=== PATIENT | female | born 1935 | race Two or more races ===

== ENCOUNTER 2016-11-28 14:13 | Emergency (ER) | payer OTHER ==
[2016-11-28 14:22] VITALS: BP 177/61; PULSE 106; TEMP 98.4; BMI 21.2
--- NOTE | 2016-11-28 14:28 | PDOC ---
Rapid Medical Evaluation Chief Complaint: Pain Time Seen by Provider: 11/28/16 14:18 Medical Evaluation: Allergies Allergy/AdvReac Type Severity Reaction Status Date / Time Penicillins Allergy Verified 11/28/16 14:22 Vital Signs Temp Pulse Resp BP Pulse Ox 98.4 F 106 H 18 177/61 100 11/28/16 14:17 11/28/16 14:17 11/28/16 14:17 11/28/16 14:17 11/28/16 14:11/28/16 14:26 I have performed a brief in-person evaluation of this patient. The patient presents with a chief complaint of: nausea, vomiting and diarrhea x 1 month with negative workup at outside hospital several weeks ago. Also c/o chronic vertigo and back pain Pertinent physical exam findings:Tachy to 106 with BP of 177/61 at triage, stable otherwise and well appearing w/ clear chest/lungs and benign abdomen I have ordered the following:chem/lipase/cbc and ua The patient will proceed to the ED for further evaluation.
[2016-11-28] MEDS ORDERED: ONDANSETRON 4 MG TABLET PO ONE (15:35)
[2016-11-28] MEDS ORDERED: SODIUM CHLORIDE 500 ML IV STA (15:35)
[2016-11-28] MEDS ORDERED: FAMOTIDINE 20 MG/50 ML IVPB 50 ML IVPB ONE ×2 (15:35→17:01)
[2016-11-28] MEDS ORDERED: MAG HYDROX/AL HYDROX/SIMETH 30 ML UNIT-DOSE CUP PO ONE (15:35)
--- NOTE | 2016-11-28 16:25 | PDOC ---
History of Present Illness - General Chief Complaint: Pain Stated Complaint: ABD PAIN Time Seen by Provider: 11/28/16 14:18 History Source: Patient, Family - History of Present Illness Initial Comments: 11/28/16 16:17 This is a 81 yo F with PMH of chronic diarrhea, possibly due to Irritable bowel syndrome, IDDM (poorly controlled, Gluc often 500), HTN (poorly controlled), HLD and CKD, who presents due to n/v, diarrhea and po intolerance x 1 mo. She also has epigastric and L sided, crampy abd pain that has been constant x 2 w and getting more severe, as well as abd distention and lightheadedness. She was at [facility] 1 w ago where she spent 2 d in ER and was dcd w/o medication. Per [facility] records. she was admitted for evelio/ckd creat 1.8, had a normal renal US and had symptomatic improvement. She states that since discharge her symptoms worsened. She has nbnb vomiting every time she attempts to eat or drink, as well as dark brown nonbloody diarrhea. She reports occasional subjective fever. Denies h/a, sob, cough, chest pain, sick contacts. Never had colonoscopy. Penicillin allergy PCP Dr Jin. 11/28/16 16:28 11/28/16 16:32 11/28/16 16:32 11/28/16 16:33 11/28/16 16:41 Past History - Past Medical History Allergies/Adverse Reactions: Allergies Allergy/AdvReac Type Severity Reaction Status Date / Time Penicillins Allergy Verified 11/28/16 14:22 Home Medications: Ambulatory Orders NK [No Known Home Medication] 11/28/16 Diabetes: Yes (iddm) HTN: Yes Hypercholesterolemia: Yes - Psycho/Social/Smoking Cessation Hx Anxiety: No Suicidal Ideation: No Smoking History: Never smoked Have you smoked in the past 12 months: No Information on smoking cessation initiated: No Hx Alcohol Use: No Drug/Substance Use Hx: No Substance Use Type: None Review of Systems - Review of Systems Able to Perform ROS?: Yes Is the patient limited Kazakh proficient: Yes Constitutional: Yes: Fever, Weakness. No: Chills HEENTM: No: Nose Congestion, Throat Pain, Difficulty Swallowing Respiratory: No: Cough, Orthopnea, Shortness of Breath, Hemoptysis Cardiac (ROS): Yes: Lightheadedness. No: Chest Pain, Irregular Heart Rate, Palpitations ABD/GI: Yes: Abdominal Distended, Diarrhea, Nausea, Poor Appetite, Poor Fluid Intake, Vomiting, Abdominal cramping. No: Blood Streaked Bowels, Constipated, Difficulty Swallowing, Rectal Bleeding, Tarry Stools : No: Dysuria, Flank Pain, Hematuria Musculoskeletal: Yes: Back Pain. No: Joint Pain, Neck Pain Integumentary: No: Pruritus, Rash, Sweating Neurological: No: Headache, Numbness, Paresthesia Psychiatric: No: Anxiety, Depression Endocrine: No: Change in Weight Hematologic/Lymphatic: No: Anemia, Blood Clots, Easy Bleeding, Easy Bruising All Other Systems: Reviewed and Negative *Physical Exam - Vital Signs Last Vital Signs Temp Pulse Resp BP Pulse Ox 98.4 F 106 H 18 177/61 100 11/28/16 14:17 11/28/16 14:17 11/28/16 14:17 11/28/16 14:17 11/28/16 14:17 - Physical Exam Comments: 11/28/16 16:35 General: aao x3, nad HEENT: perrla eomi, sclera anicteric cv: rrr s1s2, grade 3 systolic ej murmur best heard at l lower sternal border pulm: cta b/l GI: soft, mildly tender LLQ > epigastric, mildly distended, bruit L of umbilicus , no cva tenderness, no mass Extremities: nonedematous ED Treatment Course - LABORATORY CBC & Chemistry Diagram: 11/28/16 16:55 11/28/16 16:55 - RADIOLOGY Radiology Studies Ordered: Category Date Time Status ABDOMEN & PELVIS CT W/O CONTR [CT] Stat CT Scan 11/28/16 15:44 Ordered Medical Decision Making - Medical Decision Making 11/28/16 16:40 Patient presents with abd pain, n/v, diarrhea and L sided abd bruit. also uncontrolled HTN, evelio/ckd and dm US renal artery, vein. CT abd/pelvis with po contrast cbc w diff, cmp, lipase, ekg, UA maalox, zofran, pepcid, NS 500 IV 11/28/16 16:41 bedside US done, normal L kidney, spleen, no blood. 11/28/16 16:43 11/28/16 16:45 11/28/16 18:08 leukocytosis 11.7, creat 11/28/16 18:09 BUN/Creat 24/1.5; Na 135 UA unremarkable 11/28/16 18:16 11/28/16 18:54 furhter labs and imaging p/d *DC/Admit/Observation/Transfer Diagnosis at time of Disposition: Abdominal pain, Nausea and vomiting, Diarrhea
[2016-11-28] MEDS ORDERED: MAG HYDROX/AL HYDROX/SIMETH 30 ML UNIT-DOSE CUP ONE (17:01)
[2016-11-28] MEDS ORDERED: ONDANSETRON *ODT* 4 MG TABLET ONE (17:02)
[2016-11-28 17:08] LABS: BASOPHIL 0.4 % (0-2.0); EOSINOPHIL 0.9 % (0-4.5); MCH 29.9 pg (25.7-33.7); MCHC 32.8 g/dl (32.0-36.0); MEAN CELL VOLUME 91.3 fl (80-96); MEAN PLT VOLUME 9.4 fl (7.5-11.1); NEUTROPHILS 73.7 % (42.8-82.8); PLATELET COUNT 256 K/MM3 (134-434); RDW 13.1 % (11.6-15.6); WHITE BLOOD COUNT 11.7 K/mm3 (4.0-10.0)
[2016-11-28 17:20] LABS: URINE APPEARANCE CLEAR; URINE BILIRUBIN NEGATIVE (NEGATIVE); URINE BLOOD NEGATIVE (NEGATIVE); URINE COLOR YELLOW; URINE GLUCOSE (UA) 1+ (NEGATIVE); URINE KETONE NEGATIVE (NEGATIVE); URINE NITRITE NEGATIVE (NEGATIVE); URINE PROTEIN NEGATIVE (NEGATIVE); URINE UROBILINOGEN NEGATIVE E.U./dl (0.2-1.0)
[2016-11-28 17:41] LABS: ALBUMIN 3.1 g/dl (3.4-5.0); ANION GAP 9 (8-16); CALCIUM 8.9 mg/dL (8.5-10.1); CO2 30 mmol/L (21-32); CREATININE 1.5 mg/dL (0.55-1.02); GLUCOSE,RANDOM 232 mg/dL (74-106); SGOT/AST 31 U/L (15-37)
[2016-11-28 17:46] LABS: ALK PHOS 100 U/L (45-117); BILIRUBIN,TOTAL 0.3 mg/dL (0.2-1.0); SGPT/ALT 32 U/L (12-78); TOT PROT 6.8 g/dl (6.4-8.2)
[2016-11-28 18:04] LABS: URINE LEUK ESTERASE TRACE (NEGATIVE)
[2016-11-28 18:07] LABS: URINE HYALINE CAST 8 /lpf; URINE MUCUS RARE; URINE WBC 1 /hpf (3-5)
--- NOTE | 2016-11-28 22:06 | PDOC ---
Attending Attestation - Resident Resident Name: Earnestine Mccracken - HPI HPI: 11/28/16 22:06 81 yo female w c/o NVD - Physicial Exam PE: 11/28/16 22:07 petite ,alert and ambulatory 81 yo female lungs- cta b/l cvr- [id number] abd -soft,no rebound,no guarding extermities-no deformities skin no abscess,no rash neuro axox3,no gross focal deficits - Medical Decision Making 11/28/16 22:08 pt ate dinner here,no further vomiting -used transistor [id number] to discussed ct scan results showed mild hydronephrosis ,no obstructive uropathy -no UTI -pt has been diabetic for 20 years and glucose 235 and creatinine slightly elevated at 1.5 -pt wants a new PCP and she wqas referred to Dr Santana
--- NOTE | 2016-11-28 22:15 | PDOC ---
*Physical Exam - Vital Signs Last Vital Signs Temp Pulse Resp BP Pulse Ox 98.4 F 106 H 18 177/61 100 11/28/16 14:17 11/28/16 14:17 11/28/16 14:17 11/28/16 14:17 11/28/16 14:17 ED Treatment Course - LABORATORY CBC & Chemistry Diagram: 11/28/16 16:55 11/28/16 16:55 - ADDITIONAL ORDERS Additional order review: Laboratory Results 11/28/16 11/28/16 11/28/16 17:10 16:55 16:55 Sodium 135 L Potassium 4.8 Chloride 96 L Carbon Dioxide 30 Anion Gap 9 BUN 24 H Creatinine 1.5 H Creat Clearance w eGFR 33.50 Random Glucose 232 H Calcium 8.9 Total Bilirubin 0.3 AST 31 ALT 32 Alkaline Phosphatase 100 Total Protein 6.8 Albumin 3.1 L Lipase 146 Urine Color Yellow Urine Appearance Clear Urine pH 6.0 Ur Specific [place] 1.010 Urine Protein Negative Urine Glucose (UA) 1+ H Urine Ketones Negative Urine Blood Negative Urine Nitrite Negative Urine Bilirubin Negative Urine Urobilinogen Negative Ur Leukocyte Esterase Trace H Urine RBC None Urine WBC 1 Ur Epithelial Cells Rare Hyaline Casts 8 Urine Mucus Rare 11/28/16 16:55 RBC 3.42 L MCV 91.3 MCHC 32.8 RDW 13.1 MPV 9.4 Neutrophils % 73.7 Lymphocytes % 18.0 Monocytes % 7.0 Eosinophils % 0.9 Basophils % 0.4 - Medications Given in the ED: ED Medications Discontinued Medications Generic Name Dose Route Start Last Admin Trade Name Freq PRN Reason Stop Dose Admin Al Hydroxide/Mg Hydroxide 30 ml 11/28/16 15:35 11/28/16 17:02 Mylanta Oral Suspension - PO 11/28/16 15:36 30 ml ONCE ONE Administration Famotidine/Sodium Chloride 50 mls @ 100 mls/hr 11/28/16 15:35 11/28/16 17:03 Pepcid 20 Mg Premixed Ivpb - IVPB 11/28/16 16:04 100 mls/hr ONCE ONE Administration Sodium Chloride 500 mls @ 500 mls/hr 11/28/16 15:35 11/28/16 17:03 Normal Saline - IV 11/28/16 16:34 500 mls/hr ASDIR STA Administration Ondansetron HCl 4 mg 11/28/16 15:35 11/28/16 17:03 Zofran - PO 11/28/16 15:36 4 mg ONCE ONE Administration *DC/Admit/Observation/Transfer Diagnosis at time of Disposition: Abdominal pain Qualifiers: Abdominal location: generalized Qualified Code(s): R10.84 - Generalized abdominal pain Nausea & vomiting Qualifiers: Vomiting type: unspecified Vomiting Intractability: non-intractable Qualified Code(s): R11.2 - Nausea with vomiting, unspecified Diarrhea Qualifiers: Diarrhea type: unspecified type Qualified Code(s): R19.7 - Diarrhea, unspecified - Discharge Dispostion Disposition: HOME Condition at time of disposition: Stable - Referrals Referrals: Ruby Harrison MD [Primary Care Provider] - Yesica Santana MD [Staff Physician] - - Patient Instructions Printed Discharge Instructions: DI for Vomiting -- Adult, DI for Diarrhea and Traveler's Diarrhea -- Adult Additional Instructions: please tow picker your medications at [facility] followup with your doctor return for worsening symptoms - Post Discharge Activity
--- NOTE | 2016-11-29 14:40 | EKG ---
Test Reason : Blood Pressure : / mmHG Vent. Rate : 088 BPM Atrial Rate : 088 BPM P-R Int : 138 ms QRS Dur : 086 ms QT Int : 408 ms P-R-T Axes : 058 014 030 degrees QTc Int : 493 ms NORMAL SINUS RHYTHM POSSIBLE LEFT ATRIAL ENLARGEMENT PROLONGED QT ABNORMAL ECG WHEN COMPARED WITH ECG OF 28-JAN-2009 18:48, NO SIGNIFICANT CHANGE WAS FOUND Confirmed by SHANNEN VALERA MD ([id number]) on 11/29/2016 2:40:20 PM Referred By: Confirmed By:SHANNEN VALERA MD
== END 2016-11-28 22:27 | disposition home or self-care (01) ==
LOC: JER 14:13
PROC: 3E033GC Introduction of Other Therapeutic Substance into Peripheral Vein, Percutaneous Approach (ICD-10-PCS; principal; 2016-11-28)
DX: R10.13 Epigastric pain (principal); R11.2 Nausea with vomiting, unspecified; R19.7 Diarrhea, unspecified; E78.00 Pure hypercholesterolemia, unspecified; I12.9 Hypertensive chronic kidney disease with stage 1 through stage 4 chronic kidney disease, or unspecified chronic kidney disease; E11.22 Type 2 diabetes mellitus with diabetic chronic kidney disease; E11.65 Type 2 diabetes mellitus with hyperglycemia; N18.9 Chronic kidney disease, unspecified; Z79.4 Long term (current) use of insulin
CPT/HCPCS: 36415; 74176-TC; 80053; 81003; 81015; 83690; 85025; 93005; 93010; 93976; 96365; 99282-25; Q9967

== ENCOUNTER 2017-03-27 18:28 | Emergency (ER) | payer OTHER ==
[2017-03-27 18:46] VITALS: TEMP 98.1; BMI 23.4
--- NOTE | 2017-03-27 19:34 | PDOC ---
History of Present Illness - General Chief Complaint: Blood Pressure Problem Stated Complaint: BLOOD PRESSURE PROBLEM Time Seen by Provider: 03/27/17 19:31 History Source: Patient, Family Exam Limitations: Language Barrier - History of Present Illness Initial Comments: 03/27/17 20:20 81F with pmh of HTN, DM2, dementia, Pure Hypercholesterolemia and arthritis, presents to the ED after she went for physical therapy today and was found to have a systolic BP of 204 (usually in the 150's). She was recently switched from 10mg lisinopril to Valsartan 160mg but didn't take her dose yesterday cause she couldn't fill her prescription. She denies new onset headache, dizziness, back pain, vision changes, shortness of breath, chest pain. During examination I found her to have a bloop pressure of 228/92 on the Left arm and 220/88 on the Right arm 03/27/17 21:26 Past History - Past Medical History Allergies/Adverse Reactions: Allergies Allergy/AdvReac Type Severity Reaction Status Date / Time Penicillins Allergy Verified 03/27/17 18:35 Home Medications: Ambulatory Orders Valsartan 160 mg PO DAILY 03/27/17 Diabetes: Yes (iddm) HTN: Yes Hypercholesterolemia: Yes - Suicide/Smoking/Psychosocial Hx Smoking History: Never smoked Have you smoked in the past 12 months: No Hx Alcohol Use: No Drug/Substance Use Hx: No Substance Use Type: None Review of Systems - Review of Systems Able to Perform ROS?: Yes Is the patient limited Wolof proficient: Yes Constitutional: No: Symptoms Reported HEENTM: No: Eye Pain, Blurred Vision, Recent change in vision Respiratory: No: Cough, Shortness of Breath, SOB with Exertion Cardiac (ROS): No: Chest Pain, Irregular Heart Rate, Syncope, Chest Tightness ABD/GI: No: Symptoms Reported : No: Symptoms Reported Musculoskeletal: No: Symptoms Reported *Physical Exam - Vital Signs Last Vital Signs Temp Pulse Resp BP Pulse Ox 98.1 F 97 H 18 204/83 100 03/27/17 18:32 03/27/17 18:32 03/27/17 18:32 03/27/17 18:32 03/27/17 18:32 - Physical Exam General Appearance: Yes: Nourished, Appropriately Dressed. No: Apparent Distress HEENT: positive: EOMI, JOSE MANUEL, Normal ENT Inspection Neck: positive: Normal Thyroid. negative: Tender Respiratory/Chest: positive: Lungs Clear, Normal Breath Sounds. negative: Chest Tender, Respiratory Distress Cardiovascular: positive: Regular Rhythm, Regular Rate, S1, S2 Vascular Pulses: Dorsalis-Pedis (R): 3+, Doralis-Pedis (L): 3+ Gastrointestinal/Abdominal: positive: Normal Bowel Sounds, Soft. negative: Tender Musculoskeletal: positive: Normal Inspection Extremity: positive: Normal Capillary Refill Neurologic: positive: Fully Oriented, Motor Strength 5/5. negative: Sensory Deficit, Confused, Disoriented ED Treatment Course - LABORATORY CBC & Chemistry Diagram: 03/27/17 20:46 03/27/17 20:40 Medical Decision Making - Medical Decision Making 03/27/17 21:26 81F with pmh of HTn and DM2 presents to the ED for severe asymptomatic hypertension. Current BP L:228/92 R226/88. 03/27/17 21:36 EKG unchaged from last: Sinus rhythm. Possible left atrial enlargement labs ordered. Labetalol IV and valsartan ordered with goal to bring BP down 10-20% within the first hour.
--- NOTE | 2017-03-27 19:34 | PDOC ---
Attending Attestation - HPI HPI: 03/27/17 20:36 81 yo F from physical therapy rehab here for evaluation of high blood pressure. Pt missed her pills yesterday because her pharmacy was closed. She normally takes Valsartan. She was able to medicinal plant picker her pills today and took her dose. At home she was 180 systolic and at rehab she was 204 systolic. Those numbers made her nervous and rehab recommended she be brought in by ambulance but pt refused to go by ambulance. Pt denies any physical symptoms. - Physicial Exam PE: 03/27/17 20:41 GENERAL: Awake, alert, and fully oriented, in no acute distress HEAD: No signs of trauma EYES: PERRLA, EOMI, sclera anicteric, conjunctiva clear ENT: Auricles normal inspection, hearing grossly normal, nares patent, oropharynx clear without exudates. Moist mucosa NECK: Normal ROM, supple, no lymphadenopathy, JVD, or masses LUNGS: Breath sounds equal, clear to auscultation bilaterally. No wheezes, and no crackles HEART: Regular rate and rhythm, normal S1 and S2, no murmurs, rubs or gallops ABDOMEN: Soft, nontender, normoactive bowel sounds. No guarding, no rebound. No masses EXTREMITIES: Normal range of motion, no edema. No clubbing or cyanosis. No cords, erythema, or tenderness NEUROLOGICAL: Cranial nerves II through XII grossly intact. Normal speech SKIN: Warm, Dry, normal turgor, no rashes or lesions noted. <JeanmarieTracey - Last Filed: 03/27/17 20:34> - Resident Resident Name: Julian Mcnair - ED Attending Attestation I have performed the following: I have examined & evaluated the patient, The case was reviewed & discussed with the resident, I agree w/resident's findings & plan, Exceptions are as noted - Medical Decision Making 03/27/17 20:41 I, Dr. Dory Trivedi, DO, attest that this document has been prepared under my direction and personally reviewed by me in its entirety. I further attest, that it accurately reflects all work, treatment, procedures and medical decision -making performed by me. 03/27/17 21:14 a/p: 81yo female with uncontrolled HTN -labs -ekg -labetalol and redose losartan. most likely from missing bp meds most likely d/c to home asymptomatic 03/27/17 23:18 re-eval : bp 165/72 feeling much better. tolerated po. Follows with Dr. Meade. Pt states she wants to go home. Lab work discussed. Pt states she will call dr. meade for follow up on her BP. pt stable for d/c to home. all questions answered. <Dory Trivedi - Last Filed: 03/27/17 23:21> Discharge Disposition - Discharge Dispostion Last Admission D/C Date: 01/30/09 Admit: No <Dory Trivedi - Last Filed: 03/27/17 23:21> - Diagnosis Hypertension - Discharge Dispostion Disposition: HOME Condition at time of disposition: Stable - Referrals Referrals: Jovanna Meade MD [Primary Care Provider] - - Patient Instructions Printed Discharge Instructions: DI for High Blood Pressure, How to Monitor Your Blood Pressure at Home Additional Instructions: Please take all meds as prescribed. Please keep a record of your blood pressures at home. Please return to the ED with any further concerns. Please follow up with your PMD. Print Language: GHANAIAN Heart Score/ECG Review - ECG Intrepretation Comment:: 03/27/17 21:13 sinus at 85, nl axis, nl interval, no acute st/t wave findings <Dory Trivedi - Last Filed: 03/27/17 23:21>
[2017-03-27] MEDS ORDERED: LABETALOL HCL 5 MG/1 ML (100MG/20 ML VIAL) IVPUSH ONE (20:11)
[2017-03-27] MEDS ORDERED: VALSARTAN 160 MG TABLET (UD) PO ONE (20:27)
[2017-03-27 20:51] LABS: BASOPHIL 0.8 % (0-2.0); MCH 30.3 pg (25.7-33.7); MCHC 33.6 g/dl (32.0-36.0); MEAN CELL VOLUME 90.2 fl (80-96); MEAN PLT VOLUME 9.7 fl (7.5-11.1); NEUTROPHILS 62.1 % (42.8-82.8); PLATELET COUNT 306 K/MM3 (134-434); RDW 13.3 % (11.6-15.6); WHITE BLOOD COUNT 10.9 K/mm3 (4.0-10.0)
[2017-03-27 21:12] LABS: URINE APPEARANCE CLEAR; URINE BILIRUBIN NEGATIVE (NEGATIVE); URINE BLOOD NEGATIVE (NEGATIVE); URINE COLOR STRAW; URINE GLUCOSE (UA) 1+ (NEGATIVE); URINE KETONE NEGATIVE (NEGATIVE); URINE NITRITE NEGATIVE (NEGATIVE); URINE PROTEIN NEGATIVE (NEGATIVE); URINE UROBILINOGEN NEGATIVE mg/dL (0.2-1.0)
[2017-03-27] MEDS ORDERED: VALSARTAN 80 MG TABLET (UD) ONE (22:22)
[2017-03-27 22:56] VITALS: BP 165/70; PULSE 81
[2017-03-27 23:10] LABS: ALBUMIN 3.2 g/dl (3.4-5.0); ALK PHOS 113 U/L (45-117); ANION GAP 9 (8-16); BILIRUBIN,TOTAL 0.2 mg/dL (0.2-1.0); CALCIUM 8.6 mg/dL (8.5-10.1); CO2 27 mmol/L (21-32); CREATININE 1.1 mg/dL (0.55-1.02); GLUCOSE,RANDOM 169 mg/dL (74-106); SGOT/AST 17 U/L (15-37); SGPT/ALT 23 U/L (12-78); TOT PROT 7.2 g/dl (6.4-8.2)
[2017-03-27 23:43] LABS: URINE LEUK ESTERASE 1+ (NEGATIVE)
[2017-03-27 23:52] LABS: URINE BACTERIA FEW /hpf (NEGATIVE)
--- NOTE | 2017-03-28 22:21 | EKG ---
Test Reason : Blood Pressure : / mmHG Vent. Rate : 085 BPM Atrial Rate : 085 BPM P-R Int : 144 ms QRS Dur : 084 ms QT Int : 406 ms P-R-T Axes : 062 016 054 degrees QTc Int : 483 ms NORMAL SINUS RHYTHM POSSIBLE LEFT ATRIAL ENLARGEMENT INCOMPLETE RBBB BORDERLINE ECG WHEN COMPARED WITH ECG OF 28-NOV-2016 18:16, NO SIGNIFICANT CHANGE WAS FOUND CLINICAL CORRELATION IS RECOMMENDED Confirmed by GARTH FRIAS MD ([id number]) on 03/28/2017 10:21:45 PM Referred By: Confirmed By:GARTH FRIAS MD
== END 2017-03-27 23:56 | disposition home or self-care (01) ==
LOC: JER 18:28
PROC: 3E033GC Introduction of Other Therapeutic Substance into Peripheral Vein, Percutaneous Approach (ICD-10-PCS; principal; 2017-03-27)
DX: I10 Essential (primary) hypertension (principal); E11.9 Type 2 diabetes mellitus without complications; Z79.4 Long term (current) use of insulin; E78.00 Pure hypercholesterolemia, unspecified; F03.90 Unspecified dementia, unspecified severity, without behavioral disturbance, psychotic disturbance, mood disturbance, and anxiety; M12.9 Arthropathy, unspecified
CPT/HCPCS: 36415; 80053; 81003; 81015; 85025; 93005; 93010; 96374; 99284-25

== ENCOUNTER 2018-09-27 20:43 | Inpatient (IN) | payer OTHER ==
--- NOTE | 2018-09-27 21:15 | PDOC ---
History of Present Illness - General Chief Complaint: Blood Pressure Problem Stated Complaint: HIGH DIABETES/HIGH B/P Time Seen by Provider: 09/27/18 21:15 - History of Present Illness Initial Comments: 83 F with PMH of HTN, DM2, dementia, hypercholesterolemia and arthritis presenting with constipation x 1 week and inability to take in a deep breath. Stats that she was in the hospital until 4 days ago for a pneumonia and a UTI and has completed her abx course. Her pulmonary symptoms and urinary symptoms have improved but she has not had a bowel movement for the past week and notes abdominal distension and decreased ability to deeply inhale. Denies fevers, chills, nausea, vomiting, chest pain, cough, or other symptoms. 09/27/18 21:17 Past History - Past Medical History Allergies/Adverse Reactions: Allergies Allergy/AdvReac Type Severity Reaction Status Date / Time Penicillins Allergy Verified 09/27/18 20:53 Home Medications: Ambulatory Orders Amlodipine Besylate 1 tab PO DAILY 09/28/18 Aspirin 1 tab PO DAILY 09/28/18 Atorvastatin Ca [Lipitor] 1 tab PO HS 09/28/18 Calcium Carbonate/Vitamin D3 [Calcium 600 + Vit D Tablet] 1 tab PO BID 09/28/18 Carvedilol 1 tab PO BID 09/28/18 Gabapentin 1 tab PO DAILY 09/28/18 Insulin Glargine,Hum.rec.anlog [Basaglar Kwikpen U-100] 10 units IM HS 09/28/18 COPD: No Diabetes: Yes (iddm) HTN: Yes Hypercholesterolemia: Yes - Suicide/Smoking/Psychosocial Hx Smoking History: Never smoked Have you smoked in the past 12 months: No Hx Alcohol Use: No Drug/Substance Use Hx: No Substance Use Type: None Review of Systems - Review of Systems Constitutional: No: Chills, Diaphoresis, Fever HEENTM: No: Blurred Vision, Tearing Respiratory: No: Cough, Orthopnea, Shortness of Breath Cardiac (ROS): No: Chest Pain, Edema, Irregular Heart Rate ABD/GI: No: Constipated, Diarrhea, Nausea, Vomiting : No: Dysuria, Discharge Musculoskeletal: No: Back Pain, Joint Pain Integumentary: No: Bruising, Erythema Neurological: No: Numbness, Paresthesia *Physical Exam - Vital Signs Last Vital Signs Temp Pulse Resp BP Pulse Ox 97.8 F 68 18 120/24 L 97 09/27/18 20:48 09/27/18 20:48 09/27/18 20:48 09/27/18 20:48 09/27/18 20:48 ED Treatment Course - LABORATORY CBC & Chemistry Diagram: 10/02/18 05:46 10/02/18 05:46 Medical Decision Making - Medical Decision Making 83 year old female presenting with constipation x 4 days. Abdomen distended and overall clinical picture concerning for SBO vs. Ileus. CT scan ordered and signed out to oncoming team to follow up results an repeat PE. Labs WNL on sign out. *DC/Admit/Observation/Transfer Diagnosis at time of Disposition: Abdominal pain, Constipation, MERYL (acute kidney injury), Transaminitis, Hyponatremia, Pleural effusion, Pericardial effusion - Discharge Dispostion Condition at time of disposition: Improved - Referrals - Patient Instructions - Post Discharge Activity
[2018-09-27] MEDS ORDERED: SODIUM CHLORIDE 0.9% 500 ML INFUS.BAG IV ONE ×2 (21:35→23:35)
[2018-09-27 23:15] LABS: BASO % 0.4 % (0-2.0); EOS % 0.7 % (0-4.5); HEMATOCRIT 25.3 % (32.4-45.2); HEMOGLOBIN 8.4 GM/dL (10.7-15.3); MCH 31.4 pg (25.7-33.7); MCHC 33.3 g/dl (32.0-36.0); MEAN CELL VOLUME 94.3 fl (80-96); MEAN PLT VOLUME 10.8 fl (7.5-11.1); MONO % 11.3 % (3.8-10.2); NEUT % 72.6 % (42.8-82.8); PLATELET COUNT 224 K/MM3 (134-434); RBC 2.69 M/mm3 (3.60-5.2); RDW 13.8 % (11.6-15.6); WHITE BLOOD COUNT 8.9 K/mm3 (4.0-10.0)
[2018-09-27 23:17] LABS: INR 1.19 (0.83-1.09); PROTHROMBIN TIME (PATIENT) 14.1 SEC (9.7-13.0)
[2018-09-27 23:31] LABS: ALBUMIN 2.6 g/dl (3.4-5.0); ALK PHOS 490 U/L (45-117); ANION GAP 9 MMOL/L (8-16); BILIRUBIN,TOTAL 0.3 mg/dL (0.2-1); BLOOD UREA NITROGEN 52 mg/dL (7-18); CALCIUM 7.8 mg/dL (8.5-10.1); CHLORIDE 95 mmol/L (98-107); CO2 24 mmol/L (21-32); LIPASE 92 U/L (73-393); MAGNESIUM 2.7 mg/dL (1.8-2.4); POTASSIUM 5.6 mmol/L (3.5-5.1); SGOT/AST 140 U/L (15-37); SGPT/ALT 235 U/L (13-61); SODIUM 127 mmol/L (136-145); TOT PROT 6.5 g/dl (6.4-8.2)
[2018-09-27 23:33] LABS: GLUCOSE,RANDOM 379 mg/dL (74-106)
--- NOTE | 2018-09-28 00:06 | PDOC ---
*Physical Exam - Vital Signs Last Vital Signs Temp Pulse Resp BP Pulse Ox 97.8 F 66 18 150/73 95 09/27/18 20:48 09/27/18 22:39 09/27/18 22:39 09/27/18 22:39 09/27/18 22:39 - Physical Exam Comments: 09/28/18 00:22 GENERAL: Awake, alert, and fully oriented, in no acute distress HEAD: No signs of trauma, normocephalic, atraumatic EYES: PERRLA, EOMI, sclera anicteric, conjunctiva clear ENT: Hearing grossly normal, nares patent, oropharynx clear without exudates. Moist mucosa NECK: Normal ROM, supple, no lymphadenopathy, JVD, or masses LUNGS: No distress, speaks full sentences, clear to auscultation bilaterally HEART: Regular rate and rhythm, normal S1 and S2, no murmurs, rubs or gallops, peripheral pulses normal and equal bilaterally. ABDOMEN: Soft, distended, hypoactive BS. nontender. No guarding, no rebound. No masses EXTREMITIES : Normal inspection, Normal range of motion, no edema. No clubbing or cyanosis. NEUROLOGICAL: Cranial nerves II through XII grossly intact. Normal speech, normal gait, no focal sensorimotor deficits SKIN: Warm, Dry, normal turgor, no rashes or lesions noted ED Treatment Course - LABORATORY CBC & Chemistry Diagram: 09/27/18 22:21 09/27/18 22:21 - ADDITIONAL ORDERS Additional order review: Laboratory Results 09/27/18 09/27/18 09/27/18 22:21 22:21 22:21 PT with INR 14.10 H INR 1.19 H Sodium 127 L Potassium 5.6 H Chloride 95 L Carbon Dioxide 24 Anion Gap 9 BUN 52 H Creatinine 2.0 H Creat Clearance w eGFR 23.91 POC Glucometer Random Glucose 379 H* Calcium 7.8 L Magnesium 2.7 H Total Bilirubin 0.3 AST 140 H ALT 235 H Alkaline Phosphatase 490 H Total Protein 6.5 Albumin 2.6 L Lipase Cancelled 92 09/27/18 22:08 PT with INR INR Sodium Potassium Chloride Carbon Dioxide Anion Gap BUN Creatinine Creat Clearance w eGFR POC Glucometer 362 Random Glucose Calcium Magnesium Total Bilirubin AST ALT Alkaline Phosphatase Total Protein Albumin Lipase 09/27/18 09/27/18 22:21 22:08 RBC 2.69 L MCV 94.3 MCHC 33.3 RDW 13.8 MPV 10.8 D Neutrophils % 72.6 Lymphocytes % 15.0 D Monocytes % 11.3 H Eosinophils % 0.7 Basophils % 0.4 POC Glucometer 362 - RADIOLOGY Radiology Studies Ordered: 09/28/18 02:24 Patient Information: : 1935 Order Type: Preliminary Name: ISIDRO CHARLTON Sex: F Study Description: CT ABDOMEN AND PELVIS Modality: CT Location: [facility] Referring Physician: GINI EDWARD Comments: Aida Guillaume MD wrote on Sep 28, 2018 at 01:58 AM: Referring Physician: GINI EDWARD Patient Name: LATESHA FELIX THIS IS A PRELIMINARY REPORT FROM [facility] DATE OF SERVICE: 2018-09-28 01:11:41 IMAGES: [id number] EXAM: CT ABDOMEN AND PELVIS WITHOUT CONTRAST Asymmetrically prominent soft tissue density in right breast, incompletely seen , with periareolar skin thickening. Advise mammographic correlation. Moderate right and small left pleural effusions. Partial atelectasis lung bases. Moderate pericardial effusion, maximum thickness 2.1 cm. Minimal coronary artery calcification. Moderate feces colon. No ileus, bowel obstruction, colitis, free fluid or free air. Appendix not seen with certainty. No nephrolithiasis, ureterolithiasis or obstructive uropathy. No bladder calculi. CONFIDENTIALITY NOTICE: This information is intended only for the use of the recipient(s) named above. If you are not the intended recipient, or a person responsible for delivering it to the intended recipient, you are hereby notified that any disclosure, copying, distribution or use of any of the information contained in or attached to this transmission is STRICTLY PROHIBITED. If you have received this transmission in error, please immediately notify Imaging Tower Switch Operator and destroy the original transmission and its attachments without saving them in any manner [address] [place] [address] Phone: [phone] Fax: Email: [email or web address] Patient Information: : 1935 Order Type: Preliminary Name: ISIDRO CHARLTON Sex: F Study Description: CT ABDOMEN AND PELVIS Modality: CT Location: [facility] Referring Physician: GINI EDWARD Unremarkable pancreas and gallbladder. Hepatomegaly. Small left inguinal region hernia containing fat. Subcutaneous edema abdominal wall. Periumbilical subcutaneous fat stranding, possibly cellulitis or scarring. Note is made that 346 thin axial images were received, to level of mid/lower liver. A full set of 3 mm axial images was received. One or more of the following dose reduction techniques were used: automated exposure control, adjustment of the mA and/or kV according to patient size, use of iterative reconstructive technique. THIS DOCUMENT HAS BEEN ELECTRONICALLY SIGNED Aida Guillaume M.D. 09/28/2018 01:56 [place] Please call Imaging Tower Switch Operator [phone]) with questions. CONFIDENTIALITY NOTICE: This information is intended only for the use of the recipient(s) named above. If you are not the intended recipient, or a person responsible for delivering it to the intended recipient, you are hereby notified that any disclosure, copying, distribution or use of any of the information contained in or attached to this transmission is STRICTLY PROHIBITED. If you have received this transmission in error, please immediately notify Imaging Tower Switch Operator and destroy the original transmission and its attachments without saving them in any manner [address] [place] [address] Phone: [phone] Fax: Email: [email or web address] Patient Information: : 1935 Order Type: Preliminary Name: ISIDRO CHARLTON Sex: F Study Description: CT ABDOMEN AND PELVIS Modality: CT Location: [facility] Referring Physician: GINI Guillaume MD Clinicians - Please contact Imaging Tower Switch Operator with further questions at [phone]) Patients - Please contact your Ordering Provider with questions. - Medications Given in the ED: ED Medications Discontinued Medications Generic Name Dose Route Start Last Admin Trade Name Freq PRN Reason Stop Dose Admin Sodium Chloride 1,000 ml 09/27/18 21:35 09/27/18 22:24 Normal Saline - IV 09/27/18 21:36 1,000 ml ONCE ONE Administration Sodium Chloride 1,000 ml 09/27/18 23:35 09/27/18 23:52 Normal Saline - IV 09/27/18 23:36 1,000 ml ONCE ONE Administration Medical Decision Making - Medical Decision Making 09/28/18 00:03 83 yo F with h/o HTN, HLD, DM, Dementia who p/w abdominal distension and constipation, SOB x 1 week. Recieved signout from Dr. Osorio. Patient complaining that SOB 2/2 abdominal distension. Abdomen non tender. Room saturation 96% RA. Recent [facility] admission PNA and UTI, with cough now improved. Physical exam with non tender abdomen, grossly distended, hypoactive BS. ED course notable for multiple electrolyte abnml, elevated LFT's. Pending CT. R/o SBO. Will assess for other intrabdominal pathology. Received 1 L NS and manual dis- impaction in ED. 09/28/18 00:21 ED Course: Laboratory Tests 09/27/18 22:21 Sodium 127 L Potassium 5.6 H BUN 52 H Creatinine 2.0 H Random Glucose 379 H* Calcium 7.8 L Magnesium 2.7 H Total Bilirubin 0.3 AST 140 H ALT 235 H Alkaline Phosphatase 490 H Lipase 92 09/28/18 00:34 NS 1 L 09/28/18 01:44 RUQ U/S: ascites, Gb sludge, Rt pleural effusion 09/28/18 02:24 CT AP: Asymmetrically prominent soft tissue density in right breast, incompletely seen , with periareolar skin thickening. Advise mammographic correlation. Moderate right and small left pleural effusions. Partial atelectasis lung bases. Moderate pericardial effusion, maximum thickness 2.1 cm. Minimal coronary artery calcification. Moderate feces colon. No ileus, bowel obstruction, colitis, free fluid or free air. Appendix not seen with certainty. No nephrolithiasis, ureterolithiasis or obstructive uropathy. No bladder calculi. Hepatomegaly. Small left inguinal region hernia containing fat. Subcutaneous edema abdominal wall. Periumbilical subcutaneous fat stranding, possibly cellulitis or scarring. Patient endorsed to medicine by Dr. Trivedi. Admitted to med/surg. *DC/Admit/Observation/Transfer Diagnosis at time of Disposition: Abdominal pain, Constipation, MERYL (acute kidney injury), Transaminitis, Hyponatremia, Pleural effusion, Pericardial effusion - Discharge Dispostion Condition at time of disposition: Guarded Decision to Admit order: Yes - Referrals - Patient Instructions - Post Discharge Activity
--- NOTE | 2018-09-28 01:34 | PDOC ---
Documentation entered by Jannette Velarde SCRIBE, acting as scribe for Dory Trivedi DO. Dory Trivedi DO: This documentation has been prepared by the Prachi holden Daisy, SCRIBE, under my direction and personally reviewed by me in its entirety. I confirm that the documentation accurately reflects all work, treatment, procedures, and medical decision making performed by me. Attending Attestation - Resident Resident Name: Mehran Osorio - ED Attending Attestation I have performed the following: I have examined & evaluated the patient, The case was reviewed & discussed with the resident, I agree w/resident's findings & plan - HPI HPI: 09/27/18 21:52 The patient is a 83 YOF with a PMH of HTN, HLD, DM, dementia, and arthritis who presents with abdominal distension and constipation for the past week with associated shortness of breath. She is complaining that she cannot breath out completely secondary to the abdominal distension and constipation. Patient is satting at 95-97% in room air. Patient was recently admitted at [facility] for PNA and UTI for which she received antibiotics. She notes the cough has improved since her discharge this past Monday, 09/24. - Physicial Exam PE: 09/27/18 21:59 ADULT PHYSICAL EXAM Constitutional: Awake, alert, oriented. No acute distress. Cardiovascular: Regular rate. Regular rhythm. S1, S2 regular. Distal pulses are 2+ and symmetric. Pulmonary/Chest: No evidence of respiratory distress. Clear to auscultation bilaterally No wheezing, rales or rhonchi. Abdominal: (+) Soft and distended. There is no tenderness. No rebound, guarding or rigidity. No organomegaly. No palpable masses. Good bowel sounds. Musculoskeletal: No edema. No cyanosis. No clubbing. Full range of motion in all extremities. No calf tenderness. Radial/pedal pulses are intact and 2+ bilaterally Rectal: (+) Hard stool in the vault. (+) External hemorrhoid. Skin: Skin is warm and dry. Neurological: Alert and oriented to person, place, and time. Cranial nerves II -XII are grossly intact. Psychiatric: Good eye contact. Normal interaction, affect and behavior. - Medical Decision Making 09/27/18 22:02 a/p: 83yo female without a bm x 1 week, distended abd -small amount of stool removed on rectal exam, passing gas, but still distended -abd is soft, no peritoneal signs -recently hospitalized at [facility] for pna, discharged on Monday -no cough, no fevers, no cp -will send labs, ct abd/pelvis -will monitor and reassess -suspect constipation vs obstruction -no prior abd surgery -no n/v -has not been eating because of distended abd, but still using insulin, so has had low bg over the last week 09/27/18 23:34 pt with elevated lft, evelio, dehydration, hyponatremia, hyperkalemia, hypermag electrolye abnl will need hospitalization 09/28/18 01:33 ultrasound: nodular density contour ? cirrhosis, ascites, R hydro, gallbladder sludge, cbd 4mm 09/28/18 01:34 microblog sent to [facility] for admission 09/28/18 02:01 ct shows prominence to R breast-needs mammo, mod R and small L pleural effusion , atelectasis Lung base, mod pericardial effusion, moderate feces in the colon, no ileus/obstruction/colitis, no obstructive urolpathy 09/28/18 02:03 pt with anemia 09/28/18 02:[address] Gray who accepts pt to service *DC/Admit/Observation/Transfer Diagnosis at time of Disposition: Abdominal pain, Constipation, EVELIO (acute kidney injury), Transaminitis, Hyponatremia, Pleural effusion, Pericardial effusion - Discharge Dispostion Condition at time of disposition: Guarded Decision to Admit order: Yes - Referrals - Patient Instructions - Post Discharge Activity
[2018-09-28] MEDS ORDERED: morphine CARPU-JECT 2 MG/1 ML DISP.SYRIN IVPUSH ONE (01:46)
[2018-09-28] MEDS ORDERED: MORPHINE SULFATE 2 MG/ML VIAL ONE (01:57)
[2018-09-28] MEDS ORDERED: MINERAL OIL ENEMA 133 ML ENEMA PR ONE (02:02)
[2018-09-28 02:49] LABS: EPI CELLS 2.8 /HPF (0-5/HPF); URINE APPEARANCE CLEAR; URINE BACTERIA 2.7 /hpf (NEGATIVE); URINE BILIRUBIN NEGATIVE (NEGATIVE); URINE CASTS 9 /lpf (0-8); URINE COLOR DK YELLOW; URINE GLUCOSE (UA) TRACE (NEGATIVE); URINE KETONE NEGATIVE (NEGATIVE); URINE LEUK ESTERASE NEGATIVE (NEGATIVE); URINE NITRITE NEGATIVE (NEGATIVE); URINE PROTEIN 1+ (NEGATIVE); URINE RBC 1 /hpf (0-4); URINE UROBILINOGEN 0.2 mg/dL (0.2-1.0); URINE WBC 4 /hpf (0-5)
[2018-09-28] MEDS ORDERED: INSULIN REGULAR HUMAN 100 UNITS/ML *VIAL IVPUSH ONE (02:58)
[2018-09-28] MEDS ORDERED: ALBUTEROL SO4 0.083% IH SOL 2.5 MG/3 ML VIAL.NEB. NEB ONE (02:59)
[2018-09-28] MEDS ORDERED: CALCIUM GLUCONATE 10% - 1,000 MG/10 ML VIAL IVPUSH ONE (02:59)
--- NOTE | 2018-09-28 03:00 | PN ---
Teaching Attending Note Name of Resident: Shun Guadalupe ATTENDING PHYSICIAN STATEMENT I saw and evaluated the patient. I reviewed the resident's note and discussed the case with the resident. I agree with the resident's findings and plan as documented. SUBJECTIVE: Seen and examined; please refer to resaident note for further historical details. Briefly, this is a 83 y/o female presenting to the ER with a CC of abdominal distention worsening for the past week and associated SOB. She is afebrile and hemodynamically stable. Sx worse with activity which has been greatly diminished. She was recently admitted 2x at [facility] for UTI and PNA; she was told at that time that she had fluid on her lungs but specifics regarding diagnostics and tx are unknown at this juncture and we are working to obtain old records. She also complains of some constipation worsening over the past few days. She is found to have a r-breast mass with pleural, pericardial effusions as well as transaminitis with cirrhosis with ascites and MERYL with minimal R-hydronephrosis. 10 sys ROS done and negative aside from HPI PMH, PSH, FH, Social hx reviewed Home Medications Medication Instructions Recorded NK [No Known Home Medication] 09/28/18 Need to call pharmacy to verify home meds; also will check DC paperwork from [facility]. OBJECTIVE: VS, labs, imaging reviewed Appears slightly uncomortable, keenly responsive, resting in bed. Distended abdomen with +fluid wave RRR s1/2 no mgr; hackett's triad not present Lungs with diminished sounds near bases R>L Breast exam to be completed with female transmission operator; pending CN2-12 wnl, no fnd Prelim US abd shows R-sided minimal hydronpehrosis with ?cirrhosis. GB sludge with normal CBD. Prelim CT shows R-breast asym soft tissue mass with periareolar changes. B/l pleural effusions noted with moderate pericardial effusion. ASSESSMENT AND PLAN: Patient presents with abdominal distention; found to have R-breast mass with pericardial and pleural effusions, transaminitis with likely cirrhosis and MERYL. She will be monitored on the floor on the medicine service. 1) Abdominal Distention 2/2 ascites -Likely 2/2 underlying hepatic process (hepatomegaly with ?cirrhosis seen on imaging). This likely is contributing to her SOB as well. -Workup underlying cause of ascites (discussed #6); consult IR for paracentesis -PRN analgesia 2) Shortness of Breath -Likely 2/2 pleural effusions as well as compression from the largely distended abdomen. -Incentive spirometry ordered; consider therapeutic thoracentesis. Likely not CHF-related but as already ordering echo for #4 will followup LVEF 3) R-breast mass -Concerning for malignancy given the global picture. Would consult oncology and defer further diagnostics to them. Noted on CT. 4) Pericardial Effusion -Monitoring on telemetry, checking echo. No s/s tamponade. Consider CV consultation in the AM. 5) B/L Pleural effusions (R>L) -As mentioned above. Ddx broad. 6) Transaminitis with likely cirrhosis w/ ascites -Trend CMP, consult GI. Given abdominal discomfort with elevated alk phos will check MRCP. Ideally would like contrasted study but limited due to the MERYL. -Checking GGT, lipase 7) MERYL on CKD -Calculate FeNa; given minimal R-hydronephrosis would check KELLY 8) Hyponatremia -Osms and urine Na pending; she is hypervolemic now which could be the inciting cause -Holding off on fluids/diuresis for now 9) Hyperkalemia, hypermagnesemia -Monitor 10) Anemia -Workup pending 11) Uncontrolled DM with hyperglycemia -SSI while inpatient 12) Constipation -PRN miralax 13) HTN -Monitor 14) HLD -Verify and continue home medications; can FU OP 15) Hx Dementia -Family meeting to ascertain baseline/competency given the medical issues at hand 16) Minimal R-hydronephrosis -Would check renal US
--- NOTE | 2018-09-28 03:17 | HP ---
<Shun Guadalupe - Last Filed: 09/28/18 03:52> CHIEF COMPLAINT: constipation, abd distention, difficulty breathing PCP: Dr. Jin HISTORY OF PRESENT ILLNESS: Patient is an 83 y/o F w/ PMHx dementia, DM, HTN, HLD, [facility] s/p completion of ABx, p/w constipation x 1 week, worsening abdominal distention and pain, and difficulty with inspiration. Patient is in acute distress and unable to provide history, baseline mentation is unclear at time of encounter. History above provided by daughter at bedside. On presentation, afebrile with stable HR and BP, tachypneic to 22. H/H is 8.4/25.3 baseline unknown. Na 127 correcting to 131 given glucose 379, K 5.6, BUN/Cr is 52/2 representing interval development of MERYL since last known prior. LFTs deranged: AST 140, ALT 235, alk phos 490; last prior in 2017 was wnl. RUQ US showed ascites, GB sludge, R pleural effusion. CXR showed b/l pleural effusions and pericardial effusion. CT a/p showed soft tissue density in R breast w/ periareolar skin thickening suspicious for tumor, b/l pleural effusions, pericardial effusion, no ileus, no colitis, no obstruction, +subcutaneous edema of abdominal wall w/ periumbilical fat stranding. In ED Pt underwent manual disimpaction, received NS fluid bolus, morphine, and mineral oil enema. Recent Travel: PAST MEDICAL HISTORY: As per HPI PAST SURGICAL HISTORY: Remote ophthalmologic intervention Social History: Smoking: no Alcohol: no Drugs: no Family History: Allergies Penicillins Allergy (Verified 09/27/18 20:53) HOME MEDICATIONS: Home Medications Medication Instructions Recorded NK [No Known Home Medication] 09/28/18 REVIEW OF SYSTEMS As per HPI PHYSICAL EXAMINATION Vital Signs - 24 hr 09/27/18 09/27/18 09/28/18 20:48 22:39 01:40 Temperature 97.8 F 97.1 F L Pulse Rate 68 Pulse Rate [ 66 64 Right] Respiratory 18 18 22 H Rate Blood Pressure 120/24 L Blood Pressure 150/73 155/66 [Right Arm] O2 Sat by Pulse 97 95 96 Oximetry (%) 09/28/18 01:41 Temperature Pulse Rate 64 Pulse Rate [ Right] Respiratory Rate Blood Pressure Blood Pressure [Right Arm] O2 Sat by Pulse Oximetry (%) GENERAL: Alert and in acute distress HEENT: NC/AT, PERRLA, MMM, anicteric LUNGS: limited exam, no adventitious sounds appreciated but Pt compliance is poor HEART: RRR no m/r/g ABDOMEN: irregular firmness, +fluid wave, massively distended, mild diffuse tenderness UPPER EXTREMITIES: 2+ pulses, warm, well-perfused. No cyanosis. No clubbing. No peripheral edema. LOWER EXTREMITIES: 2+ pulses, warm, well-perfused. No calf tenderness. No peripheral edema. NEUROLOGICAL: moving four extremities spontaneously PSYCHIATRIC: unable to assess SKIN: Warm, dry, normal turgor, no jaundice appreciated Laboratory Results - last 24 hr 09/27/18 09/27/18 09/27/18 01:50 22:08 22:21 WBC 8.9 RBC 2.69 L Hgb 8.4 L Hct 25.3 L D MCV 94.3 MCH 31.4 MCHC 33.3 RDW 13.8 Plt Count 224 D MPV 10.8 D Absolute Neuts (auto) 6.4 Neutrophils % 72.6 Lymphocytes % 15.0 D Monocytes % 11.3 H Eosinophils % 0.7 Basophils % 0.4 Nucleated RBC % 0 PT with INR INR Sodium Potassium Chloride Carbon Dioxide Anion Gap BUN Creatinine Creat Clearance w eGFR POC Glucometer 362 Random Glucose Calcium Magnesium Total Bilirubin AST ALT Alkaline Phosphatase Total Protein Albumin Lipase Urine Color Dk yellow Urine Appearance Clear Urine pH 5.0 Ur Specific [place] 1.018 Urine Protein 1+ H Urine Glucose (UA) Trace Urine Ketones Negative Urine Blood Negative Urine Nitrite Negative Urine Bilirubin Negative Urine Urobilinogen 0.2 Ur Leukocyte Esterase Negative Urine WBC (Auto) 4 Urine RBC (Auto) 1 Urine Casts (Auto) 9 U Epithel Cells (Auto) 2.8 Urine Bacteria (Auto) 2.7 09/27/18 09/27/18 09/27/18 22:21 22:21 22:21 WBC RBC Hgb Hct MCV MCH MCHC RDW Plt Count MPV Absolute Neuts (auto) Neutrophils % Lymphocytes % Monocytes % Eosinophils % Basophils % Nucleated RBC % PT with INR 14.10 H INR 1.19 H Sodium 127 L Potassium 5.6 H Chloride 95 L Carbon Dioxide 24 Anion Gap 9 BUN 52 H Creatinine 2.0 H Creat Clearance w eGFR 23.91 POC Glucometer Random Glucose 379 H* Calcium 7.8 L Magnesium 2.7 H Total Bilirubin 0.3 AST 140 H ALT 235 H Alkaline Phosphatase 490 H Total Protein 6.5 Albumin 2.6 L Lipase 92 Cancelled Urine Color Urine Appearance Urine pH Ur Specific [place] Urine Protein Urine Glucose (UA) Urine Ketones Urine Blood Urine Nitrite Urine Bilirubin Urine Urobilinogen Ur Leukocyte Esterase Urine WBC (Auto) Urine RBC (Auto) Urine Casts (Auto) U Epithel Cells (Auto) Urine Bacteria (Auto) ASSESSMENT/PLAN: 83 y/o F w/ PMHx dementia, DM, HTN, HLD, [facility] s/p completion of ABx, p/w constipation x 1 week, worsening abdominal distention and pain, and difficulty with inspiration #A -PE, lab, and imaging findings highly concerning for metastatic disease likely from primary breast cancer -MERYL -pleural effusions b/l -pericardial effusion -ascites -LFT derangement -hyponatremia -hyperkalemia -hyperglycemia -anemia -DM -HTN -HLD #P -will obtain records from [facility]izations -GI consulted -Onc consulted -Nephro consulted -MRCP w/o contrast (given MERYL) -paracentesis -iron studies and reticulocytes -ESR/CRP -GGT -hepatitis panel -prealbumin -breast US -serum and urine osm, urine lytes -echocardiogram -SSI, BGM ACHS -hyperkalemia treated w/ insulin, Ca gluconate, albuterol (no D50 given gross hyperglycemia) -restarted home carvedilol, Lipitor, gabapentin, ASA, Norvasc -no IVF -monitor BMP, Mg, Phos -monitor CBC, normal transfusion thresholds -diabetic diet -heparin subq for DVT PPx -full code -admit to med/surg Visit type - Emergency Visit Emergency Visit: Yes ED Registration Date: 09/27/18 Care time: The patient presented to the Emergency Department on the above date and was hospitalized for further evaluation of their emergent condition. - New Patient This patient is new to me today: Yes Date on this admission: 09/28/18 - Critical Care Critical Care patient: No <Bruce Parnell - Last Filed: 10/01/18 22:18> Seen and examined; agree with above aside from what is supplemented in my own documentation. Repeated all young parts of exam, supervised all vital parts of patient care.
[2018-09-28] MEDS ORDERED: INSULIN REGULAR HUMAN 100 UNITS/ML *VIAL ONE (03:34)
[2018-09-28 04:39] LABS: PREALBUMIN 10.1 mg/dl (20-40)
[2018-09-28] MEDS ORDERED: HEPARIN NA (PORCINE) 5,000 UNITS/ML 1ML VIAL SQ SCH (06:00)
[2018-09-28 06:31] LABS: BASO % 0.4 % (0-2.0); EOS % 0.9 % (0-4.5); HEMATOCRIT 25.5 % (32.4-45.2); HEMOGLOBIN 8.6 GM/dL (10.7-15.3); LYMPH % 14.8 % (8-40); MCH 31.6 pg (25.7-33.7); MCHC 33.6 g/dl (32.0-36.0); MEAN CELL VOLUME 93.9 fl (80-96); MEAN PLT VOLUME 10.5 fl (7.5-11.1); MONO % 9.2 % (3.8-10.2); NEUT % 74.7 % (42.8-82.8); PLATELET COUNT 221 K/MM3 (134-434); RBC 2.72 M/mm3 (3.60-5.2); RDW 13.5 % (11.6-15.6); WHITE BLOOD COUNT 7.9 K/mm3 (4.0-10.0)
[2018-09-28] MEDS: INSULIN SLIDING SCALE (NOVOLOG) 1 VIAL SQ SCH ×4 (06:54→22:12)
--- NOTE | 2018-09-28 09:02 | CON.CARD ---
Consult Consult Specialty:: Cardiology Referred by:: Dr. Dumont/ [place] Reason for Consultation:: SOB - History of Present Illness Chief Complaint: SOB History of Present Illness: 83F w/ arthritis, DM, HTN recent admission to [facility] for PNA presents to ER w/ one day of abdominal distension, SOB. Denies chest pain. Denies palpitations. No fever or chills. + Cough. Abdominal CT showed fecal retention, b/l pleural effusions and a moderate pericardial effusion. Daughter assists for history: no h/o OK or PCI, + hx CHF. ? h/o of pericardial effusion. ESR and CRP markedly elevated. Creatinine also 2.0, prior baseline appeared normal. - History Source History Provided By: Patient, Family Member Limitations to Obtaining History: Clinical Condition - Past Medical History Cardio/Vascular: Yes: HTN Pulmonary: No: Asthma, Bronchitis, Cancer, COPD, O2 Dependent, Pneumonia, Previously Intubated, Pulmonary Embolus, Pulmonary Fibrosis, Sleep Apnea, Other Gastrointestinal: No: Ascites, Cancer, Constipation, Crohn's Disease, Diverticulitis, Diverticulosis, Esophageal Varices, Gastritis, GERD, GI Bleed, Hemorrhoids, Hiatal Hernia, Inflamatory Bowel Disease, Irritable Bowel Disease, Pancreatitis, Peptic Ulcer Disease, Ulcerative Colitis, Other Hepatobiliary: No: Cirrhosis, Cholelithiasis, Cholecystitis, Choledocholithiasis , Hepatitis A, Hepatitis B, Hepatitis C, Other Renal/: No: Renal Failure, Renal Inusuff, BPH, Cancer, Hematuria, Hemodialysis , Neurogenic Bladder, Renal Calculi, UTI, Other Reproductive: No: Ectopic , Endometriosis, Fibroids, PID, Polycystic Ovary Syndrome, Postmenopausal, Other Heme/Onc: No: Anemia, B12 Deficiency, Bleeding Disorder, Cancer, Current Chemotherapy, Current Radiation Therapy, Hemochromatosis, Hypercoaguable State, Myeloproliferative Synd, Sickle Cell Disease, Sickle Cell Trait, Thrombocytopenia, Other Infectious Disease: No: AIDS, C-Diff, Herpes Zoster, HIV, MRSA, STD's, Tuberculosis, VREF, Other Psych: No: Addictions, Anxiety, Bipolar, Depression, Panic, Psychosis, Schizophrenia, Other Musculoskeletal: No: Bursitis, Chronic low back pain, Hemiparesis, Hemiplegia, Osteoarthritis, Paraplegia, Other Rheumatology: No: Fibromyalgia, Gout, Lupus, Rheumatoid Arthritis, Sarcoidosis, Vasculitis, Other ENT: No: Allergic Rhinitis, Sinusitis, Other Endocrine: Yes: Diabetes Mellitus - Alcohol/Substance Use Hx Alcohol Use: No - Smoking History Smoking history: Never smoked Have you smoked in the past 12 months: No - Social History Usual Living Arrangement: With Child ADL: Independent History of Recent Travel: No Home Medications - Allergies Allergies/Adverse Reactions: Allergies Allergy/AdvReac Type Severity Reaction Status Date / Time Penicillins Allergy Verified 09/27/18 20:53 - Home Medications Home Medications: Ambulatory Orders Amlodipine Besylate 1 tab PO DAILY 09/28/18 Aspirin 1 tab PO DAILY 09/28/18 Atorvastatin Ca [Lipitor] 1 tab PO HS 09/28/18 Calcium Carbonate/Vitamin D3 [Calcium 600 + Vit D Tablet] 1 tab PO BID 09/28/18 Carvedilol 1 tab PO BID 09/28/18 Gabapentin 1 tab PO DAILY 09/28/18 Insulin Glargine,Hum.rec.anlog [Basaglar Kwikpen U-100] 10 units IM HS 09/28/18 Family Disease History - Family Disease History Family History: Unremarkable (not pertinent to this presentation) Review of Systems Findings/Remarks: see HPI - Review of Systems Constitutional: reports: Weakness Eyes: reports: No Symptoms HENT: reports: No Symptoms Neck: reports: No Symptoms Cardiovascular: reports: Shortness of Breath Respiratory: reports: Cough, Exercise Intolerance, SOB on Exertion Gastrointestinal: reports: Other (abdominal distension) Genitourinary: denies: No Symptoms, Burning, Discharge, Dysuria, Flank Pain, Frequency, Hematuria, Incontinence, Lesions, Menses, Pain, Testicular Mass, Testicular Pain, Testicular Swelling, Urgency, Vaginal Bleeding, Other Breasts: denies: No Symptoms Reported, See HPI, Breast Implants, Discharge from Nipple, Lumps, Pain, Skin Changes, Other Musculoskeletal: denies: No Symptoms, Back Pain, Crepitus, Decreased ROM, Extremity Pain, Joint Pain, Joint Swelling, Muscle Pain, Muscle Cramps, Muscle Weakness, Other Integumentary: denies: No Symptoms, Blister, Bruising, Change in Color, Eczema, Erythema, Incision, Lesions, Lump, Pallor, Pruritis, Rash, Wound, Other Neurological: denies: No Symptoms, Change in LOC, Change in Speech, Confusion, Dizziness, Headache, Incoordination, Numbness, Parasthesia, Pre-Existing Deficit , Seizure, Syncope, Tremors, Unsteady Gait, Weakness, Other Endocrine: denies: No Symptoms, Excessive Sweating, Flushing, Increased Hunger, Increased Thirst, Intolerance to Cold, Intolerance to Heat, Unexplained Weight Gain, Unexplained Weight Loss, Other Hematology/Lymphatic: denies: No Symptoms, Easily Bruised, Excessive Bleeding, Swollen Glands, Other Psychiatric: denies: No Symptoms, Altered Sleep Pattern, Anxiety, Depression, Hallucinations, Panic, Paranoia, Suicidal, Other - Risk Factors Known Risk Factors: Yes: Diabetes Mellitus, Hypertension Vital Signs: Vital Signs Temperature 97.7 F 09/28/18 04:35 Pulse Rate 66 09/28/18 04:35 Respiratory Rate 22 H 09/28/18 04:35 Blood Pressure 148/71 09/28/18 04:35 O2 Sat by Pulse Oximetry (%) 97 09/28/18 04:35 Constitutional: Yes: Anxious Eyes: Yes: Conjunctiva Clear, EOM Intact HENT: Yes: Atraumatic, Normocephalic Neck: Yes: Supple, Trachea Midline Respiratory: Yes: Other (significantly decreased breath sounds right) Gastrointestinal: Yes: Other (distended, NT.) Renal/: Yes: CVA Tenderness - Right Cardiovascular: Yes: Regular Rate and Rhythm JVD: Yes PMI: Non-Displaced Heart Sounds: Yes: S1, S2 Edema: No Peripheral Pulses WNL: Yes Neurological: Yes: Alert, Oriented - Other Data Labs, Other Data: CBC, BMP 09/28/18 05:30 INR, PTT INR 1.19 (0.83-1.09) H 09/27/18 22:21 Laboratory Tests 09/27/18 09/28/18 09/28/18 22:21 03:39 03:39 WBC Hgb Plt Count ESR 105 H Sodium 127 L Potassium 5.6 H BUN 52 H Creatinine 2.0 H C-Reactive Protein 13.3 H Lipase 09/28/18 09/28/18 03:39 05:30 WBC 7.9 Hgb 8.6 L Plt Count 221 ESR Sodium Potassium BUN Creatinine C-Reactive Protein Lipase 86 Echo: Pending Imaging - Results Chest X-ray: Image Reviewed (? RLL infiltrate, cardiomegal) EKG: Image Reviewed (Ectopic atrial rhytham, no acute ST changes) Problem List - Problems (1) Pericardial effusion Code(s): I31.3 - PERICARDIAL EFFUSION (NONINFLAMMATORY) (2) Dyspnea Code(s): R06.00 - DYSPNEA, UNSPECIFIED Qualifiers: Dyspnea type: dyspnea on exertion Qualified Code(s): R06.09 - Other forms of dyspnea (3) MERYL (acute kidney injury) Code(s): N17.9 - ACUTE KIDNEY FAILURE, UNSPECIFIED (4) Hyponatremia Code(s): E87.1 - HYPO-OSMOLALITY AND HYPONATREMIA (5) Pleural effusion Code(s): J90 - PLEURAL EFFUSION, NOT ELSEWHERE CLASSIFIED (6) Hypertension Code(s): I10 - ESSENTIAL (PRIMARY) HYPERTENSION Assessment/Plan IMP: 1. Dyspnea 2. Pericardial effusion: possibly chronic: ? Etiology 3. HTN 4. DM 5. MERYL 6. Hyponatremia REC: 1. Echo to assess pericardial effusion, LV and valvular fx 2. Telemetry 3. Serial cardiac enzymes 4. Check BNP 5. May need diuresis- will review echo and BNP. 6. Further w/u of MERYL as per PMD Will follow. Thank you
[2018-09-28] MEDS: ALBUTEROL SO4 0.083% IH SOL 2.5 MG/3 ML VIAL.NEB. NEB PRN (09:29)
[2018-09-28] MEDS ORDERED: CARVEDILOL 12.5 MG TABLET (FP) PO SCH (10:00)
[2018-09-28] MEDS ORDERED: ASPIRIN 81 MG CHEWABLE TABLETS PO SCH ×2 (10:00)
[2018-09-28] MEDS ORDERED: GABAPENTIN 400 MG CAPSULE (FP) PO SCH (10:00)
[2018-09-28] MEDS ORDERED: amLODIPine BESYLATE 5 MG TABLET (FP) PO SCH (10:00)
--- NOTE | 2018-09-28 10:02 | CON.GI ---
Consult Consult Specialty:: GI Referred by:: Hospitalist Service Reason for Consultation:: Ascites - History of Present Illness Chief Complaint: Nurse aiding in interpretation as patient speaks primarily Trinidadian: Abdominal pain, shoulder pain, chest pain, shortness of breath History of Present Illness: 83F recently admitted to [facility] from 09/18-09/24 where dhe was treated for PNA and UTI. Admitted through [facility] last night for evaluation of abdominal pain, constipation, shortness of breath, chest pain and shoulder pain. Concern in the ER was for ascites. She also described not having a bowel movemeny for 7 days and manual disimpaction performed. Work-up in the ER also included blood work revealing elevated transaminases / ALP (normal in 2017), anemia with hgb 8.6 (h/ o anemia from 2017 in review of [employer]).She was also hyperglycemic. Imaging work-up included a non contrast CT A/P that revealed a moderate pericardial effusion, right pleural effusion, irregular right breast soft tissue density, enlarged liver and retained fecal material throughout the colon. Abdominal US revealed a right pleural effusion, heterogeneous liver, mildly contracted gallbladder without gallstones, right hydronephrosis and hepatopedal flow in the main portal vein and no biliary ductal dilatation (CT scan from 11/28/16 revealed b/l hydronephrosis and normal sized fatty liver). There was no ascites. Currently, she states that abdominal pain has resolved. There has been no rectal bleeding, diarrhea, melena. There is no prior history of liver disease. She is short of breath and abdominal breathing. She was having echo performed. - History Source History Provided By: Patient, Medical Record - Past Medical History Cardio/Vascular: Yes: HTN Hepatobiliary: Yes: Other (fatty liver) Endocrine: Yes: Diabetes Mellitus - Alcohol/Substance Use Hx Alcohol Use: No - Smoking History Smoking history: Never smoked Have you smoked in the past 12 months: No - Social History Usual Living Arrangement: With Child ADL: Independent History of Recent Travel: No Home Medications - Allergies Allergies/Adverse Reactions: Allergies Allergy/AdvReac Type Severity Reaction Status Date / Time Penicillins Allergy Verified 09/27/18 20:53 - Home Medications Home Medications: Ambulatory Orders Amlodipine Besylate 1 tab PO DAILY 09/28/18 Aspirin 1 tab PO DAILY 09/28/18 Atorvastatin Ca [Lipitor] 1 tab PO HS 09/28/18 Calcium Carbonate/Vitamin D3 [Calcium 600 + Vit D Tablet] 1 tab PO BID 09/28/18 Carvedilol 1 tab PO BID 09/28/18 Gabapentin 1 tab PO DAILY 09/28/18 Insulin Glargine,Hum.rec.anlog [Leslie Koch U-100] 10 units IM HS 09/28/18 Family Disease History - Family Disease History Other Family History: No history of colorectal cancer, liver disease Review of Systems - Review of Systems Constitutional: denies: Chills Cardiovascular: reports: Chest Pain Respiratory: reports: SOB. denies: Wheezing Gastrointestinal: reports: Abdominal Pain, Bloating Physical Exam-GI Vital Signs: Vital Signs Temperature 97.7 F 09/28/18 04:35 Pulse Rate 66 09/28/18 04:35 Respiratory Rate 22 H 09/28/18 04:35 Blood Pressure 148/71 09/28/18 04:35 O2 Sat by Pulse Oximetry (%) 97 09/28/18 04:35 Constitutional: Yes: No Distress Eyes: No: Sclera Icterus Cardiovascular: Yes: Other (difficult to auscultate heart sounds secondary to uppaer airway noise and patient verbalizing with breaths) Respiratory: Yes: Diminished (at bases b/l R>L), Tachypnea Gastrointestinal Inspection: Yes: Other (mildly protuberant abdomen) ...Auscultate: Yes: Normoactive Bowel Sounds ...Palpate: Yes: Soft, Other (negative espinoza's sign). No: Hepatomegaly, Splenomegaly, Tenderness ...Percussion: No: Fluid Wave, Tympanitic ...Rectal Exam: Yes: Other (multiple small hard balls of stool removed from rectum. No blood/melena, guaiac negative) Edema: No (No LE edema) Neurological: Yes: Alert Labs: CBC, BMP 09/28/18 05:30 INR, PTT INR 1.19 (0.83-1.09) H 09/27/18 22:21 Imaging - Results Cat Scan: Report Reviewed, Image Reviewed Problem List - Problems (1) Abnormal liver function test Assessment/Plan: Asymptomatic Normal transaminases and ALP in 2017 Likely multifactorial: Medication induced: She was recenly admitted and discharged from [facility] and likely given antibiotics. Unclear if they were elevated during the course of that admission or after administration of Abx. Unclear if any other medications introduced at that time Cardiac etiology: In clinical setting, ? if component of passive congestion leading to congestive hepatopathy Await echocardiogram Obtain previous records from [facility] to compare current liver chemistries and obtain more information about that admission Screening hepatitis serologies ordered for AM Avoid hepatotoxic agents. Atorvastatin held for now. Monitor LFTs, including INR. No biliary tract dilation noted on recent abd.US and no associated RUQ pain / leukocytosis. If progression of cholestatic pattern , obtained MRCP when medically feasible to furtther evaluate biliary tract. Code(s): R94.5 - ABNORMAL RESULTS OF LIVER FUNCTION STUDIES (2) Constipation Assessment/Plan: Likely multidactorial: Limited mobility, recent hospitalization, poor glycemic control. medications Home medication list did not include a bowel regimen. Ordered miralax 17g PO BID for now. Can repeat mineral oil enema today. Check TSH in setting of pericardial effusion, constipation. Ordered for today. Glycemic control Code(s): K59.00 - CONSTIPATION, UNSPECIFIED (3) Pericardial effusion Assessment/Plan: Evaluated by cardiology. Dr. Mar ordered ibuprofen daily as well as GI prophylaxis while on NDAID therapy Code(s): I31.3 - PERICARDIAL EFFUSION (NONINFLAMMATORY) (4) Breast mass Assessment/Plan: further work-up per primary team Code(s): N63.0 - UNSPECIFIED LUMP IN UNSPECIFIED BREAST
--- NOTE | 2018-09-28 10:07 | ECHO ---
Name: LATESHA FELIX Exam:Adult Echocardiogram Study Date: 09/28/2018 09:07 AM Age: 83 yrs Reason For Study: ASSESS LVEF EFFUSION VALVULAR Height: 58 in Weight: 128 lb BSA: 1.5 m2 MMode/2D Measurements & Calculations IVSd: 1.0 cm Ao root diam: 2.3 cm LVIDd: 4.1 cm LA dimension: 4.1 cm LVIDs: 3.1 cm LVPWd: 0.82 cm EDV(Teich): 75.5 ml LVOT diam: 2.0 cm ESV(Teich): 37.0 ml Doppler Measurements & Calculations MV E max wiley: 120.4 cm/sec Ao V2 max: 83.0 cm/sec MV A max wiley: 91.8 cm/sec Ao max P.4 mmHg MV E/A: 1.3 AI P1/2t: 430.9 msec MV dec time: 0.34 sec JOHNNY(V,D): 3.7 cm2 AI max wiley: 321.4 cm/sec LV V1 max P.7 mmHg AI max P.4 mmHg LV V1 mean P.0 mmHg AI dec slope: 218.5 cm/sec2 LV V1 max: 96.0 cm/sec LV V1 mean: 65.9 cm/sec LV V1 VTI: 27.4 cm MR max wiley: 497.3 cm/sec SV(LVOT): 88.2 ml MR max P.0 mmHg TR max wiley: 234.6 cm/sec Med Peak E' Wiley: 3.9 cm/sec TR max P.2 mmHg Med E/e': 30.8 Lat Peak E' Wiley: 4.0 cm/sec Lat E/e': 30.2 Left Ventricle Left ventricular systolic function is normal. Ejection Fraction = 55-60%. Right Ventricle The right ventricle is normal in size and function. Atria The left atrium is mildly dilated. Mitral Valve There is mild mitral annular calcification. There is no mitral valve stenosis. There is mild mitral regurgitation. Tricuspid Valve The tricuspid valve is normal in structure and function. There is mild tricuspid regurgitation. Aortic Valve There is mild aortic sclerosis.;. No hemodynamically significant valvular aortic stenosis. Mild aorti c regurgitation. Pulmonic Valve The pulmonic valve is not well seen, but is grossly normal. There is no pulmonic valvular stenosis. Great Vessels The aortic root is normal size. Pericardium/Pleura Moderate primarily posterior pericardial effusion with no clear evidence of RA/RV diastolic collapse. Clinical correlation required. Interpretation Summary Left ventricular systolic function is normal. Ejection Fraction = 55-60%. The right ventricle is normal in size and function. The left atrium is mildly dilated. There is mild mitral annular calcification. There is mild mitral regurgitation. There is mild tricuspid regurgitation. There is mild aortic sclerosis.; Mild aortic regurgitation. The aortic root is normal size. Moderate primarily posterior pericardial effusion with no clear evidence of RA/RV diastolic collapse. Clinical correlation required. MD Beth *Zaid 09/28/2018 10:06 AM
[2018-09-28 10:14] LABS: ANION GAP 12 MMOL/L (8-16); BLOOD UREA NITROGEN 53 mg/dL (7-18); CALCIUM 7.6 mg/dL (8.5-10.1); CHLORIDE 105 mmol/L (98-107); CO2 18 mmol/L (21-32); CREATININE 1.9 mg/dL (0.55-1.3); GLUCOSE,RANDOM 285 mg/dL (74-106); MAGNESIUM 2.5 mg/dL (1.8-2.4); PHOSPHOROUS 4.3 mg/dL (2.5-4.9); POTASSIUM 5.1 mmol/L (3.5-5.1); SODIUM 135 mmol/L (136-145)
[2018-09-28] MEDS ORDERED: IBUPROFEN 400 MG TABLET (FP) PO SCH (10:15)
[2018-09-28] MEDS ORDERED: COLCHICINE 0.6 MG TABLET (FP) PO SCH (10:15)
[2018-09-28] MEDS ORDERED: IBUPROFEN 200 MG TABLET PO SCH (10:20)
--- NOTE | 2018-09-28 10:35 | EKG ---
Test Reason : Blood Pressure : / mmHG Vent. Rate : 065 BPM Atrial Rate : 065 BPM P-R Int : 140 ms QRS Dur : 082 ms QT Int : 444 ms P-R-T Axes : -17 042 055 degrees QTc Int : 461 ms ECTOPIC ATRIAL RHYTHM NONSPECIFIC T WAVE ABNORMALITY ABNORMAL ECG Confirmed by ROXY SORTO MD ([id number]) on 09/28/2018 10:34:40 AM Referred By: Confirmed By:ROXY SORTO MD
[2018-09-28] MEDS: CARVEDILOL 12.5 MG TABLET (FP) PO SCH ×2 (10:40→22:06)
[2018-09-28] MEDS: PANTOPRAZOLE 40 MG TABLET (FP) PO SCH (10:40)
[2018-09-28] MEDS: amLODIPine BESYLATE 5 MG TABLET (FP) PO SCH (10:40)
[2018-09-28] MEDS: GABAPENTIN 400 MG CAPSULE (FP) PO SCH (10:40)
[2018-09-28] MEDS: POLYETHYLENE GLYCOL 3350 119 GM BTL PO SCH ×2 (10:52→22:07)
[2018-09-28 12:24] LABS: N-TERMINAL BNP 1749.1 pg/ml (5-450)
--- NOTE | 2018-09-28 12:35 | CONSULT ---
Consult Consult Specialty:: Nephrology Reason for Consultation:: MERYL - History of Present Illness Chief Complaint: shortness of breath and constipation History of Present Illness: Pt is an 83 year old female with pmhx of HTN, DM, dementia, HLD, and arthritis who presents to the ER with constipation and shortness of breath. She was found to have elevated creatinine and I was called to evaluate her. She was recently hospitalized for UTI and PNA. She has family at bedside but they are not sure what abx were used. She complains of constipation. She denies chest pain. She denies fevers or chills. - History Source History Provided By: Patient, Family Member, Medical Record - Past Medical History PHYSICIANS AND SURGEONS: Yes: Dementia Cardio/Vascular: Yes: HTN, Hyperlipdemia Hepatobiliary: Yes: Other (fatty liver) Renal/: Yes: Renal Inusuff Endocrine: Yes: Diabetes Mellitus - Alcohol/Substance Use Hx Alcohol Use: No - Smoking History Smoking history: Never smoked Have you smoked in the past 12 months: No - Social History Usual Living Arrangement: With Child ADL: Independent History of Recent Travel: No Home Medications - Allergies Allergies/Adverse Reactions: Allergies Allergy/AdvReac Type Severity Reaction Status Date / Time Penicillins Allergy Verified 09/27/18 20:53 - Home Medications Home Medications: Ambulatory Orders Amlodipine Besylate 1 tab PO DAILY 09/28/18 Aspirin 1 tab PO DAILY 09/28/18 Atorvastatin Ca [Lipitor] 1 tab PO HS 09/28/18 Calcium Carbonate/Vitamin D3 [Calcium 600 + Vit D Tablet] 1 tab PO BID 09/28/18 Carvedilol 1 tab PO BID 09/28/18 Gabapentin 1 tab PO DAILY 09/28/18 Insulin Glargine,Hum.rec.anlog [Yunieraglar Kwikpen U-100] 10 units IM HS 09/28/18 Family Disease History - Family Disease History Family History: Denies Other Family History: No history of colorectal cancer, liver disease Review of Systems - Review of Systems Constitutional: reports: Malaise. denies: Chills Eyes: reports: No Symptoms HENT: reports: No Symptoms Neck: reports: No Symptoms Cardiovascular: reports: Shortness of Breath Respiratory: reports: SOB, SOB on Exertion Gastrointestinal: reports: Abdominal Pain, Constipation Genitourinary: reports: No Symptoms Musculoskeletal: reports: No Symptoms Endocrine: reports: No Symptoms Hematology/Lymphatic: reports: No Symptoms Psychiatric: reports: No Symptoms Physical Exam Vital Signs: Vital Signs Temperature 97.7 F 09/28/18 04:35 Pulse Rate 66 09/28/18 04:35 Respiratory Rate 22 H 09/28/18 04:35 Blood Pressure 148/71 09/28/18 04:35 O2 Sat by Pulse Oximetry (%) 97 09/28/18 04:35 Constitutional: Yes: Mild Distress Eyes: Yes: Conjunctiva Clear HENT: Yes: Atraumatic Cardiovascular: Yes: S1, S2 Respiratory: Yes: On Nasal O2 Gastrointestinal: Yes: Soft Renal/: Yes: WNL Musculoskeletal: Yes: WNL Edema: LLE: Trace, RLE: Trace Neurological: Yes: Oriented Psychiatric: Yes: Oriented Labs: CBC, BMP 09/28/18 05:30 09/28/18 05:30 Laboratory Tests 11/28/16 03/27/17 09/27/18 16:55 22:30 01:50 Potassium Creatinine 1.5 H 1.1 H D Urine Protein 1+ H Urine Blood Negative 09/27/18 09/28/18 22:21 05:30 Potassium 5.6 H 5.1 Creatinine 2.0 H 1.9 H Urine Protein Urine Blood Imaging - Results Cat Scan: Report Reviewed Problem List - Problems (1) CKD (chronic kidney disease) Code(s): N18.9 - CHRONIC KIDNEY DISEASE, UNSPECIFIED (2) Hyperkalemia Code(s): E87.5 - HYPERKALEMIA (3) MERYL (acute kidney injury) Code(s): N17.9 - ACUTE KIDNEY FAILURE, UNSPECIFIED (4) Constipation Code(s): K59.00 - CONSTIPATION, UNSPECIFIED (5) Pericardial effusion Code(s): I31.3 - PERICARDIAL EFFUSION (NONINFLAMMATORY) (6) Pleural effusion Code(s): J90 - PLEURAL EFFUSION, NOT ELSEWHERE CLASSIFIED Assessment/Plan Current Medications Generic Name Dose Route Start Last Admin Trade Name Freq PRN Reason Stop Dose Admin Albuterol Sulfate 1 amp 09/28/18 08:32 09/28/18 09:29 Ventolin 0.083% Nebulizer Soln - NEB 1 amp Q6H PRN Administration SHORT OF BREATH/WHEEZING Amlodipine Besylate 5 mg 09/28/18 10:00 09/28/18 10:40 Norvasc - PO 5 mg DAILY AGUSTIN Administration Carvedilol 12.5 mg 09/28/18 10:00 09/28/18 10:40 Coreg - PO 12.5 mg BID AGUSTIN Administration Gabapentin 400 mg 09/28/18 10:00 09/28/18 10:40 Neurontin - PO 400 mg DAILY AGUSTIN Administration Insulin Aspart 1 vial 09/28/18 07:00 09/28/18 11:22 Novolog Vial Sliding Scale - SQ Not Given ACHS COUNT INCLUDES THE [facility] Protocol Pantoprazole Sodium 40 mg 09/28/18 10:30 09/28/18 10:40 Protonix - PO 40 mg DAILY AGUSTIN Administration Polyethylene Glycol 17 gm 09/28/18 10:00 09/28/18 10:52 Miralax (For Daily Use) - PO 17 gm BID AGUSTIN Administration Impression 1. hyperkalemia 2. MERYL 3. likely ckd 4. dyspnea 5. constipation 6. DM 7. pleural effusion 8. pericardial effusion Plan - check renal ultrasound - send ua and lytes - GI eval for contipation in progress - discussed care with cardio, will hold off diuretics for now pending improvement of GI symptoms - avoid nsaids - potassium improved - renal function is improving
[2018-09-28 14:13] LABS: BF WBC & OTHER NUCLEATED CELLS 228 /mm3
--- NOTE | 2018-09-28 14:25 | PN ---
Physical Exam: SUBJECTIVE: Patient seen and examined at bedside this morning. Patient is an 83 year old female with past medical history of dementia, DM, HTN , HLD, and recent hospitalizations at [facility] for UTI and PNA (discharged last 09/24 ), presented to the ED due to worsening abdominal pain and distension, with last bowel movement 9 days ago. At the ED, manual disimpaction was done and patient was given mineral oil enema. Patient is still in acute distress this morning, complaining of difficulty breathing and diffuse abdominal pain. No fever, chills, headache, chest pain, urinary symptoms. OBJECTIVE: Vital Signs Temperature 97.7 F 09/28/18 04:35 Pulse Rate 66 09/28/18 04:35 Respiratory Rate 22 H 09/28/18 04:35 Blood Pressure 148/71 09/28/18 04:35 O2 Sat by Pulse Oximetry (%) 97 09/28/18 04:35 GENERAL: The patient is awake, alert, and fully oriented, On 3L NC. HEAD: Normal with no signs of trauma. EYES: PERRLA, EOMI, sclera anicteric, conjunctiva clear. ENT: oropharynx clear without exudates, moist mucous membranes. NECK: Trachea midline, full range of motion, supple. LUNGS: Breath sounds diminished bilaterally. HEART: Regular rate and rhythm, S1, S2 without murmur, rub or gallop. ABDOMEN: Soft, +diffuse tenderness, mildly distended, normoactive bowel sounds. EXTREMITIES: 2+ pulses, warm, well-perfused, no edema. NEUROLOGICAL: Cranial nerves II through XII grossly intact. Normal speech, gait not observed. PSYCH: Normal mood, normal affect. SKIN: Warm, dry, normal turgor, no rashes or lesions noted Laboratory Results - last 24 hr 09/27/18 09/27/18 09/27/18 01:50 22:08 22:21 WBC 8.9 RBC 2.69 L Hgb 8.4 L Hct 25.3 L D MCV 94.3 MCH 31.4 MCHC 33.3 RDW 13.8 Plt Count 224 D MPV 10.8 D Absolute Neuts (auto) 6.4 Neutrophils % 72.6 Lymphocytes % 15.0 D Monocytes % 11.3 H Eosinophils % 0.7 Basophils % 0.4 Nucleated RBC % 0 ESR Retic Count PT with INR INR Sodium Potassium Chloride Carbon Dioxide Anion Gap BUN Creatinine Creat Clearance w eGFR POC Glucometer 362 Random Glucose Calcium Phosphorus Magnesium Ferritin Total Bilirubin GGT AST ALT Alkaline Phosphatase Creatine Kinase Troponin I C-Reactive Protein B-Natriuretic Peptide Total Protein Albumin Prealbumin Lipase TSH Urine Color Dk yellow Urine Appearance Clear Urine pH 5.0 Ur Specific [place] 1.018 Urine Protein 1+ H Urine Glucose (UA) Trace Urine Ketones Negative Urine Blood Negative Urine Nitrite Negative Urine Bilirubin Negative Urine Urobilinogen 0.2 Ur Leukocyte Esterase Negative Urine WBC (Auto) 4 Urine RBC (Auto) 1 Urine Casts (Auto) 9 U Epithel Cells (Auto) 2.8 Urine Bacteria (Auto) 2.7 09/27/18 09/27/18 09/27/18 22:21 22:21 22:21 WBC RBC Hgb Hct MCV MCH MCHC RDW Plt Count MPV Absolute Neuts (auto) Neutrophils % Lymphocytes % Monocytes % Eosinophils % Basophils % Nucleated RBC % ESR Retic Count PT with INR 14.10 H INR 1.19 H Sodium 127 L Potassium 5.6 H Chloride 95 L Carbon Dioxide 24 Anion Gap 9 BUN 52 H Creatinine 2.0 H Creat Clearance w eGFR 23.91 POC Glucometer Random Glucose 379 H* Calcium 7.8 L Phosphorus Magnesium 2.7 H Ferritin Total Bilirubin 0.3 GGT AST 140 H ALT 235 H Alkaline Phosphatase 490 H Creatine Kinase Troponin I C-Reactive Protein B-Natriuretic Peptide Total Protein 6.5 Albumin 2.6 L Prealbumin Lipase 92 Cancelled TSH Urine Color Urine Appearance Urine pH Ur Specific [place] Urine Protein Urine Glucose (UA) Urine Ketones Urine Blood Urine Nitrite Urine Bilirubin Urine Urobilinogen Ur Leukocyte Esterase Urine WBC (Auto) Urine RBC (Auto) Urine Casts (Auto) U Epithel Cells (Auto) Urine Bacteria (Auto) 09/28/18 09/28/18 09/28/18 03:39 03:39 03:39 WBC RBC Hgb Hct MCV MCH MCHC RDW Plt Count MPV Absolute Neuts (auto) Neutrophils % Lymphocytes % Monocytes % Eosinophils % Basophils % Nucleated RBC % ESR 105 H Retic Count PT with INR INR Sodium Potassium Chloride Carbon Dioxide Anion Gap BUN Creatinine Creat Clearance w eGFR POC Glucometer Random Glucose Calcium Phosphorus Magnesium Ferritin Total Bilirubin GGT 246 H AST ALT Alkaline Phosphatase Creatine Kinase Troponin I C-Reactive Protein 13.3 H B-Natriuretic Peptide Total Protein Albumin Prealbumin 10.1 L Lipase 86 TSH Urine Color Urine Appearance Urine pH Ur Specific [place] Urine Protein Urine Glucose (UA) Urine Ketones Urine Blood Urine Nitrite Urine Bilirubin Urine Urobilinogen Ur Leukocyte Esterase Urine WBC (Auto) Urine RBC (Auto) Urine Casts (Auto) U Epithel Cells (Auto) Urine Bacteria (Auto) 09/28/18 09/28/18 09/28/18 05:30 05:30 05:30 WBC 7.9 RBC 2.72 L Hgb 8.6 L Hct 25.5 L MCV 93.9 MCH 31.6 MCHC 33.6 RDW 13.5 Plt Count 221 MPV 10.5 Absolute Neuts (auto) 5.9 Neutrophils % 74.7 Lymphocytes % 14.8 Monocytes % 9.2 Eosinophils % 0.9 Basophils % 0.4 Nucleated RBC % 0 ESR Retic Count 1.95 H PT with INR INR Sodium 135 L Potassium 5.1 Chloride 105 Carbon Dioxide 18 L Anion Gap 12 BUN 53 H Creatinine 1.9 H Creat Clearance w eGFR 25.37 POC Glucometer Random Glucose 285 H Calcium 7.6 L Phosphorus 4.3 Magnesium 2.5 H Ferritin Total Bilirubin GGT AST ALT Alkaline Phosphatase Creatine Kinase Troponin I C-Reactive Protein B-Natriuretic Peptide Total Protein Albumin Prealbumin Lipase TSH Urine Color Urine Appearance Urine pH Ur Specific [place] Urine Protein Urine Glucose (UA) Urine Ketones Urine Blood Urine Nitrite Urine Bilirubin Urine Urobilinogen Ur Leukocyte Esterase Urine WBC (Auto) Urine RBC (Auto) Urine Casts (Auto) U Epithel Cells (Auto) Urine Bacteria (Auto) 09/28/18 09/28/18 09/28/18 05:30 06:51 11:05 WBC RBC Hgb Hct MCV MCH MCHC RDW Plt Count MPV Absolute Neuts (auto) Neutrophils % Lymphocytes % Monocytes % Eosinophils % Basophils % Nucleated RBC % ESR Retic Count PT with INR INR Sodium Potassium Chloride Carbon Dioxide Anion Gap BUN Creatinine Creat Clearance w eGFR POC Glucometer 224 Random Glucose Calcium Phosphorus Magnesium Ferritin 515.2 H Total Bilirubin GGT AST ALT Alkaline Phosphatase Creatine Kinase 59 Troponin I < 0.02 C-Reactive Protein B-Natriuretic Peptide 1749.1 H Total Protein Albumin Prealbumin Lipase TSH 2.36 Urine Color Urine Appearance Urine pH Ur Specific [place] Urine Protein Urine Glucose (UA) Urine Ketones Urine Blood Urine Nitrite Urine Bilirubin Urine Urobilinogen Ur Leukocyte Esterase Urine WBC (Auto) Urine RBC (Auto) Urine Casts (Auto) U Epithel Cells (Auto) Urine Bacteria (Auto) 09/28/18 11:21 WBC RBC Hgb Hct MCV MCH MCHC RDW Plt Count MPV Absolute Neuts (auto) Neutrophils % Lymphocytes % Monocytes % Eosinophils % Basophils % Nucleated RBC % ESR Retic Count PT with INR INR Sodium Potassium Chloride Carbon Dioxide Anion Gap BUN Creatinine Creat Clearance w eGFR POC Glucometer 114 Random Glucose Calcium Phosphorus Magnesium Ferritin Total Bilirubin GGT AST ALT Alkaline Phosphatase Creatine Kinase Troponin I C-Reactive Protein B-Natriuretic Peptide Total Protein Albumin Prealbumin Lipase TSH Urine Color Urine Appearance Urine pH Ur Specific [place] Urine Protein Urine Glucose (UA) Urine Ketones Urine Blood Urine Nitrite Urine Bilirubin Urine Urobilinogen Ur Leukocyte Esterase Urine WBC (Auto) Urine RBC (Auto) Urine Casts (Auto) U Epithel Cells (Auto) Urine Bacteria (Auto) Active Medications Generic Name Dose Route Start Last Admin Trade Name Freq PRN Reason Stop Dose Admin Albuterol Sulfate 1 amp 09/28/18 08:32 09/28/18 09:29 Ventolin 0.083% Nebulizer Soln - NEB 1 amp Q6H PRN Administration SHORT OF BREATH/WHEEZING Amlodipine Besylate 5 mg 09/28/18 10:00 09/28/18 10:40 Norvasc - PO 5 mg DAILY AGUSTIN Administration Carvedilol 12.5 mg 09/28/18 10:00 09/28/18 10:40 Coreg - PO 12.5 mg BID AGUSTIN Administration Gabapentin 400 mg 09/28/18 10:00 09/28/18 10:40 Neurontin - PO 400 mg DAILY AGUSTIN Administration Insulin Aspart 1 vial 09/28/18 07:00 09/28/18 11:22 Novolog Vial Sliding Scale - SQ Not Given ACHS [facility] Protocol Pantoprazole Sodium 40 mg 09/28/18 10:30 09/28/18 10:40 Protonix - PO 40 mg DAILY AGUSTIN Administration Polyethylene Glycol 17 gm 09/28/18 10:00 09/28/18 10:52 Miralax (For Daily Use) - PO 17 gm BID AGUSTIN Administration Renal US: Mild fullness of the right renal pelvicalyceal system without gross evidence of stones. Small right mid renal simple cyst measuring 1.2cc. CTAP: Bilateral pleural effusions, right greater than left, with lower lobe atelectasis. Moderate pericardial effusion. Hepatomegaly. Fecal retention, no acute pathology within the abdomen or pelvis. There is an irregular soft tissue opacity within the right breast. Could represent fibroglandular tissue. CXR: weak inspiration with congestive changes, bibasilar infiltrates, elevated right hemidiaphragm and large heart. There may be an element of basilar atelectasis. CXR (s/p thoracentesis): No sign of gross pneumothorax. Fluid has diminished. Left base changes and large heart persists. Chest CT without contrast: Bilateral pleural effusions and lower lobe atelectasis, greater than right. Mild to moderate pericardial effusion. Possible right breast mass. ASSESSMENT/PLAN: Patient is an 83 year old female with past medical history of dementia, DM, HTN , HLD, and recent hospitalizations at [facility] for UTI and PNA (discharged last 09/24 ), presented to the ED due to worsening abdominal pain and distension, with last bowel movement 9 days ago. Patient also reports difficulty breathing. #Shortness of breath likely 2/2 pleural effusion -s/p Thoracentesis, 700cc of serous fluid drained -Pleural studies sent -Incentive spirometry -Pulmonary (Dr. Guerin) consulted. #Pericardial effusion -CTAP: mild to moderate pericardial effusion -Echo: LV systolic function normal, EF 55-60%, RV normal. LA mildly dilated. Mild MS, mild MR, Mild . Aortic root normal size. Moderate primarily posterior pericardial effusion with no clear evidence of RA/RV diastolic collapse. -Cardiology (Dr. Mar) consulted. REcommendations appreciated. -BNP 1749 -Would consider lasix, but hold off today as patient had 700cc of pleural fluid drained. -No signs of pericarditis, would stop NSAIDs -Protonix 40mg daily #Elevated transaminases -140/235/490, GGT 246 (normal in 2017) -GI (Dr. Park) consulted. REcommendations appreciated. -Hepatitis serology -Avoid hepatotoxic agents. -Lipitor held for now -Will continue to monitor LFTs, including INR. If progression of cholestatic pattern, consider MRCP to further evaluate biliary tract. #Constipation -CTAP: fecal retention -likely from immobility and DM gastroparesis -GI (Dr. Park) consulted. Recommendations appreciated. -Miralax BID -Can repeat mineral oil enema -Check TSH in setting of pericardial effusion, constipation. #MERYL: improving -likely with CKD -Cr 2 -> 1.9 -Nephrology (Dr. Omalley) consulted. REcommendations appreciated. -Renal ultrasound: Mild fullness of the right renal pelvicalyceal system without gross evidence of stones. Small right mid renal simple cyst measuring 1.2 cc. -Urinalysis and urine lytes pending -Will hold off diuretics for now pending improvement of GI symptoms. Discussed with cardiology -Avoid NSAIDs #Right breast mass -CT: irregular soft tissue opacity within the right breast. Could represent fibroglandular tissue. -Should follow up with mammogram and ultrasound as outpatient -Pleural fluid biopsy results pending -Oncology (Dr. Beavers) consulted. Recommendations appreciated. -Mammogram ordered. #Hyperkalemia -improving 5.6 --> 5.1 -will continue to monitor #Normocytic Anemia -Iron studies pending -Retic count 1.95 #DM -Continue home Insulin Glargine 10units at bedtime -Insulin sliding scale -BGM ACHS #HTN -Continue Coreg 12.5mg BID -Amlodipine 5mg daily #HLD -Hold Lipitor in light of elevated LFTs #FEN -Not on any standing fluids -Routine bmp monitoring -Soft diet #Prophylaxis -Heparin 5000units sq tid #Disposition -full code -tele Visit type - Emergency Visit Emergency Visit: Yes ED Registration Date: 09/27/18 Care time: The patient presented to the Emergency Department on the above date and was hospitalized for further evaluation of their emergent condition. - New Patient This patient is new to me today: Yes Date on this admission: 09/28/18 - Critical Care Critical Care patient: No
[2018-09-28 14:41] LABS: BODY FLUID MACROPHAGES 6 %; BODY FLUID MESOTHELIAL 4 %; BODY FLUID MONOCYTE 49 %
--- NOTE | 2018-09-28 14:52 | PN ---
Progress Note (short form) - Note Progress Note: Chest CT b/l/ pleural effusions and moderate pericardial effusion; possible breast mass again visualized. S/p thoracentesis - 700ml removed from lung. Echo shows a moderate, primarily posterior pericardial effusion with borderline respiratory variation in TV inflow but no RA/RV diastolic collapse; no clear tamponade. ECG and sx not c/w pericarditis, thus will not treat with NSAIDS/Colchicine. D/W renal, additional gentle diuresis may help but will hold today s/p almost 1L fluid removal in IR. Problem List - Problems (1) Pericardial effusion Code(s): I31.3 - PERICARDIAL EFFUSION (NONINFLAMMATORY) (2) Dyspnea Code(s): R06.00 - DYSPNEA, UNSPECIFIED Qualifiers: Qualified Code(s): R06.09 - Other forms of dyspnea (3) MERYL (acute kidney injury) Code(s): N17.9 - ACUTE KIDNEY FAILURE, UNSPECIFIED (4) Hyponatremia Code(s): E87.1 - HYPO-OSMOLALITY AND HYPONATREMIA (5) Pleural effusion Code(s): J90 - PLEURAL EFFUSION, NOT ELSEWHERE CLASSIFIED (6) Hypertension Code(s): I10 - ESSENTIAL (PRIMARY) HYPERTENSION
--- NOTE | 2018-09-28 14:56 | CONSULT ---
Consult Consult Specialty:: Oncology-Hematology Referred by:: Hospitalists Reason for Consultation:: Anemia-nc/nc - History of Present Illness Chief Complaint: Recently hospitilized at [facility] for pneumonia and UTI. Presents now to [facility] with SOB . bilateral pleural effusions, pericardial effusion, abnormal LFT's , hepatomegaly, ESR of 105, right upper extremity radicular neck pain , and renal insufficiency. - History Source History Provided By: Patient, Medical Record Limitations to Obtaining History: Poor Historian - Past Medical History HEALTH PLAN MANAGER: Yes: Other Cardio/Vascular: Yes: HTN, Hyperlipdemia Pulmonary: Yes: Pneumonia. No: Asthma, Bronchitis, Cancer, COPD, O2 Dependent, Previously Intubated, Pulmonary Embolus, Pulmonary Fibrosis, Sleep Apnea, Other Gastrointestinal: Yes: Constipation. No: Ascites, Cancer, Crohn's Disease, Diverticulitis, Diverticulosis, Esophageal Varices, Gastritis, GERD, GI Bleed, Hemorrhoids, Hiatal Hernia, Inflamatory Bowel Disease, Irritable Bowel Disease, Pancreatitis, Peptic Ulcer Disease, Ulcerative Colitis, Other Hepatobiliary: Yes: Other (fatty liver,hepatomegaly) Renal/: Yes: Renal Inusuff Heme/Onc: Yes: Anemia Infectious Disease: No: AIDS, C-Diff, Herpes Zoster, HIV, MRSA, STD's, Tuberculosis, VREF, Other Psych: No: Addictions, Anxiety, Bipolar, Depression, Panic, Psychosis, Schizophrenia, Other Musculoskeletal: No: Bursitis, Chronic low back pain, Hemiparesis, Hemiplegia, Osteoarthritis, Paraplegia, Other Rheumatology: No: Fibromyalgia, Gout, Lupus, Rheumatoid Arthritis, Sarcoidosis, Vasculitis, Other ENT: No: Allergic Rhinitis, Sinusitis, Other Endocrine: Yes: Diabetes Mellitus - Alcohol/Substance Use Hx Alcohol Use: No History of Substance Use: reports: None - Smoking History Smoking history: Never smoked Have you smoked in the past 12 months: No - Social History Usual Living Arrangement: With Child ADL: Independent Occupation: housewife History of Recent Travel: No Home Medications - Allergies Allergies/Adverse Reactions: Allergies Allergy/AdvReac Type Severity Reaction Status Date / Time Penicillins Allergy Verified 09/27/18 20:53 - Home Medications Home Medications: Ambulatory Orders Amlodipine Besylate 1 tab PO DAILY 09/28/18 Aspirin 1 tab PO DAILY 09/28/18 Atorvastatin Ca [Lipitor] 1 tab PO HS 09/28/18 Calcium Carbonate/Vitamin D3 [Calcium 600 + Vit D Tablet] 1 tab PO BID 09/28/18 Carvedilol 1 tab PO BID 09/28/18 Gabapentin 1 tab PO DAILY 09/28/18 Insulin Glargine,Hum.rec.anlog [Yunieraglhiral Koch U-100] 10 units IM HS 09/28/18 Home Medications (free text): daughter reports that patient was on multiple pain meds including tylenol, motrin, gabapentin Family Disease History - Family Disease History Family Disease History: CA: Father (prostate c), Other: Mother (alzheimer), Brother (asthma- ), Sister (2 sisters of HIV) Other Family History: No history of colorectal cancer, liver disease Review of Systems - Review of Systems Constitutional: reports: Chills, Loss of Appetite, Weakness. denies: Unintentional Wgt. Loss Eyes: denies: Blurred Vision, Double Vision HENT: denies: Difficult Swallowing, Ear Pain, Hearing Loss, Throat Pain Neck: reports: Pain on Movement, Other (right radicular neck pains). denies: Tenderness Cardiovascular: reports: Shortness of Breath. denies: Chest Pain Respiratory: reports: SOB, SOB on Exertion Gastrointestinal: reports: Abdominal Pain, Constipation. denies: Melena, Nausea , Vomiting Genitourinary: reports: Other (UTI in recent past) Breasts: reports: Other (never had mammography) Musculoskeletal: reports: Decreased ROM, Extremity Pain, Other (right neck pains radiating down RUE). denies: Back Pain Neurological: denies: Dizziness, Headache, Parasthesia Endocrine: reports: Excessive Sweating Hematology/Lymphatic: reports: Easily Bruised Psychiatric: reports: No Symptoms Physical Exam Vital Signs: Vital Signs Temperature 97.7 F 09/28/18 04:35 Pulse Rate 66 09/28/18 04:35 Respiratory Rate 22 H 09/28/18 04:35 Blood Pressure 148/71 09/28/18 04:35 O2 Sat by Pulse Oximetry (%) 97 09/28/18 04:35 Constitutional: Yes: Moderate Distress Eyes: Yes: PERRL. No: Ptosis, Sclera Icterus HENT: Yes: Atraumatic, Normocephalic, Other (upper and lower dentures). No: Pharyngeal Erythema, Tonsillar Exudate Neck: Yes: Trachea Midline, Decreased ROM. No: Lymphadenopathy, Thyromegaly Cardiovascular: Yes: Regular Rate and Rhythm Respiratory: Yes: Diminished, Rhonchi Gastrointestinal: Yes: Normal Bowel Sounds, Hepatomegaly. No: Palpable Mass, Splenomegaly, Tenderness Renal/: No: CVA Tenderness - Left, CVA Tenderness - Right Breast(s): Yes: WNL, Left, Right Musculoskeletal: No: Back Pain, Muscle Pain Extremities: Yes: WNL Edema: No Integumentary: Yes: Other (numerous extremity ecchymoses) Neurological: Yes: WNL ...Motor Strength: WNL Psychiatric: Yes: WNL Labs: CBC, BMP 09/28/18 05:30 09/28/18 05:30 Imaging - Results Chest X-ray: Report Reviewed, Image Reviewed Cat Scan: Report Reviewed, Image Reviewed Assessment/Plan 1)Anemia - NC /NC ESR-105 Reverse albumin/globulin ratio For screening tests including protein studies 2) pleural effusions - bilaterally ? malignant, ??CHF, ? collagen vascular S/p thoracentesis Check BUSTER,collagen screen 3) Pericardial effusion ECHO--?? need to drain Monitored by cardiolgy 4)MERYL screening by renal 5) hepatomegaly and abnormal LFT's to monitir and evaluate per GI 6) MERYL/?CKD Renal following /
[2018-09-28 16:09] LABS: ALBUMIN 2.6 g/dl (3.4-5.0)
--- NOTE | 2018-09-28 17:18 | PN ---
Teaching Attending Note Name of Resident: Mayra Wright ATTENDING PHYSICIAN STATEMENT I saw and evaluated the patient. I reviewed the resident's note and discussed the case with the resident. I agree with the resident's findings and plan as documented. SUBJECTIVE: OBJECTIVE: Vital Signs Period Temp Pulse Resp BP Sys/Mendoza Pulse Ox Last 24 Hr 97.1 F-98.1 F 63-68 18-22 112-155/24-73 95-97 Laboratory Results - last 24 hr 09/27/18 09/27/18 09/27/18 01:50 22:08 22:21 WBC 8.9 RBC 2.69 L Hgb 8.4 L Hct 25.3 L D MCV 94.3 MCH 31.4 MCHC 33.3 RDW 13.8 Plt Count 224 D MPV 10.8 D Absolute Neuts (auto) 6.4 Neutrophils % 72.6 Lymphocytes % 15.0 D Monocytes % 11.3 H Eosinophils % 0.7 Basophils % 0.4 Nucleated RBC % 0 ESR Retic Count PT with INR INR Sodium Potassium Chloride Carbon Dioxide Anion Gap BUN Creatinine Creat Clearance w eGFR POC Glucometer 362 Random Glucose Calcium Phosphorus Magnesium Ferritin Total Bilirubin GGT AST ALT Alkaline Phosphatase Creatine Kinase Troponin I C-Reactive Protein B-Natriuretic Peptide Total Protein Albumin Prealbumin Triglycerides Total Amylase Lipase TSH Urine Color Dk yellow Urine Appearance Clear Urine pH 5.0 Ur Specific [place] 1.018 Urine Protein 1+ H Urine Glucose (UA) Trace Urine Ketones Negative Urine Blood Negative Urine Nitrite Negative Urine Bilirubin Negative Urine Urobilinogen 0.2 Ur Leukocyte Esterase Negative Urine WBC (Auto) 4 Urine RBC (Auto) 1 Urine Casts (Auto) 9 U Epithel Cells (Auto) 2.8 Urine Bacteria (Auto) 2.7 Fluid Source Fluid WBC Fluid RBC Fluid Neutrophils Fluid Lymphocytes Pleural Monocytes Pleural Macrophages Pleural Mesothelial 09/27/18 09/27/18 09/27/18 22:21 22:21 22:21 WBC RBC Hgb Hct MCV MCH MCHC RDW Plt Count MPV Absolute Neuts (auto) Neutrophils % Lymphocytes % Monocytes % Eosinophils % Basophils % Nucleated RBC % ESR Retic Count PT with INR 14.10 H INR 1.19 H Sodium 127 L Potassium 5.6 H Chloride 95 L Carbon Dioxide 24 Anion Gap 9 BUN 52 H Creatinine 2.0 H Creat Clearance w eGFR 23.91 POC Glucometer Random Glucose 379 H* Calcium 7.8 L Phosphorus Magnesium 2.7 H Ferritin Total Bilirubin 0.3 GGT AST 140 H ALT 235 H Alkaline Phosphatase 490 H Creatine Kinase Troponin I C-Reactive Protein B-Natriuretic Peptide Total Protein 6.5 Albumin 2.6 L Prealbumin Triglycerides Total Amylase Lipase 92 Cancelled TSH Urine Color Urine Appearance Urine pH Ur Specific [place] Urine Protein Urine Glucose (UA) Urine Ketones Urine Blood Urine Nitrite Urine Bilirubin Urine Urobilinogen Ur Leukocyte Esterase Urine WBC (Auto) Urine RBC (Auto) Urine Casts (Auto) U Epithel Cells (Auto) Urine Bacteria (Auto) Fluid Source Fluid WBC Fluid RBC Fluid Neutrophils Fluid Lymphocytes Pleural Monocytes Pleural Macrophages Pleural Mesothelial 09/28/18 09/28/18 09/28/18 03:39 03:39 03:39 WBC RBC Hgb Hct MCV MCH MCHC RDW Plt Count MPV Absolute Neuts (auto) Neutrophils % Lymphocytes % Monocytes % Eosinophils % Basophils % Nucleated RBC % ESR 105 H Retic Count PT with INR INR Sodium Potassium Chloride Carbon Dioxide Anion Gap BUN Creatinine Creat Clearance w eGFR POC Glucometer Random Glucose Calcium Phosphorus Magnesium Ferritin Total Bilirubin GGT 246 H AST ALT Alkaline Phosphatase Creatine Kinase Troponin I C-Reactive Protein 13.3 H B-Natriuretic Peptide Total Protein Albumin Prealbumin 10.1 L Triglycerides Total Amylase Lipase 86 TSH Urine Color Urine Appearance Urine pH Ur Specific [place] Urine Protein Urine Glucose (UA) Urine Ketones Urine Blood Urine Nitrite Urine Bilirubin Urine Urobilinogen Ur Leukocyte Esterase Urine WBC (Auto) Urine RBC (Auto) Urine Casts (Auto) U Epithel Cells (Auto) Urine Bacteria (Auto) Fluid Source Fluid WBC Fluid RBC Fluid Neutrophils Fluid Lymphocytes Pleural Monocytes Pleural Macrophages Pleural Mesothelial 09/28/18 09/28/18 09/28/18 05:30 05:30 05:30 WBC 7.9 RBC 2.72 L Hgb 8.6 L Hct 25.5 L MCV 93.9 MCH 31.6 MCHC 33.6 RDW 13.5 Plt Count 221 MPV 10.5 Absolute Neuts (auto) 5.9 Neutrophils % 74.7 Lymphocytes % 14.8 Monocytes % 9.2 Eosinophils % 0.9 Basophils % 0.4 Nucleated RBC % 0 ESR Retic Count 1.95 H PT with INR INR Sodium 135 L Potassium 5.1 Chloride 105 Carbon Dioxide 18 L Anion Gap 12 BUN 53 H Creatinine 1.9 H Creat Clearance w eGFR 25.37 POC Glucometer Random Glucose 285 H Calcium 7.6 L Phosphorus 4.3 Magnesium 2.5 H Ferritin Total Bilirubin GGT AST ALT Alkaline Phosphatase Creatine Kinase Troponin I C-Reactive Protein B-Natriuretic Peptide Total Protein Albumin Prealbumin Triglycerides Total Amylase Lipase TSH Urine Color Urine Appearance Urine pH Ur Specific [place] Urine Protein Urine Glucose (UA) Urine Ketones Urine Blood Urine Nitrite Urine Bilirubin Urine Urobilinogen Ur Leukocyte Esterase Urine WBC (Auto) Urine RBC (Auto) Urine Casts (Auto) U Epithel Cells (Auto) Urine Bacteria (Auto) Fluid Source Fluid WBC Fluid RBC Fluid Neutrophils Fluid Lymphocytes Pleural Monocytes Pleural Macrophages Pleural Mesothelial 09/28/18 09/28/18 09/28/18 05:30 06:51 11:05 WBC RBC Hgb Hct MCV MCH MCHC RDW Plt Count MPV Absolute Neuts (auto) Neutrophils % Lymphocytes % Monocytes % Eosinophils % Basophils % Nucleated RBC % ESR Retic Count PT with INR INR Sodium Potassium Chloride Carbon Dioxide Anion Gap BUN Creatinine Creat Clearance w eGFR POC Glucometer 224 Random Glucose Calcium Phosphorus Magnesium Ferritin 515.2 H Total Bilirubin GGT AST ALT Alkaline Phosphatase Creatine Kinase 59 Troponin I < 0.02 C-Reactive Protein B-Natriuretic Peptide 1749.1 H Total Protein Albumin Prealbumin Triglycerides Total Amylase Lipase TSH 2.36 Urine Color Urine Appearance Urine pH Ur Specific [place] Urine Protein Urine Glucose (UA) Urine Ketones Urine Blood Urine Nitrite Urine Bilirubin Urine Urobilinogen Ur Leukocyte Esterase Urine WBC (Auto) Urine RBC (Auto) Urine Casts (Auto) U Epithel Cells (Auto) Urine Bacteria (Auto) Fluid Source Fluid WBC Fluid RBC Fluid Neutrophils Fluid Lymphocytes Pleural Monocytes Pleural Macrophages Pleural Mesothelial 09/28/18 09/28/18 09/28/18 11:21 13:53 13:53 WBC RBC Hgb Hct MCV MCH MCHC RDW Plt Count MPV Absolute Neuts (auto) Neutrophils % Lymphocytes % Monocytes % Eosinophils % Basophils % Nucleated RBC % ESR Retic Count PT with INR INR Sodium Potassium Chloride Carbon Dioxide Anion Gap BUN Creatinine Creat Clearance w eGFR POC Glucometer 114 Random Glucose Calcium Phosphorus Magnesium Ferritin Total Bilirubin GGT AST ALT Alkaline Phosphatase Creatine Kinase Troponin I C-Reactive Protein B-Natriuretic Peptide Total Protein Albumin 2.6 L Prealbumin Triglycerides 111 Total Amylase 23 L Lipase TSH Urine Color Urine Appearance Urine pH Ur Specific [place] Urine Protein Urine Glucose (UA) Urine Ketones Urine Blood Urine Nitrite Urine Bilirubin Urine Urobilinogen Ur Leukocyte Esterase Urine WBC (Auto) Urine RBC (Auto) Urine Casts (Auto) U Epithel Cells (Auto) Urine Bacteria (Auto) Fluid Source Pleural fluid Fluid WBC 228 Fluid RBC 1019 Fluid Neutrophils 28 Fluid Lymphocytes 13 Pleural Monocytes 49 Pleural Macrophages 6 Pleural Mesothelial 4 09/28/18 15:00 WBC RBC Hgb Hct MCV MCH MCHC RDW Plt Count MPV Absolute Neuts (auto) Neutrophils % Lymphocytes % Monocytes % Eosinophils % Basophils % Nucleated RBC % ESR Retic Count PT with INR INR Sodium Potassium Chloride Carbon Dioxide Anion Gap BUN Creatinine Creat Clearance w eGFR POC Glucometer Random Glucose Calcium Phosphorus Magnesium Ferritin Total Bilirubin GGT AST ALT Alkaline Phosphatase Creatine Kinase 58 Troponin I < 0.02 C-Reactive Protein B-Natriuretic Peptide Total Protein Albumin Prealbumin Triglycerides Total Amylase Lipase TSH Urine Color Urine Appearance Urine pH Ur Specific [place] Urine Protein Urine Glucose (UA) Urine Ketones Urine Blood Urine Nitrite Urine Bilirubin Urine Urobilinogen Ur Leukocyte Esterase Urine WBC (Auto) Urine RBC (Auto) Urine Casts (Auto) U Epithel Cells (Auto) Urine Bacteria (Auto) Fluid Source Fluid WBC Fluid RBC Fluid Neutrophils Fluid Lymphocytes Pleural Monocytes Pleural Macrophages Pleural Mesothelial Current Medications Generic Name Dose Route Start Last Admin Trade Name Freq PRN Reason Stop Dose Admin Albuterol Sulfate 1 amp 09/28/18 08:32 09/28/18 09:29 Ventolin 0.083% Nebulizer Soln - NEB 1 amp Q6H PRN Administration SHORT OF BREATH/WHEEZING Amlodipine Besylate 5 mg 09/28/18 10:00 09/28/18 10:40 Norvasc - PO 5 mg DAILY AGUSTIN Administration Carvedilol 12.5 mg 09/28/18 10:00 09/28/18 10:40 Coreg - PO 12.5 mg BID AGUSTIN Administration Gabapentin 400 mg 09/28/18 10:00 09/28/18 10:40 Neurontin - PO 400 mg DAILY AGUSTIN Administration Heparin Sodium (Porcine) 5,000 unit 09/28/18 22:00 Heparin - SQ TID AGUSTIN Insulin Aspart 1 vial 09/28/18 07:00 09/28/18 11:22 Novolog Vial Sliding Scale - SQ Not Given ACHS [facility] Protocol Insulin Detemir 10 units 09/28/18 22:00 Levemir Vial SQ HS [facility] Pantoprazole Sodium 40 mg 09/28/18 10:30 09/28/18 10:40 Protonix - PO 40 mg DAILY AGUSTIN Administration Polyethylene Glycol 17 gm 09/28/18 10:00 09/28/18 10:52 Miralax (For Daily Use) - PO 17 gm BID AGUSTIN Administration ASSESSMENT AND PLAN: This is an 83 year old woman with a history of dementia, type 2 DM, HTN, hyperlipidemia, recent UTI and pneumonia who presented to the ED with abdominal pain and distention, shortness of breath. 1. Pleural effusions R>L, pericardial effusion - Probable malignant, doubt CHF - CT chest/abd/pelvis shows bilateral pleural effusions, moderate pericardial effusion, possible right breast mass, hepatomegaly, fecal retention - RUQ US shows right pleural effusion, trace ascites, heterogeneous liver, mildly contracted gallbladder with sludge, minimal right hydronephrosis - Echo shows normal LV systolic function, LVEF 55-60%, normal RV, mild MR, mild TR, mild AR, moderate posterior pericardial effusion - s/p right thoracentesis by IR today - Follow-up pleural fluid studies - Pulmonary, cardiology consults 2. Possible right breast mass - Mammogram ordered 3. Acute kidney injury - Renal US shows mild fullness of right renal pelvicalyceal system, small right simple cyst - Slight improvement in creatinine - continue to monitor 4. Anemia, normocytic - Work-up in progress 5. Constipation - Continue Miralax 6. HTN - Continue Norvasc, Coreg 7. Hyperlipidemia 8. Type 2 DM - Continue Levemir, Novolog sliding scale 9. Dementia
--- NOTE | 2018-09-28 17:29 | CON.PULM ---
Consult Consult Specialty:: PULMONARY Referred by:: SHYANN Reason for Consultation:: PLEURAL EFFUSION - History of Present Illness Chief Complaint: SOB History of Present Illness: The patient is a 83 YOF with a PMH of HTN, HLD, DM, dementia, and arthritis who presents with abdominal distension and constipation for the past week with associated shortness of breath. She is complaining that she cannot breath out completely secondary to the abdominal distension and constipation. Patient is satting at 95-97% in room air. Patient was recently admitted at [facility] for PNA and UTI for which she received antibiotics. She notes the cough has improved since her discharge this past Monday, 09/24. - History Source History Provided By: Family Member, Medical Record Limitations to Obtaining History: Clinical Condition - Past Medical History CAREER DEVELOPMENT ASSOCIATE: Yes: Other Cardio/Vascular: Yes: HTN, Hyperlipdemia Pulmonary: Yes: Pneumonia. No: Asthma, Bronchitis, Cancer, COPD, O2 Dependent, Previously Intubated, Pulmonary Embolus, Pulmonary Fibrosis, Sleep Apnea, Other Gastrointestinal: Yes: Constipation. No: Ascites, Cancer, Crohn's Disease, Diverticulitis, Diverticulosis, Esophageal Varices, Gastritis, GERD, GI Bleed, Hemorrhoids, Hiatal Hernia, Inflamatory Bowel Disease, Irritable Bowel Disease, Pancreatitis, Peptic Ulcer Disease, Ulcerative Colitis, Other Hepatobiliary: Yes: Other (fatty liver,hepatomegaly) Renal/: Yes: Renal Inusuff Infectious Disease: No: AIDS, C-Diff, Herpes Zoster, HIV, MRSA, STD's, Tuberculosis, VREF, Other Psych: No: Addictions, Anxiety, Bipolar, Depression, Panic, Psychosis, Schizophrenia, Other Musculoskeletal: No: Bursitis, Chronic low back pain, Hemiparesis, Hemiplegia, Osteoarthritis, Paraplegia, Other Rheumatology: No: Fibromyalgia, Gout, Lupus, Rheumatoid Arthritis, Sarcoidosis, Vasculitis, Other ENT: No: Allergic Rhinitis, Sinusitis, Other Endocrine: Yes: Diabetes Mellitus - Alcohol/Substance Use Hx Alcohol Use: No History of Substance Use: reports: None - Smoking History Smoking history: Never smoked Have you smoked in the past 12 months: No - Social History Usual Living Arrangement: With Child ADL: Independent Occupation: housewife History of Recent Travel: No Home Medications - Allergies Allergies/Adverse Reactions: Allergies Allergy/AdvReac Type Severity Reaction Status Date / Time Penicillins Allergy Verified 09/27/18 20:53 - Home Medications Home Medications: Ambulatory Orders Amlodipine Besylate 1 tab PO DAILY 09/28/18 Aspirin 1 tab PO DAILY 09/28/18 Atorvastatin Ca [Lipitor] 1 tab PO HS 09/28/18 Calcium Carbonate/Vitamin D3 [Calcium 600 + Vit D Tablet] 1 tab PO BID 09/28/18 Carvedilol 1 tab PO BID 09/28/18 Gabapentin 1 tab PO DAILY 09/28/18 Insulin Glargine,Hum.rec.anlog [Yunieraglhiral Liuikpen U-100] 10 units IM HS 09/28/18 Family Disease History - Family Disease History Family Disease History: CA: Father (prostate c), Other: Mother (alzheimer), Brother (asthma- ), Sister (2 sisters of HIV) Other Family History: No history of colorectal cancer, liver disease Review of Systems Unable to obtain ROS, reason: UNABLE TO OBTAIN Physical Exam Vital Sings: Vital Signs Temperature 98.1 F 09/28/18 14:00 Pulse Rate 63 09/28/18 14:00 Respiratory Rate 22 H 09/28/18 04:35 Blood Pressure 112/63 09/28/18 14:00 O2 Sat by Pulse Oximetry (%) 97 09/28/18 04:35 Constitutional: Yes: Other (SLEEPING) HENT: Yes: Normocephalic Neck: Yes: Trachea Midline Cardiovascular: Yes: Regular Rate and Rhythm, S1, S2 Respiratory: Yes: Diminished (BASES) Gastrointestinal: Yes: Soft Edema: No Neurological: Yes: Pre-Existing Deficit Labs: CBC, BMP 09/28/18 05:30 09/28/18 05:30 REST REVIEWED Imaging - Results Chest X-ray: Report Reviewed, Image Reviewed Cat Scan: Report Reviewed, Image Reviewed Problem List - Problems (1) MERYL (acute kidney injury) Code(s): N17.9 - ACUTE KIDNEY FAILURE, UNSPECIFIED (2) Breast mass Code(s): N63.0 - UNSPECIFIED LUMP IN UNSPECIFIED BREAST (3) Constipation Code(s): K59.00 - CONSTIPATION, UNSPECIFIED (4) Pericardial effusion Code(s): I31.3 - PERICARDIAL EFFUSION (NONINFLAMMATORY) (5) Pleural effusion Code(s): J90 - PLEURAL EFFUSION, NOT ELSEWHERE CLASSIFIED (6) Hypertension Code(s): I10 - ESSENTIAL (PRIMARY) HYPERTENSION Assessment/Plan PERICARDIAL EFFUSION/PLEURAL EFFUSION/PROTEINURIA/ANEMIA/ELEVATED ESR/CRP/RENAL INSUFFICIENCY IN ADDITION TO WORKUP ORDERED BY MULTIPLE CONSULTANTS WOULD INCLUDE WORKUP FOR CONNECTIVE TISSUE DISEASES IE SLE/RA/SS AWAITING CHEMISTRY ON PLEURAL FLUID GLYCEMIC CONTROL WILL FOLLOW Gibran SANDS MD
[2018-09-28] MEDS ORDERED: ATORVASTATIN CA 40 MG TABLET (FP) PO SCH ×2 (22:00)
[2018-09-28] MEDS: HEPARIN NA (PORCINE) 5,000 UNITS/ML 1ML VIAL SQ SCH (22:06)
[2018-09-28] MEDS: INSULIN (LEVEMIR) 100 UNITS/ML UNITS SQ SCH (22:12)
[2018-09-29 04:09] LABS: HEP.C VIRUS AB 0.2 s/co ratio (0.0-0.9)
[2018-09-29 04:09] LABS: SERUM IRON SATURATION 12 % (15-55); TOTAL IRON BINDING CAPACITY 212 ug/dL (250-450); UIBC 187 ug/dL (118-369)
[2018-09-29] MEDS: HEPARIN NA (PORCINE) 5,000 UNITS/ML 1ML VIAL SQ SCH ×3 (05:37→22:03)
[2018-09-29] MEDS: INSULIN SLIDING SCALE (NOVOLOG) 1 VIAL SQ SCH ×4 (06:02→22:08)
[2018-09-29 06:35] LABS: BASO % 0.6 % (0-2.0); EOS % 1.9 % (0-4.5); HEMATOCRIT 23.8 % (32.4-45.2); LYMPH % 16.9 % (8-40); MCH 31.5 pg (25.7-33.7); MCHC 33.6 g/dl (32.0-36.0); MEAN CELL VOLUME 93.9 fl (80-96); MEAN PLT VOLUME 10.6 fl (7.5-11.1); MONO % 7.9 % (3.8-10.2); NEUT % 72.7 % (42.8-82.8); PLATELET COUNT 223 K/MM3 (134-434); RBC 2.53 M/mm3 (3.60-5.2); RDW 13.8 % (11.6-15.6); WHITE BLOOD COUNT 8.5 K/mm3 (4.0-10.0)
--- NOTE | 2018-09-29 07:38 | PN ---
Progress Note (short form) - Note Progress Note: RENAL Pt seen and examined sleeping/snoring comfortable Last Vital Signs Temp Pulse Resp BP Pulse Ox 98.4 F 69 20 120/52 L 96 09/29/18 05:38 09/29/18 05:38 09/29/18 05:38 09/29/18 05:38 09/28/18 21:00 lungs some rhonchi cvs s1s2 abd soft ext +1 edema CBC, BMP 09/29/18 05:30 Current Medications Generic Name Dose Route Start Last Admin Trade Name Freq PRN Reason Stop Dose Admin Albuterol Sulfate 1 amp 09/28/18 08:32 09/28/18 09:29 Ventolin 0.083% Nebulizer Soln - NEB 1 amp Q6H PRN Administration SHORT OF BREATH/WHEEZING Amlodipine Besylate 5 mg 09/28/18 10:00 09/28/18 10:40 Norvasc - PO 5 mg DAILY AGUSTIN Administration Carvedilol 12.5 mg 09/28/18 10:00 09/28/18 22:06 Coreg - PO 12.5 mg BID AGUSTIN Administration Gabapentin 400 mg 09/28/18 10:00 09/28/18 10:40 Neurontin - PO 400 mg DAILY AGUSTIN Administration Heparin Sodium (Porcine) 5,000 unit 09/28/18 22:00 09/29/18 05:37 Heparin - SQ 5,000 unit TID AGUSTIN Administration Insulin Aspart 1 vial 09/28/18 07:00 09/29/18 06:02 Novolog Vial Sliding Scale - SQ Not Given ACHS [facility] Protocol Insulin Detemir 10 units 09/28/18 22:00 09/28/18 22:12 Levemir Vial SQ 10 unit HS AGUSTIN Administration Pantoprazole Sodium 40 mg 09/28/18 10:30 09/28/18 10:40 Protonix - PO 40 mg DAILY AGUSTIN Administration Polyethylene Glycol 17 gm 09/28/18 10:00 09/28/18 22:07 Miralax (For Daily Use) - PO 17 gm BID AGUSTIN Administration IMPRESSION 1. hyperkalemia 2. MERYL 3. likely ckd- proteinuric 4. dyspnea 5. constipation 6. DM 7. pleural effusion 8. pericardial effusion 9. anemia probably combination of iron def and chronic disease Plan - anemia work up - avoid nsaids - avoid hypotension/nephrotoxins - linzess -renal sono and urology eval if hydronephrosis truly present MV
[2018-09-29 08:06] LABS: ALBUMIN 2.4 g/dl (3.4-5.0); ANION GAP 9 MMOL/L (8-16); BILIRUBIN,TOTAL 0.3 mg/dL (0.2-1); BLOOD UREA NITROGEN 57 mg/dL (7-18); CALCIUM 7.5 mg/dL (8.5-10.1); CHLORIDE 100 mmol/L (98-107); CO2 23 mmol/L (21-32); CREATININE 1.9 mg/dL (0.55-1.3); GLUCOSE,RANDOM 86 mg/dL (74-106); MAGNESIUM 2.6 mg/dL (1.8-2.4); PHOSPHOROUS 4.4 mg/dL (2.5-4.9); POTASSIUM 4.3 mmol/L (3.5-5.1); SGOT/AST 46 U/L (15-37); SGPT/ALT 143 U/L (13-61); SODIUM 131 mmol/L (136-145)
[2018-09-29 08:21] LABS: ALK PHOS 309 U/L (45-117)
[2018-09-29 08:54] LABS: BILIRUBIN,DIRECT 0.2 mg/dL (0.0-0.2); LDH 207 U/L (84-246)
[2018-09-29] MEDS: CARVEDILOL 12.5 MG TABLET (FP) PO SCH ×2 (10:45→22:02)
[2018-09-29] MEDS: PANTOPRAZOLE 40 MG TABLET (FP) PO SCH (10:45)
[2018-09-29] MEDS: amLODIPine BESYLATE 5 MG TABLET (FP) PO SCH (10:46)
[2018-09-29] MEDS: GABAPENTIN 400 MG CAPSULE (FP) PO SCH (10:46)
[2018-09-29] MEDS: POLYETHYLENE GLYCOL 3350 119 GM BTL PO SCH ×2 (10:46→22:03)
[2018-09-29 11:24] LABS: EPI CELLS 9.3 /HPF (0-5/HPF); URINE APPEARANCE CLEAR; URINE BACTERIA 1.9 /hpf (NEGATIVE); URINE BILIRUBIN NEGATIVE (NEGATIVE); URINE CASTS 26 /lpf (0-8); URINE COLOR YELLOW; URINE GLUCOSE (UA) TRACE (NEGATIVE); URINE KETONE NEGATIVE (NEGATIVE); URINE LEUK ESTERASE 1+ (NEGATIVE); URINE NITRITE NEGATIVE (NEGATIVE); URINE PROTEIN 1+ (NEGATIVE); URINE RBC 4 /hpf (0-4); URINE UROBILINOGEN 0.2 mg/dL (0.2-1.0); URINE WBC 24 /hpf (0-5)
--- NOTE | 2018-09-29 12:08 | PN ---
Progress Note (short form) - Note Progress Note: PULMONARY Appears stable VSS Constitutional: awake/alert HENT: Yes: Normocephalic Neck: Yes: Trachea Midline Cardiovascular: Yes: Regular Rate and Rhythm, S1, S2 Respiratory: Yes: Diminished (BASES) Gastrointestinal: Yes: Soft Edema: No Neurological: Yes: Pre-Existing Deficit Labs/notes/images/micro/reviewed (1) MERYL (acute kidney injury) Code(s): N17.9 - ACUTE KIDNEY FAILURE, UNSPECIFIED (2) Breast mass Code(s): N63.0 - UNSPECIFIED LUMP IN UNSPECIFIED BREAST (3) Constipation Code(s): K59.00 - CONSTIPATION, UNSPECIFIED (4) Pericardial effusion Code(s): I31.3 - PERICARDIAL EFFUSION (NONINFLAMMATORY) (5) Pleural effusion Code(s): J90 - PLEURAL EFFUSION, NOT ELSEWHERE CLASSIFIED (6) Hypertension Code(s): I10 - ESSENTIAL (PRIMARY) HYPERTENSION Assessment/Plan PERICARDIAL EFFUSION/PLEURAL EFFUSION/PROTEINURIA/ANEMIA/ELEVATED ESR/CRP/RENAL INSUFFICIENCY IN ADDITION TO WORKUP ORDERED BY MULTIPLE CONSULTANTS WOULD INCLUDE WORKUP FOR CONNECTIVE TISSUE DISEASES IE SLE/RA/SS AWAITING CHEMISTRY ON PLEURAL FLUID GLYCEMIC CONTROL Gibran SANDS MD Problem List - Problems (1) MERYL (acute kidney injury) Code(s): N17.9 - ACUTE KIDNEY FAILURE, UNSPECIFIED (2) Breast mass Code(s): N63.0 - UNSPECIFIED LUMP IN UNSPECIFIED BREAST (3) Constipation Code(s): K59.00 - CONSTIPATION, UNSPECIFIED (4) Pericardial effusion Code(s): I31.3 - PERICARDIAL EFFUSION (NONINFLAMMATORY) (5) Pleural effusion Code(s): J90 - PLEURAL EFFUSION, NOT ELSEWHERE CLASSIFIED (6) Hypertension Code(s): I10 - ESSENTIAL (PRIMARY) HYPERTENSION
[2018-09-29 12:35] LABS: YEAST PRESENT (NEGATIVE)
--- NOTE | 2018-09-29 12:54 | PN ---
Physical Exam: SUBJECTIVE: Patient seen and examined at bedside this morning. No acute events overnight. Patient resting comfortably in the chair, saturating 97% at room air. She also reported minimal abdominal pain and has had BM overnight. Denies fever, chills, headache, chest pain, SOB, nausea, vomiting, diarrhea, urinary symptoms. OBJECTIVE: Vital Signs Temperature 97.9 F 09/29/18 10:05 Pulse Rate 69 09/29/18 10:05 Respiratory Rate 20 09/29/18 10:05 Blood Pressure 118/43 L 09/29/18 10:05 O2 Sat by Pulse Oximetry (%) 96 09/28/18 21:00 GENERAL: The patient is awake, alert, and fully oriented, no in acute distress HEAD: Normal with no signs of trauma. EYES: PERRLA, EOMI, sclera anicteric, conjunctiva clear. ENT: oropharynx clear without exudates, moist mucous membranes. NECK: Trachea midline, full range of motion, supple. LUNGS: +bibasilar crackles HEART: Regular rate and rhythm, S1, S2 without murmur, rub or gallop. ABDOMEN: Soft, nontender, mildly distended, normoactive bowel sounds. EXTREMITIES: 2+ pulses, warm, well-perfused, +1 bilateral pitting edema. NEUROLOGICAL: Cranial nerves II through XII grossly intact. Normal speech, normal gait. Motor strength 5/5, sensation intact. PSYCH: Normal mood, normal affect. SKIN: Warm, dry, normal turgor, no rashes or lesions noted Laboratory Results - last 24 hr 09/28/18 09/28/18 09/28/18 03:39 05:30 11:05 WBC RBC Hgb Hct MCV MCH MCHC RDW Plt Count MPV Absolute Neuts (auto) Neutrophils % Lymphocytes % Monocytes % Eosinophils % Basophils % Nucleated RBC % Retic Count PTT (Actin FS) Sodium Potassium Chloride Carbon Dioxide Anion Gap BUN Creatinine Creat Clearance w eGFR POC Glucometer Random Glucose Serum Osmolality Calcium Phosphorus Magnesium Iron 25 L TIBC 212 L Iron Saturation 12 L Total Bilirubin Direct Bilirubin AST ALT Alkaline Phosphatase LD Total 243 Creatine Kinase Troponin I B-Natriuretic Peptide 1749.1 H Total Protein Albumin Triglycerides Total Amylase TSH 2.36 Urine Color Urine Appearance Urine pH Ur Specific [place] Urine Protein Urine Glucose (UA) Urine Ketones Urine Blood Urine Nitrite Urine Bilirubin Urine Urobilinogen Ur Leukocyte Esterase Urine WBC (Auto) Urine RBC (Auto) Urine Casts (Auto) U Pathogenic Cast Auto U Epithel Cells (Auto) U Sm Round Cell (Auto) Urine Bacteria (Auto) Urine Yeast (Auto) Urine Osmolality Ur Random Creatinine Ur Random Sodium Ur Random Potassium Ur Random Chloride Ur Random Urea Nitrogn Fluid Source Fluid WBC Fluid RBC Fluid Neutrophils Fluid Lymphocytes Pleural Monocytes Pleural Macrophages Pleural Mesothelial Rheumatoid Factor Hepatitis A IgM Ab Negative Hep Bs Antigen Negative Hep B Core IgM Ab Negative Hepatitis C Antibody 0.2 HIV 1&2 Antibody Screen HIV P24 Antigen 09/28/18 09/28/18 09/28/18 13:53 13:53 15:00 WBC RBC Hgb Hct MCV MCH MCHC RDW Plt Count MPV Absolute Neuts (auto) Neutrophils % Lymphocytes % Monocytes % Eosinophils % Basophils % Nucleated RBC % Retic Count PTT (Actin FS) Sodium Potassium Chloride Carbon Dioxide Anion Gap BUN Creatinine Creat Clearance w eGFR POC Glucometer Random Glucose Serum Osmolality Calcium Phosphorus Magnesium Iron TIBC Iron Saturation Total Bilirubin Direct Bilirubin AST ALT Alkaline Phosphatase LD Total Cancelled Creatine Kinase 58 Troponin I < 0.02 B-Natriuretic Peptide Total Protein Albumin 2.6 L Triglycerides 111 Total Amylase 23 L TSH Urine Color Urine Appearance Urine pH Ur Specific [place] Urine Protein Urine Glucose (UA) Urine Ketones Urine Blood Urine Nitrite Urine Bilirubin Urine Urobilinogen Ur Leukocyte Esterase Urine WBC (Auto) Urine RBC (Auto) Urine Casts (Auto) U Pathogenic Cast Auto U Epithel Cells (Auto) U Sm Round Cell (Auto) Urine Bacteria (Auto) Urine Yeast (Auto) Urine Osmolality Ur Random Creatinine Ur Random Sodium Ur Random Potassium Ur Random Chloride Ur Random Urea Nitrogn Fluid Source Pleural fluid Fluid WBC 228 Fluid RBC 1019 Fluid Neutrophils 28 Fluid Lymphocytes 13 Pleural Monocytes 49 Pleural Macrophages 6 Pleural Mesothelial 4 Rheumatoid Factor Hepatitis A IgM Ab Hep Bs Antigen Hep B Core IgM Ab Hepatitis C Antibody HIV 1&2 Antibody Screen HIV P24 Antigen 09/28/18 09/28/18 09/28/18 18:35 22:08 22:30 WBC RBC Hgb Hct MCV MCH MCHC RDW Plt Count MPV Absolute Neuts (auto) Neutrophils % Lymphocytes % Monocytes % Eosinophils % Basophils % Nucleated RBC % Retic Count PTT (Actin FS) Sodium Potassium Chloride Carbon Dioxide Anion Gap BUN Creatinine Creat Clearance w eGFR POC Glucometer 135 190 Random Glucose Serum Osmolality Calcium Phosphorus Magnesium Iron TIBC Iron Saturation Total Bilirubin Direct Bilirubin AST ALT Alkaline Phosphatase LD Total Creatine Kinase 73 Troponin I < 0.02 B-Natriuretic Peptide Total Protein Albumin Triglycerides Total Amylase TSH Urine Color Urine Appearance Urine pH Ur Specific [place] Urine Protein Urine Glucose (UA) Urine Ketones Urine Blood Urine Nitrite Urine Bilirubin Urine Urobilinogen Ur Leukocyte Esterase Urine WBC (Auto) Urine RBC (Auto) Urine Casts (Auto) U Pathogenic Cast Auto U Epithel Cells (Auto) U Sm Round Cell (Auto) Urine Bacteria (Auto) Urine Yeast (Auto) Urine Osmolality Ur Random Creatinine Ur Random Sodium Ur Random Potassium Ur Random Chloride Ur Random Urea Nitrogn Fluid Source Fluid WBC Fluid RBC Fluid Neutrophils Fluid Lymphocytes Pleural Monocytes Pleural Macrophages Pleural Mesothelial Rheumatoid Factor Hepatitis A IgM Ab Hep Bs Antigen Hep B Core IgM Ab Hepatitis C Antibody HIV 1&2 Antibody Screen HIV P24 Antigen 09/28/18 09/29/18 09/29/18 22:30 02:40 02:40 WBC RBC Hgb Hct MCV MCH MCHC RDW Plt Count MPV Absolute Neuts (auto) Neutrophils % Lymphocytes % Monocytes % Eosinophils % Basophils % Nucleated RBC % Retic Count PTT (Actin FS) Sodium Potassium Chloride Carbon Dioxide Anion Gap BUN Creatinine Creat Clearance w eGFR POC Glucometer Random Glucose Serum Osmolality Calcium Phosphorus Magnesium Iron TIBC Iron Saturation Total Bilirubin Direct Bilirubin AST ALT Alkaline Phosphatase LD Total Creatine Kinase Troponin I B-Natriuretic Peptide Total Protein Albumin Triglycerides Total Amylase TSH 2.26 Urine Color Urine Appearance Urine pH Ur Specific [place] Urine Protein Urine Glucose (UA) Urine Ketones Urine Blood Urine Nitrite Urine Bilirubin Urine Urobilinogen Ur Leukocyte Esterase Urine WBC (Auto) Urine RBC (Auto) Urine Casts (Auto) U Pathogenic Cast Auto U Epithel Cells (Auto) U Sm Round Cell (Auto) Urine Bacteria (Auto) Urine Yeast (Auto) Urine Osmolality Ur Random Creatinine 97 Ur Random Sodium < 18 L Ur Random Potassium 59.6 Ur Random Chloride < 11 L Ur Random Urea Nitrogn Fluid Source Fluid WBC Fluid RBC Fluid Neutrophils Fluid Lymphocytes Pleural Monocytes Pleural Macrophages Pleural Mesothelial Rheumatoid Factor Hepatitis A IgM Ab Hep Bs Antigen Hep B Core IgM Ab Hepatitis C Antibody HIV 1&2 Antibody Screen HIV P24 Antigen 09/29/18 09/29/18 09/29/18 02:40 02:40 02:40 WBC RBC Hgb Hct MCV MCH MCHC RDW Plt Count MPV Absolute Neuts (auto) Neutrophils % Lymphocytes % Monocytes % Eosinophils % Basophils % Nucleated RBC % Retic Count PTT (Actin FS) Sodium Potassium Chloride Carbon Dioxide Anion Gap BUN Creatinine Creat Clearance w eGFR POC Glucometer Random Glucose Serum Osmolality Calcium Phosphorus Magnesium Iron TIBC Iron Saturation Total Bilirubin Direct Bilirubin AST ALT Alkaline Phosphatase LD Total Creatine Kinase Troponin I B-Natriuretic Peptide Total Protein Albumin Triglycerides Total Amylase TSH Urine Color Yellow Urine Appearance Clear Urine pH 5.0 Ur Specific [place] 1.017 Urine Protein 1+ H Urine Glucose (UA) Trace Urine Ketones Negative Urine Blood Negative Urine Nitrite Negative Urine Bilirubin Negative Urine Urobilinogen 0.2 Ur Leukocyte Esterase 1+ H Urine WBC (Auto) 24 Urine RBC (Auto) 4 Urine Casts (Auto) 26 U Pathogenic Cast Auto None seen U Epithel Cells (Auto) 9.3 U Sm Round Cell (Auto) Few Urine Bacteria (Auto) 1.9 Urine Yeast (Auto) Present Urine Osmolality 393 Ur Random Creatinine Ur Random Sodium Ur Random Potassium Ur Random Chloride Ur Random Urea Nitrogn 594 Fluid Source Fluid WBC Fluid RBC Fluid Neutrophils Fluid Lymphocytes Pleural Monocytes Pleural Macrophages Pleural Mesothelial Rheumatoid Factor Hepatitis A IgM Ab Hep Bs Antigen Hep B Core IgM Ab Hepatitis C Antibody HIV 1&2 Antibody Screen HIV P24 Antigen 09/29/18 09/29/18 09/29/18 05:30 05:30 05:30 WBC 8.5 RBC 2.53 L Hgb 8.0 L Hct 23.8 L MCV 93.9 MCH 31.5 MCHC 33.6 RDW 13.8 Plt Count 223 MPV 10.6 Absolute Neuts (auto) 6.2 Neutrophils % 72.7 Lymphocytes % 16.9 Monocytes % 7.9 Eosinophils % 1.9 D Basophils % 0.6 Nucleated RBC % 0 Retic Count 2.41 H D PTT (Actin FS) Sodium Potassium Chloride Carbon Dioxide Anion Gap BUN Creatinine Creat Clearance w eGFR POC Glucometer Random Glucose Serum Osmolality 290 Calcium Phosphorus Magnesium Iron TIBC Iron Saturation Total Bilirubin Direct Bilirubin AST ALT Alkaline Phosphatase LD Total Creatine Kinase Troponin I B-Natriuretic Peptide Total Protein Albumin Triglycerides Total Amylase TSH Urine Color Urine Appearance Urine pH Ur Specific [place] Urine Protein Urine Glucose (UA) Urine Ketones Urine Blood Urine Nitrite Urine Bilirubin Urine Urobilinogen Ur Leukocyte Esterase Urine WBC (Auto) Urine RBC (Auto) Urine Casts (Auto) U Pathogenic Cast Auto U Epithel Cells (Auto) U Sm Round Cell (Auto) Urine Bacteria (Auto) Urine Yeast (Auto) Urine Osmolality Ur Random Creatinine Ur Random Sodium Ur Random Potassium Ur Random Chloride Ur Random Urea Nitrogn Fluid Source Fluid WBC Fluid RBC Fluid Neutrophils Fluid Lymphocytes Pleural Monocytes Pleural Macrophages Pleural Mesothelial Rheumatoid Factor Hepatitis A IgM Ab Hep Bs Antigen Hep B Core IgM Ab Hepatitis C Antibody HIV 1&2 Antibody Screen HIV P24 Antigen 09/29/18 09/29/18 09/29/18 05:30 05:30 05:30 WBC RBC Hgb Hct MCV MCH MCHC RDW Plt Count MPV Absolute Neuts (auto) Neutrophils % Lymphocytes % Monocytes % Eosinophils % Basophils % Nucleated RBC % Retic Count PTT (Actin FS) 41.9 H Sodium 131 L Potassium 4.3 Chloride 100 Carbon Dioxide 23 Anion Gap 9 BUN 57 H Creatinine 1.9 H Creat Clearance w eGFR 25.37 POC Glucometer Random Glucose 86 Serum Osmolality Calcium 7.5 L Phosphorus 4.4 Magnesium 2.6 H Iron TIBC Iron Saturation Total Bilirubin 0.3 Direct Bilirubin 0.2 AST 46 H ALT 143 H Alkaline Phosphatase 309 H LD Total 207 Creatine Kinase Troponin I B-Natriuretic Peptide Total Protein 6.0 L Albumin 2.4 L Triglycerides Total Amylase TSH Urine Color Urine Appearance Urine pH Ur Specific [place] Urine Protein Urine Glucose (UA) Urine Ketones Urine Blood Urine Nitrite Urine Bilirubin Urine Urobilinogen Ur Leukocyte Esterase Urine WBC (Auto) Urine RBC (Auto) Urine Casts (Auto) U Pathogenic Cast Auto U Epithel Cells (Auto) U Sm Round Cell (Auto) Urine Bacteria (Auto) Urine Yeast (Auto) Urine Osmolality Ur Random Creatinine Ur Random Sodium Ur Random Potassium Ur Random Chloride Ur Random Urea Nitrogn Fluid Source Fluid WBC Fluid RBC Fluid Neutrophils Fluid Lymphocytes Pleural Monocytes Pleural Macrophages Pleural Mesothelial Rheumatoid Factor < 10.0 Hepatitis A IgM Ab Hep Bs Antigen Hep B Core IgM Ab Hepatitis C Antibody HIV 1&2 Antibody Screen Negative HIV P24 Antigen Negative 09/29/18 09/29/18 09/29/18 05:35 08:45 12:00 WBC RBC Hgb Hct MCV MCH MCHC RDW Plt Count MPV Absolute Neuts (auto) Neutrophils % Lymphocytes % Monocytes % Eosinophils % Basophils % Nucleated RBC % Retic Count PTT (Actin FS) Sodium Potassium Chloride Carbon Dioxide Anion Gap BUN Creatinine Creat Clearance w eGFR POC Glucometer 87 73 248 Random Glucose Serum Osmolality Calcium Phosphorus Magnesium Iron TIBC Iron Saturation Total Bilirubin Direct Bilirubin AST ALT Alkaline Phosphatase LD Total Creatine Kinase Troponin I B-Natriuretic Peptide Total Protein Albumin Triglycerides Total Amylase TSH Urine Color Urine Appearance Urine pH Ur Specific [place] Urine Protein Urine Glucose (UA) Urine Ketones Urine Blood Urine Nitrite Urine Bilirubin Urine Urobilinogen Ur Leukocyte Esterase Urine WBC (Auto) Urine RBC (Auto) Urine Casts (Auto) U Pathogenic Cast Auto U Epithel Cells (Auto) U Sm Round Cell (Auto) Urine Bacteria (Auto) Urine Yeast (Auto) Urine Osmolality Ur Random Creatinine Ur Random Sodium Ur Random Potassium Ur Random Chloride Ur Random Urea Nitrogn Fluid Source Fluid WBC Fluid RBC Fluid Neutrophils Fluid Lymphocytes Pleural Monocytes Pleural Macrophages Pleural Mesothelial Rheumatoid Factor Hepatitis A IgM Ab Hep Bs Antigen Hep B Core IgM Ab Hepatitis C Antibody HIV 1&2 Antibody Screen HIV P24 Antigen Active Medications Generic Name Dose Route Start Last Admin Trade Name Freq PRN Reason Stop Dose Admin Albuterol Sulfate 1 amp 09/28/18 08:32 09/28/18 09:29 Ventolin 0.083% Nebulizer Soln - NEB 1 amp Q6H PRN Administration SHORT OF BREATH/WHEEZING Amlodipine Besylate 5 mg 09/28/18 10:00 09/29/18 10:46 Norvasc - PO 5 mg DAILY AGUSTIN Administration Carvedilol 12.5 mg 09/28/18 10:00 09/29/18 10:45 Coreg - PO 12.5 mg BID AGUSTIN Administration Gabapentin 400 mg 09/28/18 10:00 09/29/18 10:46 Neurontin - PO 400 mg DAILY AGUSTIN Administration Heparin Sodium (Porcine) 5,000 unit 09/28/18 22:00 09/29/18 05:37 Heparin - SQ 5,000 unit TID AGUSTIN Administration Insulin Aspart 1 vial 09/28/18 07:00 09/29/18 12:01 Novolog Vial Sliding Scale - SQ 4 units ACHS AGUSTIN Administration Protocol Insulin Detemir 10 units 09/28/18 22:00 09/28/18 22:12 Levemir Vial SQ 10 unit HS AGUSTIN Administration Pantoprazole Sodium 40 mg 09/28/18 10:30 09/29/18 10:45 Protonix - PO 40 mg DAILY AGUSTIN Administration Polyethylene Glycol 17 gm 09/28/18 10:00 09/29/18 10:46 Miralax (For Daily Use) - PO 17 gm BID AGUSTIN Administration Renal US: Mild fullness of the right renal pelvicalyceal system without gross evidence of stones. Small right mid renal simple cyst measuring 1.2cc. CTAP: Bilateral pleural effusions, right greater than left, with lower lobe atelectasis. Moderate pericardial effusion. Hepatomegaly. Fecal retention, no acute pathology within the abdomen or pelvis. There is an irregular soft tissue opacity within the right breast. Could represent fibroglandular tissue. CXR: weak inspiration with congestive changes, bibasilar infiltrates, elevated right hemidiaphragm and large heart. There may be an element of basilar atelectasis. CXR (s/p thoracentesis): No sign of gross pneumothorax. Fluid has diminished. Left base changes and large heart persists. Chest CT without contrast: Bilateral pleural effusions and lower lobe atelectasis, greater than right. Mild to moderate pericardial effusion. Possible right breast mass. RUQ US: right pleural effusion and trace ascites. Heterogenous liver without a discrete mass. Mildly contracted gallbladder with biliary sludge. No evidence of cholelithiasis. Minimal right hydronephrosis. ASSESSMENT/PLAN: Patient is an 83 year old female with past medical history of dementia, DM, HTN , HLD, and recent hospitalizations at [facility] for UTI and PNA (discharged last 09/24 ), presented to the ED due to worsening abdominal pain and distension, with last bowel movement 9 days ago. Patient also reports difficulty breathing. #Shortness of breath likely 2/2 pleural effusion: improved -s/p Thoracentesis, 700cc of serous fluid drained -Pleural studies pending -Incentive spirometry -Pulmonary (Dr. Cooper) consulted. #Pericardial effusion -CTAP: mild to moderate pericardial effusion -Echo: LV systolic function normal, EF 55-60%, RV normal. LA mildly dilated. Mild MS, mild MR, Mild . Aortic root normal size. Moderate primarily posterior pericardial effusion with no clear evidence of RA/RV diastolic collapse. -Cardiology (Dr. Mar) consulted. REcommendations appreciated. -BNP 1749 -Would consider lasix, but hold off today. Will re-evaluate in the am -No signs of pericarditis, no NSAIDs indicated #Elevated transaminases: improving -46/143/309, GGT 246 (normal in 2017) -GI (Dr. Park) consulted. REcommendations appreciated. -Hepatitis serology pending -Avoid hepatotoxic agents. -Lipitor held for now -RUQ US: trace ascites. Heterogenous liver without a discrete mass. Mildly contracted gallbladder with biliary sludge. -Will continue to monitor LFTs, including INR. If progression of cholestatic pattern, consider MRCP to further evaluate biliary tract. #Constipation -likely from immobility and DM gastroparesis -GI (Dr. Park) consulted. Recommendations appreciated. -Miralax BID -Can repeat mineral oil enema #MERYL -likely with CKD -Cr 1.9 -Nephrology (Dr. Omalley) consulted. REcommendations appreciated. -Renal ultrasound: Mild fullness of the right renal pelvicalyceal system without gross evidence of stones. Small right mid renal simple cyst measuring 1.2 cc. -Urinalysis and urine lytes pending -Will hold off diuretics for now pending improvement of MERYL. -Avoid NSAIDs #Right breast mass -CT: irregular soft tissue opacity within the right breast. Could represent fibroglandular tissue. -Pleural fluid biopsy results pending -Oncology (Dr. Beavers) consulted. Recommendations appreciated. -Mammogram done. #Hyperkalemia: resolved -will continue to monitor #Normocytic Anemia -Iron studies pending -Retic count 1.95 #DM -Continue home Insulin Glargine 10units at bedtime -Insulin sliding scale -BGM ACHS #HTN -Continue Coreg 12.5mg BID -Amlodipine 5mg daily #HLD -Hold Lipitor in light of elevated LFTs #FEN -Not on any standing fluids -Routine bmp monitoring -Soft diet #Prophylaxis -Heparin 5000units sq tid #Disposition -full code -tele -There is very low suspicion of patient having active PTB. Isolation precautions can be discontinued. Dr. Cooper aware and agreed patient can be off isolation. Visit type - Emergency Visit Emergency Visit: Yes ED Registration Date: 09/27/18 Care time: The patient presented to the Emergency Department on the above date and was hospitalized for further evaluation of their emergent condition. - New Patient This patient is new to me today: No - Critical Care Critical Care patient: No
--- NOTE | 2018-09-29 12:59 | PN ---
Progress Note (short form) - Note Progress Note: s: feels better after thoracentesis yesterday. no chest pain,palps, dizziness. Current Medications Albuterol Sulfate (Ventolin 0.083% Nebulizer Soln -) 1 amp NEB Q6H PRN PRN Reason: SHORT OF BREATH/WHEEZING Last Admin: 09/28/18 09:29 Dose: 1 amp Amlodipine Besylate (Norvasc -) 5 mg PO DAILY [facility] Last Admin: 09/29/18 10:46 Dose: 5 mg Carvedilol (Coreg -) 12.5 mg PO BID [facility] Last Admin: 09/29/18 10:45 Dose: 12.5 mg Gabapentin (Neurontin -) 400 mg PO DAILY [facility] Last Admin: 09/29/18 10:46 Dose: 400 mg Heparin Sodium (Porcine) (Heparin -) 5,000 unit SQ TID [facility] Last Admin: 09/29/18 05:37 Dose: 5,000 unit Insulin Aspart (Novolog Vial Sliding Scale -) 1 vial SQ ACHS [facility]; Protocol Last Admin: 09/29/18 12:01 Dose: 4 units Insulin Detemir (Levemir Vial) 10 units SQ HS [facility] Last Admin: 09/28/18 22:12 Dose: 10 unit Pantoprazole Sodium (Protonix -) 40 mg PO DAILY [facility] Last Admin: 09/29/18 10:45 Dose: 40 mg Polyethylene Glycol (Miralax (For Daily Use) -) 17 gm PO BID [facility] Last Admin: 09/29/18 10:46 Dose: 17 gm Vital Signs: Vital Signs Period Temp Pulse Resp BP Sys/Mendoza Pulse Ox Last 24 Hr 97.9 F-98.4 F 63-70 20-20 106-128/43-63 96 Constitutional: Yes: Anxious Eyes: Yes: Conjunctiva Clear, EOM Intact HENT: Yes: Atraumatic, Normocephalic Neck: Yes: Supple, Trachea Midline Respiratory: Yes: Other (significantly decreased breath sounds right) Gastrointestinal: Yes: Other (distended, NT.) Renal/: Yes: CVA Tenderness - Right Cardiovascular: Yes: Regular Rate and Rhythm JVD: Yes PMI: Non-Displaced Heart Sounds: Yes: S1, S2 Edema: No Peripheral Pulses WNL: Yes Neurological: Yes: Alert, Oriented Imaging - Results Chest X-ray: Image Reviewed (? RLL infiltrate, cardiomegal) EKG: Image Reviewed (Ectopic atrial rhytham, no acute ST changes) Problem List - Problems (1) Pericardial effusion Code(s): I31.3 - PERICARDIAL EFFUSION (NONINFLAMMATORY) (2) Dyspnea Code(s): R06.00 - DYSPNEA, UNSPECIFIED Qualifiers: Dyspnea type: dyspnea on exertion Qualified Code(s): R06.09 - Other forms of dyspnea (3) MERYL (acute kidney injury) Code(s): N17.9 - ACUTE KIDNEY FAILURE, UNSPECIFIED (4) Hyponatremia Code(s): E87.1 - HYPO-OSMOLALITY AND HYPONATREMIA (5) Pleural effusion Code(s): J90 - PLEURAL EFFUSION, NOT ELSEWHERE CLASSIFIED (6) Hypertension Code(s): I10 - ESSENTIAL (PRIMARY) HYPERTENSION Assessment/Plan IMP: 1. Dyspnea 2. Pericardial effusion: possibly chronic: ? Etiology 3. HTN 4. DM 5. MERYL 6. Hyponatremia REC: 1. Echo - moderate pericardial effusion without clear tamponade 2. Telemetry 3. Serial cardiac enzymes neg x [address] chest with kenzie pleural effusions, 700 mL removed from thoracentesis yesterday, lasix 20 mg IV x 1 monitor response, Cr daily weights 6. Further w/u of MERYL as per PMD, renal
[2018-09-29] MEDS ORDERED: FUROSEMIDE 40 MG/4 ML INJECTABLE VIAL IVPUSH ONE (14:03)
--- NOTE | 2018-09-29 14:56 | PN ---
Teaching Attending Note Name of Resident: Mayra Wright ATTENDING PHYSICIAN STATEMENT I saw and evaluated the patient. I reviewed the resident's note and discussed the case with the resident. I agree with the resident's findings and plan as documented. SUBJECTIVE: interviewed with the help of dr. Kristan roman No fever or chills. no pain.. SOB is better . OBJECTIVE: NAD , Awake, hard of hearing CV: RRR, 3/ SM at apex , + JVd Lungs: CTAB Ext : 1+ edema on legs , no erythema Abd: NT, ND , NL BS ASSESSMENT AND PLAN: 83 y/o lady with h/o DM and recent hospitalization in [place], HTN, HLP, PNA who presented with abd pain and sitention and SB . she was found to have pleural effusions, ascitis and pericardial effusion 1- Pleural effusions: suspect diastolic heart failure as an etiology ( JVd, LE edema, ascitis, transaminitis) . of course, malignant effusion can't be r/o. - pleural fluid cell count reviewed. - add fluid LDH, total protein, and PH . add serum LDH and protein - cytology was reportedly sent . follow 2- Pericardial effusion: unknown etiology. no signs of tamponade clinically or on echo . Tele reviewed. no events 3- MERYL vs CKD: no hydro on US, fulness and R renal cyst. monitor after lasix 4- Normocytic anemia: iron studies indicate ACD. no iron def or B12/folate def. 5-DM : cont levemir and SSI 6- constipation : + BMs. cont miralax 7- R breast mass: mammo results pending 8- DVT px : heaprin SQ
[2018-09-29] MEDS: INSULIN (LEVEMIR) 100 UNITS/ML UNITS SQ SCH (22:09)
--- NOTE | 2018-09-29 23:21 | PN ---
Progress Note (short form) - Note Progress Note: Patient seen and examined Feels ok Last Vital Signs Temp Pulse Resp BP Pulse Ox 97.9 F 69 20 118/43 L 97 09/29/18 10:05 09/29/18 10:05 09/29/18 10:05 09/29/18 10:05 09/29/18 09:00 Cor: RSR, No murmurs, No gallops Lungs: Clear to P&A Abd: Soft, Normal bowel sounds, No organomegaly Ext:No significant edema Labs/Meds reviewed A/P 83 y/o patient with htn/dm/anasarca/anemia/elevated esr/reverse ag ratio/??? rt. breast ass on ct lvef--normal CKD ? MERYL --1+ proteinuria Pleural/pericardial effusion s/p thoracentesis w/u for serositis CT c/a/p --effusions /? rt. breast mass mammogram pending will check U/S rheumtology consult ordered by pulmonary will request ID consult --?? infectious serositis--seems unlikely Protein studies pending
[2018-09-30] MEDS: HEPARIN NA (PORCINE) 5,000 UNITS/ML 1ML VIAL SQ SCH ×3 (05:17→23:50)
[2018-09-30] MEDS: INSULIN SLIDING SCALE (NOVOLOG) 1 VIAL SQ SCH ×4 (06:38→23:50)
[2018-09-30 07:49] LABS: BASO % 0.7 % (0-2.0); EOS % 2.3 % (0-4.5); HEMATOCRIT 26.1 % (32.4-45.2); HEMOGLOBIN 8.7 GM/dL (10.7-15.3); MCH 31.3 pg (25.7-33.7); MCHC 33.6 g/dl (32.0-36.0); MEAN CELL VOLUME 93.3 fl (80-96); MONO % 10.8 % (3.8-10.2); NEUT % 63.2 % (42.8-82.8); PLATELET COUNT 272 K/MM3 (134-434); RBC 2.79 M/mm3 (3.60-5.2); RDW 13.9 % (11.6-15.6); WHITE BLOOD COUNT 8.2 K/mm3 (4.0-10.0)
--- NOTE | 2018-09-30 08:06 | PN ---
Progress Note (short form) - Note Progress Note: RENAL Pt seen and examined asking for something sweet comfortable Last Vital Signs Temp Pulse Resp BP Pulse Ox 98.2 F 70 20 128/67 98 09/30/18 06:00 09/30/18 06:00 09/30/18 06:00 09/30/18 06:00 09/29/18 21:00 lungs some rhonchi cvs s1s2 abd soft ext +1 edema neuro a+ox3, hearing impaired CBC, BMP 09/30/18 07:30 Current Medications Generic Name Dose Route Start Last Admin Trade Name Freq PRN Reason Stop Dose Admin Albuterol Sulfate 1 amp 09/28/18 08:32 09/28/18 09:29 Ventolin 0.083% Nebulizer Soln - NEB 1 amp Q6H PRN Administration SHORT OF BREATH/WHEEZING Amlodipine Besylate 5 mg 09/28/18 10:00 09/29/18 10:46 Norvasc - PO 5 mg DAILY AGUSTIN Administration Carvedilol 12.5 mg 09/28/18 10:00 09/29/18 22:02 Coreg - PO 12.5 mg BID AGUSTIN Administration Gabapentin 400 mg 09/28/18 10:00 09/29/18 10:46 Neurontin - PO 400 mg DAILY AGUSTIN Administration Heparin Sodium (Porcine) 5,000 unit 09/28/18 22:00 09/30/18 05:17 Heparin - SQ 5,000 unit TID AGUSTIN Administration Insulin Aspart 1 vial 09/28/18 07:00 09/30/18 06:38 Novolog Vial Sliding Scale - SQ Not Given ACHS [facility] Protocol Insulin Detemir 10 units 09/28/18 22:00 09/29/18 22:09 Levemir Vial SQ 10 unit HS AGUSTIN Administration Pantoprazole Sodium 40 mg 09/28/18 10:30 09/29/18 10:45 Protonix - PO 40 mg DAILY AGUSTIN Administration Polyethylene Glycol 17 gm 09/28/18 10:00 09/29/18 22:03 Miralax (For Daily Use) - PO 17 gm BID AGUSTIN Administration IMPRESSION 1. hyperkalemia 2. MERYL 3. likely ckd- proteinuric 4. dyspnea 5. constipation 6. DM 7. pleural effusion 8. pericardial effusion 9. anemia probably combination of iron def and chronic disease Plan - anemia work up - avoid nsaids - avoid hypotension/nephrotoxins -renal sono and urology eval if hydronephrosis truely present -await todays labs -would redose huong CORTEZ
[2018-09-30 08:16] LABS: ALBUMIN 2.4 g/dl (3.4-5.0); ALK PHOS 278 U/L (45-117); ANION GAP 7 MMOL/L (8-16); BILIRUBIN,TOTAL 0.4 mg/dL (0.2-1); BLOOD UREA NITROGEN 57 mg/dL (7-18); CALCIUM 7.9 mg/dL (8.5-10.1); CHLORIDE 104 mmol/L (98-107); CO2 26 mmol/L (21-32); CREATININE 2.1 mg/dL (0.55-1.3); GLUCOSE,RANDOM 73 mg/dL (74-106); MAGNESIUM 2.6 mg/dL (1.8-2.4); PHOSPHOROUS 3.6 mg/dL (2.5-4.9); POTASSIUM 4.8 mmol/L (3.5-5.1); SGOT/AST 32 U/L (15-37); SGPT/ALT 100 U/L (13-61); SODIUM 137 mmol/L (136-145); TOT PROT 6.2 g/dl (6.4-8.2)
[2018-09-30] MEDS: CARVEDILOL 12.5 MG TABLET (FP) PO SCH ×2 (09:55→23:50)
[2018-09-30] MEDS: amLODIPine BESYLATE 5 MG TABLET (FP) PO SCH (09:55)
[2018-09-30] MEDS: PANTOPRAZOLE 40 MG TABLET (FP) PO SCH (09:55)
[2018-09-30] MEDS: POLYETHYLENE GLYCOL 3350 119 GM BTL PO SCH ×2 (09:59→23:59)
[2018-09-30] MEDS: GABAPENTIN 400 MG CAPSULE (FP) PO SCH (09:59)
--- NOTE | 2018-09-30 11:08 | PN ---
Progress Note (short form) - Note Progress Note: s: no chest pain,palps, dizziness. tele: sinus Current Medications Albuterol Sulfate (Ventolin 0.083% Nebulizer Soln -) 1 amp NEB Q6H PRN PRN Reason: SHORT OF BREATH/WHEEZING Last Admin: 09/28/18 09:29 Dose: 1 amp Amlodipine Besylate (Norvasc -) 5 mg PO DAILY [facility] Last Admin: 09/30/18 09:55 Dose: 5 mg Carvedilol (Coreg -) 12.5 mg PO BID [facility] Last Admin: 09/30/18 09:55 Dose: 12.5 mg Gabapentin (Neurontin -) 400 mg PO DAILY [facility] Last Admin: 09/30/18 09:59 Dose: 400 mg Heparin Sodium (Porcine) (Heparin -) 5,000 unit SQ TID [facility] Last Admin: 09/30/18 05:17 Dose: 5,000 unit Insulin Aspart (Novolog Vial Sliding Scale -) 1 vial SQ ACHS [facility]; Protocol Last Admin: 09/30/18 06:38 Dose: Not Given Insulin Detemir (Levemir Vial) 10 units SQ HS [facility] Last Admin: 09/29/18 22:09 Dose: 10 unit Pantoprazole Sodium (Protonix -) 40 mg PO DAILY [facility] Last Admin: 09/30/18 09:55 Dose: 40 mg Polyethylene Glycol (Miralax (For Daily Use) -) 17 gm PO BID [facility] Last Admin: 09/30/18 09:59 Dose: 17 gm Vital Signs Period Temp Pulse Resp BP Sys/Mendoza Pulse Ox Last 24 Hr 97.8 F-98.2 F 68-71 20-20 116-128/58-67 98 Constitutional: Yes: Anxious Eyes: Yes: Conjunctiva Clear, EOM Intact HENT: Yes: Atraumatic, Normocephalic Neck: Yes: Supple, Trachea Midline Respiratory: Yes: Other (significantly decreased breath sounds right) Gastrointestinal: Yes: Other (distended, NT.) Renal/: Yes: CVA Tenderness - Right Cardiovascular: Yes: Regular Rate and Rhythm JVD: Yes PMI: Non-Displaced Heart Sounds: Yes: S1, S2 Edema: No Peripheral Pulses WNL: Yes Neurological: Yes: Alert, Oriented Imaging - Results Chest X-ray: Image Reviewed (? RLL infiltrate, cardiomegal) EKG: Image Reviewed (Ectopic atrial rhytham, no acute ST changes) Problem List - Problems (1) Pericardial effusion Code(s): I31.3 - PERICARDIAL EFFUSION (NONINFLAMMATORY) (2) Dyspnea Code(s): R06.00 - DYSPNEA, UNSPECIFIED Qualifiers: Dyspnea type: dyspnea on exertion Qualified Code(s): R06.09 - Other forms of dyspnea (3) MERYL (acute kidney injury) Code(s): N17.9 - ACUTE KIDNEY FAILURE, UNSPECIFIED (4) Hyponatremia Code(s): E87.1 - HYPO-OSMOLALITY AND HYPONATREMIA (5) Pleural effusion Code(s): J90 - PLEURAL EFFUSION, NOT ELSEWHERE CLASSIFIED (6) Hypertension Code(s): I10 - ESSENTIAL (PRIMARY) HYPERTENSION Assessment/Plan IMP: 1. Dyspnea 2. Pericardial effusion: possibly chronic: ? Etiology 3. HTN 4. DM 5. MERYL 6. Hyponatremia REC: 1. Echo - moderate pericardial effusion without clear tamponade 2. Telemetry 3. Serial cardiac enzymes neg x [address] 4[address] chest with kenzie pleural effusions, 700 mL removed from thoracentesis 09/28, received lasix 20 mg IV x 1 yesterday. will dose again today, monitor Cr, daily standing weights, lytes 6. Further w/u of MERYL as per PMD, renal
[2018-09-30] MEDS ORDERED: FUROSEMIDE 40 MG/4 ML INJECTABLE VIAL IVPUSH ONE (11:42)
--- NOTE | 2018-09-30 11:56 | PN ---
Progress Note (short form) - Note Progress Note: PULMONARY Appears stable VSS Constitutional: awake/alert HENT: Yes: Normocephalic Neck: Yes: Trachea Midline Cardiovascular: Yes: Regular Rate and Rhythm, S1, S2 Respiratory: Yes: Diminished (BASES) Gastrointestinal: Yes: Soft Edema: No Neurological: Yes: Pre-Existing Deficit Labs/notes/images/micro/reviewed (1) MERYL (acute kidney injury) Code(s): N17.9 - ACUTE KIDNEY FAILURE, UNSPECIFIED (2) Breast mass Code(s): N63.0 - UNSPECIFIED LUMP IN UNSPECIFIED BREAST (3) Constipation Code(s): K59.00 - CONSTIPATION, UNSPECIFIED (4) Pericardial effusion Code(s): I31.3 - PERICARDIAL EFFUSION (NONINFLAMMATORY) (5) Pleural effusion Code(s): J90 - PLEURAL EFFUSION, NOT ELSEWHERE CLASSIFIED (6) Hypertension Code(s): I10 - ESSENTIAL (PRIMARY) HYPERTENSION Assessment/Plan PERICARDIAL EFFUSION/PLEURAL EFFUSION/PROTEINURIA/ANEMIA/ELEVATED ESR/CRP/RENAL INSUFFICIENCY PENDING WORKUP FOR CONNECTIVE TISSUE DISEASES AWAITING CHEMISTRY ON PLEURAL FLUID GLYCEMIC CONTROL Gibran SANDS MD Problem List - Problems (1) MERYL (acute kidney injury) Code(s): N17.9 - ACUTE KIDNEY FAILURE, UNSPECIFIED (2) Breast mass Code(s): N63.0 - UNSPECIFIED LUMP IN UNSPECIFIED BREAST (3) Constipation Code(s): K59.00 - CONSTIPATION, UNSPECIFIED (4) Pericardial effusion Code(s): I31.3 - PERICARDIAL EFFUSION (NONINFLAMMATORY) (5) Pleural effusion Code(s): J90 - PLEURAL EFFUSION, NOT ELSEWHERE CLASSIFIED (6) Hypertension Code(s): I10 - ESSENTIAL (PRIMARY) HYPERTENSION
--- NOTE | 2018-09-30 17:03 | PN ---
Physical Exam: SUBJECTIVE: Patient seen and examined. She is comfortable sitting in a chair. She denies SOB. OBJECTIVE: Vital Signs Period Temp Pulse Resp BP Sys/Mendoza Pulse Ox Last 24 Hr 97.8 F-98.4 F 68-75 20-20 116-145/49-79 97-98 GENERAL: The patient is awake, alert, and fully oriented, in no acute distress. LUNGS: Breath sounds equal, clear to auscultation bilaterally, no wheezes, no crackles, no accessory muscle use. HEART: Regular rate and rhythm, S1, S2, (+) 2/6 SM. ABDOMEN: Soft, nontender, (+) distended, normoactive bowel sounds, no guarding, no rebound, no hepatosplenomegaly, no masses. EXTREMITIES: 2+ pulses, warm, well-perfused, 1+ edema. Laboratory Results - last 24 hr 09/29/18 09/29/18 09/29/18 05:30 17:39 22:05 WBC RBC Hgb Hct MCV MCH MCHC RDW Plt Count MPV Absolute Neuts (auto) Neutrophils % Lymphocytes % Monocytes % Eosinophils % Basophils % Nucleated RBC % Sodium Potassium Chloride Carbon Dioxide Anion Gap BUN Creatinine Creat Clearance w eGFR POC Glucometer 265 179 Random Glucose Calcium Phosphorus Magnesium Total Bilirubin AST ALT Alkaline Phosphatase Total Protein Albumin Hep C Ab Diagnostic <0.1 09/30/18 09/30/18 09/30/18 05:20 07:30 07:30 WBC 8.2 RBC 2.79 L Hgb 8.7 L Hct 26.1 L MCV 93.3 MCH 31.3 MCHC 33.6 RDW 13.9 Plt Count 272 D MPV 10.0 Absolute Neuts (auto) 5.2 Neutrophils % 63.2 Lymphocytes % 23.0 D Monocytes % 10.8 H Eosinophils % 2.3 Basophils % 0.7 Nucleated RBC % 0 Sodium 137 Potassium 4.8 Chloride 104 Carbon Dioxide 26 Anion Gap 7 L BUN 57 H Creatinine 2.1 H Creat Clearance w eGFR 22.60 POC Glucometer 83 Random Glucose 73 L Calcium 7.9 L Phosphorus 3.6 Magnesium 2.6 H Total Bilirubin 0.4 AST 32 ALT 100 H Alkaline Phosphatase 278 H Total Protein 6.2 L Albumin 2.4 L Hep C Ab Diagnostic 09/30/18 09/30/18 07:49 11:55 WBC RBC Hgb Hct MCV MCH MCHC RDW Plt Count MPV Absolute Neuts (auto) Neutrophils % Lymphocytes % Monocytes % Eosinophils % Basophils % Nucleated RBC % Sodium Potassium Chloride Carbon Dioxide Anion Gap BUN Creatinine Creat Clearance w eGFR POC Glucometer 73 179 Random Glucose Calcium Phosphorus Magnesium Total Bilirubin AST ALT Alkaline Phosphatase Total Protein Albumin Hep C Ab Diagnostic Active Medications Generic Name Dose Route Start Last Admin Trade Name Freq PRN Reason Stop Dose Admin Albuterol Sulfate 1 amp 09/28/18 08:32 09/28/18 09:29 Ventolin 0.083% Nebulizer Soln - NEB 1 amp Q6H PRN Administration SHORT OF BREATH/WHEEZING Amlodipine Besylate 5 mg 09/28/18 10:00 09/30/18 09:55 Norvasc - PO 5 mg DAILY AGUSTIN Administration Carvedilol 12.5 mg 09/28/18 10:00 09/30/18 09:55 Coreg - PO 12.5 mg BID AGUSTIN Administration Gabapentin 400 mg 09/28/18 10:00 09/30/18 09:59 Neurontin - PO 400 mg DAILY AGUSTIN Administration Heparin Sodium (Porcine) 5,000 unit 09/28/18 22:00 09/30/18 14:52 Heparin - SQ 5,000 unit TID AG[facility]IN Administration Insulin Aspart 1 vial 09/28/18 07:00 09/30/18 12:14 Novolog Vial Sliding Scale - SQ 2 units ACHS AGUSTIN Administration Protocol Insulin Detemir 10 units 09/28/18 22:00 09/29/18 22:09 Levemir Vial SQ 10 unit HS [facility]IN Administration Pantoprazole Sodium 40 mg 09/28/18 10:30 09/30/18 09:55 Protonix - PO 40 mg DAILY AG[facility] Administration Polyethylene Glycol 17 gm 09/28/18 10:00 09/30/18 09:59 Miralax (For Daily Use) - PO 17 gm BID AGUSTIN Administration ASSESSMENT/PLAN: This is an 83 year old woman with a history of dementia, type 2 DM, HTN, hyperlipidemia, recent UTI and pneumonia who presented to the ED with abdominal pain and distention, shortness of breath. 1. Bilateral pleural effusions R>L, pericardial effusion - Work-up in progress - CT chest/abd/pelvis shows bilateral pleural effusions, moderate pericardial effusion, possible right breast mass, hepatomegaly, fecal retention - RUQ US shows right pleural effusion, trace ascites, heterogeneous liver, mildly contracted gallbladder with sludge, minimal right hydronephrosis - Echo shows normal LV systolic function, LVEF 55-60%, normal RV, mild MR, mild TR, mild AR, moderate posterior pericardial effusion - s/p right thoracentesis by IR 09/28 - Pleural fluid studies pending - RF negative - BUSTER, DS DNA Ab, SPEP pending - Rheumatology consult 2. Possible right breast mass - Mammogram pending 3. Acute kidney injury on stage 3 CKD - Renal US shows mild fullness of right renal pelvicalyceal system, small right simple cyst - Continue to monitor creatinine 4. Anemia secondary to chronic illness - Hemoglobin is stable 5. Hepatic transaminitis - AST now normal; ALT and alk phos improving - RUQ US shows right pleural effusion, trace ascites, heterogeneous liver, mildly contracted gallbladder with sludge, minimal right hydronephrosis - Hep A Ab pending (IgM negative), HBsAg negative, HBsAb pending, HBcAb pending (IgM negative), HCV Ab negative, HIV negative 5. Constipation - Continue Miralax 6. HTN - Continue Norvasc, Coreg 7. Hyperlipidemia 8. Type 2 DM - Continue Levemir, Novolog sliding scale 9. Dementia Visit type - Emergency Visit Emergency Visit: Yes ED Registration Date: 09/27/18 Care time: The patient presented to the Emergency Department on the above date and was hospitalized for further evaluation of their emergent condition. - New Patient This patient is new to me today: No - Critical Care Critical Care patient: No - Discharge Referral Referred to [facility] Med P.C.: No
--- NOTE | 2018-09-30 22:30 | PN ---
Progress Note (short form) - Note Progress Note: ID CONSULT DICTATED AWAIT C/S OBSERVE OFF ANTIBIOTICS
[2018-09-30] MEDS: INSULIN (LEVEMIR) 100 UNITS/ML UNITS SQ SCH (23:50)
[2018-10-01 06:38] LABS: BASO % 1.2 % (0-2.0); EOS % 1.5 % (0-4.5); HEMATOCRIT 24.9 % (32.4-45.2); HEMOGLOBIN 8.5 GM/dL (10.7-15.3); LYMPH % 19.3 % (8-40); MCH 31.9 pg (25.7-33.7); MCHC 33.9 g/dl (32.0-36.0); MEAN PLT VOLUME 10.9 fl (7.5-11.1); MONO % 11.8 % (3.8-10.2); NEUT % 66.2 % (42.8-82.8); PLATELET COUNT 259 K/MM3 (134-434); RBC 2.65 M/mm3 (3.60-5.2); RDW 13.7 % (11.6-15.6); WHITE BLOOD COUNT 8.6 K/mm3 (4.0-10.0)
[2018-10-01] MEDS: INSULIN SLIDING SCALE (NOVOLOG) 1 VIAL SQ SCH ×4 (06:57→23:10)
[2018-10-01] MEDS: HEPARIN NA (PORCINE) 5,000 UNITS/ML 1ML VIAL SQ SCH ×3 (06:57→23:09)
[2018-10-01 07:06] LABS: ALBUMIN 2.4 g/dl (3.4-5.0); ALK PHOS 274 U/L (45-117); ANION GAP 6 MMOL/L (8-16); BILIRUBIN,TOTAL 0.4 mg/dL (0.2-1); BLOOD UREA NITROGEN 54 mg/dL (7-18); CHLORIDE 103 mmol/L (98-107); CO2 26 mmol/L (21-32); CREATININE 1.8 mg/dL (0.55-1.3); GLUCOSE,RANDOM 166 mg/dL (74-106); POTASSIUM 4.8 mmol/L (3.5-5.1); SGOT/AST 31 U/L (15-37); SGPT/ALT 83 U/L (13-61); SODIUM 135 mmol/L (136-145); TOT PROT 6.4 g/dl (6.4-8.2)
[2018-10-01] MEDS ORDERED: FUROSEMIDE 40 MG/4 ML INJECTABLE VIAL IVPUSH ONE (09:39)
--- NOTE | 2018-10-01 10:05 | PN ---
Progress Note, Physician Chief Complaint: Seen and examined on tele Less SOB than Monday TELE: NSR History of Present Illness: received an additional dose of IV lasix this AM - Current Medication List Current Medications: Active Medications Albuterol Sulfate (Ventolin 0.083% Nebulizer Soln -) 1 amp NEB Q6H PRN PRN Reason: SHORT OF BREATH/WHEEZING Last Admin: 09/28/18 09:29 Dose: 1 amp Amlodipine Besylate (Norvasc -) 5 mg PO DAILY [facility] Last Admin: 09/30/18 09:55 Dose: 5 mg Carvedilol (Coreg -) 12.5 mg PO BID [facility] Last Admin: 09/30/18 23:50 Dose: 12.5 mg Gabapentin (Neurontin -) 400 mg PO DAILY [facility] Last Admin: 09/30/18 09:59 Dose: 400 mg Heparin Sodium (Porcine) (Heparin -) 5,000 unit SQ TID [facility] Last Admin: 10/01/18 06:57 Dose: 5,000 unit Insulin Aspart (Novolog Vial Sliding Scale -) [address] [facility]; Protocol Last Admin: 10/01/18 06:57 Dose: 2 units Insulin Detemir (Levemir Vial) 10 units SQ HS [facility] Last Admin: 09/30/18 23:50 Dose: 10 units Pantoprazole Sodium (Protonix -) 40 mg PO DAILY [facility] Last Admin: 09/30/18 09:55 Dose: 40 mg Polyethylene Glycol (Miralax (For Daily Use) -) 17 gm PO BID [facility] Last Admin: 09/30/18 23:59 Dose: Not Given - Objective Vital Signs: Vital Signs Temperature 98.8 F 10/01/18 09:59 Pulse Rate 77 10/01/18 09:59 Respiratory Rate 23 H 10/01/18 09:59 Blood Pressure 120/46 L 10/01/18 01:49 O2 Sat by Pulse Oximetry (%) 98 09/30/18 22:00 Constitutional: Yes: No Distress Eyes: Yes: Conjunctiva Clear Cardiovascular: Yes: Regular Rate and Rhythm Respiratory: Yes: Other (decreased breath sounds bases.) Gastrointestinal: Yes: Soft Edema: Yes Edema: LLE: 1+, RLE: 1+ Neurological: Yes: Alert ...Motor Strength: WNL Labs: CBC, BMP 10/01/18 05:30 10/01/18 05:30 INR, PTT INR 1.19 (0.83-1.09) H 09/27/18 22:21 - ....Imaging EKG: Image Reviewed Problem List - Problems (1) Pericardial effusion Code(s): I31.3 - PERICARDIAL EFFUSION (NONINFLAMMATORY) (2) Dyspnea Code(s): R06.00 - DYSPNEA, UNSPECIFIED Qualifiers: Dyspnea type: dyspnea on exertion Qualified Code(s): R06.09 - Other forms of dyspnea (3) MERYL (acute kidney injury) Code(s): N17.9 - ACUTE KIDNEY FAILURE, UNSPECIFIED (4) Hyponatremia Code(s): E87.1 - HYPO-OSMOLALITY AND HYPONATREMIA (5) Pleural effusion Code(s): J90 - PLEURAL EFFUSION, NOT ELSEWHERE CLASSIFIED (6) Hypertension Code(s): I10 - ESSENTIAL (PRIMARY) HYPERTENSION Assessment/Plan IMP: 1. Dyspnea 2. Pericardial effusion: possibly chronic: ? Etiology 3. HTN 4. DM 5. MERYL 6. Hyponatremia 7. Possible breast mass REC: 1. Echo - moderate pericardial effusion without clear tamponade; BP stable. 2. Telemetry 3. Serial cardiac enzymes neg x 3 4. BNP 1700, diuresing with close eye on renal function. Renal following. 5. CT chest with b/l pleural effusions: 700 mL removed from thoracentesis . F/u cytology. 6. Further w/u of MERYL as per PMD, renal 7. Breast mass: further w/u as per PMD and oncology.
[2018-10-01] MEDS: PANTOPRAZOLE 40 MG TABLET (FP) PO SCH (10:08)
[2018-10-01] MEDS: GABAPENTIN 400 MG CAPSULE (FP) PO SCH (10:08)
[2018-10-01] MEDS: CARVEDILOL 12.5 MG TABLET (FP) PO SCH ×2 (10:08→23:09)
[2018-10-01] MEDS: amLODIPine BESYLATE 5 MG TABLET (FP) PO SCH (10:08)
--- NOTE | 2018-10-01 11:14 | PN ---
Teaching Attending Note Name of Resident: Mayra Wright ATTENDING PHYSICIAN STATEMENT I saw and evaluated the patient. I reviewed the resident's note and discussed the case with the resident. I agree with the resident's findings and plan as documented. SUBJECTIVE: seen around 10 am No fever or chills. feels very SOB this am ,was better earlier. no CP . has Nc off. OBJECTIVE: NAD , Awake, hard of hearing CV: RRR, 3/ SM at apex , + JVd Lungs: decreased breath sounds at bases Ext : 1+ edema on legs , no erythema Abd: NT, ND , NL BS ASSESSMENT AND PLAN: 83 y/o lady with h/o DM and recent hospitalization in [place], HTN, HLP, PNA who presented with abd pain and sitention and SB . she was found to have pleural effusions, ascitis and pericardial effusion 1- Pleural effusions:Cont to feel CHF is the likely etiology. renal function and liver function is improving with diauresis More short of breath this am. sat O2 97% on RA - check cxray, EKG, trop x 3 - give 40 mg of IV lasix x 1 - await pleural fluid chemistry and cytology - rheum w/u in progress - no infectious etiology to date 2- Pericardial effusion: unknown etiology. no signs of tamponade clinically or on echo . No events on tele 3- MERYL vs CKD: monitor with diuresis 4- Transaminitis: likely due to liver congestion. improved with diuresis. - follow final hep serology , Hep B surface Abs pending 5-DM: cont levemir and SSI 6- Constipation: cont miralax 7- R breast mass: mammo results pending 8- DVT px : heaprin SQ
--- NOTE | 2018-10-01 11:33 | PN ---
Progress Note, Physician History of Present Illness: PULMONARY ALERT,NO DISTRESS,LESS DYSPNEIC,-CP - Current Medication List Current Medications: Active Medications Albuterol Sulfate (Ventolin 0.083% Nebulizer Soln -) 1 amp NEB Q6H PRN PRN Reason: SHORT OF BREATH/WHEEZING Last Admin: 09/28/18 09:29 Dose: 1 amp Amlodipine Besylate (Norvasc -) 5 mg PO DAILY [facility] Last Admin: 10/01/18 10:08 Dose: 5 mg Carvedilol (Coreg -) 12.5 mg PO BID [facility] Last Admin: 10/01/18 10:08 Dose: 12.5 mg Gabapentin (Neurontin -) 400 mg PO DAILY [facility] Last Admin: 10/01/18 10:08 Dose: 400 mg Heparin Sodium (Porcine) (Heparin -) 5,000 unit SQ TID [facility] Last Admin: 10/01/18 06:57 Dose: 5,000 unit Insulin Aspart (Novolog Vial Sliding Scale -) 1 vial SQ [facility]; Protocol Last Admin: 10/01/18 10:55 Dose: 4 units Insulin Detemir (Levemir Vial) 10 units SQ HS [facility] Last Admin: 09/30/18 23:50 Dose: 10 units Pantoprazole Sodium (Protonix -) 40 mg PO DAILY [facility] Last Admin: 10/01/18 10:08 Dose: 40 mg Polyethylene Glycol (Miralax (For Daily Use) -) 17 gm PO BID [facility] Last Admin: 09/30/18 23:59 Dose: Not Given - Objective Vital Signs: Vital Signs Temperature 98.8 F 10/01/18 09:59 Pulse Rate 77 10/01/18 09:59 Respiratory Rate 23 H 10/01/18 09:59 Blood Pressure 120/46 L 10/01/18 01:49 O2 Sat by Pulse Oximetry (%) 100 10/01/18 09:00 Constitutional: Yes: Well Nourished, Calm Eyes: Yes: WNL HENT: Yes: WNL Neck: Yes: WNL Cardiovascular: Yes: Regular Rate and Rhythm, S1, S2 Respiratory: Yes: CTA Bilaterally Gastrointestinal: Yes: Normal Bowel Sounds, Soft Extremities: Yes: WNL Edema: Yes Labs: CBC, BMP 10/01/18 05:30 10/01/18 05:30 INR, PTT INR 1.19 (0.83-1.09) H 09/27/18 22:21 - ....Imaging Chest X-ray: Report Reviewed, Image Reviewed Assessment/Plan (1) MERYL (acute kidney injury) Code(s): N17.9 - ACUTE KIDNEY FAILURE, UNSPECIFIED (2) Breast mass Code(s): N63.0 - UNSPECIFIED LUMP IN UNSPECIFIED BREAST (3) Constipation Code(s): K59.00 - CONSTIPATION, UNSPECIFIED (4) Pericardial effusion Code(s): I31.3 - PERICARDIAL EFFUSION (NONINFLAMMATORY) (5) Pleural effusion Code(s): J90 - PLEURAL EFFUSION, NOT ELSEWHERE CLASSIFIED (6) Hypertension Code(s): I10 - ESSENTIAL (PRIMARY) HYPERTENSION Assessment/Plan PERICARDIAL EFFUSION/PLEURAL EFFUSION PROTEINURIA ANEMIA RENAL INSUFFICIENCYHTN DM MERYL GLYCEMIC CONTROL O2 LASIX PER CARDIOLOGY DAILY WT MONITOR SHERLY SANTANA Problem List - Problems (1) MERYL (acute kidney injury) Code(s): N17.9 - ACUTE KIDNEY FAILURE, UNSPECIFIED (2) Breast mass Code(s): N63.0 - UNSPECIFIED LUMP IN UNSPECIFIED BREAST (3) Constipation Code(s): K59.00 - CONSTIPATION, UNSPECIFIED (4) Pericardial effusion Code(s): I31.3 - PERICARDIAL EFFUSION (NONINFLAMMATORY) (5) Pleural effusion Code(s): J90 - PLEURAL EFFUSION, NOT ELSEWHERE CLASSIFIED (6) Hypertension Code(s): I10 - ESSENTIAL (PRIMARY) HYPERTENSION
[2018-10-01] MEDS: POLYETHYLENE GLYCOL 3350 119 GM BTL PO SCH ×2 (11:58→23:10)
--- NOTE | 2018-10-01 12:26 | PN ---
Progress Note, Physician History of Present Illness: Pt seen and examined at bedside. She is awake and appears much more comfortable than she was on Monday. - Current Medication List Current Medications: Active Medications Albuterol Sulfate (Ventolin 0.083% Nebulizer Soln -) 1 amp NEB Q6H PRN PRN Reason: SHORT OF BREATH/WHEEZING Last Admin: 09/28/18 09:29 Dose: 1 amp Amlodipine Besylate (Norvasc -) 5 mg PO DAILY [facility] Last Admin: 10/01/18 10:08 Dose: 5 mg Carvedilol (Coreg -) 12.5 mg PO BID [facility] Last Admin: 10/01/18 10:08 Dose: 12.5 mg Gabapentin (Neurontin -) 400 mg PO DAILY [facility] Last Admin: 10/01/18 10:08 Dose: 400 mg Heparin Sodium (Porcine) (Heparin -) 5,000 unit SQ TID [facility] Last Admin: 10/01/18 06:57 Dose: 5,000 unit Insulin Aspart (Novolog Vial Sliding Scale -) 1 vial SQ [facility]; Protocol Last Admin: 10/01/18 10:55 Dose: 4 units Insulin Detemir (Levemir Vial) 10 units SQ HS [facility] Last Admin: 09/30/18 23:50 Dose: 10 units Pantoprazole Sodium (Protonix -) 40 mg PO DAILY [facility] Last Admin: 10/01/18 10:08 Dose: 40 mg Polyethylene Glycol (Miralax (For Daily Use) -) 17 gm PO BID [facility] Last Admin: 10/01/18 11:58 Dose: 17 gm - Objective Vital Signs: Vital Signs Temperature 98.8 F 10/01/18 09:59 Pulse Rate 77 10/01/18 09:59 Respiratory Rate 23 H 10/01/18 09:59 Blood Pressure 120/46 L 10/01/18 01:49 O2 Sat by Pulse Oximetry (%) 100 10/01/18 09:00 Constitutional: Yes: Calm Eyes: Yes: Conjunctiva Clear HENT: Yes: Atraumatic Cardiovascular: Yes: S1, S2 Respiratory: Yes: On Nasal O2, Rhonchi Gastrointestinal: Yes: Soft Genitourinary: Yes: WNL Musculoskeletal: Yes: WNL Edema: Yes Edema: LLE: 1+, RLE: 1+ Integumentary: Yes: WNL Labs: CBC, BMP 10/01/18 05:30 10/01/18 05:30 INR, PTT INR 1.19 (0.83-1.09) H 09/27/18 22:21 - ....Imaging Chest X-ray: Report Reviewed Problem List - Problems (1) CKD (chronic kidney disease) Code(s): N18.9 - CHRONIC KIDNEY DISEASE, UNSPECIFIED (2) Hyperkalemia Code(s): E87.5 - HYPERKALEMIA (3) MERYL (acute kidney injury) Code(s): N17.9 - ACUTE KIDNEY FAILURE, UNSPECIFIED (4) Constipation Code(s): K59.00 - CONSTIPATION, UNSPECIFIED (5) Pericardial effusion Code(s): I31.3 - PERICARDIAL EFFUSION (NONINFLAMMATORY) (6) Pleural effusion Code(s): J90 - PLEURAL EFFUSION, NOT ELSEWHERE CLASSIFIED Assessment/Plan Current Medications Generic Name Dose Route Start Last Admin Trade Name Freq PRN Reason Stop Dose Admin Albuterol Sulfate 1 amp 09/28/18 08:32 09/28/18 09:29 Ventolin 0.083% Nebulizer Soln - NEB 1 amp Q6H PRN Administration SHORT OF BREATH/WHEEZING Amlodipine Besylate 5 mg 09/28/18 10:00 10/01/18 10:08 Norvasc - PO 5 mg DAILY [facility] Administration Carvedilol 12.5 mg 09/28/18 10:00 10/01/18 10:08 Coreg - PO 12.5 mg BID [facility] Administration Gabapentin 400 mg 09/28/18 10:00 10/01/18 10:08 Neurontin - PO 400 mg DAILY [facility] Administration Heparin Sodium (Porcine) 5,000 unit 09/28/18 22:00 10/01/18 06:57 Heparin - SQ 5,000 unit TID [facility] Administration Insulin Aspart 1 vial 09/28/18 07:00 10/01/18 10:55 Novolog Vial Sliding Scale - SQ 4 units ACHS [facility] Administration Protocol Insulin Detemir 10 units 09/28/18 22:00 09/30/18 23:50 Levemir Vial SQ 10 units HS [facility] Administration Pantoprazole Sodium 40 mg 09/28/18 10:30 10/01/18 10:08 Protonix - PO 40 mg DAILY [facility] Administration Polyethylene Glycol 17 gm 09/28/18 10:00 10/01/18 11:58 Miralax (For Daily Use) - PO 17 gm BID [facility] Administration Impression 1. hyperkalemia 2. MERYL 3. likely ckd 4. dyspnea 5. constipation 6. DM 7. pleural effusion 8. pericardial effusion Plan - cont lasix - renal function improving - renal ultrasound to assess hydro - repeat labs in am - avoid nsaids
--- NOTE | 2018-10-01 14:17 | EKG ---
Test Reason : Blood Pressure : / mmHG Vent. Rate : 078 BPM Atrial Rate : 078 BPM P-R Int : 144 ms QRS Dur : 076 ms QT Int : 380 ms P-R-T Axes : 044 050 072 degrees QTc Int : 433 ms NORMAL SINUS RHYTHM NORMAL ECG WHEN COMPARED WITH ECG OF 28-SEP-2018 01:26, NO SIGNIFICANT CHANGE WAS FOUND Confirmed by GENI GUIDO MD ([id number]) on 10/01/2018 2:17:14 PM Referred By: Confirmed By:GENI GUIDO MD
[2018-10-01 16:11] LABS: HBSAG SCREEN Negative (Negative); HEP A AB, IGM Negative (Negative); HEP B CORE AB, TOT Positive (Negative)
--- NOTE | 2018-10-01 17:09 | PN ---
Physical Exam: SUBJECTIVE: Patient seen and examined at bedside this morning. No acute events overnight. Patient was sitting comfortably early this morning, with no SOB or chest pain. During rounds, patient reported difficulty breathing. Denies fever, chills, headache, dizziness, chest pain, abdominal pain, diarrhea, constipation , urinary symptoms. OBJECTIVE: Vital Signs Temperature 98.4 F 10/01/18 14:35 Pulse Rate 72 10/01/18 14:35 Respiratory Rate 22 H 10/01/18 14:35 Blood Pressure 119/65 10/01/18 14:35 O2 Sat by Pulse Oximetry (%) 100 10/01/18 09:00 GENERAL: The patient is awake, alert, and fully oriented, no in acute distress HEAD: Normal with no signs of trauma. EYES: PERRLA, EOMI, sclera anicteric, conjunctiva clear. ENT: oropharynx clear without exudates, moist mucous membranes. NECK: Trachea midline, full range of motion, supple. LUNGS: +bibasilar crackles HEART: Regular rate and rhythm, S1, S2 without murmur, rub or gallop. ABDOMEN: Soft, nontender, mildly distended, normoactive bowel sounds. EXTREMITIES: 2+ pulses, warm, well-perfused, trace bilateral pitting edema. NEUROLOGICAL: Cranial nerves II through XII grossly intact. Normal speech, normal gait. Motor strength 5/5, sensation intact. PSYCH: Normal mood, normal affect. SKIN: Warm, dry, normal turgor, no rashes or lesions noted Laboratory Results - last 24 hr 09/29/18 09/29/18 09/29/18 05:30 05:30 05:30 WBC RBC Hgb Hct MCV MCH MCHC RDW Plt Count MPV Absolute Neuts (auto) Neutrophils % Lymphocytes % Monocytes % Eosinophils % Basophils % Nucleated RBC % Sodium Potassium Chloride Carbon Dioxide Anion Gap BUN Creatinine Creat Clearance w eGFR POC Glucometer Random Glucose Calcium Total Bilirubin AST ALT Alkaline Phosphatase Troponin I Total Protein Albumin BUSETR Screen Negative Double Strand DNA Ab 1 Hep A IgM Ab Confirm Negative Hepatitis A Ab Total Positive H Hep Bs Antigen Negative Hep Bs Antibody Reactive Hep B Core Total Ab Positive H 09/30/18 09/30/18 10/01/18 16:56 23:38 05:30 WBC 8.6 RBC 2.65 L Hgb 8.5 L Hct 24.9 L MCV 94.0 MCH 31.9 MCHC 33.9 RDW 13.7 Plt Count 259 MPV 10.9 Absolute Neuts (auto) 5.7 Neutrophils % 66.2 Lymphocytes % 19.3 Monocytes % 11.8 H Eosinophils % 1.5 Basophils % 1.2 Nucleated RBC % 0 Sodium Potassium Chloride Carbon Dioxide Anion Gap BUN Creatinine Creat Clearance w eGFR POC Glucometer 217 264 Random Glucose Calcium Total Bilirubin AST ALT Alkaline Phosphatase Troponin I Total Protein Albumin BUSTER Screen Double Strand DNA Ab Hep A IgM Ab Confirm Hepatitis A Ab Total Hep Bs Antigen Hep Bs Antibody Hep B Core Total Ab 10/01/18 10/01/18 10/01/18 05:30 06:55 10:00 WBC RBC Hgb Hct MCV MCH MCHC RDW Plt Count MPV Absolute Neuts (auto) Neutrophils % Lymphocytes % Monocytes % Eosinophils % Basophils % Nucleated RBC % Sodium 135 L Potassium 4.8 Chloride 103 Carbon Dioxide 26 Anion Gap 6 L BUN 54 H Creatinine 1.8 H Creat Clearance w eGFR 27.00 POC Glucometer 167 Random Glucose 166 H Calcium 8.0 L Total Bilirubin 0.4 AST 31 ALT 83 H Alkaline Phosphatase 274 H Troponin I < 0.02 Total Protein 6.4 Albumin 2.4 L BUSTER Screen Double Strand DNA Ab Hep A IgM Ab Confirm Hepatitis A Ab Total Hep Bs Antigen Hep Bs Antibody Hep B Core Total Ab 10/01/18 10/01/18 10:54 16:34 WBC RBC Hgb Hct MCV MCH MCHC RDW Plt Count MPV Absolute Neuts (auto) Neutrophils % Lymphocytes % Monocytes % Eosinophils % Basophils % Nucleated RBC % Sodium Potassium Chloride Carbon Dioxide Anion Gap BUN Creatinine Creat Clearance w eGFR POC Glucometer 205 142 Random Glucose Calcium Total Bilirubin AST ALT Alkaline Phosphatase Troponin I Total Protein Albumin BUSTER Screen Double Strand DNA Ab Hep A IgM Ab Confirm Hepatitis A Ab Total Hep Bs Antigen Hep Bs Antibody Hep B Core Total Ab Active Medications Generic Name Dose Route Start Last Admin Trade Name Freq PRN Reason Stop Dose Admin Albuterol Sulfate 1 amp 09/28/18 08:32 09/28/18 09:29 Ventolin 0.083% Nebulizer Soln - NEB 1 amp Q6H PRN Administration SHORT OF BREATH/WHEEZING Amlodipine Besylate 5 mg 09/28/18 10:00 10/01/18 10:08 Norvasc - PO 5 mg DAILY AGUSTIN Administration Carvedilol 12.5 mg 09/28/18 10:00 10/01/18 10:08 Coreg - PO 12.5 mg BID AGUSTIN Administration Gabapentin 400 mg 09/28/18 10:00 10/01/18 10:08 Neurontin - PO 400 mg DAILY AGUSTIN Administration Heparin Sodium (Porcine) 5,000 unit 09/28/18 22:00 10/01/18 15:03 Heparin - SQ 5,000 unit TID AGUSTIN Administration Insulin Aspart 1 vial 09/28/18 07:00 10/01/18 16:35 Novolog Vial Sliding Scale - SQ Not Given ACHS [facility] Protocol Insulin Detemir 10 units 09/28/18 22:00 09/30/18 23:50 Levemir Vial SQ 10 units HS AGUSTIN Administration Pantoprazole Sodium 40 mg 09/28/18 10:30 10/01/18 10:08 Protonix - PO 40 mg DAILY AGUSTIN Administration Polyethylene Glycol 17 gm 09/28/18 10:00 10/01/18 11:58 Miralax (For Daily Use) - PO 17 gm BID AGUSTIN Administration Renal US: Mild fullness of the right renal pelvicalyceal system without gross evidence of stones. Small right mid renal simple cyst measuring 1.2cc. CTAP: Bilateral pleural effusions, right greater than left, with lower lobe atelectasis. Moderate pericardial effusion. Hepatomegaly. Fecal retention, no acute pathology within the abdomen or pelvis. There is an irregular soft tissue opacity within the right breast. Could represent fibroglandular tissue. CXR: weak inspiration with congestive changes, bibasilar infiltrates, elevated right hemidiaphragm and large heart. There may be an element of basilar atelectasis. CXR (s/p thoracentesis): No sign of gross pneumothorax. Fluid has diminished. Left base changes and large heart persists. Chest CT without contrast: Bilateral pleural effusions and lower lobe atelectasis, greater than right. Mild to moderate pericardial effusion. Possible right breast mass. RUQ US: right pleural effusion and trace ascites. Heterogenous liver without a discrete mass. Mildly contracted gallbladder with biliary sludge. No evidence of cholelithiasis. Minimal right hydronephrosis. Mammogram: Diffuse right breast thickening. ASSESSMENT/PLAN: Patient is an 83 year old female with past medical history of dementia, DM, HTN , HLD, and recent hospitalizations at [facility] for UTI and PNA (discharged last 04/15 ), presented to the ED due to worsening abdominal pain and distension, with last bowel movement 9 days ago. Patient also reports difficulty breathing. #Shortness of breath likely 2/2 pleural effusion -s/p Thoracentesis, 700cc of serous fluid drained -Pleural studies pending -Incentive spirometry -Repeat CXR done today shows a large heart with congestive changes and there are progressive bilateral pleural effusions with some basilar atelectasis or infiltrates. the left is more affected than the right. -Lasix 40mg IV given today. -Pulmonary (Dr. Cooper) consulted. #Pericardial effusion -CTAP: mild to moderate pericardial effusion -Echo: LV systolic function normal, EF 55-60%, RV normal. LA mildly dilated. Mild MS, mild MR, Mild . Aortic root normal size. Moderate primarily posterior pericardial effusion with no clear evidence of RA/RV diastolic collapse. -Cardiology (Dr. Mar) consulted. REcommendations appreciated. -BNP 1749 -Lasix 20mg given IV yesterday. 40mg given today. -diurese with close eye on renal function. -Tele monitoring #Elevated transaminases: improving -/274, (normal in 2017) -GI (Dr. Park) consulted. Recommendations appreciated. -Hepatitis serology pending -Avoid hepatotoxic agents. -Lipitor held for now -RUQ US: trace ascites. Heterogenous liver without a discrete mass. Mildly contracted gallbladder with biliary sludge. -Will continue to monitor LFTs, including INR. #Constipation: resolved -likely from immobility and DM gastroparesis -GI (Dr. Park) consulted. Recommendations appreciated. -Miralax BID #MERYL: improving -likely with CKD -Cr 1.8 -Nephrology (Dr. Omalley) consulted. REcommendations appreciated. -Renal ultrasound: Mild fullness of the right renal pelvicalyceal system without gross evidence of stones. Small right mid renal simple cyst measuring 1.2 cc. -Avoid NSAIDs #Right breast mass -CT: irregular soft tissue opacity within the right breast. Could represent fibroglandular tissue. -Pleural fluid biopsy results pending -Oncology (Dr. Beavers) consulted. Recommendations appreciated. -Mammogram - diffuse right breast thickening #Hyperkalemia: resolved -will continue to monitor #Normocytic Anemia -Iron studies pending -Retic count 1.95 #DM -Continue home Insulin Glargine 10units at bedtime -Insulin sliding scale -BGM ACHS #HTN -Continue Coreg 12.5mg BID -Amlodipine 5mg daily #HLD -Hold Lipitor in light of elevated LFTs #FEN -Not on any standing fluids -Routine bmp monitoring -Soft diet #Prophylaxis -Heparin 5000units sq tid #Disposition -full code -tele Visit type - Emergency Visit Emergency Visit: Yes ED Registration Date: 09/27/18 Care time: The patient presented to the Emergency Department on the above date and was hospitalized for further evaluation of their emergent condition. - New Patient This patient is new to me today: No - Critical Care Critical Care patient: No
[2018-10-01] MEDS: INSULIN (LEVEMIR) 100 UNITS/ML UNITS SQ SCH (23:09)
[2018-10-02] MEDS: HEPARIN NA (PORCINE) 5,000 UNITS/ML 1ML VIAL SQ SCH ×3 (05:28→21:40)
[2018-10-02] MEDS: INSULIN SLIDING SCALE (NOVOLOG) 1 VIAL SQ SCH ×4 (06:49→21:41)
[2018-10-02] MEDS: ALBUTEROL SO4 0.083% IH SOL 2.5 MG/3 ML VIAL.NEB. NEB PRN (07:30)
[2018-10-02 08:11] LABS: BASO % 1.1 % (0-2.0); EOS % 2.1 % (0-4.5); HEMATOCRIT 24.1 % (32.4-45.2); HEMOGLOBIN 8.1 GM/dL (10.7-15.3); MCH 32.1 pg (25.7-33.7); MCHC 33.8 g/dl (32.0-36.0); MEAN CELL VOLUME 95.1 fl (80-96); MEAN PLT VOLUME 10.7 fl (7.5-11.1); MONO % 11.6 % (3.8-10.2); NEUT % 64.2 % (42.8-82.8); PLATELET COUNT 261 K/MM3 (134-434); RBC 2.54 M/mm3 (3.60-5.2); RDW 13.8 % (11.6-15.6); WHITE BLOOD COUNT 9.7 K/mm3 (4.0-10.0)
[2018-10-02 08:28] LABS: INR 1.13 (0.83-1.09); PROTHROMBIN TIME (PATIENT) 13.3 SEC (9.7-13.0)
[2018-10-02 08:32] LABS: ALBUMIN 2.4 g/dl (3.4-5.0); ALK PHOS 249 U/L (45-117); ANION GAP 6 MMOL/L (8-16); BILIRUBIN,TOTAL 0.3 mg/dL (0.2-1); BLOOD UREA NITROGEN 56 mg/dL (7-18); CALCIUM 8.7 mg/dL (8.5-10.1); CHLORIDE 104 mmol/L (98-107); CO2 30 mmol/L (21-32); CREATININE 1.6 mg/dL (0.55-1.3); GLUCOSE,RANDOM 145 mg/dL (74-106); MAGNESIUM 2.7 mg/dL (1.8-2.4); PHOSPHOROUS 3.8 mg/dL (2.5-4.9); POTASSIUM 5.1 mmol/L (3.5-5.1); SGOT/AST 29 U/L (15-37); SGPT/ALT 65 U/L (13-61); SODIUM 140 mmol/L (136-145); TOT PROT 6.2 g/dl (6.4-8.2)
[2018-10-02] MEDS: CARVEDILOL 12.5 MG TABLET (FP) PO SCH ×2 (09:09→21:39)
[2018-10-02] MEDS: amLODIPine BESYLATE 5 MG TABLET (FP) PO SCH (09:09)
[2018-10-02] MEDS: GABAPENTIN 400 MG CAPSULE (FP) PO SCH (09:09)
[2018-10-02] MEDS: POLYETHYLENE GLYCOL 3350 119 GM BTL PO SCH ×2 (09:09→21:43)
[2018-10-02] MEDS: PANTOPRAZOLE 40 MG TABLET (FP) PO SCH (09:09)
--- NOTE | 2018-10-02 10:49 | PN ---
Progress Note, Physician History of Present Illness: PULMONARY ALERT,NO DISTRESS,-SOB - Current Medication List Current Medications: Active Medications Albuterol Sulfate (Ventolin 0.083% Nebulizer Soln -) 1 amp NEB Q6H PRN PRN Reason: SHORT OF BREATH/WHEEZING Last Admin: 10/02/18 07:30 Dose: 1 amp Amlodipine Besylate (Norvasc -) 5 mg PO DAILY [facility] Last Admin: 10/02/18 09:09 Dose: 5 mg Carvedilol (Coreg -) 12.5 mg PO BID [facility] Last Admin: 10/02/18 09:09 Dose: 12.5 mg Gabapentin (Neurontin -) 400 mg PO DAILY [facility] Last Admin: 10/02/18 09:09 Dose: 400 mg Heparin Sodium (Porcine) (Heparin -) 5,000 unit SQ TID [facility] Last Admin: 10/02/18 05:28 Dose: 5,000 unit Insulin Aspart (Novolog Vial Sliding Scale -) 1 vial SQ ACHS [facility]; Protocol Last Admin: 10/02/18 06:49 Dose: 2 units Insulin Detemir (Levemir Vial) 10 units SQ HS [facility] Last Admin: 10/01/18 23:09 Dose: 10 units Pantoprazole Sodium (Protonix -) 40 mg PO DAILY [facility] Last Admin: 10/02/18 09:09 Dose: 40 mg Polyethylene Glycol (Miralax (For Daily Use) -) 17 gm PO BID [facility] Last Admin: 10/02/18 09:09 Dose: 17 gm - Objective Vital Signs: Vital Signs Temperature 98.4 F 10/02/18 06:00 Pulse Rate 73 10/02/18 06:00 Respiratory Rate 20 10/02/18 09:00 Blood Pressure 124/52 L 10/02/18 06:00 O2 Sat by Pulse Oximetry (%) 98 10/02/18 09:00 Constitutional: Yes: Well Nourished, Calm Eyes: Yes: WNL HENT: Yes: WNL Neck: Yes: WNL Cardiovascular: Yes: Regular Rate and Rhythm, S1, S2 Respiratory: Yes: CTA Bilaterally Gastrointestinal: Yes: Normal Bowel Sounds, Soft Extremities: Yes: WNL Edema: No Labs: CBC, BMP 10/02/18 05:46 10/02/18 05:46 INR, PTT INR 1.13 (0.83-1.09) H 10/02/18 05:46 Assessment/Plan (1) MERYL (acute kidney injury) Code(s): N17.9 - ACUTE KIDNEY FAILURE, UNSPECIFIED (2) Breast mass Code(s): N63.0 - UNSPECIFIED LUMP IN UNSPECIFIED BREAST (3) Constipation Code(s): K59.00 - CONSTIPATION, UNSPECIFIED (4) Pericardial effusion Code(s): I31.3 - PERICARDIAL EFFUSION (NONINFLAMMATORY) (5) Pleural effusion Code(s): J90 - PLEURAL EFFUSION, NOT ELSEWHERE CLASSIFIED (6) Hypertension Code(s): I10 - ESSENTIAL (PRIMARY) HYPERTENSION Assessment/Plan PERICARDIAL EFFUSION/PLEURAL EFFUSION PROTEINURIA ANEMIA RENAL INSUFFICIENCY HTN DM MERYL GLYCEMIC CONTROL O2 LASIX PER CARDIOLOGY DAILY WT MONITOR SHERLY SANTANA Problem List - Problems (1) MERYL (acute kidney injury) Code(s): N17.9 - ACUTE KIDNEY FAILURE, UNSPECIFIED (2) Breast mass Code(s): N63.0 - UNSPECIFIED LUMP IN UNSPECIFIED BREAST (3) Constipation Code(s): K59.00 - CONSTIPATION, UNSPECIFIED (4) Pericardial effusion Code(s): I31.3 - PERICARDIAL EFFUSION (NONINFLAMMATORY) (5) Pleural effusion Code(s): J90 - PLEURAL EFFUSION, NOT ELSEWHERE CLASSIFIED (6) Hypertension Code(s): I10 - ESSENTIAL (PRIMARY) HYPERTENSION
--- NOTE | 2018-10-02 10:51 | PN ---
Progress Note (short form) - Note Progress Note: s: no chest pain, palps, dizziness. sob improving. tele: sinus Current Medications Albuterol Sulfate (Ventolin 0.083% Nebulizer Soln -) 1 amp NEB Q6H PRN PRN Reason: SHORT OF BREATH/WHEEZING Last Admin: 10/02/18 07:30 Dose: 1 amp Amlodipine Besylate (Norvasc -) 5 mg PO DAILY [facility] Last Admin: 10/02/18 09:09 Dose: 5 mg Carvedilol (Coreg -) 12.5 mg PO BID [facility] Last Admin: 10/02/18 09:09 Dose: 12.5 mg Gabapentin (Neurontin -) 400 mg PO DAILY [facility] Last Admin: 10/02/18 09:09 Dose: 400 mg Heparin Sodium (Porcine) (Heparin -) 5,000 unit SQ TID [facility] Last Admin: 10/02/18 05:28 Dose: 5,000 unit Insulin Aspart (Novolog Vial Sliding Scale -) 1 vial SQ ACHS [facility]; Protocol Last Admin: 10/02/18 06:49 Dose: 2 units Insulin Detemir (Levemir Vial) 10 units SQ HS [facility] Last Admin: 10/01/18 23:09 Dose: 10 units Pantoprazole Sodium (Protonix -) 40 mg PO DAILY [facility] Last Admin: 10/02/18 09:09 Dose: 40 mg Polyethylene Glycol (Miralax (For Daily Use) -) 17 gm PO BID [facility] Last Admin: 10/02/18 09:09 Dose: 17 gm Vital Signs Period Temp Pulse Resp BP Sys/Mendoza Pulse Ox Last 24 Hr 97.9 F-98.9 F 72-79 20-22 119-139/52-65 98-100 Constitutional: Yes: Anxious Eyes: Yes: Conjunctiva Clear, EOM Intact HENT: Yes: Atraumatic, Normocephalic Neck: Yes: Supple, Trachea Midline Respiratory: Yes: Other (significantly decreased breath sounds right) Gastrointestinal: Yes: Other (distended, NT.) Renal/: Yes: CVA Tenderness - Right Cardiovascular: Yes: Regular Rate and Rhythm JVD: Yes PMI: Non-Displaced Heart Sounds: Yes: S1, S2 Edema: No Peripheral Pulses WNL: Yes Neurological: Yes: Alert, Oriented Imaging - Results Chest X-ray: Image Reviewed (? RLL infiltrate, cardiomegal) EKG: Image Reviewed (Ectopic atrial rhytham, no acute ST changes) Problem List - Problems (1) Pericardial effusion Code(s): I31.3 - PERICARDIAL EFFUSION (NONINFLAMMATORY) (2) Dyspnea Code(s): R06.00 - DYSPNEA, UNSPECIFIED Qualifiers: Dyspnea type: dyspnea on exertion Qualified Code(s): R06.09 - Other forms of dyspnea (3) MERYL (acute kidney injury) Code(s): N17.9 - ACUTE KIDNEY FAILURE, UNSPECIFIED (4) Hyponatremia Code(s): E87.1 - HYPO-OSMOLALITY AND HYPONATREMIA (5) Pleural effusion Code(s): J90 - PLEURAL EFFUSION, NOT ELSEWHERE CLASSIFIED (6) Hypertension Code(s): I10 - ESSENTIAL (PRIMARY) HYPERTENSION Assessment/Plan IMP: 1. Dyspnea 2. Pericardial effusion: possibly chronic: ? Etiology 3. HTN 4. DM 5. MERYL 6. Hyponatremia REC: 1. Echo - moderate pericardial effusion without clear tamponade 2. Telemetry 3. Serial cardiac enzymes neg x 3 4. BNP 1700, receiving IV lasix. monitor Cr, daily standing weights, lytes, lasix 40 mg IV today 5. CT chest with kenzie pleural effusions, 700 mL removed from thoracentesis 09/28 6. Further w/u of MERYL as per PMD, renal
[2018-10-02] MEDS ORDERED: FUROSEMIDE 40 MG/4 ML INJECTABLE VIAL IVPUSH ONE (11:30)
[2018-10-02] MEDS ORDERED: PT OWN MED DRAWER 7, Y5N ONE (12:37)
[2018-10-02] MEDS: FLUTICASONE PROP 0.05% 16 GM NASAL SPRAY NS SCH (12:38)
[2018-10-02 13:13] LABS: HGB SOLUBILITY Negative (Negative); Hgb A 97.9 % (96.4-98.8); Hgb C 0 % (0.0); Hgb F 0 % (0.0-2.0); Hgb S 0 % (0.0)
--- NOTE | 2018-10-02 13:40 | PN ---
Physical Exam: SUBJECTIVE: Patient seen and examined at bedside this morning. No acute events overnight. Patient reporting shortness of breath this morning with some nasal congestion but leg swelling has improved. Otherwise denies fever, chills, headache, nausea, vomiting, chest pain, abdominal pain. +BM OBJECTIVE: Vital Signs Temperature 98.4 F 10/02/18 06:00 Pulse Rate 73 10/02/18 06:00 Respiratory Rate 20 10/02/18 09:00 Blood Pressure 124/52 L 10/02/18 06:00 O2 Sat by Pulse Oximetry (%) 98 10/02/18 09:00 GENERAL: The patient is awake, alert, and fully oriented, no in acute distress HEAD: Normal with no signs of trauma. EYES: PERRLA, EOMI, sclera anicteric, conjunctiva clear. ENT: oropharynx clear without exudates, moist mucous membranes. NECK: Trachea midline, full range of motion, supple. LUNGS: +bibasilar crackles HEART: Regular rate and rhythm, S1, S2 without murmur, rub or gallop. ABDOMEN: Soft, nontender, mildly distended, normoactive bowel sounds. EXTREMITIES: 2+ pulses, warm, well-perfused, no pitting edema NEUROLOGICAL: Cranial nerves II through XII grossly intact. Normal speech, normal gait. Motor strength 5/5, sensation intact. PSYCH: Normal mood, normal affect. SKIN: Warm, dry, normal turgor, no rashes or lesions noted Laboratory Results - last 24 hr 09/29/18 09/29/18 09/29/18 05:30 05:30 05:30 WBC RBC Hgb Hct MCV MCH MCHC RDW Plt Count MPV Absolute Neuts (auto) Neutrophils % Lymphocytes % Monocytes % Eosinophils % Basophils % Nucleated RBC % Hemoglobin A Hemoglobin A2 Hemoglobin C Hemoglobin S Variant Hemoglobin Hemoglobin Interpret Maternal Rh Hemoglobin Solubility PT with INR INR Sodium Potassium Chloride Carbon Dioxide Anion Gap BUN Creatinine Creat Clearance w eGFR POC Glucometer Random Glucose Calcium Phosphorus Magnesium Total Bilirubin AST ALT Alkaline Phosphatase Creatine Kinase Creatine Kinase Index CK-MB (CK-2) Troponin I Total Protein Albumin Fluid Glucose Fluid Total Protein Body Fluid LDH Source Fluid Triglycerides Serum CAT Interpret IEP IgG 1232 IEP IgA 282 IEP IgM 91 BUSTER Screen Negative Double Strand DNA Ab 1 Hep A IgM Ab Confirm Negative Hepatitis A Ab Total Positive H Hep Bs Antigen Negative Hep Bs Antibody Reactive Hep B Core Total Ab Positive H 09/29/18 09/29/18 10/01/18 05:30 12:55 16:10 WBC RBC Hgb Hct MCV MCH MCHC RDW Plt Count MPV Absolute Neuts (auto) Neutrophils % Lymphocytes % Monocytes % Eosinophils % Basophils % Nucleated RBC % Hemoglobin A 97.9 Hemoglobin A2 2.1 Hemoglobin C 0 Hemoglobin S 0 Variant Hemoglobin 0.0 Hemoglobin Interpret Maternal Rh 0 Hemoglobin Solubility Negative PT with INR INR Sodium Potassium Chloride Carbon Dioxide Anion Gap BUN Creatinine Creat Clearance w eGFR POC Glucometer Random Glucose Calcium Phosphorus Magnesium Total Bilirubin AST ALT Alkaline Phosphatase Creatine Kinase 241 H Creatine Kinase Index 1.8 CK-MB (CK-2) 4.4 H Troponin I < 0.02 Total Protein Albumin Fluid Glucose 171 Fluid Total Protein 1.8 Body Fluid LDH Source 190 Fluid Triglycerides 20 Serum CAT Interpret IEP IgG IEP IgA IEP IgM BUSTER Screen Double Strand DNA Ab Hep A IgM Ab Confirm Hepatitis A Ab Total Hep Bs Antigen Hep Bs Antibody Hep B Core Total Ab 10/01/18 10/02/18 10/02/18 16:34 05:24 05:46 WBC RBC Hgb Hct MCV MCH MCHC RDW Plt Count MPV Absolute Neuts (auto) Neutrophils % Lymphocytes % Monocytes % Eosinophils % Basophils % Nucleated RBC % Hemoglobin A Hemoglobin A2 Hemoglobin C Hemoglobin S Variant Hemoglobin Hemoglobin Interpret Maternal Rh Hemoglobin Solubility PT with INR INR Sodium 140 Potassium 5.1 Chloride 104 Carbon Dioxide 30 Anion Gap 6 L BUN 56 H Creatinine 1.6 H Creat Clearance w eGFR 30.94 POC Glucometer 142 169 Random Glucose 145 H Calcium 8.7 Phosphorus 3.8 Magnesium 2.7 H Total Bilirubin 0.3 AST 29 ALT 65 H Alkaline Phosphatase 249 H Creatine Kinase Creatine Kinase Index CK-MB (CK-2) Troponin I Total Protein 6.2 L Albumin 2.4 L Fluid Glucose Fluid Total Protein Body Fluid LDH Source Fluid Triglycerides Serum CAT Interpret IEP IgG IEP IgA IEP IgM BUSTER Screen Double Strand DNA Ab Hep A IgM Ab Confirm Hepatitis A Ab Total Hep Bs Antigen Hep Bs Antibody Hep B Core Total Ab 10/02/18 10/02/18 10/02/18 05:46 05:46 11:10 WBC 9.7 RBC 2.54 L Hgb 8.1 L Hct 24.1 L MCV 95.1 MCH 32.1 MCHC 33.8 RDW 13.8 Plt Count 261 MPV 10.7 Absolute Neuts (auto) 6.2 Neutrophils % 64.2 Lymphocytes % 21.0 Monocytes % 11.6 H Eosinophils % 2.1 Basophils % 1.1 Nucleated RBC % 0 Hemoglobin A Hemoglobin A2 Hemoglobin C Hemoglobin S Variant Hemoglobin Hemoglobin Interpret Maternal Rh Hemoglobin Solubility PT with INR 13.30 H INR 1.13 H Sodium Potassium Chloride Carbon Dioxide Anion Gap BUN Creatinine Creat Clearance w eGFR POC Glucometer 189 Random Glucose Calcium Phosphorus Magnesium Total Bilirubin AST ALT Alkaline Phosphatase Creatine Kinase Creatine Kinase Index CK-MB (CK-2) Troponin I Total Protein Albumin Fluid Glucose Fluid Total Protein Body Fluid LDH Source Fluid Triglycerides Serum CAT Interpret IEP IgG IEP IgA IEP IgM BUSTER Screen Double Strand DNA Ab Hep A IgM Ab Confirm Hepatitis A Ab Total Hep Bs Antigen Hep Bs Antibody Hep B Core Total Ab Active Medications Generic Name Dose Route Start Last Admin Trade Name Freq PRN Reason Stop Dose Admin Albuterol Sulfate 1 amp 09/28/18 08:32 10/02/18 07:30 Ventolin 0.083% Nebulizer Soln - NEB 1 amp Q6H PRN Administration SHORT OF BREATH/WHEEZING Amlodipine Besylate 5 mg 09/28/18 10:00 10/02/18 09:09 Norvasc - PO 5 mg DAILY [facility] Administration Carvedilol 12.5 mg 09/28/18 10:00 10/02/18 09:09 Coreg - PO 12.5 mg BID [facility] Administration Fluticasone Propionate 1 spray 10/02/18 12:15 10/02/18 12:38 Flonase - NS 1 spray DAILY [facility] Administration Gabapentin 400 mg 09/28/18 10:00 10/02/18 09:09 Neurontin - PO 400 mg DAILY [facility] Administration Heparin Sodium (Porcine) 5,000 unit 09/28/18 22:00 10/02/18 13:03 Heparin - SQ 5,000 unit TID [facility] Administration Insulin Aspart 1 vial 09/28/18 07:00 10/02/18 11:11 Novolog Vial Sliding Scale - SQ 2 units ACHS [facility] Administration Protocol Insulin Detemir 10 units 09/28/18 22:00 10/01/18 23:09 Levemir Vial SQ 10 units HS [facility] Administration Pantoprazole Sodium 40 mg 09/28/18 10:30 10/02/18 09:09 Protonix - PO 40 mg DAILY [facility] Administration Polyethylene Glycol 17 gm 09/28/18 10:00 10/02/18 09:09 Miralax (For Daily Use) - PO 17 gm BID [facility] Administration Renal US: Mild fullness of the right renal pelvicalyceal system without gross evidence of stones. Small right mid renal simple cyst measuring 1.2cc. CTAP: Bilateral pleural effusions, right greater than left, with lower lobe atelectasis. Moderate pericardial effusion. Hepatomegaly. Fecal retention, no acute pathology within the abdomen or pelvis. There is an irregular soft tissue opacity within the right breast. Could represent fibroglandular tissue. CXR: weak inspiration with congestive changes, bibasilar infiltrates, elevated right hemidiaphragm and large heart. There may be an element of basilar atelectasis. CXR (s/p thoracentesis): No sign of gross pneumothorax. Fluid has diminished. Left base changes and large heart persists. CXR (10/01): a large heart with congestive changes and there are progressive bilateral pleural effusions with some basilar atelectasis or infiltrates. the left is more affected than the right. Chest CT without contrast: Bilateral pleural effusions and lower lobe atelectasis, greater than right. Mild to moderate pericardial effusion. Possible right breast mass. RUQ US: right pleural effusion and trace ascites. Heterogenous liver without a discrete mass. Mildly contracted gallbladder with biliary sludge. No evidence of cholelithiasis. Minimal right hydronephrosis. Mammogram: Diffuse right breast thickening. Echo: LV systolic function normal, EF 55-60%, RV normal. LA mildly dilated. Mild MS, mild MR, Mild . Aortic root normal size. Moderate primarily posterior pericardial effusion with no clear evidence of RA/RV diastolic collapse. ASSESSMENT/PLAN: Patient is an 83 year old female with past medical history of dementia, DM, HTN , HLD, and recent hospitalizations at [facility] for UTI and PNA (discharged last 09/24 ), presented to the ED due to worsening abdominal pain and distension, with last bowel movement 9 days ago. Patient also reports difficulty breathing. #Shortness of breath likely 2/2 pleural effusion -s/p Thoracentesis, 700cc of serous fluid drained -Pleural studies revealed exudative effusion -Incentive spirometry -Improved with Lasix. Will give another 40mg IV today -Pulmonary (Dr. Cooper) consulted. #Pericardial effusion -Cardiology (Dr. Mar) consulted. REcommendations appreciated. -BNP 1749 -Lasix IV given -diurese with close eye on renal function. -Tele monitoring #Elevated transaminases: improving -29/65/219, (normal in 2017) -GI (Dr. Park) consulted. Recommendations appreciated. -Hepatitis serology pending -Avoid hepatotoxic agents. -Lipitor held for now -RU US -Will continue to monitor LFTs, including INR. #Constipation: resolved -likely from immobility and DM gastroparesis -GI (Dr. Park) consulted. Recommendations appreciated. -Miralax BID #MERYL: improving -likely with CKD -Cr 1.8 -Nephrology (Dr. Omalley) consulted. REcommendations appreciated. -Renal ultrasound: Mild fullness of the right renal pelvicalyceal system without gross evidence of stones. Small right mid renal simple cyst measuring 1.2 cc. -Avoid NSAIDs #Right breast mass -CT: irregular soft tissue opacity within the right breast. Could represent fibroglandular tissue. -Pleural fluid biopsy results pending -Oncology (Dr. Beavers) consulted. Recommendations appreciated. -Mammogram - diffuse right breast thickening #Hyperkalemia: resolved -will continue to monitor #Normocytic Anemia -Iron studies pending -Retic count 1.95 #DM -Continue home Insulin Glargine 10units at bedtime -Insulin sliding scale -BGM ACHS #HTN -Continue Coreg 12.5mg BID -Amlodipine 5mg daily #HLD -Hold Lipitor in light of elevated LFTs #FEN -Not on any standing fluids -Routine bmp monitoring -Diabetic diet #Prophylaxis -Heparin 5000units sq tid #Disposition -full code -tele Visit type - Emergency Visit Emergency Visit: Yes ED Registration Date: 09/27/18 Care time: The patient presented to the Emergency Department on the above date and was hospitalized for further evaluation of their emergent condition. - New Patient This patient is new to me today: No - Critical Care Critical Care patient: No
--- NOTE | 2018-10-02 15:23 | PN ---
Progress Note, Physician History of Present Illness: Pt seen and examined at bedside. She is awake and appears comfortable. She feels that her breathing is improved. - Current Medication List Current Medications: Active Medications Albuterol Sulfate (Ventolin 0.083% Nebulizer Soln -) 1 amp NEB Q6H PRN PRN Reason: SHORT OF BREATH/WHEEZING Last Admin: 10/02/18 07:30 Dose: 1 amp Amlodipine Besylate (Norvasc -) 5 mg PO DAILY [facility] Last Admin: 10/02/18 09:09 Dose: 5 mg Carvedilol (Coreg -) 12.5 mg PO BID [facility] Last Admin: 10/02/18 09:09 Dose: 12.5 mg Fluticasone Propionate (Flonase -) 1 spray NS DAILY [facility] Last Admin: 10/02/18 12:38 Dose: 1 spray Gabapentin (Neurontin -) 400 mg PO DAILY [facility] Last Admin: 10/02/18 09:09 Dose: 400 mg Heparin Sodium (Porcine) (Heparin -) 5,000 unit SQ TID [facility] Last Admin: 10/02/18 13:03 Dose: 5,000 unit Insulin Aspart (Novolog Vial Sliding Scale -) 1 vial SQ [facility]; Protocol Last Admin: 10/02/18 11:11 Dose: 2 units Insulin Detemir (Levemir Vial) 10 units SQ HS [facility] Last Admin: 10/01/18 23:09 Dose: 10 units Pantoprazole Sodium (Protonix -) 40 mg PO DAILY [facility] Last Admin: 10/02/18 09:09 Dose: 40 mg Polyethylene Glycol (Miralax (For Daily Use) -) 17 gm PO BID [facility] Last Admin: 10/02/18 09:09 Dose: 17 gm - Objective Vital Signs: Vital Signs Temperature 98.2 F 10/02/18 14:35 Pulse Rate 70 10/02/18 14:35 Respiratory Rate 20 10/02/18 14:35 Blood Pressure 126/53 L 10/02/18 14:35 O2 Sat by Pulse Oximetry (%) 98 10/02/18 09:00 Constitutional: Yes: Calm Eyes: Yes: Conjunctiva Clear HENT: Yes: Atraumatic Cardiovascular: Yes: S1, S2 Respiratory: Yes: On Nasal O2 Gastrointestinal: Yes: Soft Genitourinary: Yes: WNL Edema: Yes Edema: LLE: 1+, RLE: 1+ Neurological: Yes: Oriented Labs: CBC, BMP 10/02/18 05:46 10/02/18 05:46 INR, PTT INR 1.13 (0.83-1.09) H 10/02/18 05:46 Problem List - Problems (1) CKD (chronic kidney disease) Code(s): N18.9 - CHRONIC KIDNEY DISEASE, UNSPECIFIED (2) Hyperkalemia Code(s): E87.5 - HYPERKALEMIA (3) MERYL (acute kidney injury) Code(s): N17.9 - ACUTE KIDNEY FAILURE, UNSPECIFIED (4) Constipation Code(s): K59.00 - CONSTIPATION, UNSPECIFIED (5) Pericardial effusion Code(s): I31.3 - PERICARDIAL EFFUSION (NONINFLAMMATORY) (6) Pleural effusion Code(s): J90 - PLEURAL EFFUSION, NOT ELSEWHERE CLASSIFIED Assessment/Plan Current Medications Generic Name Dose Route Start Last Admin Trade Name Freq PRN Reason Stop Dose Admin Albuterol Sulfate 1 amp 09/28/18 08:32 10/02/18 07:30 Ventolin 0.083% Nebulizer Soln - NEB 1 amp Q6H PRN Administration SHORT OF BREATH/WHEEZING Amlodipine Besylate 5 mg 09/28/18 10:00 10/02/18 09:09 Norvasc - PO 5 mg DAILY [facility] Administration Carvedilol 12.5 mg 09/28/18 10:00 10/02/18 09:09 Coreg - PO 12.5 mg BID [facility] Administration Fluticasone Propionate 1 spray 10/02/18 12:15 10/02/18 12:38 Flonase - NS 1 spray DAILY [facility] Administration Gabapentin 400 mg 09/28/18 10:00 10/02/18 09:09 Neurontin - PO 400 mg DAILY [facility] Administration Heparin Sodium (Porcine) 5,000 unit 09/28/18 22:00 10/02/18 13:03 Heparin - SQ 5,000 unit TID [facility] Administration Insulin Aspart 1 vial 09/28/18 07:00 10/02/18 11:11 Novolog Vial Sliding Scale - SQ 2 units ACHS [facility] Administration Protocol Insulin Detemir 10 units 09/28/18 22:00 10/01/18 23:09 Levemir Vial SQ 10 units HS [facility] Administration Pantoprazole Sodium 40 mg 09/28/18 10:30 10/02/18 09:09 Protonix - PO 40 mg DAILY [facility] Administration Polyethylene Glycol 17 gm 09/28/18 10:00 10/02/18 09:09 Miralax (For Daily Use) - PO 17 gm BID [facility] Administration Impression 1. hyperkalemia 2. MERYL 3. likely ckd 4. dyspnea 5. constipation 6. DM 7. pleural effusion 8. pericardial effusion Plan - cont with IV lasix - monitor renal function - renal ultrasound reviewed - avoid nsaids
--- NOTE | 2018-10-02 16:39 | PATH ---
Cytology Non-Gynecological Report Patient Name: LATESHA FELIX Med. Rec. #: [id number] /Age/Gender: 1935 (Age: 83) / F Account: [id number] Location: 4 W TELEMETRY U Taken: 09/28/2018 Received: 10/01/2018 Reported: 10/02/2018 Physicians: Ling Lo MD Copy To: ATT: DR.DANIEL LAGUERRE Specimen(s) Received A: PLEURAL FLUID B: PLEURAL FLUID Clinical History None given Final Diagnosis PLEURAL FLUID, THORACENTESIS: SATISFACTORY FOR EVALUATION BENIGN (NO MALIGNANT CELLS IDENTIFIED) MESOTHELIAL CELLS AND LYMPHOCYTES PRESENT. Comment: Recommend correlation with clinical findings and follow up as clinically indicated. Electronically Signed Omari Camilo M.D. Gross Description A. Approximately 50 cc of yellow fluid received fixed in 50% alcohol. One cytofunnel and one cellblock prepared. B. Approximately 500 cc of yellow fluid received fresh. One cytofunnel and one cellblock prepared.
--- NOTE | 2018-10-02 17:05 | PN ---
Teaching Attending Note Name of Resident: Mayra Wright ATTENDING PHYSICIAN STATEMENT I saw and evaluated the patient. I reviewed the resident's note and discussed the case with the resident. I agree with the resident's findings and plan as documented. SUBJECTIVE: seen at 11 am No fever or chills. stable respiratory symptoms. felt light headed admits to being anxious OBJECTIVE: NAD, Awake. CV: RRR, 3/ SM at apex , + JVd Lungs: decreased breath sounds at bases Ext: 1+ edema on legs , no erythema Abd: NT, ND , NL BS ASSESSMENT AND PLAN: 83 y/o lady with h/o DM and recent hospitalization in [place], HTN, HLP, PNA who presented with abd pain and sitention and SB . she was found to have pleural effusions, ascitis and pericardial effusion 1- Pleural effusions: pleural fluid analysis indicates exudative fluid. she was [facility] for PNA [facility] at [facility]. ( 2 days as inpt on CTX and Azithro, then levaquin as out pt , finished on 09/26) . I think heart failure is contributing to the effusions , but with exudative nature we need to r/o malignancy. if cytology is neg, then possibly the recent PNa with parapneumonic component is why fluid is exudative. If fluid persist or worsens, then might need CT sx eval for VATZ and pleural bx. - 40 mg of IV lasix x 1 again today - pathology called, sample for cytology in lab - rheum w/u in progress 2- Pericardial effusion: unknown etiology. no signs of tamponade No events on tele today 3- Acute diastolic CHF exacerbation: Na, renal function, LFTs , and symptoms imporved with diuresis - lasix dosed on a daily basis - monitor 4- MERYL vs CKD: monitor with diuresis 5- Transaminitis: likely due to liver congestion. improved with diuresis. - hep serology reviewed. follow up Gi as outpt 6-DM: cont levemir and SSI 7- CT finding of R possible R breast mass. Mammo reviewed ( skin thickening) . US pending 8- DVT px: heaprin SQ
[2018-10-02] MEDS: INSULIN (LEVEMIR) 100 UNITS/ML UNITS SQ SCH (21:40)
[2018-10-03 06:43] LABS: ALBUMIN 2.3 g/dl (3.4-5.0); ALK PHOS 229 U/L (45-117); ANION GAP 5 MMOL/L (8-16); BILIRUBIN,TOTAL 0.5 mg/dL (0.2-1); BLOOD UREA NITROGEN 49 mg/dL (7-18); CALCIUM 8.4 mg/dL (8.5-10.1); CHLORIDE 103 mmol/L (98-107); CO2 29 mmol/L (21-32); CREATININE 1.3 mg/dL (0.55-1.3); GLUCOSE,RANDOM 92 mg/dL (74-106); MAGNESIUM 2.3 mg/dL (1.8-2.4); POTASSIUM 4.8 mmol/L (3.5-5.1); SGOT/AST 24 U/L (15-37); SGPT/ALT 55 U/L (13-61); SODIUM 137 mmol/L (136-145); TOT PROT 6.4 g/dl (6.4-8.2)
[2018-10-03] MEDS: INSULIN SLIDING SCALE (NOVOLOG) 1 VIAL SQ SCH ×4 (06:43→21:09)
[2018-10-03] MEDS: HEPARIN NA (PORCINE) 5,000 UNITS/ML 1ML VIAL SQ SCH ×3 (06:43→21:07)
[2018-10-03 06:59] LABS: HEMATOCRIT 24.9 % (32.4-45.2); HEMOGLOBIN 8.4 GM/dL (10.7-15.3); MCH 31.5 pg (25.7-33.7); MCHC 33.7 g/dl (32.0-36.0); MEAN CELL VOLUME 93.7 fl (80-96); MEAN PLT VOLUME 10.6 fl (7.5-11.1); PLATELET COUNT 295 K/MM3 (134-434); RBC 2.66 M/mm3 (3.60-5.2); RDW 13.9 % (11.6-15.6); WHITE BLOOD COUNT 9.9 K/mm3 (4.0-10.0)
[2018-10-03] MEDS: CARVEDILOL 12.5 MG TABLET (FP) PO SCH ×2 (10:05→21:07)
[2018-10-03] MEDS: GABAPENTIN 400 MG CAPSULE (FP) PO SCH (10:05)
[2018-10-03] MEDS: amLODIPine BESYLATE 5 MG TABLET (FP) PO SCH (10:05)
[2018-10-03] MEDS: PANTOPRAZOLE 40 MG TABLET (FP) PO SCH (10:05)
[2018-10-03] MEDS: FLUTICASONE PROP 0.05% 16 GM NASAL SPRAY NS SCH (10:08)
[2018-10-03] MEDS: POLYETHYLENE GLYCOL 3350 119 GM BTL PO SCH ×2 (10:08→21:08)
--- NOTE | 2018-10-03 11:06 | PN ---
Progress Note (short form) - Note Progress Note: s: no chest pain, palps, dizziness. sob and edema improving. tele: sinus Current Medications Amlodipine Besylate (Norvasc -) 5 mg PO DAILY [facility] Last Admin: 10/03/18 10:05 Dose: 5 mg Carvedilol (Coreg -) 12.5 mg PO BID [facility] Last Admin: 10/03/18 10:05 Dose: 12.5 mg Fluticasone Propionate (Flonase -) 1 spray NS DAILY [facility] Last Admin: 10/03/18 10:08 Dose: 1 spray Gabapentin (Neurontin -) 400 mg PO DAILY [facility] Last Admin: 10/03/18 10:05 Dose: 400 mg Heparin Sodium (Porcine) (Heparin -) 5,000 unit SQ TID [facility] Last Admin: 10/03/18 06:43 Dose: 5,000 unit Insulin Aspart (Novolog Vial Sliding Scale -) 1 vial SQ ACHS [facility]; Protocol Last Admin: 10/03/18 06:43 Dose: Not Given Insulin Detemir (Levemir Vial) 10 units SQ HS [facility] Last Admin: 10/02/18 21:40 Dose: 10 units Pantoprazole Sodium (Protonix -) 40 mg PO DAILY [facility] Last Admin: 10/03/18 10:05 Dose: 40 mg Polyethylene Glycol (Miralax (For Daily Use) -) 17 gm PO BID [facility] Last Admin: 10/03/18 10:08 Dose: 17 gm Vital Signs Period Temp Pulse Resp BP Sys/Mendoza Pulse Ox Last 24 Hr 98.2 F-99.0 F 70-78 20-20 104-135/53-101 97-100 Constitutional: Yes: Anxious Eyes: Yes: Conjunctiva Clear, EOM Intact HENT: Yes: Atraumatic, Normocephalic Neck: Yes: Supple, Trachea Midline Respiratory: Yes: Other (significantly decreased breath sounds right) Gastrointestinal: Yes: Other (distended, NT.) Renal/: Yes: CVA Tenderness - Right Cardiovascular: Yes: Regular Rate and Rhythm JVD: Yes PMI: Non-Displaced Heart Sounds: Yes: S1, S2 Edema: No Peripheral Pulses WNL: Yes Neurological: Yes: Alert, Oriented Imaging - Results Chest X-ray: Image Reviewed (? RLL infiltrate, cardiomegal) EKG: Image Reviewed (Ectopic atrial rhytham, no acute ST changes) Problem List - Problems (1) Pericardial effusion Code(s): I31.3 - PERICARDIAL EFFUSION (NONINFLAMMATORY) (2) Dyspnea Code(s): R06.00 - DYSPNEA, UNSPECIFIED Qualifiers: Dyspnea type: dyspnea on exertion Qualified Code(s): R06.09 - Other forms of dyspnea (3) MERYL (acute kidney injury) Code(s): N17.9 - ACUTE KIDNEY FAILURE, UNSPECIFIED (4) Hyponatremia Code(s): E87.1 - HYPO-OSMOLALITY AND HYPONATREMIA (5) Pleural effusion Code(s): J90 - PLEURAL EFFUSION, NOT ELSEWHERE CLASSIFIED (6) Hypertension Code(s): I10 - ESSENTIAL (PRIMARY) HYPERTENSION Assessment/Plan IMP: 1. Dyspnea 2. Pericardial effusion: possibly chronic: ? Etiology 3. HTN 4. DM 5. MERYL 6. Hyponatremia REC: 1. Echo - moderate pericardial effusion without clear tamponade 2. Telemetry 3. Serial cardiac enzymes neg x 3 4. BNP 1700, receiving IV lasix. monitor Cr, daily standing weights, lytes. continue IV lasix 5. CT chest with kenzie pleural effusions, 700 mL removed from thoracentesis 09/28 6. Further w/u of MERYL as per PMD, renal
--- NOTE | 2018-10-03 11:12 | PN ---
Progress Note, Physician History of Present Illness: Pt seen and examined at bedside. She is awake and alert. She feels that her breathing is improved. - Current Medication List Current Medications: Active Medications Amlodipine Besylate (Norvasc -) 5 mg PO DAILY [facility] Last Admin: 10/03/18 10:05 Dose: 5 mg Carvedilol (Coreg -) 12.5 mg PO BID [facility] Last Admin: 10/03/18 10:05 Dose: 12.5 mg Fluticasone Propionate (Flonase -) 1 spray NS DAILY [facility] Last Admin: 10/03/18 10:08 Dose: 1 spray Gabapentin (Neurontin -) 400 mg PO DAILY [facility] Last Admin: 10/03/18 10:05 Dose: 400 mg Heparin Sodium (Porcine) (Heparin -) 5,000 unit SQ TID [facility] Last Admin: 10/03/18 06:43 Dose: 5,000 unit Insulin Aspart (Novolog Vial Sliding Scale -) 1 vial SQ [facility]; Protocol Last Admin: 10/03/18 06:43 Dose: Not Given Insulin Detemir (Levemir Vial) 10 units SQ [facility] Last Admin: 10/02/18 21:40 Dose: 10 units Pantoprazole Sodium (Protonix -) 40 mg PO DAILY [facility] Last Admin: 10/03/18 10:05 Dose: 40 mg Polyethylene Glycol (Miralax (For Daily Use) -) 17 gm PO BID [facility] Last Admin: 10/03/18 10:08 Dose: 17 gm - Objective Vital Signs: Vital Signs Temperature 98.8 F 10/03/18 06:00 Pulse Rate 74 10/03/18 06:00 Respiratory Rate 20 10/03/18 06:00 Blood Pressure 125/65 10/03/18 06:00 O2 Sat by Pulse Oximetry (%) 97 10/03/18 09:00 Constitutional: Yes: Calm Eyes: Yes: Conjunctiva Clear HENT: Yes: Atraumatic Cardiovascular: Yes: S1, S2 Respiratory: Yes: CTA Bilaterally Gastrointestinal: Yes: Soft Genitourinary: Yes: WNL Musculoskeletal: Yes: WNL Edema: Yes Edema: LLE: Trace, RLE: Trace Neurological: Yes: Oriented Psychiatric: Yes: Oriented Labs: CBC, BMP 10/03/18 05:30 10/03/18 05:30 INR, PTT INR 1.13 (0.83-1.09) H 10/02/18 05:46 Problem List - Problems (1) CKD (chronic kidney disease) Code(s): N18.9 - CHRONIC KIDNEY DISEASE, UNSPECIFIED (2) Hyperkalemia Code(s): E87.5 - HYPERKALEMIA (3) MERYL (acute kidney injury) Code(s): N17.9 - ACUTE KIDNEY FAILURE, UNSPECIFIED (4) Constipation Code(s): K59.00 - CONSTIPATION, UNSPECIFIED (5) Pericardial effusion Code(s): I31.3 - PERICARDIAL EFFUSION (NONINFLAMMATORY) (6) Pleural effusion Code(s): J90 - PLEURAL EFFUSION, NOT ELSEWHERE CLASSIFIED Assessment/Plan Current Medications Generic Name Dose Route Start Last Admin Trade Name Freq PRN Reason Stop Dose Admin Amlodipine Besylate 5 mg 09/28/18 10:00 10/03/18 10:05 Norvasc - PO 5 mg DAILY [facility] Administration Carvedilol 12.5 mg 09/28/18 10:00 10/03/18 10:05 Coreg - PO 12.5 mg BID [facility] Administration Fluticasone Propionate 1 spray 10/02/18 12:15 10/03/18 10:08 Flonase - NS 1 spray DAILY [facility] Administration Gabapentin 400 mg 09/28/18 10:00 10/03/18 10:05 Neurontin - PO 400 mg DAILY [facility] Administration Heparin Sodium (Porcine) 5,000 unit 09/28/18 22:00 10/03/18 06:43 Heparin - SQ 5,000 unit TID [facility] Administration Insulin Aspart 1 vial 09/28/18 07:00 10/03/18 06:43 Novolog Vial Sliding Scale - SQ Not Given ACHS [facility] Protocol Insulin Detemir 10 units 09/28/18 22:00 10/02/18 21:40 Levemir Vial SQ 10 units HS [facility] Administration Pantoprazole Sodium 40 mg 09/28/18 10:30 10/03/18 10:05 Protonix - PO 40 mg DAILY [facility] Administration Polyethylene Glycol 17 gm 09/28/18 10:00 10/03/18 10:08 Miralax (For Daily Use) - PO 17 gm BID [facility] Administration Impression 1. hyperkalemia 2. MERYL 3. likely ckd 4. dyspnea 5. constipation 6. DM 7. pleural effusion 8. pericardial effusion Plan - cont lasix - renal function is improving - renal ultrasound reviewed - avoid nsaids - monitor bp
--- NOTE | 2018-10-03 11:36 | PN ---
Progress Note, Physician History of Present Illness: pulmonary alert.oob-chair,-c/o sob - Current Medication List Current Medications: Active Medications Amlodipine Besylate (Norvasc -) 5 mg PO DAILY [facility] Last Admin: 10/03/18 10:05 Dose: 5 mg Carvedilol (Coreg -) 12.5 mg PO BID [facility] Last Admin: 10/03/18 10:05 Dose: 12.5 mg Fluticasone Propionate (Flonase -) 1 spray NS DAILY [facility] Last Admin: 10/03/18 10:08 Dose: 1 spray Gabapentin (Neurontin -) 400 mg PO DAILY [facility] Last Admin: 10/03/18 10:05 Dose: 400 mg Heparin Sodium (Porcine) (Heparin -) 5,000 unit SQ TID [facility] Last Admin: 10/03/18 06:43 Dose: 5,000 unit Insulin Aspart (Novolog Vial Sliding Scale -) 1 vial SQ [facility]; Protocol Last Admin: 10/03/18 06:43 Dose: Not Given Insulin Detemir (Levemir Vial) 10 units SQ HS [facility] Last Admin: 10/02/18 21:40 Dose: 10 units Pantoprazole Sodium (Protonix -) 40 mg PO DAILY [facility] Last Admin: 10/03/18 10:05 Dose: 40 mg Polyethylene Glycol (Miralax (For Daily Use) -) 17 gm PO BID [facility] Last Admin: 10/03/18 10:08 Dose: 17 gm - Objective Vital Signs: Vital Signs Temperature 98.8 F 10/03/18 06:00 Pulse Rate 74 10/03/18 06:00 Respiratory Rate 20 10/03/18 06:00 Blood Pressure 125/65 10/03/18 06:00 O2 Sat by Pulse Oximetry (%) 97 10/03/18 09:00 Constitutional: Yes: Well Nourished, Calm Eyes: Yes: WNL HENT: Yes: WNL Neck: Yes: WNL Cardiovascular: Yes: Regular Rate and Rhythm, S1, S2 Respiratory: Yes: CTA Bilaterally Gastrointestinal: Yes: Normal Bowel Sounds, Soft Extremities: Yes: WNL Edema: No Labs: CBC, BMP 10/03/18 05:30 10/03/18 05:30 INR, PTT INR 1.13 (0.83-1.09) H 10/02/18 05:46 Assessment/Plan (1) MERYL (acute kidney injury) Code(s): N17.9 - ACUTE KIDNEY FAILURE, UNSPECIFIED (2) Breast mass Code(s): N63.0 - UNSPECIFIED LUMP IN UNSPECIFIED BREAST (3) Constipation Code(s): K59.00 - CONSTIPATION, UNSPECIFIED (4) Pericardial effusion Code(s): I31.3 - PERICARDIAL EFFUSION (NONINFLAMMATORY) (5) Pleural effusion Code(s): J90 - PLEURAL EFFUSION, NOT ELSEWHERE CLASSIFIED (6) Hypertension Code(s): I10 - ESSENTIAL (PRIMARY) HYPERTENSION Assessment/Plan PERICARDIAL EFFUSION PROTEINURIA ANEMIA RENAL INSUFFICIENCY HTN DM MERYL PLEURAL EFFUSION TRANSUDATE GLYCEMIC CONTROL O2 DAILY WT MONITOR SHERLY SANTANA Problem List - Problems (1) MERYL (acute kidney injury) Code(s): N17.9 - ACUTE KIDNEY FAILURE, UNSPECIFIED (2) Breast mass Code(s): N63.0 - UNSPECIFIED LUMP IN UNSPECIFIED BREAST (3) Constipation Code(s): K59.00 - CONSTIPATION, UNSPECIFIED (4) Pericardial effusion Code(s): I31.3 - PERICARDIAL EFFUSION (NONINFLAMMATORY) (5) Pleural effusion Code(s): J90 - PLEURAL EFFUSION, NOT ELSEWHERE CLASSIFIED (6) Hypertension Code(s): I10 - ESSENTIAL (PRIMARY) HYPERTENSION
[2018-10-03] MEDS ORDERED: FUROSEMIDE 40 MG/4 ML INJECTABLE VIAL IVPUSH ONE (11:39)
--- NOTE | 2018-10-03 12:31 | PN ---
Teaching Attending Note Name of Resident: Mayra Wright ATTENDING PHYSICIAN STATEMENT I saw and evaluated the patient. I reviewed the resident's note and discussed the case with the resident. I agree with the resident's findings and plan as documented. SUBJECTIVE: Patient says "I can't breathe today" but also states her breathing is better today compared to yesterday. OBJECTIVE: Vital Signs Period Temp Pulse Resp BP Sys/Mendoza Pulse Ox Last 24 Hr 98.2 F-99.0 F 70-78 20-20 104-135/53-101 97-100 HEART: S1S2, RRR, (+) 2/6 SM LUNGS: Scattered crackles ABDOMEN: soft, non-tender, non-distended, normal BS EXTREMITIES: No edema Laboratory Results - last 24 hr 09/29/18 09/29/18 09/29/18 05:30 05:30 12:55 WBC RBC Hgb Hct MCV MCH MCHC RDW Plt Count MPV Hemoglobin A 97.9 Hemoglobin A2 2.1 Hemoglobin C 0 Hemoglobin S 0 Variant Hemoglobin 0.0 Hemoglobin Interpret Maternal Rh 0 Hemoglobin Solubility Negative Sodium Potassium Chloride Carbon Dioxide Anion Gap BUN Creatinine Creat Clearance w eGFR POC Glucometer Random Glucose Calcium Phosphorus Magnesium Total Bilirubin AST ALT Alkaline Phosphatase Ammonia Total Protein Albumin Beta Globulins 0.9 POC Fluid pH 7.5 CAT & SPEP Interp Total Protein (CAT) 5.7 L Albumin (CAT) 2.7 L Albumin/Globulin (CAT) 1.0 Mnnso-4-Gvtepmvzj CAT 0.2 Sprvc-0-Dombntfeb CAT 0.8 Gamma Globulins (CAT) 1.2 CAT M-Michele Not observed CAT Comments IEP IgG 1257 IEP IgA 277 IEP IgM 92 10/02/18 10/02/18 10/02/18 12:45 16:59 21:39 WBC RBC Hgb Hct MCV MCH MCHC RDW Plt Count MPV Hemoglobin A Hemoglobin A2 Hemoglobin C Hemoglobin S Variant Hemoglobin Hemoglobin Interpret Maternal Rh Hemoglobin Solubility Sodium Potassium Chloride Carbon Dioxide Anion Gap BUN Creatinine Creat Clearance w eGFR POC Glucometer 193 240 Random Glucose Calcium Phosphorus Magnesium Total Bilirubin AST ALT Alkaline Phosphatase Ammonia 23.50 Total Protein Albumin Beta Globulins POC Fluid pH CAT & SPEP Interp Total Protein (CAT) Albumin (CAT) Albumin/Globulin (CAT) Rowow-8-Xaxlgtubb CAT Xhwck-8-Lrwwancml CAT Gamma Globulins (CAT) CAT M-Michele CAT Comments IEP IgG IEP IgA IEP IgM 10/03/18 10/03/18 10/03/18 05:22 05:30 05:30 WBC 9.9 RBC 2.66 L Hgb 8.4 L Hct 24.9 L MCV 93.7 MCH 31.5 MCHC 33.7 RDW 13.9 Plt Count 295 MPV 10.6 Hemoglobin A Hemoglobin A2 Hemoglobin C Hemoglobin S Variant Hemoglobin Hemoglobin Interpret Maternal Rh Hemoglobin Solubility Sodium 137 Potassium 4.8 Chloride 103 Carbon Dioxide 29 Anion Gap 5 L BUN 49 H Creatinine 1.3 Creat Clearance w eGFR 39.31 POC Glucometer 106 Random Glucose 92 Calcium 8.4 L Phosphorus 4.0 Magnesium 2.3 Total Bilirubin 0.5 AST 24 ALT 55 Alkaline Phosphatase 229 H Ammonia Total Protein 6.4 Albumin 2.3 L Beta Globulins POC Fluid pH CAT & SPEP Interp Total Protein (CAT) Albumin (CAT) Albumin/Globulin (CAT) Jtvus-5-Gshzpfwit CAT Cjoiy-9-Nwyzziysz CAT Gamma Globulins (CAT) CAT M-Michele CAT Comments IEP IgG IEP IgA IEP IgM 10/03/18 11:34 WBC RBC Hgb Hct MCV MCH MCHC RDW Plt Count MPV Hemoglobin A Hemoglobin A2 Hemoglobin C Hemoglobin S Variant Hemoglobin Hemoglobin Interpret Maternal Rh Hemoglobin Solubility Sodium Potassium Chloride Carbon Dioxide Anion Gap BUN Creatinine Creat Clearance w eGFR POC Glucometer 177 Random Glucose Calcium Phosphorus Magnesium Total Bilirubin AST ALT Alkaline Phosphatase Ammonia Total Protein Albumin Beta Globulins POC Fluid pH CAT & SPEP Interp Total Protein (CAT) Albumin (CAT) Albumin/Globulin (CAT) Frazk-1-Kskjgqtlk CAT Hhcqc-0-Kqeqiltkc CAT Gamma Globulins (CAT) CAT M-Michele CAT Comments IEP IgG IEP IgA IEP IgM Current Medications Generic Name Dose Route Start Last Admin Trade Name Freq PRN Reason Stop Dose Admin Amlodipine Besylate 5 mg 09/28/18 10:00 10/03/18 10:05 Norvasc - PO 5 mg DAILY [facility] Administration Carvedilol 12.5 mg 09/28/18 10:00 10/03/18 10:05 Coreg - PO 12.5 mg BID [facility] Administration Fluticasone Propionate 1 spray 10/02/18 12:15 10/03/18 10:08 Flonase - NS 1 spray DAILY [facility] Administration Furosemide 40 mg 10/04/18 10:00 Lasix Injection - IVPUSH DAILY [facility] Gabapentin 400 mg 09/28/18 10:00 10/03/18 10:05 Neurontin - PO 400 mg DAILY [facility] Administration Heparin Sodium (Porcine) 5,000 unit 09/28/18 22:00 10/03/18 06:43 Heparin - SQ 5,000 unit TID [facility] Administration Insulin Aspart 1 vial 09/28/18 07:00 10/03/18 06:43 Novolog Vial Sliding Scale - SQ Not Given ACHS [facility] Protocol Insulin Detemir 10 units 09/28/18 22:00 10/02/18 21:40 Levemir Vial SQ 10 units HS [facility] Administration Pantoprazole Sodium 40 mg 09/28/18 10:30 10/03/18 10:05 Protonix - PO 40 mg DAILY [facility] Administration Polyethylene Glycol 17 gm 09/28/18 10:00 10/03/18 10:08 Miralax (For Daily Use) - PO 17 gm BID [facility] Administration ASSESSMENT AND PLAN: This is an 83 year old woman with a history of dementia, type 2 DM, HTN, hyperlipidemia, recent UTI and pneumonia who presented to the ED with abdominal pain and distention, shortness of breath. 1. Bilateral pleural effusions R>L, pericardial effusion - CT chest/abd/pelvis showed bilateral pleural effusions, moderate pericardial effusion, possible right breast mass, hepatomegaly, fecal retention - RUQ US showed right pleural effusion, trace ascites, heterogeneous liver, mildly contracted gallbladder with sludge, minimal right hydronephrosis - Possible acute diastolic heart failure - BNP 1749.1 - Echo showed normal LV systolic function, LVEF 55-60%, normal RV, mild MR , mild TR, mild AR, moderate posterior pericardial effusion - s/p right thoracentesis by IR 09/28 - Fluid is exudative (fluid LDH:serum LDH 190:243 >0.6; fluid LDH 190 is > 2/3 upper limit of normal for serum LDH) - Cytology negative for malignancy - BUSTER, DS DNA Ab, RF, SPEP negative - Continue Lasix IV 2. Possible right breast mass - Mammogram showed diffuse right breast skin thickening, no suspicious findings - Right breast US showed diffuse skin thickening with parenchymal edema, no suspicious mass 3. Acute kidney injury - Improved - Renal US shows mild fullness of right renal pelvicalyceal system, small right simple cyst 4. Stage 3 CKD 5. Anemia secondary to chronic illness - Hemoglobin is stable 6. Hepatic transaminitis - AST, ALT improved; alk phos improving - RUQ US shows right pleural effusion, trace ascites, heterogeneous liver, mildly contracted gallbladder with sludge, minimal right hydronephrosis - Hep A Ab positive (IgM negative), HBsAg negative, HBsAb positive, HBcAb positive (IgM negative), HCV Ab negative, HIV negative 7. Constipation - Continue Miralax 8. HTN - Continue Norvasc, Coreg, Lasix 9. Hyperlipidemia 10. Type 2 DM - Continue Levemir, Novolog sliding scale 11. Dementia
--- NOTE | 2018-10-03 14:15 | PN ---
Physical Exam: SUBJECTIVE: Patient seen and examined at bedside this morning. Patient reported shortness of breath this morning, sitting upright, but saturating 97% on 3L [place]. Otherwise denies fever, chills, headache, chest pain, SOB, abdominal pain, diarrhea , urinary symptoms. OBJECTIVE: Vital Signs Temperature 98.6 F 10/03/18 10:00 Pulse Rate 77 10/03/18 10:00 Respiratory Rate 20 10/03/18 10:00 Blood Pressure 137/52 L 10/03/18 10:00 O2 Sat by Pulse Oximetry (%) 97 10/03/18 09:00 GENERAL: The patient is awake, alert, and fully oriented, on 3L [place] HEAD: Normal with no signs of trauma. EYES: PERRLA, EOMI, sclera anicteric, conjunctiva clear. ENT: oropharynx clear without exudates, moist mucous membranes. NECK: Trachea midline, full range of motion, supple. LUNGS: +bibasilar crackles HEART: Regular rate and rhythm, S1, S2 without murmur, rub or gallop. ABDOMEN: Soft, nontender, mildly distended, normoactive bowel sounds. EXTREMITIES: 2+ pulses, warm, well-perfused, no pitting edema NEUROLOGICAL: Cranial nerves II through XII grossly intact. Normal speech, normal gait. Motor strength 5/5, sensation intact. PSYCH: Normal mood, normal affect. SKIN: Warm, dry, normal turgor, no rashes or lesions noted Laboratory Results - last 24 hr 09/29/18 09/29/18 10/02/18 05:30 12:55 16:59 WBC RBC Hgb Hct MCV MCH MCHC RDW Plt Count MPV Sodium Potassium Chloride Carbon Dioxide Anion Gap BUN Creatinine Creat Clearance w eGFR POC Glucometer 193 Random Glucose Calcium Phosphorus Magnesium Total Bilirubin AST ALT Alkaline Phosphatase Total Protein Albumin Beta Globulins 0.9 POC Fluid pH 7.5 CAT & SPEP Interp Total Protein (CAT) 5.7 L Albumin (CAT) 2.7 L Albumin/Globulin (CAT) 1.0 Zmpfi-9-Jihnovvdw CAT 0.2 Onxkm-9-Vuxfnjdjx CAT 0.8 Gamma Globulins (CAT) 1.2 CAT M-Michele Not observed CAT Comments IEP IgG 1257 IEP IgA 277 IEP IgM 92 10/02/18 10/03/18 10/03/18 21:39 05:22 05:30 WBC 9.9 RBC 2.66 L Hgb 8.4 L Hct 24.9 L MCV 93.7 MCH 31.5 MCHC 33.7 RDW 13.9 Plt Count 295 MPV 10.6 Sodium Potassium Chloride Carbon Dioxide Anion Gap BUN Creatinine Creat Clearance w eGFR POC Glucometer 240 106 Random Glucose Calcium Phosphorus Magnesium Total Bilirubin AST ALT Alkaline Phosphatase Total Protein Albumin Beta Globulins POC Fluid pH CAT & SPEP Interp Total Protein (CAT) Albumin (CAT) Albumin/Globulin (CAT) Rnvkv-1-Ywabedpbl CAT Jdifl-6-Fxtngptlr CAT Gamma Globulins (CAT) CAT M-Michele CAT Comments IEP IgG IEP IgA IEP IgM 10/03/18 10/03/18 05:30 11:34 WBC RBC Hgb Hct MCV MCH MCHC RDW Plt Count MPV Sodium 137 Potassium 4.8 Chloride 103 Carbon Dioxide 29 Anion Gap 5 L BUN 49 H Creatinine 1.3 Creat Clearance w eGFR 39.31 POC Glucometer 177 Random Glucose 92 Calcium 8.4 L Phosphorus 4.0 Magnesium 2.3 Total Bilirubin 0.5 AST 24 ALT 55 Alkaline Phosphatase 229 H Total Protein 6.4 Albumin 2.3 L Beta Globulins POC Fluid pH CAT & SPEP Interp Total Protein (CAT) Albumin (CAT) Albumin/Globulin (CAT) Gfhrn-8-Xgqcjmkmq CAT Hpowj-5-Ywxronxrp CAT Gamma Globulins (CAT) CAT M-Michele CAT Comments IEP IgG IEP IgA IEP IgM Active Medications Generic Name Dose Route Start Last Admin Trade Name Keith PRN Reason Stop Dose Admin Amlodipine Besylate 5 mg 09/28/18 10:00 10/03/18 10:05 Norvasc - PO 5 mg DAILY [facility] Administration Carvedilol 12.5 mg 09/28/18 10:00 10/03/18 10:05 Coreg - PO 12.5 mg BID [facility] Administration Fluticasone Propionate 1 spray 10/02/18 12:15 10/03/18 10:08 Flonase - NS 1 spray DAILY [facility] Administration Furosemide 40 mg 10/04/18 10:00 Lasix Injection - IVPUSH DAILY [facility] Gabapentin 400 mg 09/28/18 10:00 10/03/18 10:05 Neurontin - PO 400 mg DAILY [facility] Administration Heparin Sodium (Porcine) 5,000 unit 09/28/18 22:00 10/03/18 13:35 Heparin - SQ 5,000 unit TID [facility] Administration Insulin Aspart 1 vial 09/28/18 07:00 10/03/18 12:11 Novolog Vial Sliding Scale - SQ 2 units ACHS [facility] Administration Protocol Insulin Detemir 10 units 09/28/18 22:00 10/02/18 21:40 Levemir Vial SQ 10 units HS [facility] Administration Pantoprazole Sodium 40 mg 09/28/18 10:30 10/03/18 10:05 Protonix - PO 40 mg DAILY [facility] Administration Polyethylene Glycol 17 gm 09/28/18 10:00 10/03/18 10:08 Miralax (For Daily Use) - PO 17 gm BID [facility] Administration Renal US: Mild fullness of the right renal pelvicalyceal system without gross evidence of stones. Small right mid renal simple cyst measuring 1.2cc. CTAP: Bilateral pleural effusions, right greater than left, with lower lobe atelectasis. Moderate pericardial effusion. Hepatomegaly. Fecal retention, no acute pathology within the abdomen or pelvis. There is an irregular soft tissue opacity within the right breast. Could represent fibroglandular tissue. CXR: weak inspiration with congestive changes, bibasilar infiltrates, elevated right hemidiaphragm and large heart. There may be an element of basilar atelectasis. CXR (s/p thoracentesis): No sign of gross pneumothorax. Fluid has diminished. Left base changes and large heart persists. CXR (10/01): a large heart with congestive changes and there are progressive bilateral pleural effusions with some basilar atelectasis or infiltrates. the left is more affected than the right. Chest CT without contrast: Bilateral pleural effusions and lower lobe atelectasis, greater than right. Mild to moderate pericardial effusion. Possible right breast mass. RUQ US: right pleural effusion and trace ascites. Heterogenous liver without a discrete mass. Mildly contracted gallbladder with biliary sludge. No evidence of cholelithiasis. Minimal right hydronephrosis. Mammogram: Diffuse right breast thickening. Echo: LV systolic function normal, EF 55-60%, RV normal. LA mildly dilated. Mild MS, mild MR, Mild . Aortic root normal size. Moderate primarily posterior pericardial effusion with no clear evidence of RA/RV diastolic collapse. ASSESSMENT/PLAN: Patient is an 83 year old female with past medical history of dementia, DM, HTN , HLD, and recent hospitalizations at [facility] for UTI and PNA (discharged last 09/24 ), presented to the ED due to worsening abdominal pain and distension, with last bowel movement 9 days ago. Patient also reports difficulty breathing. #Shortness of breath likely 2/2 pleural effusion -s/p Thoracentesis, 700cc of serous fluid drained -Pleural studies revealed exudative effusion -Incentive spirometry -Improved with Lasix. Will give another 40mg IV today -Pulmonary (Dr. Cooper) consulted. #Pericardial effusion -Cardiology (Dr. Mar) consulted. REcommendations appreciated. -BNP 1749 -Lasix IV given -diurese with close eye on renal function. -Tele monitoring #Elevated transaminases: improved -GI (Dr. Park) consulted. Recommendations appreciated. -Hepatitis serology -Avoid hepatotoxic agents. -Lipitor held for now -[facility] US -Will continue to monitor LFTs, including INR. #Constipation: resolved -likely from immobility and DM gastroparesis -GI (Dr. Park) consulted. Recommendations appreciated. -Miralax BID #MERYL: improving -likely with CKD -Cr 1.3 -Nephrology (Dr. Omalley) consulted. REcommendations appreciated. -Renal ultrasound: Mild fullness of the right renal pelvicalyceal system without gross evidence of stones. Small right mid renal simple cyst measuring 1.2 cc. -Avoid NSAIDs #Right breast mass -CT: irregular soft tissue opacity within the right breast. Could represent fibroglandular tissue. -Pleural fluid biopsy results pending -Oncology (Dr. Beavers) consulted. Recommendations appreciated. -Mammogram - diffuse right breast thickening -Ultrasound - diffuse skin thickening with parenchymal edema of the right breast , extending from the 5 to the 11:00 positions. This is probably related to benign etiology. No definite suspicious mass seen. #Hyperkalemia: resolved -will continue to monitor #Normocytic Anemia -Iron studies pending -Retic count 1.95 #DM -Continue home Insulin Glargine 10units at bedtime -Insulin sliding scale -BGM ACHS #HTN -Continue Coreg 12.5mg BID -Amlodipine 5mg daily #HLD -Hold Lipitor in light of elevated LFTs #FEN -Not on any standing fluids -Routine bmp monitoring -Diabetic diet #Prophylaxis -Heparin 5000units sq tid #Disposition -full code -tele Visit type - Emergency Visit Emergency Visit: Yes ED Registration Date: 09/27/18 Care time: The patient presented to the Emergency Department on the above date and was hospitalized for further evaluation of their emergent condition. - New Patient This patient is new to me today: No - Critical Care Critical Care patient: No
[2018-10-03] MEDS ORDERED: BENZOCAINE/MENTH/CETYLPYRD CL 1 EACH LOZENGE MM PRN (17:27)
[2018-10-03] MEDS: INSULIN (LEVEMIR) 100 UNITS/ML UNITS SQ SCH (21:09)
[2018-10-04] MEDS: HEPARIN NA (PORCINE) 5,000 UNITS/ML 1ML VIAL SQ SCH ×3 (06:22→21:29)
[2018-10-04] MEDS: INSULIN SLIDING SCALE (NOVOLOG) 1 VIAL SQ SCH ×4 (06:22→21:30)
[2018-10-04 06:34] LABS: HEMATOCRIT 25.4 % (32.4-45.2); HEMOGLOBIN 8.8 GM/dL (10.7-15.3); MCH 33.4 pg (25.7-33.7); MCHC 34.8 g/dl (32.0-36.0); MEAN CELL VOLUME 95.9 fl (80-96); MEAN PLT VOLUME 10.5 fl (7.5-11.1); PLATELET COUNT 311 K/MM3 (134-434); RBC 2.65 M/mm3 (3.60-5.2); RDW 13.9 % (11.6-15.6); WHITE BLOOD COUNT 9.2 K/mm3 (4.0-10.0)
[2018-10-04 07:09] LABS: BLOOD UREA NITROGEN 43 mg/dL (7-18); CHLORIDE 101 mmol/L (98-107); CREATININE 1.4 mg/dL (0.55-1.3); GLUCOSE,RANDOM 150 mg/dL (74-106); POTASSIUM 4.9 mmol/L (3.5-5.1); SODIUM 136 mmol/L (136-145)
[2018-10-04 07:10] LABS: ALBUMIN 2.4 g/dl (3.4-5.0); ALK PHOS 254 U/L (45-117); ANION GAP 4 MMOL/L (8-16); BILIRUBIN,TOTAL 0.4 mg/dL (0.2-1); CALCIUM 8.5 mg/dL (8.5-10.1); CO2 31 mmol/L (21-32); MAGNESIUM 2.2 mg/dL (1.8-2.4); PHOSPHOROUS 4.1 mg/dL (2.5-4.9); SGOT/AST 26 U/L (15-37); SGPT/ALT 48 U/L (13-61); TOT PROT 6.8 g/dl (6.4-8.2)
[2018-10-04] MEDS: CARVEDILOL 12.5 MG TABLET (FP) PO SCH ×2 (09:54→21:29)
[2018-10-04] MEDS: GABAPENTIN 400 MG CAPSULE (FP) PO SCH (09:55)
[2018-10-04] MEDS: POLYETHYLENE GLYCOL 3350 119 GM BTL PO SCH ×2 (09:55→21:32)
[2018-10-04] MEDS: FUROSEMIDE 40 MG/4 ML INJECTABLE VIAL IVPUSH SCH (09:55)
[2018-10-04] MEDS: amLODIPine BESYLATE 5 MG TABLET (FP) PO SCH (09:56)
[2018-10-04] MEDS: PANTOPRAZOLE 40 MG TABLET (FP) PO SCH (09:56)
--- NOTE | 2018-10-04 11:31 | PN ---
Progress Note (short form) - Note Progress Note: s: no chest pain, palps, dizziness. sob and edema improving. tele: sinus Current Medications Amlodipine Besylate (Norvasc -) 5 mg PO DAILY [facility] Last Admin: 10/04/18 09:56 Dose: 5 mg Benzocaine/Menthol (Cepacol Lozenge -) 1 each MM Q2H PRN PRN Reason: SORE THROAT Carvedilol (Coreg -) 12.5 mg PO BID [facility] Last Admin: 10/04/18 09:54 Dose: 12.5 mg Fluticasone Propionate (Flonase -) 1 spray NS DAILY [facility] Last Admin: 10/03/18 10:08 Dose: 1 spray Furosemide (Lasix Injection -) 40 mg IVPUSH DAILY [facility] Last Admin: 10/04/18 09:55 Dose: 40 mg Gabapentin (Neurontin -) 400 mg PO DAILY [facility] Last Admin: 10/04/18 09:55 Dose: 400 mg Heparin Sodium (Porcine) (Heparin -) 5,000 unit SQ TID [facility] Last Admin: 10/04/18 06:22 Dose: 5,000 unit Insulin Aspart (Novolog Vial Sliding Scale -) 1 vial SQ ACHS [facility]; Protocol Last Admin: 10/04/18 06:22 Dose: 2 units Insulin Detemir (Levemir Vial) 10 units SQ HS [facility] Last Admin: 10/03/18 21:09 Dose: 10 units Pantoprazole Sodium (Protonix -) 40 mg PO DAILY [facility] Last Admin: 10/04/18 09:56 Dose: 40 mg Polyethylene Glycol (Miralax (For Daily Use) -) 17 gm PO BID [facility] Last Admin: 10/04/18 09:55 Dose: 17 gm Vital Signs Period Temp Pulse Resp BP Sys/Mendoza Pulse Ox Last 24 Hr 98.1 F-98.9 F 71-81 16-20 125-150/46-56 99 Constitutional: Yes: Anxious Eyes: Yes: Conjunctiva Clear, Neck: Yes: Supple, Trachea Midline Respiratory: Yes: Other (decreased breath sounds right) Gastrointestinal: Yes: Other (distended, NT.) Renal/: Yes: CVA Tenderness - Right Cardiovascular: Yes: Regular Rate and Rhythm JVD: Yes PMI: Non-Displaced Heart Sounds: Yes: S1, S2 Edema: No Peripheral Pulses WNL: Yes Neurological: Yes: Alert, Oriented no jaundice diaphoresis Imaging - Results Chest X-ray: Image Reviewed (? RLL infiltrate, cardiomegal) EKG: Image Reviewed (Ectopic atrial rhytham, no acute ST changes) Problem List - Problems (1) Pericardial effusion Code(s): I31.3 - PERICARDIAL EFFUSION (NONINFLAMMATORY) (2) Dyspnea Code(s): R06.00 - DYSPNEA, UNSPECIFIED Qualifiers: Dyspnea type: dyspnea on exertion Qualified Code(s): R06.09 - Other forms of dyspnea (3) MERYL (acute kidney injury) Code(s): N17.9 - ACUTE KIDNEY FAILURE, UNSPECIFIED (4) Hyponatremia Code(s): E87.1 - HYPO-OSMOLALITY AND HYPONATREMIA (5) Pleural effusion Code(s): J90 - PLEURAL EFFUSION, NOT ELSEWHERE CLASSIFIED (6) Hypertension Code(s): I10 - ESSENTIAL (PRIMARY) HYPERTENSION Assessment/Plan IMP: 1. Dyspnea 2. Pericardial effusion: possibly chronic: ? Etiology 3. HTN 4. DM 5. MERYL 6. Hyponatremia REC: 1. Echo - moderate pericardial effusion without clear tamponade 2. Serial cardiac enzymes neg x 3 3. BNP 1700, receiving IV lasix. monitor Cr, daily standing weights, lytes. continue IV lasix 4. CT chest with kenzie pleural effusions, 700 mL removed from thoracentesis 09/28 5. Further w/u of MERYL as per PMD, renal dc tele
--- NOTE | 2018-10-04 13:16 | PN ---
Progress Note, Physician History of Present Illness: Pt seen and examined at bedside. She gets SOB on exertion. - Current Medication List Current Medications: Active Medications Amlodipine Besylate (Norvasc -) 5 mg PO DAILY [facility] Last Admin: 10/04/18 09:56 Dose: 5 mg Benzocaine/Menthol (Cepacol Lozenge -) 1 each MM Q2H PRN PRN Reason: SORE THROAT Carvedilol (Coreg -) 12.5 mg PO BID [facility] Last Admin: 10/04/18 09:54 Dose: 12.5 mg Fluticasone Propionate (Flonase -) 1 spray NS DAILY [facility] Last Admin: 10/03/18 10:08 Dose: 1 spray Furosemide (Lasix Injection -) 40 mg IVPUSH DAILY [facility] Last Admin: 10/04/18 09:55 Dose: 40 mg Gabapentin (Neurontin -) 400 mg PO DAILY [facility] Last Admin: 10/04/18 09:55 Dose: 400 mg Heparin Sodium (Porcine) (Heparin -) 5,000 unit SQ TID [facility] Last Admin: 10/04/18 06:22 Dose: 5,000 unit Insulin Aspart (Novolog Vial Sliding Scale -) 1 vial SQ [facility]; Protocol Last Admin: 10/04/18 12:57 Dose: Not Given Insulin Detemir (Levemir Vial) 10 units SQ HS [facility] Last Admin: 10/03/18 21:09 Dose: 10 units Pantoprazole Sodium (Protonix -) 40 mg PO DAILY [facility] Last Admin: 10/04/18 09:56 Dose: 40 mg Polyethylene Glycol (Miralax (For Daily Use) -) 17 gm PO BID [facility] Last Admin: 10/04/18 09:55 Dose: 17 gm - Objective Vital Signs: Vital Signs Temperature 98.3 F 10/04/18 08:40 Pulse Rate 72 10/04/18 08:40 Respiratory Rate 16 10/04/18 08:40 Blood Pressure 137/56 L 10/04/18 08:40 O2 Sat by Pulse Oximetry (%) 99 10/03/18 21:00 Constitutional: Yes: Calm Eyes: Yes: Conjunctiva Clear HENT: Yes: Atraumatic Neck: Yes: Supple Cardiovascular: Yes: S1, S2 Respiratory: Yes: On Nasal O2 Gastrointestinal: Yes: Soft Genitourinary: Yes: WNL Musculoskeletal: Yes: WNL Edema: No Neurological: Yes: Oriented Psychiatric: Yes: Oriented Labs: CBC, BMP 10/04/18 05:30 10/04/18 05:30 INR, PTT INR 1.13 (0.83-1.09) H 10/02/18 05:46 Problem List - Problems (1) CKD (chronic kidney disease) Code(s): N18.9 - CHRONIC KIDNEY DISEASE, UNSPECIFIED (2) Hyperkalemia Code(s): E87.5 - HYPERKALEMIA (3) MERYL (acute kidney injury) Code(s): N17.9 - ACUTE KIDNEY FAILURE, UNSPECIFIED (4) Constipation Code(s): K59.00 - CONSTIPATION, UNSPECIFIED (5) Pericardial effusion Code(s): I31.3 - PERICARDIAL EFFUSION (NONINFLAMMATORY) (6) Pleural effusion Code(s): J90 - PLEURAL EFFUSION, NOT ELSEWHERE CLASSIFIED Assessment/Plan Current Medications Generic Name Dose Route Start Last Admin Trade Name Freq PRN Reason Stop Dose Admin Amlodipine Besylate 5 mg 09/28/18 10:00 10/04/18 09:56 Norvasc - PO 5 mg DAILY AGUSTIN Administration Benzocaine/Menthol 1 each 10/03/18 17:27 Cepacol Lozenge - MM Q2H PRN SORE THROAT Carvedilol 12.5 mg 09/28/18 10:00 10/04/18 09:54 Coreg - PO 12.5 mg BID AGUSTIN Administration Fluticasone Propionate 1 spray 10/02/18 12:15 10/03/18 10:08 Flonase - NS 1 spray DAILY AGUSTIN Administration Furosemide 40 mg 10/04/18 10:00 10/04/18 09:55 Lasix Injection - IVPUSH 40 mg DAILY AGUSTIN Administration Gabapentin 400 mg 09/28/18 10:00 10/04/18 09:55 Neurontin - PO 400 mg DAILY AGUSTIN Administration Heparin Sodium (Porcine) 5,000 unit 09/28/18 22:00 10/04/18 06:22 Heparin - SQ 5,000 unit TID AGUSTIN Administration Insulin Aspart 1 vial 09/28/18 07:00 10/04/18 12:57 Novolog Vial Sliding Scale - SQ Not Given ACHS [facility] Protocol Insulin Detemir 10 units 09/28/18 22:00 10/03/18 21:09 Levemir Vial SQ 10 units HS AGUSTIN Administration Pantoprazole Sodium 40 mg 09/28/18 10:30 10/04/18 09:56 Protonix - PO 40 mg DAILY AGUSTIN Administration Polyethylene Glycol 17 gm 09/28/18 10:00 10/04/18 09:55 Miralax (For Daily Use) - PO 17 gm BID AGUSTIN Administration Impression 1. hyperkalemia 2. MERYL 3. likely ckd 4. dyspnea 5. constipation 6. DM 7. pleural effusion 8. pericardial effusion Plan - monitor renal function - cont lasix - monitor volume status - cardio input appreciated - avoid nsaids - monitor bp
--- NOTE | 2018-10-04 13:29 | PN ---
Progress Note (short form) - Note Progress Note: PULMONARY +nonproductive cough. No fevers or chills. Vital Signs Period Temp Pulse Resp BP Sys/Mendoza Pulse Ox Last 24 Hr 98.1 F-98.9 F 71-81 16-20 125-150/46-56 99 Gen: NAD at rest Heart: RRR Lung: decreased breath sounds at the bases Abd: soft, nontender Ext: no edema CBC, BMP 10/04/18 05:30 10/04/18 05:30 Active Medications Amlodipine Besylate (Norvasc -) 5 mg PO DAILY [facility] Last Admin: 10/04/18 09:56 Dose: 5 mg Benzocaine/Menthol (Cepacol Lozenge -) 1 each MM Q2H PRN PRN Reason: SORE THROAT Carvedilol (Coreg -) 12.5 mg PO BID [facility] Last Admin: 10/04/18 09:54 Dose: 12.5 mg Fluticasone Propionate (Flonase -) 1 spray NS DAILY [facility] Last Admin: 10/03/18 10:08 Dose: 1 spray Furosemide (Lasix Injection -) 40 mg IVPUSH DAILY [facility] Last Admin: 10/04/18 09:55 Dose: 40 mg Gabapentin (Neurontin -) 400 mg PO DAILY [facility] Last Admin: 10/04/18 09:55 Dose: 400 mg Heparin Sodium (Porcine) (Heparin -) 5,000 unit SQ TID [facility] Last Admin: 10/04/18 06:22 Dose: 5,000 unit Insulin Aspart (Novolog Vial Sliding Scale -) 1 vial SQ ACHS [facility]; Protocol Last Admin: 10/04/18 12:57 Dose: Not Given Insulin Detemir (Levemir Vial) 10 units SQ HS [facility] Last Admin: 10/03/18 21:09 Dose: 10 units Pantoprazole Sodium (Protonix -) 40 mg PO DAILY [facility] Last Admin: 10/04/18 09:56 Dose: 40 mg Polyethylene Glycol (Miralax (For Daily Use) -) 17 gm PO BID [facility] Last Admin: 10/04/18 09:55 Dose: 17 gm A/P Pericardial Effusion Pleural Effusion s/p thoracentesis - Transudate Acute Kidney Injury HTN DM - continue lasix - monitor urine output, creatinine - O2 to keep SpO2 >90% - will add cough suppressant - DVT prophylaxis
--- NOTE | 2018-10-04 14:16 | PN ---
Physical Exam: SUBJECTIVE: Patient seen and examined at bedside this morning. No acute events overnight. Patient sitting comfortably in bed, but reporting shortness of breath. Otherwise, denies fever, chills, headache, dizziness, chest pain, abdominal pain, diarrhea. OBJECTIVE: Vital Signs Temperature 98.3 F 10/04/18 08:40 Pulse Rate 72 10/04/18 08:40 Respiratory Rate 16 10/04/18 08:40 Blood Pressure 137/56 L 10/04/18 08:40 O2 Sat by Pulse Oximetry (%) 99 10/03/18 21:00 GENERAL: The patient is awake, alert, and fully oriented, on 3L NC HEAD: Normal with no signs of trauma. EYES: PERRLA, EOMI, sclera anicteric, conjunctiva clear. ENT: oropharynx clear without exudates, moist mucous membranes. NECK: Trachea midline, full range of motion, supple. LUNGS: +bibasilar crackles HEART: Regular rate and rhythm, S1, S2 without murmur, rub or gallop. ABDOMEN: Soft, nontender, mildly distended, normoactive bowel sounds. EXTREMITIES: 2+ pulses, warm, well-perfused, no pitting edema NEUROLOGICAL: Cranial nerves II through XII grossly intact. Normal speech, normal gait. Motor strength 5/5, sensation intact. PSYCH: Normal mood, normal affect. SKIN: Warm, dry, normal turgor, no rashes or lesions noted Laboratory Results - last 24 hr 10/03/18 10/03/18 10/04/18 16:34 21:06 05:30 WBC 9.2 RBC 2.65 L Hgb 8.8 L Hct 25.4 L MCV 95.9 MCH 33.4 MCHC 34.8 RDW 13.9 Plt Count 311 MPV 10.5 Sodium Potassium Chloride Carbon Dioxide Anion Gap BUN Creatinine Creat Clearance w eGFR POC Glucometer 235 188 Random Glucose Calcium Phosphorus Magnesium Total Bilirubin AST ALT Alkaline Phosphatase Total Protein Albumin 10/04/18 10/04/18 10/04/18 05:30 05:42 11:40 WBC RBC Hgb Hct MCV MCH MCHC RDW Plt Count MPV Sodium 136 Potassium 4.9 Chloride 101 Carbon Dioxide 31 Anion Gap 4 L BUN 43 H Creatinine 1.4 H Creat Clearance w eGFR 36.09 POC Glucometer 165 102 Random Glucose 150 H Calcium 8.5 Phosphorus 4.1 Magnesium 2.2 Total Bilirubin 0.4 AST 26 ALT 48 Alkaline Phosphatase 254 H Total Protein 6.8 Albumin 2.4 L Active Medications Generic Name Dose Route Start Last Admin Trade Name Keith PRN Reason Stop Dose Admin Amlodipine Besylate 5 mg 09/28/18 10:00 10/04/18 09:56 Norvasc - PO 5 mg DAILY AGUSTIN Administration Benzocaine/Menthol 1 each 10/03/18 17:27 Cepacol Lozenge - MM Q2H PRN SORE THROAT Carvedilol 12.5 mg 09/28/18 10:00 10/04/18 09:54 Coreg - PO 12.5 mg BID AGUSTIN Administration Fluticasone Propionate 1 spray 10/02/18 12:15 10/03/18 10:08 Flonase - NS 1 spray DAILY AGUSTIN Administration Furosemide 40 mg 10/04/18 10:00 10/04/18 09:55 Lasix Injection - IVPUSH 40 mg DAILY AGUSTIN Administration Gabapentin 400 mg 09/28/18 10:00 10/04/18 09:55 Neurontin - PO 400 mg DAILY AGUSTIN Administration Guaifenesin 10 ml 10/04/18 13:29 Diabetic Tussin Dm - PO Q4H PRN COUGH Heparin Sodium (Porcine) 5,000 unit 09/28/18 22:00 10/04/18 06:22 Heparin - SQ 5,000 unit TID AGUSTIN Administration Insulin Aspart 1 vial 09/28/18 07:00 10/04/18 12:57 Novolog Vial Sliding Scale - SQ Not Given ACHS [facility] Protocol Insulin Detemir 10 units 09/28/18 22:00 10/03/18 21:09 Levemir Vial SQ 10 units HS AGUSTIN Administration Pantoprazole Sodium 40 mg 09/28/18 10:30 10/04/18 09:56 Protonix - PO 40 mg DAILY AGUSTIN Administration Polyethylene Glycol 17 gm 09/28/18 10:00 10/04/18 09:55 Miralax (For Daily Use) - PO 17 gm BID AGUSTIN Administration Renal US: Mild fullness of the right renal pelvicalyceal system without gross evidence of stones. Small right mid renal simple cyst measuring 1.2cc. CTAP: Bilateral pleural effusions, right greater than left, with lower lobe atelectasis. Moderate pericardial effusion. Hepatomegaly. Fecal retention, no acute pathology within the abdomen or pelvis. There is an irregular soft tissue opacity within the right breast. Could represent fibroglandular tissue. CXR: weak inspiration with congestive changes, bibasilar infiltrates, elevated right hemidiaphragm and large heart. There may be an element of basilar atelectasis. CXR (s/p thoracentesis): No sign of gross pneumothorax. Fluid has diminished. Left base changes and large heart persists. CXR (10/01): a large heart with congestive changes and there are progressive bilateral pleural effusions with some basilar atelectasis or infiltrates. the left is more affected than the right. Chest CT without contrast: Bilateral pleural effusions and lower lobe atelectasis, greater than right. Mild to moderate pericardial effusion. Possible right breast mass. RUQ US: right pleural effusion and trace ascites. Heterogenous liver without a discrete mass. Mildly contracted gallbladder with biliary sludge. No evidence of cholelithiasis. Minimal right hydronephrosis. Mammogram: Diffuse right breast thickening. Echo: LV systolic function normal, EF 55-60%, RV normal. LA mildly dilated. Mild MS, mild MR, Mild . Aortic root normal size. Moderate primarily posterior pericardial effusion with no clear evidence of RA/RV diastolic collapse. Right breast Ultrasound - diffuse skin thickening with parenchymal edema of the right breast, extending from the 5 to the 11:00 positions. This is probably related to benign etiology. No definite suspicious mass seen. ASSESSMENT/PLAN: Patient is an 83 year old female with past medical history of dementia, DM, HTN , HLD, and recent hospitalizations at [facility] for UTI and PNA (discharged last 09/24 ), presented to the ED due to worsening abdominal pain and distension, with last bowel movement 9 days ago. Patient also reports difficulty breathing. #Shortness of breath likely 2/2 pleural effusion -s/p Thoracentesis, 700cc of serous fluid drained -Pleural studies transudative as per pulm, pending pleural fluid cholesterol and albumin -Incentive spirometry -Improved with Lasix. Will give another 40mg IV today -Pulmonary consulted. #Pericardial effusion -Cardiology (Dr. Mar) consulted. REcommendations appreciated. -BNP 1749 -Lasix IV given -diurese with close eye on renal function. -Tele monitoring #Elevated transaminases: improved -GI (Dr. Park) consulted. Recommendations appreciated. -Hepatitis serology -Avoid hepatotoxic agents. -Lipitor held for now -RUQ US -Will continue to monitor LFTs, including INR. #Constipation: resolved -likely from immobility and DM gastroparesis -GI (Dr. Park) consulted. Recommendations appreciated. -Miralax BID #MERYL: stable -likely with CKD -Cr 1.4 -Nephrology (Dr. mOalley) consulted. REcommendations appreciated. -Renal ultrasound: Mild fullness of the right renal pelvicalyceal system without gross evidence of stones. Small right mid renal simple cyst measuring 1.2 cc. -Avoid NSAIDs #Right breast mass -Oncology (Dr. Beavers) consulted. Recommendations appreciated. -Mammogram and right breast ultrasound done #Hyperkalemia: resolved -will continue to monitor #Normocytic Anemia -Iron studies pending -Retic count 1.95 #DM -Continue home Insulin Glargine 10units at bedtime -Insulin sliding scale -BGM ACHS #HTN -Continue Coreg 12.5mg BID -Amlodipine 5mg daily #HLD -Hold Lipitor in light of elevated LFTs #FEN -Not on any standing fluids -Routine bmp monitoring -Diabetic diet #Prophylaxis -Heparin 5000units sq tid #Disposition -full code -tele Visit type - Emergency Visit Emergency Visit: Yes ED Registration Date: 09/27/18 Care time: The patient presented to the Emergency Department on the above date and was hospitalized for further evaluation of their emergent condition. - New Patient This patient is new to me today: No - Critical Care Critical Care patient: No
[2018-10-04] MEDS: guaiFENesin/D-M SUGAR-FREE/ACLHOL-FREE 118 ML BOTTLE PO PRN (14:44)
[2018-10-04] MEDS: FLUTICASONE PROP 0.05% 16 GM NASAL SPRAY NS SCH (14:50)
--- NOTE | 2018-10-04 15:38 | PN ---
Teaching Attending Note Name of Resident: Mayra Wright ATTENDING PHYSICIAN STATEMENT I saw and evaluated the patient. I reviewed the resident's note and discussed the case with the resident. I agree with the resident's findings and plan as documented. SUBJECTIVE: Patient is comfortable lying in bed but she states "I can't breathe. " OBJECTIVE: Vital Signs Period Temp Pulse Resp BP Sys/Mendoza Pulse Ox Last 24 Hr 98.1 F-98.9 F 71-81 16-20 110-150/42-56 96-99 HEART: S1S2, RRR, (+) 2/6 SM LUNGS: Clear with decreased BS at bases ABDOMEN: Soft, non-tender, non-distended, normal BS EXTREMITIES: Trace edema Laboratory Results - last 24 hr 10/03/18 10/03/18 10/04/18 16:34 21:06 05:30 WBC 9.2 RBC 2.65 L Hgb 8.8 L Hct 25.4 L MCV 95.9 MCH 33.4 MCHC 34.8 RDW 13.9 Plt Count 311 MPV 10.5 Sodium Potassium Chloride Carbon Dioxide Anion Gap BUN Creatinine Creat Clearance w eGFR POC Glucometer 235 188 Random Glucose Calcium Phosphorus Magnesium Total Bilirubin AST ALT Alkaline Phosphatase Total Protein Albumin 10/04/18 10/04/18 10/04/18 05:30 05:42 11:40 WBC RBC Hgb Hct MCV MCH MCHC RDW Plt Count MPV Sodium 136 Potassium 4.9 Chloride 101 Carbon Dioxide 31 Anion Gap 4 L BUN 43 H Creatinine 1.4 H Creat Clearance w eGFR 36.09 POC Glucometer 165 102 Random Glucose 150 H Calcium 8.5 Phosphorus 4.1 Magnesium 2.2 Total Bilirubin 0.4 AST 26 ALT 48 Alkaline Phosphatase 254 H Total Protein 6.8 Albumin 2.4 L Current Medications Generic Name Dose Route Start Last Admin Trade Name Freq PRN Reason Stop Dose Admin Amlodipine Besylate 5 mg 09/28/18 10:00 10/04/18 09:56 Norvasc - PO 5 mg DAILY AGUSTIN Administration Benzocaine/Menthol 1 each 10/03/18 17:27 Cepacol Lozenge - MM Q2H PRN SORE THROAT Carvedilol 12.5 mg 09/28/18 10:00 10/04/18 09:54 Coreg - PO 12.5 mg BID AGUSTIN Administration Fluticasone Propionate 1 spray 10/02/18 12:15 10/04/18 14:50 Flonase - NS 1 spray DAILY AGUSTIN Administration Furosemide 40 mg 10/04/18 10:00 10/04/18 09:55 Lasix Injection - IVPUSH 40 mg DAILY AGUSTIN Administration Gabapentin 400 mg 09/28/18 10:00 10/04/18 09:55 Neurontin - PO 400 mg DAILY AGUSTIN Administration Guaifenesin 10 ml 10/04/18 13:29 10/04/18 14:44 Diabetic Tussin Dm - PO 10 ml Q4H PRN Administration COUGH Heparin Sodium (Porcine) 5,000 unit 09/28/18 22:00 10/04/18 14:45 Heparin - SQ 5,000 unit TID AGUSTIN Administration Insulin Aspart 1 vial 09/28/18 07:00 10/04/18 12:57 Novolog Vial Sliding Scale - SQ Not Given ACHS [facility] Protocol Insulin Detemir 10 units 09/28/18 22:00 10/03/18 21:09 Levemir Vial SQ 10 units HS AGUSTIN Administration Pantoprazole Sodium 40 mg 09/28/18 10:30 10/04/18 09:56 Protonix - PO 40 mg DAILY AGUSTIN Administration Polyethylene Glycol 17 gm 09/28/18 10:00 10/04/18 09:55 Miralax (For Daily Use) - PO 17 gm BID AGUSTIN Administration ASSESSMENT AND PLAN: This is an 83 year old woman with a history of dementia, type 2 DM, HTN, hyperlipidemia, recent UTI and pneumonia who presented to the ED with abdominal pain and distention, shortness of breath. 1. Bilateral pleural effusions R>L, pericardial effusion - CT chest/abd/pelvis showed bilateral pleural effusions, moderate pericardial effusion, possible right breast mass, hepatomegaly, fecal retention - RUQ US showed right pleural effusion, trace ascites, heterogeneous liver, mildly contracted gallbladder with sludge, minimal right hydronephrosis - Possible acute diastolic heart failure - BNP 1749.1 - Echo showed normal LV systolic function, LVEF 55-60%, normal RV, mild MR , mild TR, mild AR, moderate posterior pericardial effusion - s/p right thoracentesis by IR 09/28 - Fluid is exudative (fluid LDH:serum LDH 190:243 >0.6; fluid LDH 190 is > 2/3 upper limit of normal for serum LDH) - Cytology negative for malignancy - BUSTER, DS DNA Ab, RF, SPEP negative - CXR today shows congestive changes with bibasilar atelectasis and/or infiltrates with right effusion - Continue Lasix IV 2. Possible right breast mass - Mammogram showed diffuse right breast skin thickening, no suspicious findings - Right breast US showed diffuse skin thickening with parenchymal edema, no suspicious mass 3. Acute kidney injury - Improved - Renal US shows mild fullness of right renal pelvicalyceal system, small right simple cyst 4. Stage 3 CKD 5. Anemia secondary to chronic illness - Hemoglobin is stable 6. Hepatic transaminitis - AST, ALT improved; alk phos improving - RUQ US shows right pleural effusion, trace ascites, heterogeneous liver, mildly contracted gallbladder with sludge, minimal right hydronephrosis - Hep A Ab positive (IgM negative), HBsAg negative, HBsAb positive, HBcAb positive (IgM negative), HCV Ab negative, HIV negative 7. Constipation - Continue Miralax 8. HTN - Continue Norvasc, Coreg, Lasix 9. Hyperlipidemia 10. Type 2 DM - Continue Levemir, Novolog sliding scale 11. Dementia
[2018-10-04] MEDS: INSULIN (LEVEMIR) 100 UNITS/ML UNITS SQ SCH (21:29)
[2018-10-05] MEDS ORDERED: MELATONIN 5 MG TABLETS PO ONE (01:30)
[2018-10-05] MEDS: INSULIN SLIDING SCALE (NOVOLOG) 1 VIAL SQ SCH ×4 (06:46→22:30)
[2018-10-05] MEDS: HEPARIN NA (PORCINE) 5,000 UNITS/ML 1ML VIAL SQ SCH ×3 (06:47→22:30)
[2018-10-05] MEDS: guaiFENesin/D-M SUGAR-FREE/ACLHOL-FREE 118 ML BOTTLE PO PRN ×2 (06:48→17:03)
[2018-10-05 07:06] LABS: ANION GAP 4 MMOL/L (8-16); BLOOD UREA NITROGEN 47 mg/dL (7-18); CALCIUM 8.3 mg/dL (8.5-10.1); CHLORIDE 100 mmol/L (98-107); CO2 31 mmol/L (21-32); CREATININE 1.4 mg/dL (0.55-1.3); GLUCOSE,RANDOM 213 mg/dL (74-106); MAGNESIUM 2.2 mg/dL (1.8-2.4); PHOSPHOROUS 3.8 mg/dL (2.5-4.9); POTASSIUM 4.9 mmol/L (3.5-5.1); SODIUM 136 mmol/L (136-145)
--- NOTE | 2018-10-05 08:19 | PN ---
Teaching Attending Note Name of Resident: Mayra Wright ATTENDING PHYSICIAN STATEMENT I saw and evaluated the patient. I reviewed the resident's note and discussed the case with the resident. I agree with the resident's findings and plan as documented. SUBJECTIVE: No new complaints OBJECTIVE: Vital Signs Temperature 98.8 F 10/05/18 06:00 Pulse Rate 80 10/05/18 06:00 Respiratory Rate 20 10/05/18 06:00 Blood Pressure 139/56 L 10/05/18 06:00 O2 Sat by Pulse Oximetry (%) 97 10/04/18 21:00 Elderly F not in distress HEENT: Mm moist, + anemia, PERRLA, EOMI NECK: No JVd No Bruit CHEST: CTA B/L CVS: S1S2 r no m/g/r ABD: no distention, non tender Bs + EXT: + edema feet, no calf tenderness, Pulses + ACADEMIC ADMINISTRATOR: AOX3 non focal CBC, BMP 10/04/18 05:30 10/05/18 05:30 Active Medications Amlodipine Besylate (Norvasc -) 5 mg PO DAILY [facility] Last Admin: 10/04/18 09:56 Dose: 5 mg Benzocaine/Menthol (Cepacol Lozenge -) 1 each MM Q2H PRN PRN Reason: SORE THROAT Carvedilol (Coreg -) 12.5 mg PO BID [facility] Last Admin: 10/04/18 21:29 Dose: 12.5 mg Fluticasone Propionate (Flonase -) 1 spray NS DAILY [facility] Last Admin: 10/04/18 14:50 Dose: 1 spray Furosemide (Lasix Injection -) 40 mg IVPUSH DAILY [facility] Last Admin: 10/04/18 09:55 Dose: 40 mg Gabapentin (Neurontin -) 400 mg PO DAILY [facility] Last Admin: 10/04/18 09:55 Dose: 400 mg Guaifenesin (Diabetic Tussin Dm -) 10 ml PO Q4H PRN PRN Reason: COUGH Last Admin: 10/05/18 06:48 Dose: 10 ml Heparin Sodium (Porcine) (Heparin -) 5,000 unit SQ TID [facility] Last Admin: 10/05/18 06:47 Dose: 5,000 unit Insulin Aspart (Novolog Vial Sliding Scale -) 1 vial SQ ACHS [facility]; Protocol Last Admin: 10/05/18 06:46 Dose: 4 units Insulin Detemir (Levemir Vial) 10 units SQ HS [facility] Last Admin: 10/04/18 21:29 Dose: Not Given Pantoprazole Sodium (Protonix -) 40 mg PO DAILY [facility] Last Admin: 10/04/18 09:56 Dose: 40 mg Polyethylene Glycol (Miralax (For Daily Use) -) 17 gm PO BID [facility] Last Admin: 10/04/18 21:32 Dose: Not Given ASSESSMENT AND PLAN:83 year old woman with a history of dementia, type 2 DM, HTN , hyperlipidemia, recent UTI and pneumonia who presented to the ED with abdominal pain and distention, shortness of breath. Problem List - Problems (1) Dyspnea Assessment/Plan: Due to volume over load improving load Code(s): R06.00 - DYSPNEA, UNSPECIFIED Qualifiers: Dyspnea type: dyspnea on exertion Qualified Code(s): R06.09 - Other forms of dyspnea (2) Pleural effusion Assessment/Plan: due to anasarca, most likely transudate f/u Pulm and cardiology note. Code(s): J90 - PLEURAL EFFUSION, NOT ELSEWHERE CLASSIFIED (3) MERYL (acute kidney injury) Assessment/Plan: resolving Code(s): N17.9 - ACUTE KIDNEY FAILURE, UNSPECIFIED (4) CKD (chronic kidney disease) Assessment/Plan: Stage 3 renal functions are at base line Code(s): N18.9 - CHRONIC KIDNEY DISEASE, UNSPECIFIED (5) Breast mass Code(s): N63.0 - UNSPECIFIED LUMP IN UNSPECIFIED BREAST (6) Transaminitis Assessment/Plan: improved Code(s): R74.0 - NONSPEC ELEV OF LEVELS OF TRANSAMNS & LACTIC ACID DEHYDRGNSE (7) Hypertension Assessment/Plan: Well controlled on current meds Code(s): I10 - ESSENTIAL (PRIMARY) HYPERTENSION (8) T2DM (type 2 diabetes mellitus) Assessment/Plan: Cont current correction dose insulin Code(s): E11.9 - TYPE 2 DIABETES MELLITUS WITHOUT COMPLICATIONS (9) Anasarca Assessment/Plan: Generalised anasarca, low albumin and prealbumin, pleural and percardial effusion, anemia of chronic dises , on IV Lasix TSH normal U protein 1, nephrology is on the case Code(s): R60.1 - GENERALIZED EDEMA
[2018-10-05] MEDS: amLODIPine BESYLATE 5 MG TABLET (FP) PO SCH (09:10)
[2018-10-05] MEDS: PANTOPRAZOLE 40 MG TABLET (FP) PO SCH (09:10)
[2018-10-05] MEDS: GABAPENTIN 400 MG CAPSULE (FP) PO SCH (09:10)
[2018-10-05] MEDS: CARVEDILOL 12.5 MG TABLET (FP) PO SCH ×2 (09:10→22:30)
[2018-10-05] MEDS: FLUTICASONE PROP 0.05% 16 GM NASAL SPRAY NS SCH (09:11)
[2018-10-05] MEDS: FUROSEMIDE 40 MG/4 ML INJECTABLE VIAL IVPUSH SCH (09:11)
[2018-10-05] MEDS: POLYETHYLENE GLYCOL 3350 119 GM BTL PO SCH ×2 (09:12→22:31)
--- NOTE | 2018-10-05 10:05 | PN ---
Progress Note, Physician Chief Complaint: No CP or increased dyspnea - Current Medication List Current Medications: Active Medications Amlodipine Besylate (Norvasc -) 5 mg PO DAILY [facility] Last Admin: 10/05/18 09:10 Dose: 5 mg Benzocaine/Menthol (Cepacol Lozenge -) 1 each MM Q2H PRN PRN Reason: SORE THROAT Carvedilol (Coreg -) 12.5 mg PO BID [facility] Last Admin: 10/05/18 09:10 Dose: 12.5 mg Fluticasone Propionate (Flonase -) 1 spray NS DAILY [facility] Last Admin: 10/05/18 09:11 Dose: 1 spray Furosemide (Lasix Injection -) 40 mg IVPUSH DAILY [facility] Last Admin: 10/05/18 09:11 Dose: 40 mg Gabapentin (Neurontin -) 400 mg PO DAILY [facility] Last Admin: 10/05/18 09:10 Dose: 400 mg Guaifenesin (Diabetic Tussin Dm -) 10 ml PO Q4H PRN PRN Reason: COUGH Last Admin: 10/05/18 06:48 Dose: 10 ml Heparin Sodium (Porcine) (Heparin -) 5,000 unit SQ TID [facility] Last Admin: 10/05/18 06:47 Dose: 5,000 unit Insulin Aspart (Novolog Vial Sliding Scale -) 1 vial SQ [facility]; Protocol Last Admin: 10/05/18 06:46 Dose: 4 units Insulin Detemir (Levemir Vial) 10 units SQ HS [facility] Last Admin: 10/04/18 21:29 Dose: Not Given Pantoprazole Sodium (Protonix -) 40 mg PO DAILY [facility] Last Admin: 10/05/18 09:10 Dose: 40 mg Polyethylene Glycol (Miralax (For Daily Use) -) 17 gm PO BID [facility] Last Admin: 10/05/18 09:12 Dose: 17 gm - Objective Vital Signs: Vital Signs Temperature 98.8 F 10/05/18 06:00 Pulse Rate 80 10/05/18 06:00 Respiratory Rate 20 10/05/18 06:00 Blood Pressure 139/56 L 10/05/18 06:00 O2 Sat by Pulse Oximetry (%) 97 10/04/18 21:00 Constitutional: Yes: No Distress, Calm Cardiovascular: Yes: Regular Rate and Rhythm Respiratory: Yes: Other (rales at left base) Gastrointestinal: Yes: Soft Edema: No Neurological: Yes: Alert, Oriented ...Motor Strength: WNL Labs: CBC, BMP 10/04/18 05:30 10/05/18 05:30 INR, PTT INR 1.13 (0.83-1.09) H 10/02/18 05:46 Laboratory Tests 10/01/18 10/01/18 10/04/18 05:30 05:30 05:30 WBC 8.6 9.2 RBC 2.65 L Hgb 8.5 L 8.8 L Hct 24.9 L Plt Count 259 311 Sodium 135 L Potassium 4.8 BUN 54 H Creatinine 1.8 H Magnesium 10/05/18 05:30 WBC RBC Hgb Hct Plt Count Sodium 136 Potassium 4.9 BUN 47 H Creatinine 1.4 H Magnesium 2.2 Problem List - Problems (1) Pericardial effusion Code(s): I31.3 - PERICARDIAL EFFUSION (NONINFLAMMATORY) (2) Dyspnea Code(s): R06.00 - DYSPNEA, UNSPECIFIED Qualifiers: Dyspnea type: dyspnea on exertion Qualified Code(s): R06.09 - Other forms of dyspnea (3) MERYL (acute kidney injury) Code(s): N17.9 - ACUTE KIDNEY FAILURE, UNSPECIFIED (4) Hyponatremia Code(s): E87.1 - HYPO-OSMOLALITY AND HYPONATREMIA (5) Pleural effusion Code(s): J90 - PLEURAL EFFUSION, NOT ELSEWHERE CLASSIFIED (6) Hypertension Code(s): I10 - ESSENTIAL (PRIMARY) HYPERTENSION Assessment/Plan IMP: 1. Dyspnea 2. Pericardial effusion: possibly chronic: ? Etiology. 3. HTN 4. DM 5. MERYL 6. Hyponatremia REC: 1. Echo - moderate pericardial effusion without clear tamponade 2. Serial cardiac enzymes neg x 3 3. BNP 1700, receiving IV lasix. Volume status improved as has renal fxn. Will convert to PO 10/[address] chest with kenzie pleural effusions, 700 mL removed from thoracentesis 09/28 cytology negative for malignancy 5. Further w/u of MERYL as per PMD, renal. Renal fxn is improving.
[2018-10-05 13:12] LABS: BODY FLUID ALBUMIN 1.1 g/dL (.)
--- NOTE | 2018-10-05 13:29 | PATH ---
Cytology Non-Gynecological Report Patient Name: LATESHA FELIX [facility], [place]. Rec. #: [id number] /Age/Gender: 1935 (Age: 83) / F Account: [id number] Location: 4 TELEMETRY U Taken: 10/04/2018 Received: 10/05/2018 Reported: 10/05/2018 Physicians: Teresita Shelby M.D. Specimen(s) Received PLEURAL FLUID Clinical History None given Final Diagnosis PLEURAL FLUID, THORACENTESIS: SATISFACTORY FOR EVALUATION BUT LIMITED BY DEGENERATIVE CHANGES BENIGN (NO MALIGNANT CELLS IDENTIFIED) MESOTHELIAL CELLS AND LYMPHOCYTES PRESENT. Comment: Recommend correlation with clinical findings and follow up as clinically indicated. Also see [id number]. Electronically Signed Omari Camilo M.D. Gross Description Approximately 5 cc of yellow fluid received fresh. One cytofunnel and one cellblock prepared.
--- NOTE | 2018-10-05 14:00 | PN ---
Physical Exam: SUBJECTIVE: Patient seen and examined at bedside this morning. Patient received melatonin last night and was able to sleep overnight. Today she reports feeling okay and denies any fever, chills, headache, chest pain, shortness of breath, abdominal pain, urinary symptoms. OBJECTIVE: Vital Signs Temperature 98.2 F 10/05/18 10:00 Pulse Rate 75 10/05/18 10:00 Respiratory Rate 18 10/05/18 10:00 Blood Pressure 129/57 L 10/05/18 10:00 O2 Sat by Pulse Oximetry (%) 97 10/04/18 21:00 GENERAL: The patient is awake, alert, and fully oriented, on 3L NC HEAD: Normal with no signs of trauma. EYES: PERRLA, EOMI, sclera anicteric, conjunctiva clear. ENT: oropharynx clear without exudates, moist mucous membranes. NECK: Trachea midline, full range of motion, supple. LUNGS: +bibasilar crackles HEART: Regular rate and rhythm, S1, S2 without murmur, rub or gallop. ABDOMEN: Soft, nontender, mildly distended, normoactive bowel sounds. EXTREMITIES: 2+ pulses, warm, well-perfused, no pitting edema NEUROLOGICAL: Cranial nerves II through XII grossly intact. Normal speech, normal gait. Motor strength 5/5, sensation intact. PSYCH: Normal mood, normal affect. SKIN: Warm, dry, normal turgor, no rashes or lesions noted Laboratory Results - last 24 hr 09/29/18 10/04/18 10/04/18 12:55 17:18 21:28 Sodium Potassium Chloride Carbon Dioxide Anion Gap BUN Creatinine Creat Clearance w eGFR POC Glucometer 254 90 Random Glucose Calcium Phosphorus Magnesium POC Fluid pH 7.5 Fluid Glucose 171 Fluid Total Protein 1.8 Fluid Albumin 1.1 Body Fluid LDH Source 190 Fluid Triglycerides 20 10/05/18 10/05/18 10/05/18 05:30 05:34 11:41 Sodium 136 Potassium 4.9 Chloride 100 Carbon Dioxide 31 Anion Gap 4 L BUN 47 H Creatinine 1.4 H Creat Clearance w eGFR 36.09 POC Glucometer 205 204 Random Glucose 213 H Calcium 8.3 L Phosphorus 3.8 Magnesium 2.2 POC Fluid pH Fluid Glucose Fluid Total Protein Fluid Albumin Body Fluid LDH Source Fluid Triglycerides Active Medications Generic Name Dose Route Start Last Admin Trade Name Freq PRN Reason Stop Dose Admin Amlodipine Besylate 5 mg 09/28/18 10:00 10/05/18 09:10 Norvasc - PO 5 mg DAILY [facility] Administration Benzocaine/Menthol 1 each 10/03/18 17:27 Cepacol Lozenge - MM Q2H PRN SORE THROAT Carvedilol 12.5 mg 09/28/18 10:00 10/05/18 09:10 Coreg - PO 12.5 mg BID [facility] Administration Fluticasone Propionate 1 spray 10/02/18 12:15 10/05/18 09:11 Flonase - NS 1 spray DAILY [facility] Administration Furosemide 40 mg 10/04/18 10:00 10/05/18 09:11 Lasix Injection - IVPUSH 40 mg DAILY [facility] Administration Gabapentin 400 mg 09/28/18 10:00 10/05/18 09:10 Neurontin - PO 400 mg DAILY [facility] Administration Guaifenesin 10 ml 10/04/18 13:29 10/05/18 06:48 Diabetic Tussin Dm - PO 10 ml Q4H PRN Administration COUGH Heparin Sodium (Porcine) 5,000 unit 09/28/18 22:00 10/05/18 13:00 Heparin - SQ 5,000 unit TID [facility] Administration Insulin Aspart 1 vial 09/28/18 07:00 10/05/18 12:59 Novolog Vial Sliding Scale - SQ 4 units ACHS [facility] Administration Protocol Insulin Detemir 10 units 09/28/18 22:00 10/04/18 21:29 Levemir Vial SQ Not Given HS [facility] Pantoprazole Sodium 40 mg 09/28/18 10:30 10/05/18 09:10 Protonix - PO 40 mg DAILY [facility] Administration Polyethylene Glycol 17 gm 09/28/18 10:00 10/05/18 09:12 Miralax (For Daily Use) - PO 17 gm BID [facility] Administration Renal US: Mild fullness of the right renal pelvicalyceal system without gross evidence of stones. Small right mid renal simple cyst measuring 1.2cc. CTAP: Bilateral pleural effusions, right greater than left, with lower lobe atelectasis. Moderate pericardial effusion. Hepatomegaly. Fecal retention, no acute pathology within the abdomen or pelvis. There is an irregular soft tissue opacity within the right breast. Could represent fibroglandular tissue. CXR: weak inspiration with congestive changes, bibasilar infiltrates, elevated right hemidiaphragm and large heart. There may be an element of basilar atelectasis. CXR (s/p thoracentesis): No sign of gross pneumothorax. Fluid has diminished. Left base changes and large heart persists. CXR (10/01): a large heart with congestive changes and there are progressive bilateral pleural effusions with some basilar atelectasis or infiltrates. the left is more affected than the right. Chest CT without contrast: Bilateral pleural effusions and lower lobe atelectasis, greater than right. Mild to moderate pericardial effusion. Possible right breast mass. RUQ US: right pleural effusion and trace ascites. Heterogenous liver without a discrete mass. Mildly contracted gallbladder with biliary sludge. No evidence of cholelithiasis. Minimal right hydronephrosis. Mammogram: Diffuse right breast thickening. Echo: LV systolic function normal, EF 55-60%, RV normal. LA mildly dilated. Mild MS, mild MR, Mild . Aortic root normal size. Moderate primarily posterior pericardial effusion with no clear evidence of RA/RV diastolic collapse. Right breast Ultrasound - diffuse skin thickening with parenchymal edema of the right breast, extending from the 5 to the 11:00 positions. This is probably related to benign etiology. No definite suspicious mass seen. ASSESSMENT/PLAN: Patient is an 83 year old female with past medical history of dementia, DM, HTN , HLD, and recent hospitalizations at [facility] for UTI and PNA (discharged last 09/24 ), presented to the ED due to worsening abdominal pain and distension, with last bowel movement 9 days ago. Patient also reports difficulty breathing. #Shortness of breath likely 2/2 pleural effusion -s/p Thoracentesis, 700cc of serous fluid drained -Pleural studies transudative as per pulm, pending pleural fluid cholesterol, albumin -Cytology report of pleural fluid - benign -Incentive spirometry -Lasix 40mg IV daily -Pulmonary consulted. #Pericardial effusion -Cardiology (Dr. Mar) consulted. REcommendations appreciated. -BNP 1749 -Lasix IV daily -diurese with close eye on renal function. -Tele monitoring #Elevated transaminases: improved -GI (Dr. Park) consulted. Recommendations appreciated. -Hepatitis serology -Avoid hepatotoxic agents. -Lipitor held for now -RUQ US -Will continue to monitor LFTs, including INR. #Constipation: resolved -likely from immobility and DM gastroparesis -GI (Dr. Park) consulted. Recommendations appreciated. -Miralax BID #MERYL: stable -likely with CKD -Cr 1.4 -Nephrology (Dr. Omalley) consulted. REcommendations appreciated. -Renal ultrasound: Mild fullness of the right renal pelvicalyceal system without gross evidence of stones. Small right mid renal simple cyst measuring 1.2 cc. -Avoid NSAIDs #Right breast mass -Oncology (Dr. Beavers) consulted. Recommendations appreciated. -Mammogram and right breast ultrasound done #Hyperkalemia: resolved -will continue to monitor #Normocytic Anemia -Iron studies pending -Retic count 1.95 #DM -Continue home Insulin Glargine 10units at bedtime -Insulin sliding scale -BGM ACHS #HTN -Continue Coreg 12.5mg BID -Amlodipine 5mg daily #HLD -Hold Lipitor in light of elevated LFTs #FEN -Not on any standing fluids -Routine bmp monitoring -Diabetic diet #Prophylaxis -Heparin 5000units sq tid #Disposition -full code -transfer to med surg Visit type - Emergency Visit Emergency Visit: Yes ED Registration Date: 09/27/18 Care time: The patient presented to the Emergency Department on the above date and was hospitalized for further evaluation of their emergent condition. - New Patient This patient is new to me today: No - Critical Care Critical Care patient: No
--- NOTE | 2018-10-05 15:46 | PN ---
Progress Note, Physician History of Present Illness: Pt seen and examined at bedside. She is awake and alert. She denies shortness of breath. - Current Medication List Current Medications: Active Medications Amlodipine Besylate (Norvasc -) 5 mg PO DAILY [facility] Last Admin: 10/05/18 09:10 Dose: 5 mg Benzocaine/Menthol (Cepacol Lozenge -) 1 each MM Q2H PRN PRN Reason: SORE THROAT Carvedilol (Coreg -) 12.5 mg PO BID [facility] Last Admin: 10/05/18 09:10 Dose: 12.5 mg Fluticasone Propionate (Flonase -) 1 spray NS DAILY [facility] Last Admin: 10/05/18 09:11 Dose: 1 spray Furosemide (Lasix Injection -) 40 mg IVPUSH DAILY [facility] Last Admin: 10/05/18 09:11 Dose: 40 mg Gabapentin (Neurontin -) 400 mg PO DAILY [facility] Last Admin: 10/05/18 09:10 Dose: 400 mg Guaifenesin (Diabetic Tussin Dm -) 10 ml PO Q4H PRN PRN Reason: COUGH Last Admin: 10/05/18 06:48 Dose: 10 ml Heparin Sodium (Porcine) (Heparin -) 5,000 unit SQ TID [facility] Last Admin: 10/05/18 13:00 Dose: 5,000 unit Insulin Aspart (Novolog Vial Sliding Scale -) 1 vial SQ ACHS [facility]; Protocol Last Admin: 10/05/18 12:59 Dose: 4 units Insulin Detemir (Levemir Vial) 10 units SQ HS [facility] Last Admin: 10/04/18 21:29 Dose: Not Given Pantoprazole Sodium (Protonix -) 40 mg PO DAILY [facility] Last Admin: 10/05/18 09:10 Dose: 40 mg Polyethylene Glycol (Miralax (For Daily Use) -) 17 gm PO BID [facility] Last Admin: 10/05/18 09:12 Dose: 17 gm - Objective Vital Signs: Vital Signs Temperature 98.6 F 10/05/18 14:10 Pulse Rate 74 10/05/18 14:10 Respiratory Rate 18 10/05/18 14:10 Blood Pressure 115/66 10/05/18 14:10 O2 Sat by Pulse Oximetry (%) 97 10/05/18 09:00 Constitutional: Yes: Calm Eyes: Yes: Conjunctiva Clear HENT: Yes: Atraumatic Neck: Yes: Supple Cardiovascular: Yes: S1, S2 Respiratory: Yes: On Nasal O2 Gastrointestinal: Yes: Soft Genitourinary: Yes: WNL Edema: Yes Edema: LLE: Trace, RLE: Trace Neurological: Yes: Oriented Psychiatric: Yes: Oriented Labs: CBC, BMP 10/04/18 05:30 10/05/18 05:30 INR, PTT INR 1.13 (0.83-1.09) H 10/02/18 05:46 Problem List - Problems (1) CKD (chronic kidney disease) Code(s): N18.9 - CHRONIC KIDNEY DISEASE, UNSPECIFIED (2) Hyperkalemia Code(s): E87.5 - HYPERKALEMIA (3) MERYL (acute kidney injury) Code(s): N17.9 - ACUTE KIDNEY FAILURE, UNSPECIFIED (4) Constipation Code(s): K59.00 - CONSTIPATION, UNSPECIFIED (5) Pericardial effusion Code(s): I31.3 - PERICARDIAL EFFUSION (NONINFLAMMATORY) (6) Pleural effusion Code(s): J90 - PLEURAL EFFUSION, NOT ELSEWHERE CLASSIFIED Assessment/Plan Current Medications Generic Name Dose Route Start Last Admin Trade Name Freq PRN Reason Stop Dose Admin Amlodipine Besylate 5 mg 09/28/18 10:00 10/05/18 09:10 Norvasc - PO 5 mg DAILY [facility] Administration Benzocaine/Menthol 1 each 10/03/18 17:27 Cepacol Lozenge - MM Q2H PRN SORE THROAT Carvedilol 12.5 mg 09/28/18 10:00 10/05/18 09:10 Coreg - PO 12.5 mg BID [facility] Administration Fluticasone Propionate 1 spray 10/02/18 12:15 10/05/18 09:11 Flonase - NS 1 spray DAILY [facility] Administration Furosemide 40 mg 10/04/18 10:00 10/05/18 09:11 Lasix Injection - IVPUSH 40 mg DAILY [facility] Administration Gabapentin 400 mg 09/28/18 10:00 10/05/18 09:10 Neurontin - PO 400 mg DAILY [facility] Administration Guaifenesin 10 ml 10/04/18 13:29 10/05/18 06:48 Diabetic Tussin Dm - PO 10 ml Q4H PRN Administration COUGH Heparin Sodium (Porcine) 5,000 unit 09/28/18 22:00 10/05/18 13:00 Heparin - SQ 5,000 unit TID [facility] Administration Insulin Aspart 1 vial 09/28/18 07:00 10/05/18 12:59 Novolog Vial Sliding Scale - SQ 4 units ACHS [facility] Administration Protocol Insulin Detemir 10 units 09/28/18 22:00 10/04/18 21:29 Levemir Vial SQ Not Given HS [facility] Pantoprazole Sodium 40 mg 09/28/18 10:30 10/05/18 09:10 Protonix - PO 40 mg DAILY [facility] Administration Polyethylene Glycol 17 gm 09/28/18 10:00 10/05/18 09:12 Miralax (For Daily Use) - PO 17 gm BID [facility] Administration Impression 1. hyperkalemia 2. MERYL 3. likely ckd 4. dyspnea 5. constipation 6. DM 7. pleural effusion 8. pericardial effusion Plan - cont lasix - can likely transition to PO tomorrow - monitor volume status - cardio input appreciated - avoid nsaids - monitor bp
--- NOTE | 2018-10-05 16:27 | PN ---
Progress Note, Physician History of Present Illness: PULMONARY ALERT,NO DISTRESS,+COUGH - Current Medication List Current Medications: Active Medications Amlodipine Besylate (Norvasc -) 5 mg PO DAILY [facility] Last Admin: 10/05/18 09:10 Dose: 5 mg Benzocaine/Menthol (Cepacol Lozenge -) 1 each MM Q2H PRN PRN Reason: SORE THROAT Carvedilol (Coreg -) 12.5 mg PO BID [facility] Last Admin: 10/05/18 09:10 Dose: 12.5 mg Fluticasone Propionate (Flonase -) 1 spray NS DAILY [facility] Last Admin: 10/05/18 09:11 Dose: 1 spray Furosemide (Lasix Injection -) 40 mg IVPUSH DAILY [facility] Last Admin: 10/05/18 09:11 Dose: 40 mg Gabapentin (Neurontin -) 400 mg PO DAILY [facility] Last Admin: 10/05/18 09:10 Dose: 400 mg Guaifenesin (Diabetic Tussin Dm -) 10 ml PO Q4H PRN PRN Reason: COUGH Last Admin: 10/05/18 06:48 Dose: 10 ml Heparin Sodium (Porcine) (Heparin -) 5,000 unit SQ TID [facility] Last Admin: 10/05/18 13:00 Dose: 5,000 unit Insulin Aspart (Novolog Vial Sliding Scale -) 1 vial SQ [facility]; Protocol Last Admin: 10/05/18 12:59 Dose: 4 units Insulin Detemir (Levemir Vial) 10 units SQ HS [facility] Last Admin: 10/04/18 21:29 Dose: Not Given Pantoprazole Sodium (Protonix -) 40 mg PO DAILY [facility] Last Admin: 10/05/18 09:10 Dose: 40 mg Polyethylene Glycol (Miralax (For Daily Use) -) 17 gm PO BID [facility] Last Admin: 10/05/18 09:12 Dose: 17 gm - Objective Vital Signs: Vital Signs Temperature 98.6 F 10/05/18 14:10 Pulse Rate 74 10/05/18 14:10 Respiratory Rate 18 10/05/18 14:10 Blood Pressure 115/66 10/05/18 14:10 O2 Sat by Pulse Oximetry (%) 97 10/05/18 09:00 Constitutional: Yes: Well Nourished, Calm Eyes: Yes: WNL HENT: Yes: WNL Neck: Yes: WNL Cardiovascular: Yes: Regular Rate and Rhythm, S1, S2 Respiratory: Yes: Rales (BIBASILAR CRACKLE) Gastrointestinal: Yes: Normal Bowel Sounds, Soft Extremities: Yes: WNL Edema: No Labs: CBC, BMP 10/04/18 05:30 10/05/18 05:30 INR, PTT INR 1.13 (0.83-1.09) H 10/02/18 05:46 Assessment/Plan (1) MERYL (acute kidney injury) Code(s): N17.9 - ACUTE KIDNEY FAILURE, UNSPECIFIED (2) Breast mass Code(s): N63.0 - UNSPECIFIED LUMP IN UNSPECIFIED BREAST (3) Constipation Code(s): K59.00 - CONSTIPATION, UNSPECIFIED (4) Pericardial effusion Code(s): I31.3 - PERICARDIAL EFFUSION (NONINFLAMMATORY) (5) Pleural effusion Code(s): J90 - PLEURAL EFFUSION, NOT ELSEWHERE CLASSIFIED (6) Hypertension Code(s): I10 - ESSENTIAL (PRIMARY) HYPERTENSION Assessment/Plan PERICARDIAL EFFUSION PROTEINURIA ANEMIA RENAL INSUFFICIENCY HTN DM MERYL PLEURAL EFFUSION GLYCEMIC CONTROL LASIX F/U CHEST X-RAYS O2 DAILY WT MONITOR LYTES ANTITUSSIVES DR SANTANA Problem List - Problems (1) MERYL (acute kidney injury) Code(s): N17.9 - ACUTE KIDNEY FAILURE, UNSPECIFIED (2) Breast mass Code(s): N63.0 - UNSPECIFIED LUMP IN UNSPECIFIED BREAST (3) Constipation Code(s): K59.00 - CONSTIPATION, UNSPECIFIED (4) Pericardial effusion Code(s): I31.3 - PERICARDIAL EFFUSION (NONINFLAMMATORY) (5) Pleural effusion Code(s): J90 - PLEURAL EFFUSION, NOT ELSEWHERE CLASSIFIED (6) Hypertension Code(s): I10 - ESSENTIAL (PRIMARY) HYPERTENSION
[2018-10-05] MEDS ORDERED: BENZOCAINE/MENTH/CETYLPYRD CL 1 EACH LOZENGE MM PRN (21:45)
[2018-10-05] MEDS: INSULIN (LEVEMIR) 100 UNITS/ML UNITS SQ SCH (22:30)
[2018-10-06] MEDS: INSULIN SLIDING SCALE (NOVOLOG) 1 VIAL SQ SCH ×4 (06:09→23:01)
[2018-10-06] MEDS: HEPARIN NA (PORCINE) 5,000 UNITS/ML 1ML VIAL SQ SCH ×3 (06:14→23:02)
--- NOTE | 2018-10-06 07:18 | PN ---
Progress Note, Physician - Current Medication List Current Medications: Active Medications Amlodipine Besylate (Norvasc -) 5 mg PO DAILY [facility] Benzocaine/Menthol (Cepacol Lozenge -) 1 each MM Q2H PRN PRN Reason: SORE THROAT Carvedilol (Coreg -) 12.5 mg PO BID [facility] Last Admin: 10/05/18 22:30 Dose: 12.5 mg Fluticasone Propionate (Flonase -) 1 spray NS DAILY [facility] Furosemide (Lasix Injection -) 40 mg IVPUSH DAILY [facility] Gabapentin (Neurontin -) 400 mg PO DAILY [facility] Guaifenesin (Diabetic Tussin Dm -) 10 ml PO Q4H PRN PRN Reason: COUGH Last Admin: 10/05/18 17:03 Dose: 10 ml Heparin Sodium (Porcine) (Heparin -) 5,000 unit SQ TID [facility] Last Admin: 10/06/18 06:14 Dose: 5,000 unit Insulin Aspart (Novolog Vial Sliding Scale -) 1 vial SQ ACHS [facility]; Protocol Last Admin: 10/06/18 06:09 Dose: Not Given Insulin Detemir (Levemir Vial) 10 units SQ HS [facility] Last Admin: 10/05/18 22:30 Dose: 10 units Pantoprazole Sodium (Protonix -) 40 mg PO DAILY [facility] Polyethylene Glycol (Miralax (For Daily Use) -) 17 gm PO BID [facility] Last Admin: 10/05/18 22:31 Dose: 17 gm - Objective Vital Signs: Vital Signs Temperature 98.5 F 10/06/18 06:00 Pulse Rate 76 10/06/18 06:00 Respiratory Rate 20 10/06/18 06:00 Blood Pressure 126/63 10/06/18 06:00 O2 Sat by Pulse Oximetry (%) 96 10/05/18 21:00 Elderly F not in distress HEENT: Mm moist, + anemia, PERRLA, EOMI NECK: No JVd No Bruit CHEST: CTA B/L CVS: S1S2 r no m/g/r ABD: no distention, non tender Bs + EXT: + edema feet, no calf tenderness, Pulses + LAWN CARETAKER: AOX3 non focal Labs: CBC, BMP 10/04/18 05:30 10/05/18 05:30 INR, PTT INR 1.13 (0.83-1.09) H 10/02/18 05:46 Problem List - Problems (1) Dyspnea Assessment/Plan: Due to volume over load improving load Code(s): R06.00 - DYSPNEA, UNSPECIFIED Qualifiers: Dyspnea type: dyspnea on exertion Qualified Code(s): R06.09 - Other forms of dyspnea (2) Pleural effusion Assessment/Plan: due to anasarca, most likely transudate f/u Pulm and cardiology note. Code(s): J90 - PLEURAL EFFUSION, NOT ELSEWHERE CLASSIFIED (3) MERYL (acute kidney injury) Assessment/Plan: resolving Code(s): N17.9 - ACUTE KIDNEY FAILURE, UNSPECIFIED (4) CKD (chronic kidney disease) Assessment/Plan: Stage 3 renal functions are at base line Code(s): N18.9 - CHRONIC KIDNEY DISEASE, UNSPECIFIED (5) Breast mass Code(s): N63.0 - UNSPECIFIED LUMP IN UNSPECIFIED BREAST (6) Transaminitis Assessment/Plan: improved Code(s): R74.0 - NONSPEC ELEV OF LEVELS OF TRANSAMNS & LACTIC ACID DEHYDRGNSE (7) Hypertension Assessment/Plan: Well controlled on current meds Code(s): I10 - ESSENTIAL (PRIMARY) HYPERTENSION (8) T2DM (type 2 diabetes mellitus) Assessment/Plan: Cont current correction dose insulin Code(s): E11.9 - TYPE 2 DIABETES MELLITUS WITHOUT COMPLICATIONS (9) Anasarca Assessment/Plan: Generalised anasarca, low albumin and prealbumin, pleural and percardial effusion, anemia of chronic dises , on IV Lasix TSH normal U protein 1, nephrology is on the case Code(s): R60.1 - GENERALIZED EDEMA
[2018-10-06 08:06] LABS: BASO % 1.2 % (0-2.0); HEMATOCRIT 26.1 % (32.4-45.2); HEMOGLOBIN 8.8 GM/dL (10.7-15.3); MCH 31.9 pg (25.7-33.7); MCHC 33.6 g/dl (32.0-36.0); MEAN CELL VOLUME 95.1 fl (80-96); MEAN PLT VOLUME 10.3 fl (7.5-11.1); MONO % 9.6 % (3.8-10.2); NEUT % 57.2 % (42.8-82.8); PLATELET COUNT 327 K/MM3 (134-434); RBC 2.75 M/mm3 (3.60-5.2); RDW 14.1 % (11.6-15.6); WHITE BLOOD COUNT 7.8 K/mm3 (4.0-10.0)
[2018-10-06 08:20] LABS: INR 1.12 (0.83-1.09); PROTHROMBIN TIME (PATIENT) 13.2 SEC (9.7-13.0)
[2018-10-06] MEDS ORDERED: PT OWN MED DRAWER 7, Y5N ONE ×4 (08:40→21:48)
[2018-10-06] MEDS ORDERED: INSULIN (NOVOLOG) ASPART 100 UNITS/ML 10ML VIAL ONE (08:42)
[2018-10-06 09:07] LABS: ALBUMIN 2.3 g/dl (3.4-5.0); ALK PHOS 222 U/L (45-117); ANION GAP 6 MMOL/L (8-16); BILIRUBIN,TOTAL 0.4 mg/dL (0.2-1); BLOOD UREA NITROGEN 41 mg/dL (7-18); CALCIUM 8.2 mg/dL (8.5-10.1); CHLORIDE 101 mmol/L (98-107); CO2 31 mmol/L (21-32); CREATININE 1.4 mg/dL (0.55-1.3); GLUCOSE,RANDOM 85 mg/dL (74-106); MAGNESIUM 2.1 mg/dL (1.8-2.4); PHOSPHOROUS 3.6 mg/dL (2.5-4.9); POTASSIUM 4.6 mmol/L (3.5-5.1); SGOT/AST 26 U/L (15-37); SGPT/ALT 41 U/L (13-61); SODIUM 137 mmol/L (136-145); TOT PROT 6.6 g/dl (6.4-8.2)
[2018-10-06] MEDS: GABAPENTIN 400 MG CAPSULE (FP) PO SCH (09:14)
[2018-10-06] MEDS: PANTOPRAZOLE 40 MG TABLET (FP) PO SCH (09:14)
[2018-10-06] MEDS: CARVEDILOL 12.5 MG TABLET (FP) PO SCH ×2 (09:15→23:02)
[2018-10-06] MEDS: FUROSEMIDE 40 MG/4 ML INJECTABLE VIAL IVPUSH SCH (09:15)
[2018-10-06] MEDS: amLODIPine BESYLATE 5 MG TABLET (FP) PO SCH (09:15)
[2018-10-06] MEDS: POLYETHYLENE GLYCOL 3350 119 GM BTL PO SCH ×3 (09:15→23:02)
[2018-10-06] MEDS: FLUTICASONE PROP 0.05% 16 GM NASAL SPRAY NS SCH (09:21)
--- NOTE | 2018-10-06 10:45 | PN ---
Progress Note (short form) - Note Progress Note: NAD on NC O2. No acute events overnight. Some dry cough. Intake & Output 10/03/18 10/04/18 10/05/18 10/06/18 23:59 23:59 23:59 23:59 Intake Total 709 820 400 Balance 709 820 400 Weight 133 lb 9.6 oz 132 lb 2 oz 130 lb 12.8 oz 130 lb 9.6 oz Last Vital Signs Temp Pulse Resp BP Pulse Ox 98.4 F 73 22 H 137/57 L 95 10/06/18 10:00 10/06/18 10:00 10/06/18 10:00 10/06/18 10:00 10/06/18 09:00 Active Medications Amlodipine Besylate (Norvasc -) 5 mg PO DAILY [facility] Last Admin: 10/06/18 09:15 Dose: 5 mg Benzocaine/Menthol (Cepacol Lozenge -) 1 each MM Q2H PRN PRN Reason: SORE THROAT Carvedilol (Coreg -) 12.5 mg PO BID [facility] Last Admin: 10/06/18 09:15 Dose: 12.5 mg Fluticasone Propionate (Flonase -) 1 spray NS DAILY [facility] Last Admin: 10/06/18 09:21 Dose: Not Given Furosemide (Lasix Injection -) 40 mg IVPUSH DAILY [facility] Last Admin: 10/06/18 09:15 Dose: 40 mg Gabapentin (Neurontin -) 400 mg PO DAILY [facility] Last Admin: 10/06/18 09:14 Dose: 400 mg Guaifenesin (Diabetic Tussin Dm -) 10 ml PO Q4H PRN PRN Reason: COUGH Last Admin: 10/05/18 17:03 Dose: 10 ml Heparin Sodium (Porcine) (Heparin -) 5,000 unit SQ TID [facility] Last Admin: 10/06/18 06:14 Dose: 5,000 unit Insulin Aspart (Novolog Vial Sliding Scale -) 1 vial SQ [facility]; Protocol Last Admin: 10/06/18 06:09 Dose: Not Given Insulin Detemir (Levemir Vial) 10 units SQ HS [facility] Last Admin: 10/05/18 22:30 Dose: 10 units Pantoprazole Sodium (Protonix -) 40 mg PO DAILY [facility] Last Admin: 10/06/18 09:14 Dose: 40 mg Polyethylene Glycol (Miralax (For Daily Use) -) 17 gm PO BID [facility] Last Admin: 10/06/18 09:57 Dose: Not Given Constitutional: Yes: NAD Eyes: Yes: WNL HENT: Yes: WNL Neck: Yes: WNL Cardiovascular: Yes: Regular Rate and Rhythm, S1, S2 Respiratory: Yes: Bibasilar Rales/Rhonchi Gastrointestinal: Yes: Normal Bowel Sounds, Soft Extremities: Yes: WNL Edema: No Labs: Laboratory Results - last 24 hr 09/29/18 10/05/18 10/05/18 12:55 11:41 17:11 WBC RBC Hgb Hct MCV MCH MCHC RDW Plt Count MPV Absolute Neuts (auto) Neutrophils % Lymphocytes % Monocytes % Eosinophils % Basophils % Nucleated RBC % PT with INR INR Sodium Potassium Chloride Carbon Dioxide Anion Gap BUN Creatinine Creat Clearance w eGFR POC Glucometer 204 144 Random Glucose Calcium Phosphorus Magnesium Total Bilirubin AST ALT Alkaline Phosphatase Total Protein Albumin TSH POC Fluid pH 7.5 Fluid Glucose 171 Fluid Total Protein 1.8 Fluid Albumin 1.1 Body Fluid LDH Source 190 Fluid Cholesterol 25 Fluid Triglycerides 20 10/05/18 10/06/18 10/06/18 22:28 06:08 06:30 WBC 7.8 RBC 2.75 L Hgb 8.8 L Hct 26.1 L MCV 95.1 MCH 31.9 MCHC 33.6 RDW 14.1 Plt Count 327 MPV 10.3 Absolute Neuts (auto) 4.5 Neutrophils % 57.2 Lymphocytes % 29.0 D Monocytes % 9.6 Eosinophils % 3.0 Basophils % 1.2 Nucleated RBC % 0 PT with INR INR Sodium Potassium Chloride Carbon Dioxide Anion Gap BUN Creatinine Creat Clearance w eGFR POC Glucometer 256 59 Random Glucose Calcium Phosphorus Magnesium Total Bilirubin AST ALT Alkaline Phosphatase Total Protein Albumin TSH POC Fluid pH Fluid Glucose Fluid Total Protein Fluid Albumin Body Fluid LDH Source Fluid Cholesterol Fluid Triglycerides 10/06/18 10/06/18 06:30 06:30 WBC RBC Hgb Hct MCV MCH MCHC RDW Plt Count MPV Absolute Neuts (auto) Neutrophils % Lymphocytes % Monocytes % Eosinophils % Basophils % Nucleated RBC % PT with INR 13.20 H INR 1.12 H Sodium 137 Potassium 4.6 Chloride 101 Carbon Dioxide 31 Anion Gap 6 L BUN 41 H Creatinine 1.4 H Creat Clearance w eGFR 36.09 POC Glucometer Random Glucose 85 Calcium 8.2 L Phosphorus 3.6 Magnesium 2.1 Total Bilirubin 0.4 AST 26 ALT 41 Alkaline Phosphatase 222 H Total Protein 6.6 Albumin 2.3 L TSH 4.79 H POC Fluid pH Fluid Glucose Fluid Total Protein Fluid Albumin Body Fluid LDH Source Fluid Cholesterol Fluid Triglycerides Assessment/Plan (1) MERYL (acute kidney injury) Code(s): N17.9 - ACUTE KIDNEY FAILURE, UNSPECIFIED (2) Breast mass Code(s): N63.0 - UNSPECIFIED LUMP IN UNSPECIFIED BREAST (3) Constipation Code(s): K59.00 - CONSTIPATION, UNSPECIFIED (4) Pericardial effusion Code(s): I31.3 - PERICARDIAL EFFUSION (NONINFLAMMATORY) (5) Pleural effusion Code(s): J90 - PLEURAL EFFUSION, NOT ELSEWHERE CLASSIFIED (6) Hypertension Code(s): I10 - ESSENTIAL (PRIMARY) HYPERTENSION Assessment/Plan PERICARDIAL EFFUSION PROTEINURIA ANEMIA RENAL INSUFFICIENCY HTN DM MERYL PLEURAL EFFUSION LASIX IVP O2 NEEDED DAILY WT MONITOR LYTES ANTITUSSIVES PRN VTE PROPHYLAXIS DR PRYOR
[2018-10-06] MEDS: guaiFENesin/D-M SUGAR-FREE/ACLHOL-FREE 118 ML BOTTLE PO PRN ×2 (11:19→17:08)
--- NOTE | 2018-10-06 17:11 | PN ---
Progress Note (short form) - Note Progress Note: covering dr lux s/p fluid overload improved clinically Active Medications Amlodipine Besylate (Norvasc -) 5 mg PO DAILY [facility] Last Admin: 10/06/18 09:15 Dose: 5 mg Benzocaine/Menthol (Cepacol Lozenge -) 1 each MM Q2H PRN PRN Reason: SORE THROAT Carvedilol (Coreg -) 12.5 mg PO BID [facility] Last Admin: 10/06/18 09:15 Dose: 12.5 mg Fluticasone Propionate (Flonase -) 1 spray NS DAILY [facility] Last Admin: 10/06/18 09:21 Dose: Not Given Furosemide (Lasix Injection -) 40 mg IVPUSH DAILY [facility] Last Admin: 10/06/18 09:15 Dose: 40 mg Gabapentin (Neurontin -) 400 mg PO DAILY [facility] Last Admin: 10/06/18 09:14 Dose: 400 mg Guaifenesin (Diabetic Tussin Dm -) 10 ml PO Q4H PRN PRN Reason: COUGH Last Admin: 10/06/18 17:08 Dose: 10 ml Heparin Sodium (Porcine) (Heparin -) 5,000 unit SQ TID [facility] Last Admin: 10/06/18 13:09 Dose: 5,000 unit Insulin Aspart (Novolog Vial Sliding Scale -) 1 vial SQ [facility]; Protocol Last Admin: 10/06/18 16:34 Dose: 6 units Insulin Detemir (Levemir Vial) 10 units SQ HS [facility] Last Admin: 10/05/18 22:30 Dose: 10 units Pantoprazole Sodium (Protonix -) 40 mg PO DAILY [facility] Last Admin: 10/06/18 09:14 Dose: 40 mg Polyethylene Glycol (Miralax (For Daily Use) -) 17 gm PO BID [facility] Last Admin: 10/06/18 09:57 Dose: Not Given Last Vital Signs Temp Pulse Resp BP Pulse Ox 98.5 F 80 20 151/52 L 95 10/06/18 17:08 10/06/18 17:08 10/06/18 17:08 10/06/18 17:08 10/06/18 09:00 CBC, BMP 10/06/18 06:30 10/06/18 06:30 Plan- continue same rx
[2018-10-06] MEDS: INSULIN (LEVEMIR) 100 UNITS/ML UNITS SQ SCH (23:01)
[2018-10-07] MEDS: HEPARIN NA (PORCINE) 5,000 UNITS/ML 1ML VIAL SQ SCH ×3 (05:54→21:44)
[2018-10-07] MEDS: INSULIN SLIDING SCALE (NOVOLOG) 1 VIAL SQ SCH ×4 (06:06→21:47)
[2018-10-07 07:23] LABS: ANION GAP 3 MMOL/L (8-16); BLOOD UREA NITROGEN 40 mg/dL (7-18); CALCIUM 8.5 mg/dL (8.5-10.1); CHLORIDE 102 mmol/L (98-107); CO2 34 mmol/L (21-32); CREATININE 1.3 mg/dL (0.55-1.3); GLUCOSE,RANDOM 97 mg/dL (74-106); SODIUM 140 mmol/L (136-145)
[2018-10-07 07:31] LABS: BASO % 1.9 % (0-2.0); EOS % 3.9 % (0-4.5); HEMATOCRIT 27.8 % (32.4-45.2); HEMOGLOBIN 9.2 GM/dL (10.7-15.3); LYMPH % 33.9 % (8-40); MCH 31.5 pg (25.7-33.7); MCHC 33.2 g/dl (32.0-36.0); MEAN CELL VOLUME 94.7 fl (80-96); MEAN PLT VOLUME 10.3 fl (7.5-11.1); MONO % 10.4 % (3.8-10.2); NEUT % 49.9 % (42.8-82.8); PLATELET COUNT 321 K/MM3 (134-434); RBC 2.93 M/mm3 (3.60-5.2); RDW 13.9 % (11.6-15.6); WHITE BLOOD COUNT 7.4 K/mm3 (4.0-10.0)
--- NOTE | 2018-10-07 08:32 | PN ---
Teaching Attending Note Name of Resident: Mayra Wright ATTENDING PHYSICIAN STATEMENT I saw and evaluated the patient. I reviewed the resident's note and discussed the case with the resident. I agree with the resident's findings and plan as documented. 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 Active Medications Amlodipine Besylate (Norvasc -) 5 mg PO DAILY [facility] Last Admin: 10/04/18 09:56 Dose: 5 mg Benzocaine/Menthol (Cepacol Lozenge -) 1 each MM Q2H PRN PRN Reason: SORE THROAT Carvedilol (Coreg -) 12.5 mg PO BID [facility] Last Admin: 10/04/18 21:29 Dose: 12.5 mg Fluticasone Propionate (Flonase -) 1 spray NS DAILY [facility] Last Admin: 10/04/18 14:50 Dose: 1 spray Furosemide (Lasix Injection -) 40 mg IVPUSH DAILY [facility] Last Admin: 10/04/18 09:55 Dose: 40 mg Gabapentin (Neurontin -) 400 mg PO DAILY [facility] Last Admin: 10/04/18 09:55 Dose: 400 mg Guaifenesin (Diabetic Tussin Dm -) 10 ml PO Q4H PRN PRN Reason: COUGH Last Admin: 10/05/18 06:48 Dose: 10 ml Heparin Sodium (Porcine) (Heparin -) 5,000 unit SQ TID [facility] Last Admin: 10/05/18 06:47 Dose: 5,000 unit Insulin Aspart (Novolog Vial Sliding Scale -) 1 vial SQ [facility]; Protocol Last Admin: 10/05/18 06:46 Dose: 4 units Insulin Detemir (Levemir Vial) 10 units SQ HS [facility] Last Admin: 10/04/18 21:29 Dose: Not Given Pantoprazole Sodium (Protonix -) 40 mg PO DAILY [facility] Last Admin: 10/04/18 09:56 Dose: 40 mg Polyethylene Glycol (Miralax (For Daily Use) -) 17 gm PO BID [facility] Last Admin: 10/04/18 21:32 Dose: Not Given ASSESSMENT AND PLAN:83 year old woman with a history of dementia, type 2 DM, HTN , hyperlipidemia, recent UTI and pneumonia who presented to the ED with abdominal pain and distention, shortness of breath. patient w/u shows pleural effusion, pericardial effusion, underwent pleural fluid aspiration that showed transudate -ve bacterial, fungal and AFB (prelim) so far all w/u is inconclusive except low albumin and pre albumin ,rently patient was admitted at [facility] (Dc on 09/23/18) CBc, BMP are at base line, autoimmune w/u -ve, no significant protein uria, intial deranged LFTS ultrasounf shows hetrogenous liver, Rt Breast mass but Mj low suspicion for malignancy, patient on lasx, Rpt CXR (08/09/18) shows worsening Rt Pleural effusion. Plan; rpt Rt sided thoracocentsis in am nutritin consult possibility of Cirrhosis Liver , Gi consult to re evaluate the patient. rest cont same. Problem List - Problems (1) Dyspnea Assessment/Plan: Due to pleural effusion rpt CXR shows worsening Rt Effusion consider thoracocentesis in am Code(s): R06.00 - DYSPNEA, UNSPECIFIED Qualifiers: Dyspnea type: dyspnea on exertion Qualified Code(s): R06.09 - Other forms of dyspnea (2) Pleural effusion Assessment/Plan: XR worsening on Rt side Pulm planned Rt sided thoracocentesis cont Lasix and o2. Code(s): J90 - PLEURAL EFFUSION, NOT ELSEWHERE CLASSIFIED (3) MERYL (acute kidney injury) Assessment/Plan: resolving Code(s): N17.9 - ACUTE KIDNEY FAILURE, UNSPECIFIED (4) CKD (chronic kidney disease) Assessment/Plan: Stage 3 renal functions are at base line Code(s): N18.9 - CHRONIC KIDNEY DISEASE, UNSPECIFIED (5) Breast mass Assessment/Plan: No further evalution is indicated Code(s): N63.0 - UNSPECIFIED LUMP IN UNSPECIFIED BREAST (6) Transaminitis Assessment/Plan: improved Code(s): R74.0 - NONSPEC ELEV OF LEVELS OF TRANSAMNS & LACTIC ACID DEHYDRGNSE (7) Hypertension Assessment/Plan: Well controlled on current meds Code(s): I10 - ESSENTIAL (PRIMARY) HYPERTENSION (8) T2DM (type 2 diabetes mellitus) Code(s): E11.9 - TYPE 2 DIABETES MELLITUS WITHOUT COMPLICATIONS (9) Anasarca Assessment/Plan: Generalised anasarca, low albumin and prealbumin, pleural and percardial effusion, anemia of chronic dises , on IV Lasix TSH normal rpt urine protein normal , nephrology is on the case Code(s): R60.1 - GENERALIZED EDEMA
[2018-10-07] MEDS: PANTOPRAZOLE 40 MG TABLET (FP) PO SCH (09:14)
[2018-10-07] MEDS: guaiFENesin/D-M SUGAR-FREE/ACLHOL-FREE 118 ML BOTTLE PO PRN ×2 (09:14→16:25)
[2018-10-07] MEDS: FUROSEMIDE 40 MG/4 ML INJECTABLE VIAL IVPUSH SCH (09:14)
[2018-10-07] MEDS: CARVEDILOL 12.5 MG TABLET (FP) PO SCH ×2 (09:14→21:45)
[2018-10-07] MEDS: amLODIPine BESYLATE 5 MG TABLET (FP) PO SCH (09:14)
[2018-10-07] MEDS: FLUTICASONE PROP 0.05% 16 GM NASAL SPRAY NS SCH (09:14)
[2018-10-07] MEDS: GABAPENTIN 400 MG CAPSULE (FP) PO SCH (09:14)
[2018-10-07] MEDS: POLYETHYLENE GLYCOL 3350 119 GM BTL PO SCH ×2 (09:15→21:43)
--- NOTE | 2018-10-07 10:52 | PN ---
Progress Note (short form) - Note Progress Note: NAD on NC O2. No acute events overnight. Some dry cough. CXR: increasing right effusion Intake & Output 10/04/18 10/05/18 10/06/18 10/07/18 23:59 23:59 23:59 23:59 Intake Total 820 400 550 0 Balance 820 400 550 0 Weight 132 lb 2 oz 130 lb 12.8 oz 130 lb 9.6 oz Last Vital Signs Temp Pulse Resp BP Pulse Ox 97.6 F 82 20 145/52 L 97 10/07/18 09:00 10/07/18 09:00 10/07/18 09:00 10/07/18 09:00 10/07/18 09:00 Active Medications Amlodipine Besylate (Norvasc -) 5 mg PO DAILY [facility] Last Admin: 10/07/18 09:14 Dose: 5 mg Benzocaine/Menthol (Cepacol Lozenge -) 1 each MM Q2H PRN PRN Reason: SORE THROAT Carvedilol (Coreg -) 12.5 mg PO BID [facility] Last Admin: 10/07/18 09:14 Dose: 12.5 mg Fluticasone Propionate (Flonase -) 1 spray NS DAILY [facility] Last Admin: 10/07/18 09:14 Dose: Not Given Furosemide (Lasix Injection -) 40 mg IVPUSH DAILY [facility] Last Admin: 10/07/18 09:14 Dose: 40 mg Gabapentin (Neurontin -) 400 mg PO DAILY [facility] Last Admin: 10/07/18 09:14 Dose: 400 mg Guaifenesin (Diabetic Tussin Dm -) 10 ml PO Q4H PRN PRN Reason: COUGH Last Admin: 10/07/18 09:14 Dose: 10 ml Heparin Sodium (Porcine) (Heparin -) 5,000 unit SQ TID [facility] Last Admin: 10/07/18 05:54 Dose: 5,000 unit Insulin Aspart (Novolog Vial Sliding Scale -) 1 vial SQ ACHS [facility]; Protocol Last Admin: 10/07/18 06:06 Dose: Not Given Insulin Detemir (Levemir Vial) 10 units SQ HS [facility] Last Admin: 10/06/18 23:01 Dose: 10 units Pantoprazole Sodium (Protonix -) 40 mg PO DAILY [facility] Last Admin: 10/07/18 09:14 Dose: 40 mg Polyethylene Glycol (Miralax (For Daily Use) -) 17 gm PO BID [facility] Last Admin: 10/07/18 09:15 Dose: Not Given Constitutional: Yes: NAD Eyes: Yes: WNL HENT: Yes: WNL Neck: Yes: WNL Cardiovascular: Yes: Regular Rate and Rhythm, S1, S2 Respiratory: Yes: Bibasilar Rales/Rhonchi Gastrointestinal: Yes: Normal Bowel Sounds, Soft Extremities: Yes: WNL Edema: No Labs: Laboratory Results - last 24 hr 10/06/18 10/06/18 10/06/18 11:18 16:32 18:00 WBC RBC Hgb Hct MCV MCH MCHC RDW Plt Count MPV Absolute Neuts (auto) Neutrophils % Lymphocytes % Monocytes % Eosinophils % Basophils % Nucleated RBC % Sodium Potassium Chloride Carbon Dioxide Anion Gap BUN Creatinine Creat Clearance w eGFR POC Glucometer 321 277 Random Glucose Calcium U Random Total Protein 24.0 H 10/06/18 10/07/18 10/07/18 20:56 05:46 06:20 WBC 7.4 RBC 2.93 L Hgb 9.2 L Hct 27.8 L MCV 94.7 MCH 31.5 MCHC 33.2 RDW 13.9 Plt Count 321 MPV 10.3 Absolute Neuts (auto) 3.7 Neutrophils % 49.9 Lymphocytes % 33.9 Monocytes % 10.4 H Eosinophils % 3.9 Basophils % 1.9 Nucleated RBC % 0 Sodium Potassium Chloride Carbon Dioxide Anion Gap BUN Creatinine Creat Clearance w eGFR POC Glucometer 190 95 Random Glucose Calcium U Random Total Protein 10/07/18 06:20 WBC RBC Hgb Hct MCV MCH MCHC RDW Plt Count MPV Absolute Neuts (auto) Neutrophils % Lymphocytes % Monocytes % Eosinophils % Basophils % Nucleated RBC % Sodium 140 Potassium 4.0 Chloride 102 Carbon Dioxide 34 H Anion Gap 3 L BUN 40 H Creatinine 1.3 Creat Clearance w eGFR 39.31 POC Glucometer Random Glucose 97 Calcium 8.5 U Random Total Protein Assessment/Plan (1) MERYL (acute kidney injury) Code(s): N17.9 - ACUTE KIDNEY FAILURE, UNSPECIFIED (2) Breast mass Code(s): N63.0 - UNSPECIFIED LUMP IN UNSPECIFIED BREAST (3) Constipation Code(s): K59.00 - CONSTIPATION, UNSPECIFIED (4) Pericardial effusion Code(s): I31.3 - PERICARDIAL EFFUSION (NONINFLAMMATORY) (5) Pleural effusion Code(s): J90 - PLEURAL EFFUSION, NOT ELSEWHERE CLASSIFIED (6) Hypertension Code(s): I10 - ESSENTIAL (PRIMARY) HYPERTENSION Assessment/Plan PERICARDIAL EFFUSION PROTEINURIA ANEMIA RENAL INSUFFICIENCY HTN DM MERYL PLEURAL EFFUSION: TRANSUDATE CONTINUE LASIX IVP O2 NEEDED DAILY WT MONITOR LYTES ANTITUSSIVES PRN VTE PROPHYLAXIS WILL ORDER REPEAT THORACENTESIS FOR TOMORROW DR PRYOR
[2018-10-07 14:36] LABS: PH,URINE 6.5 (5.0-8.0); URINE APPEARANCE CLEAR; URINE BILIRUBIN NEGATIVE (NEGATIVE); URINE COLOR YELLOW; URINE GLUCOSE (UA) NEGATIVE (NEGATIVE); URINE KETONE NEGATIVE (NEGATIVE); URINE LEUK ESTERASE NEGATIVE (NEGATIVE); URINE NITRITE NEGATIVE (NEGATIVE); URINE PROTEIN NEGATIVE (NEGATIVE); URINE UROBILINOGEN 0.2 mg/dL (0.2-1.0)
--- NOTE | 2018-10-07 15:27 | PN ---
Progress Note (short form) - Note Progress Note: covering dr lux s/p fluid overload improved clinically Current Medications Amlodipine Besylate (Norvasc -) 5 mg PO DAILY [facility] Last Admin: 10/07/18 09:14 Dose: 5 mg Benzocaine/Menthol (Cepacol Lozenge -) 1 each MM Q2H PRN PRN Reason: SORE THROAT Carvedilol (Coreg -) 12.5 mg PO BID [facility] Last Admin: 10/07/18 09:14 Dose: 12.5 mg Fluticasone Propionate (Flonase -) 1 spray NS DAILY [facility] Last Admin: 10/07/18 09:14 Dose: Not Given Furosemide (Lasix Injection -) 40 mg IVPUSH DAILY [facility] Last Admin: 10/07/18 09:14 Dose: 40 mg Gabapentin (Neurontin -) 400 mg PO DAILY [facility] Last Admin: 10/07/18 09:14 Dose: 400 mg Guaifenesin (Diabetic Tussin Dm -) 10 ml PO Q4H PRN PRN Reason: COUGH Last Admin: 10/07/18 09:14 Dose: 10 ml Heparin Sodium (Porcine) (Heparin -) 5,000 unit SQ TID [facility] Last Admin: 10/07/18 13:19 Dose: 5,000 unit Insulin Aspart (Novolog Vial Sliding Scale -) 1 vial SQ [facility]; Protocol Last Admin: 10/07/18 11:05 Dose: 8 units Insulin Detemir (Levemir Vial) 10 units SQ HS [facility] Last Admin: 10/06/18 23:01 Dose: 10 units Pantoprazole Sodium (Protonix -) 40 mg PO DAILY [facility] Last Admin: 10/07/18 09:14 Dose: 40 mg Polyethylene Glycol (Miralax (For Daily Use) -) 17 gm PO BID [facility] Last Admin: 10/07/18 09:15 Dose: Not Given Last Vital Signs Temp Pulse Resp BP Pulse Ox 98.4 F 73 20 134/78 97 10/07/18 14:54 10/07/18 14:54 10/07/18 14:54 10/07/18 14:54 10/07/18 09:00 Lungs clear Heart reg abd soft CBC, BMP 10/07/18 06:20 10/07/18 06:20 CBC, BMP 10/06/18 06:30 10/06/18 06:30 Plan- continue same rx
--- NOTE | 2018-10-07 16:05 | PN ---
Physical Exam: SUBJECTIVE: Patient seen and examined at bedside this morning. No acute events overnight. Patient reports feeling better this morning, lying comfortably in bed. OBJECTIVE: Vital Signs Temperature 98.4 F 10/07/18 14:54 Pulse Rate 73 10/07/18 14:54 Respiratory Rate 20 10/07/18 14:54 Blood Pressure 134/78 10/07/18 14:54 O2 Sat by Pulse Oximetry (%) 97 10/07/18 09:00 GENERAL: The patient is awake, alert, and fully oriented, on 3L NC HEAD: Normal with no signs of trauma. EYES: PERRLA, EOMI, sclera anicteric, conjunctiva clear. ENT: oropharynx clear without exudates, moist mucous membranes. NECK: Trachea midline, full range of motion, supple. LUNGS: +bibasilar crackles HEART: Regular rate and rhythm, S1, S2 without murmur, rub or gallop. ABDOMEN: Soft, nontender, mildly distended, normoactive bowel sounds. EXTREMITIES: 2+ pulses, warm, well-perfused, trace pitting edema NEUROLOGICAL: Cranial nerves II through XII grossly intact. Normal speech, normal gait. Motor strength 5/5, sensation intact. PSYCH: Normal mood, normal affect. SKIN: Warm, dry, normal turgor, no rashes or lesions noted Laboratory Results - last 24 hr 10/06/18 10/06/18 10/06/18 16:32 18:00 20:56 WBC RBC Hgb Hct MCV MCH MCHC RDW Plt Count MPV Absolute Neuts (auto) Neutrophils % Lymphocytes % Monocytes % Eosinophils % Basophils % Nucleated RBC % Sodium Potassium Chloride Carbon Dioxide Anion Gap BUN Creatinine Creat Clearance w eGFR POC Glucometer 277 190 Random Glucose Calcium Urine Color Urine Appearance Urine pH Ur Specific [place] Urine Protein Urine Glucose (UA) Urine Ketones Urine Blood Urine Nitrite Urine Bilirubin Urine Urobilinogen Ur Leukocyte Esterase U Random Total Protein 24.0 H 10/07/18 10/07/18 10/07/18 05:46 06:20 06:20 WBC 7.4 RBC 2.93 L Hgb 9.2 L Hct 27.8 L MCV 94.7 MCH 31.5 MCHC 33.2 RDW 13.9 Plt Count 321 MPV 10.3 Absolute Neuts (auto) 3.7 Neutrophils % 49.9 Lymphocytes % 33.9 Monocytes % 10.4 H Eosinophils % 3.9 Basophils % 1.9 Nucleated RBC % 0 Sodium 140 Potassium 4.0 Chloride 102 Carbon Dioxide 34 H Anion Gap 3 L BUN 40 H Creatinine 1.3 Creat Clearance w eGFR 39.31 POC Glucometer 95 Random Glucose 97 Calcium 8.5 Urine Color Urine Appearance Urine pH Ur Specific [place] Urine Protein Urine Glucose (UA) Urine Ketones Urine Blood Urine Nitrite Urine Bilirubin Urine Urobilinogen Ur Leukocyte Esterase U Random Total Protein 10/07/18 10/07/18 11:04 13:45 WBC RBC Hgb Hct MCV MCH MCHC RDW Plt Count MPV Absolute Neuts (auto) Neutrophils % Lymphocytes % Monocytes % Eosinophils % Basophils % Nucleated RBC % Sodium Potassium Chloride Carbon Dioxide Anion Gap BUN Creatinine Creat Clearance w eGFR POC Glucometer 326 Random Glucose Calcium Urine Color Yellow Urine Appearance Clear Urine pH 6.5 D Ur Specific [place] 1.008 L Urine Protein Negative Urine Glucose (UA) Negative Urine Ketones Negative Urine Blood Negative Urine Nitrite Negative Urine Bilirubin Negative Urine Urobilinogen 0.2 Ur Leukocyte Esterase Negative U Random Total Protein Active Medications Generic Name Dose Route Start Last Admin Trade Name Freq PRN Reason Stop Dose Admin Amlodipine Besylate 5 mg 10/06/18 10:00 10/07/18 09:14 Norvasc - PO 5 mg DAILY [facility] Administration Benzocaine/Menthol 1 each 10/05/18 21:45 Cepacol Lozenge - MM Q2H PRN SORE THROAT Carvedilol 12.5 mg 10/05/18 22:00 10/07/18 09:14 Coreg - PO 12.5 mg BID AGUSTIN Administration Fluticasone Propionate 1 spray 10/06/18 10:00 10/07/18 09:14 Flonase - NS Not Given DAILY [facility] Furosemide 40 mg 10/06/18 10:00 10/07/18 09:14 Lasix Injection - IVPUSH 40 mg DAILY [facility] Administration Gabapentin 400 mg 10/06/18 10:00 10/07/18 09:14 Neurontin - PO 400 mg DAILY [facility] Administration Guaifenesin 10 ml 10/04/18 13:29 10/07/18 09:14 Diabetic Tussin Dm - PO 10 ml Q4H PRN Administration COUGH Heparin Sodium (Porcine) 5,000 unit 10/05/18 22:00 10/07/18 13:19 Heparin - SQ 5,000 unit TID AG[facility]IN Administration Insulin Aspart 1 vial 10/05/18 22:00 10/07/18 11:05 Novolog Vial Sliding Scale - SQ 8 units ACHS AG[facility]IN Administration Protocol Insulin Detemir 10 units 10/05/18 22:00 10/06/18 23:01 Levemir Vial SQ 10 units HS [facility] Administration Pantoprazole Sodium 40 mg 10/06/18 10:00 10/07/18 09:14 Protonix - PO 40 mg DAILY [facility] Administration Polyethylene Glycol 17 gm 10/05/18 22:00 10/07/18 09:15 Miralax (For Daily Use) - PO Not Given BID [facility] Renal US: Mild fullness of the right renal pelvicalyceal system without gross evidence of stones. Small right mid renal simple cyst measuring 1.2cc. CTAP: Bilateral pleural effusions, right greater than left, with lower lobe atelectasis. Moderate pericardial effusion. Hepatomegaly. Fecal retention, no acute pathology within the abdomen or pelvis. There is an irregular soft tissue opacity within the right breast. Could represent fibroglandular tissue. CXR: weak inspiration with congestive changes, bibasilar infiltrates, elevated right hemidiaphragm and large heart. There may be an element of basilar atelectasis. CXR (s/p thoracentesis): No sign of gross pneumothorax. Fluid has diminished. Left base changes and large heart persists. CXR (10/01): a large heart with congestive changes and there are progressive bilateral pleural effusions with some basilar atelectasis or infiltrates. the left is more affected than the right. Chest CT without contrast: Bilateral pleural effusions and lower lobe atelectasis, greater than right. Mild to moderate pericardial effusion. Possible right breast mass. RUQ US: right pleural effusion and trace ascites. Heterogenous liver without a discrete mass. Mildly contracted gallbladder with biliary sludge. No evidence of cholelithiasis. Minimal right hydronephrosis. Mammogram: Diffuse right breast thickening. Echo: LV systolic function normal, EF 55-60%, RV normal. LA mildly dilated. Mild MS, mild MR, Mild . Aortic root normal size. Moderate primarily posterior pericardial effusion with no clear evidence of RA/RV diastolic collapse. Right breast Ultrasound - diffuse skin thickening with parenchymal edema of the right breast, extending from the 5 to the 11:00 positions. This is probably related to benign etiology. No definite suspicious mass seen. ASSESSMENT/PLAN: Patient is an 83 year old female with past medical history of dementia, DM, HTN , HLD, and recent hospitalizations at [facility] for UTI and PNA (discharged last 09/24 ), presented to the ED due to worsening abdominal pain and distension, with last bowel movement 9 days ago. Patient also reports difficulty breathing. #Shortness of breath likely 2/2 pleural effusion -s/p Thoracentesis, 700cc of serous fluid drained -Pleural studies transudative as per pulm -Cytology report of pleural fluid - benign -Repeat CXR today showed worsening pleural effusion on the right -For repeat thoracentesis tomorrow -NPO after midnight. -Will hold heparin after midnight. -Incentive spirometry -Lasix 40mg IV daily -Pulmonary consulted. #Pericardial effusion -Cardiology (Dr. Mar) consulted. REcommendations appreciated. -BNP 1749 -Lasix IV daily -diurese with close eye on renal function. #Elevated transaminases: improved -GI (Dr. Park) consulted. Recommendations appreciated. -Hepatitis serology -Avoid hepatotoxic agents. -Lipitor held for now -Will continue to monitor LFTs #Constipation: resolved -likely from immobility and DM gastroparesis -GI (Dr. Park) consulted. Recommendations appreciated. -Miralax BID #MERYL: stable -likely with CKD -Cr 1.3 -Nephrology (Dr. Omalley) consulted. REcommendations appreciated. -Renal ultrasound: Mild fullness of the right renal pelvicalyceal system without gross evidence of stones. Small right mid renal simple cyst measuring 1.2 cc. -Avoid NSAIDs #Right breast mass -Oncology (Dr. Beavers) consulted. Recommendations appreciated. -Mammogram and right breast ultrasound done #Hyperkalemia: resolved -will continue to monitor #Normocytic Anemia -Iron studies -Retic count 1.95 #DM -Continue home Insulin Glargine 10units at bedtime -Insulin sliding scale -BGM ACHS #HTN -Continue Coreg 12.5mg BID -Amlodipine 5mg daily #HLD -Hold Lipitor in light of elevated LFTs #FEN -Not on any standing fluids -Routine bmp monitoring -Diabetic diet. NPO after midnight #Prophylaxis -Heparin 5000units sq tid #Disposition -full code -transfer to med surg Visit type - Emergency Visit Emergency Visit: Yes ED Registration Date: 09/27/18 Care time: The patient presented to the Emergency Department on the above date and was hospitalized for further evaluation of their emergent condition. - New Patient This patient is new to me today: No - Critical Care Critical Care patient: No
[2018-10-07] MEDS ORDERED: PT OWN MED DRAWER 7, Y5N ONE (17:15)
[2018-10-07] MEDS: INSULIN (LEVEMIR) 100 UNITS/ML UNITS SQ SCH (21:47)
[2018-10-08] MEDS: INSULIN SLIDING SCALE (NOVOLOG) 1 VIAL SQ SCH ×4 (06:05→22:33)
[2018-10-08 07:05] LABS: BASO % 1.3 % (0-2.0); EOS % 3.2 % (0-4.5); HEMATOCRIT 26.6 % (32.4-45.2); HEMOGLOBIN 9.1 GM/dL (10.7-15.3); MCH 32.4 pg (25.7-33.7); MCHC 34.2 g/dl (32.0-36.0); MEAN CELL VOLUME 94.6 fl (80-96); MEAN PLT VOLUME 10.3 fl (7.5-11.1); NEUT % 56.5 % (42.8-82.8); PLATELET COUNT 331 K/MM3 (134-434); RBC 2.81 M/mm3 (3.60-5.2); RDW 13.9 % (11.6-15.6); WHITE BLOOD COUNT 7.5 K/mm3 (4.0-10.0)
[2018-10-08 07:10] LABS: MICROALBUMIN/CREATININE RATIO 229.5 mg/g creat (0.0-30.0)
[2018-10-08] MEDS ORDERED: PT OWN MED DRAWER 7, Y5N ONE (07:56)
[2018-10-08] MEDS: FLUTICASONE PROP 0.05% 16 GM NASAL SPRAY NS SCH (09:12)
[2018-10-08] MEDS: POLYETHYLENE GLYCOL 3350 119 GM BTL PO SCH ×2 (09:13→22:29)
[2018-10-08] MEDS: PANTOPRAZOLE 40 MG TABLET (FP) PO SCH (09:13)
[2018-10-08] MEDS: amLODIPine BESYLATE 5 MG TABLET (FP) PO SCH (09:13)
[2018-10-08] MEDS: CARVEDILOL 12.5 MG TABLET (FP) PO SCH ×2 (09:13→22:28)
[2018-10-08] MEDS: FUROSEMIDE 40 MG/4 ML INJECTABLE VIAL IVPUSH SCH (09:13)
[2018-10-08] MEDS: GABAPENTIN 400 MG CAPSULE (FP) PO SCH (09:13)
[2018-10-08 09:35] LABS: ALBUMIN 2.4 g/dl (3.4-5.0); ALK PHOS 211 U/L (45-117); ANION GAP 4 MMOL/L (8-16); BILIRUBIN,TOTAL 0.3 mg/dL (0.2-1); BLOOD UREA NITROGEN 37 mg/dL (7-18); CHLORIDE 101 mmol/L (98-107); CO2 34 mmol/L (21-32); CREATININE 1.3 mg/dL (0.55-1.3); GLUCOSE,RANDOM 191 mg/dL (74-106); MAGNESIUM 2.1 mg/dL (1.8-2.4); PHOSPHOROUS 3.3 mg/dL (2.5-4.9); POTASSIUM 4.8 mmol/L (3.5-5.1); SGOT/AST 29 U/L (15-37); SGPT/ALT 35 U/L (13-61); SODIUM 139 mmol/L (136-145); TOT PROT 6.4 g/dl (6.4-8.2)
[2018-10-08 09:47] LABS: LDH 178 U/L (84-246)
--- NOTE | 2018-10-08 11:30 | PN ---
Progress Note, Physician - Current Medication List Current Medications: Active Medications Amlodipine Besylate (Norvasc -) [address] [facility] Last Admin: 10/08/18 09:13 Dose: 5 mg Benzocaine/Menthol (Cepacol Lozenge -) 1 each MM Q2H PRN PRN Reason: SORE THROAT Carvedilol (Coreg -) 12.[address] [facility] Last Admin: 10/08/18 09:13 Dose: 12.5 mg Fluticasone Propionate (Flonase -) [address] [facility] Last Admin: 10/08/18 09:12 Dose: 1 spray Furosemide (Lasix Injection -) [address] [facility] Last Admin: 10/08/18 09:13 Dose: 40 mg Gabapentin (Neurontin -) [address] [facility] Last Admin: 10/08/18 09:13 Dose: 400 mg Guaifenesin (Diabetic Tussin Dm -) 10 ml PO Q4H PRN PRN Reason: COUGH Last Admin: 10/07/18 16:25 Dose: 10 ml Heparin Sodium (Porcine) (Heparin -) 5,[address] [facility] Last Admin: 10/07/18 21:44 Dose: 5,000 unit Insulin Aspart (Novolog Vial Sliding Scale -) 1 vial SQ [facility]; Protocol Last Admin: 10/08/18 11:09 Dose: Not Given Insulin Detemir (Levemir Vial) [address] [facility] Last Admin: 10/07/18 21:47 Dose: 10 units Pantoprazole Sodium (Protonix -) [address] [facility] Last Admin: 10/08/18 09:13 Dose: 40 mg Polyethylene Glycol (Miralax (For Daily Use) -) [address] [facility] Last Admin: 10/08/18 09:13 Dose: Not Given - Objective Vital Signs: Vital Signs Temperature 98.8 F 10/08/18 09:00 Pulse Rate 72 10/08/18 09:00 Respiratory Rate 20 10/08/18 09:00 Blood Pressure 139/56 L 10/08/18 09:00 O2 Sat by Pulse Oximetry (%) 97 10/08/18 09:00 Labs: CBC, BMP 10/08/18 06:00 10/08/18 06:00 INR, PTT INR 1.12 (0.83-1.09) H 10/06/18 06:30 Assessment/Plan Echo: nl LV/RV. mild AI/MR/TR. moderate peric effusion (mostly posterior) without overt tamponade findings IMP: 1. Dyspnea 2. Pericardial effusion: possibly chronic: ? Etiology. no hypotension or tachycardia 3. Pleural effusion, transudative s/p thoracentesis 3. HTN--bp controlled 4. DM 5. MERYL 6. Hyponatremia REC: 1. Moderate pericardial effusion without clear tamponade findings. no clinical tamponade picture. suspect sec to CHF, now well diuresed. repeat echo today for effusion size 2. Serial cardiac enzymes neg x 3 3. BNP 1700, receiving IV lasix 40 qd. Volume status improved as has renal fxn. wt progressively declining from [address] chest with kenzie pleural effusions, 700 mL removed from thoracentesis 09/28 cytology negative for malignancy. planned for repeat thoracentesis today, per pulm 5. Further w/u of MERYL as per PMD, renal. Renal fxn is improving--? cardiorenal syndrome
[2018-10-08] MEDS: guaiFENesin/D-M SUGAR-FREE/ACLHOL-FREE 118 ML BOTTLE PO PRN (14:19)
[2018-10-08] MEDS ORDERED: ALBUTEROL SO4 0.083% IH SOL 2.5 MG/3 ML VIAL.NEB. NEB ONE (15:35)
--- NOTE | 2018-10-08 16:05 | PN ---
Progress Note (short form) - Note Progress Note: PULMONARY s/p right sided thoracentesis draining 1L serous fluid. +nonproductive cough. No fevers or chills. Vital Signs Period Temp Pulse Resp BP Sys/Mendoza Pulse Ox Last 24 Hr 98.0 F-98.8 F 72-82 20-20 134-156/56-71 97-97 Gen: NAD at rest Heart: RRR Lung: decreased breath sounds at the bases Abd: soft, nontender Ext: no edema CBC, BMP 10/08/18 06:00 10/08/18 06:00 Active Medications Amlodipine Besylate (Norvasc -) 5 mg PO DAILY [facility] Last Admin: 10/08/18 09:13 Dose: 5 mg Benzocaine/Menthol (Cepacol Lozenge -) 1 each MM Q2H PRN PRN Reason: SORE THROAT Carvedilol (Coreg -) 12.5 mg PO BID [facility] Last Admin: 10/08/18 09:13 Dose: 12.5 mg Fluticasone Propionate (Flonase -) 1 spray NS DAILY [facility] Last Admin: 10/08/18 09:12 Dose: 1 spray Furosemide (Lasix Injection -) 40 mg IVPUSH DAILY [facility] Last Admin: 10/08/18 09:13 Dose: 40 mg Gabapentin (Neurontin -) 400 mg PO DAILY [facility] Last Admin: 10/08/18 09:13 Dose: 400 mg Guaifenesin (Diabetic Tussin Dm -) 10 ml PO Q4H PRN PRN Reason: COUGH Last Admin: 10/08/18 14:19 Dose: 10 ml Heparin Sodium (Porcine) (Heparin -) 5,000 unit SQ TID [facility] Last Admin: 10/07/18 21:44 Dose: 5,000 unit Insulin Aspart (Novolog Vial Sliding Scale -) 1 vial SQ ACHS [facility]; Protocol Last Admin: 10/08/18 11:09 Dose: Not Given Insulin Detemir (Levemir Vial) 10 units SQ HS [facility] Last Admin: 10/07/18 21:47 Dose: 10 units Pantoprazole Sodium (Protonix -) 40 mg PO DAILY [facility] Last Admin: 10/08/18 09:13 Dose: 40 mg Polyethylene Glycol (Miralax (For Daily Use) -) 17 gm PO BID [facility] Last Admin: 10/08/18 09:13 Dose: Not Given A/P Pericardial Effusion Pleural Effusion s/p thoracentesis - Transudate Acute Kidney Injury HTN DM - continue lasix - monitor urine output, creatinine - O2 to keep SpO2 >90% - cough suppressant - DVT prophylaxis
--- NOTE | 2018-10-08 16:09 | PN ---
Progress Note (short form) - Note Progress Note: Chief Complaint: s/p thoracentesis about 1L out today. feels better, no chest pain, palps, dizziness. dyspnea improved. Current Medications Amlodipine Besylate (Norvasc -) 5 mg PO DAILY [facility] Last Admin: 10/08/18 09:13 Dose: 5 mg Benzocaine/Menthol (Cepacol Lozenge -) 1 each MM Q2H PRN PRN Reason: SORE THROAT Carvedilol (Coreg -) 12.5 mg PO BID [facility] Last Admin: 10/08/18 09:13 Dose: 12.5 mg Fluticasone Propionate (Flonase -) 1 spray NS DAILY [facility] Last Admin: 10/08/18 09:12 Dose: 1 spray Furosemide (Lasix Injection -) 40 mg IVPUSH DAILY [facility] Last Admin: 10/08/18 09:13 Dose: 40 mg Gabapentin (Neurontin -) 400 mg PO DAILY [facility] Last Admin: 10/08/18 09:13 Dose: 400 mg Guaifenesin (Diabetic Tussin Dm -) 10 ml PO Q4H PRN PRN Reason: COUGH Last Admin: 10/08/18 14:19 Dose: 10 ml Heparin Sodium (Porcine) (Heparin -) 5,000 unit SQ TID [facility] Last Admin: 10/07/18 21:44 Dose: 5,000 unit Insulin Aspart (Novolog Vial Sliding Scale -) [address] [facility]; Protocol Last Admin: 10/08/18 11:09 Dose: Not Given Insulin Detemir (Levemir Vial) 10 units SQ HS [facility] Last Admin: 10/07/18 21:47 Dose: 10 units Pantoprazole Sodium (Protonix -) 40 mg PO DAILY [facility] Last Admin: 10/08/18 09:13 Dose: 40 mg Polyethylene Glycol (Miralax (For Daily Use) -) 17 gm PO BID [facility] Last Admin: 10/08/18 09:13 Dose: Not Given - Objective Vital Signs: Vital Signs Temperature 98.8 F 10/05/18 06:00 Pulse Rate 80 10/05/18 06:00 Respiratory Rate 20 10/05/18 06:00 Blood Pressure 139/56 L 10/05/18 06:00 O2 Sat by Pulse Oximetry (%) 97 10/04/18 21:00 Constitutional: Yes: No Distress, Calm Cardiovascular: Yes: Regular Rate and Rhythm Respiratory: Yes: Other (rales at left base) Gastrointestinal: Yes: Soft Edema: No Neurological: Yes: Alert, Oriented ...Motor Strength: WNL Problem List - Problems (1) Pericardial effusion Code(s): I31.3 - PERICARDIAL EFFUSION (NONINFLAMMATORY) (2) Dyspnea Code(s): R06.00 - DYSPNEA, UNSPECIFIED Qualifiers: Dyspnea type: dyspnea on exertion Qualified Code(s): R06.09 - Other forms of dyspnea (3) MERYL (acute kidney injury) Code(s): N17.9 - ACUTE KIDNEY FAILURE, UNSPECIFIED (4) Hyponatremia Code(s): E87.1 - HYPO-OSMOLALITY AND HYPONATREMIA (5) Pleural effusion Code(s): J90 - PLEURAL EFFUSION, NOT ELSEWHERE CLASSIFIED (6) Hypertension Code(s): I10 - ESSENTIAL (PRIMARY) HYPERTENSION Assessment/Plan IMP: 1. Dyspnea 2. Pericardial effusion: possibly chronic: ? Etiology. 3. HTN 4. DM 5. MERYL 6. Hyponatremia REC: 1. Echo - moderate pericardial effusion without clear tamponade on 09/28, repeat echo pending today 2. Serial cardiac enzymes neg x 3 3. BNP 1700, received IV lasix. Volume status improved as has renal fxn. transition to lasix 40 mg PO daily 4. CT chest with kenzie pleural effusions, 700 mL removed from thoracentesis 09/28 cytology negative for malignancy. thoracentesis repeated 10/08, appreciate pulm recs. 5. Further w/u of MERYL as per PMD, renal. Renal fxn stable
--- NOTE | 2018-10-08 16:10 | PN ---
Progress Note, Physician History of Present Illness: Pt seen and examined at bedside. She is awake and appears more comfortable. - Current Medication List Current Medications: Active Medications Amlodipine Besylate (Norvasc -) 5 mg PO DAILY [facility] Last Admin: 10/08/18 09:13 Dose: 5 mg Benzocaine/Menthol (Cepacol Lozenge -) 1 each MM Q2H PRN PRN Reason: SORE THROAT Carvedilol (Coreg -) 12.5 mg PO BID [facility] Last Admin: 10/08/18 09:13 Dose: 12.5 mg Fluticasone Propionate (Flonase -) 1 spray NS DAILY [facility] Last Admin: 10/08/18 09:12 Dose: 1 spray Furosemide (Lasix Injection -) 40 mg IVPUSH DAILY [facility] Last Admin: 10/08/18 09:13 Dose: 40 mg Gabapentin (Neurontin -) 400 mg PO DAILY [facility] Last Admin: 10/08/18 09:13 Dose: 400 mg Guaifenesin (Diabetic Tussin Dm -) 10 ml PO Q4H PRN PRN Reason: COUGH Last Admin: 10/08/18 14:19 Dose: 10 ml Heparin Sodium (Porcine) (Heparin -) 5,000 unit SQ TID [facility] Last Admin: 10/07/18 21:44 Dose: 5,000 unit Insulin Aspart (Novolog Vial Sliding Scale -) 1 vial SQ [facility]; Protocol Last Admin: 10/08/18 11:09 Dose: Not Given Insulin Detemir (Levemir Vial) 10 units SQ HS [facility] Last Admin: 10/07/18 21:47 Dose: 10 units Pantoprazole Sodium (Protonix -) 40 mg PO DAILY [facility] Last Admin: 10/08/18 09:13 Dose: 40 mg Polyethylene Glycol (Miralax (For Daily Use) -) 17 gm PO BID [facility] Last Admin: 10/08/18 09:13 Dose: Not Given - Objective Vital Signs: Vital Signs Temperature 98.2 F 10/08/18 13:37 Pulse Rate 76 10/08/18 13:37 Respiratory Rate 20 10/08/18 13:37 Blood Pressure 156/68 10/08/18 13:37 O2 Sat by Pulse Oximetry (%) 97 10/08/18 09:00 Constitutional: Yes: Calm Eyes: Yes: Conjunctiva Clear HENT: Yes: Atraumatic Neck: Yes: Supple Cardiovascular: Yes: S1, S2 Respiratory: Yes: Cough Gastrointestinal: Yes: Soft Musculoskeletal: Yes: WNL Extremities: Yes: WNL Edema: No Neurological: Yes: Oriented Psychiatric: Yes: Oriented Labs: CBC, BMP 10/08/18 06:00 10/08/18 06:00 INR, PTT INR 1.12 (0.83-1.09) H 10/06/18 06:30 Problem List - Problems (1) CKD (chronic kidney disease) Code(s): N18.9 - CHRONIC KIDNEY DISEASE, UNSPECIFIED (2) Hyperkalemia Code(s): E87.5 - HYPERKALEMIA (3) MERYL (acute kidney injury) Code(s): N17.9 - ACUTE KIDNEY FAILURE, UNSPECIFIED (4) Constipation Code(s): K59.00 - CONSTIPATION, UNSPECIFIED (5) Pericardial effusion Code(s): I31.3 - PERICARDIAL EFFUSION (NONINFLAMMATORY) (6) Pleural effusion Code(s): J90 - PLEURAL EFFUSION, NOT ELSEWHERE CLASSIFIED Assessment/Plan Current Medications Generic Name Dose Route Start Last Admin Trade Name Freq PRN Reason Stop Dose Admin Amlodipine Besylate 5 mg 10/06/18 10:00 10/08/18 09:13 Norvasc - PO 5 mg DAILY [facility] Administration Benzocaine/Menthol 1 each 10/05/18 21:45 Cepacol Lozenge - MM Q2H PRN SORE THROAT Carvedilol 12.5 mg 10/05/18 22:00 10/08/18 09:13 Coreg - PO 12.5 mg BID AGUSTIN Administration Fluticasone Propionate 1 spray 10/06/18 10:00 10/08/18 09:12 Flonase - NS 1 spray DAILY [facility] Administration Furosemide 40 mg 10/06/18 10:00 10/08/18 09:13 Lasix Injection - IVPUSH 40 mg DAILY [facility] Administration Gabapentin 400 mg 10/06/18 10:00 10/08/18 09:13 Neurontin - PO 400 mg DAILY [facility] Administration Guaifenesin 10 ml 10/04/18 13:29 10/08/18 14:19 Diabetic Tussin Dm - PO 10 ml Q4H PRN Administration COUGH Heparin Sodium (Porcine) 5,000 unit 10/05/18 22:00 10/07/18 21:44 Heparin - SQ 5,000 unit TID [facility]IN Administration Insulin Aspart 1 vial 10/05/18 22:00 10/08/18 11:09 Novolog Vial Sliding Scale - SQ Not Given ACHS [facility] Protocol Insulin Detemir 10 units 10/05/18 22:00 10/07/18 21:47 Levemir Vial SQ 10 units HS [facility] Administration Pantoprazole Sodium 40 mg 10/06/18 10:00 10/08/18 09:13 Protonix - PO 40 mg DAILY [facility] Administration Polyethylene Glycol 17 gm 10/05/18 22:00 10/08/18 09:13 Miralax (For Daily Use) - PO Not Given BID [facility] Laboratory Tests 10/07/18 13:45 Urine Protein Negative Urine Blood Negative Impression 1. hyperkalemia 2. MERYL 3. likely ckd 4. dyspnea 5. constipation 6. DM 7. pleural effusion 8. pericardial effusion Plan - urine function is improving - ua neg for blood or protein - meryl likely in part cardio renal - cont lasix - monitor volume status - cardio input appreciated - avoid nsaids - follow up repeat echo - monitor bp
--- NOTE | 2018-10-08 16:28 | ECHO ---
Name: LATESHA FELIX Exam:Adult Echocardiogram Study Date: 10/08/2018 01:45 PM Age: 83 yrs Reason For Study: Pericardial Effusion COMPARE TO PRIOR Height: 58 in Weight: 127 lb BSA: 1.5 m2 MMode/2D Measurements & Calculations IVSd: 0.77 cm Ao root diam: 2.6 cm LVIDd: 4.6 cm LA dimension: 3.7 cm LVIDs: 2.9 cm LVPWd: 0.89 cm EDV(Teich): 99.4 ml LVOT diam: 2.0 cm ESV(Teich): 32.8 ml Doppler Measurements & Calculations MV E max wiley: 92.8 cm/sec Ao V2 max: 159.3 cm/sec MV A max wiley: 112.5 cm/sec Ao max P.1 mmHg MV E/A: 0.82 Ao V2 mean: 105.6 cm/sec MV dec time: 0.19 sec Ao mean P.9 mmHg Ao V2 VTI: 31.6 cm JOHNNY(I,D): 2.8 cm2 AI P1/2t: 389.2 msec JOHNNY(V,D): 2.2 cm2 AI max wiley: 317.5 cm/sec LV V1 max P.2 mmHg AI max P.7 mmHg LV V1 mean P.5 mmHg AI dec slope: 238.9 cm/sec2 LV V1 max: 114.0 cm/sec LV V1 mean: 72.9 cm/sec LV V1 VTI: 28.7 cm MR max wiley: 544.2 cm/sec SV(LVOT): 87.1 ml MR max P.5 mmHg TR max wiley: 267.8 cm/sec Med Peak E' Wiley: 4.7 cm/sec TR max P.7 mmHg Med E/e': 19.8 Lat Peak E' Wiley: 4.1 cm/sec Lat E/e': 22.7 Procedure A complete two-dimensional transthoracic echocardiogram was performed (2D, M-mode, Doppler and color flow Doppler). Left Ventricle The left ventricle is normal in size. Left ventricular systolic function is normal. Ejection Fraction = 65- 70%. Diastolic dysfunction, Grade II, consistent with elevated left atrial pressure. Ratio E/E'= 19. No regional wall motion abnormalities noted. Right Ventricle The right ventricle is not well visualized. Atria The left atrial size is normal. Right atrial size is normal. Mitral Valve There is mild mitral annular calcification. There is moderate mitral regurgitation. Tricuspid Valve The tricuspid valve is normal in structure and function. There is mild tricuspid regurgitation. Pulmo nary artery systolic pressure is at least 35 mmHg assuming RA pressure of 3 mmHg. Aortic Valve The aortic valve is normal in structure and function. Mild aortic regurgitation. Pulmonic Valve The pulmonic valve is not well visualized. Great Vessels The aortic root is normal size. Pericardium/Pleura Trivial pericardial effusion not hemodynamically significant. Interpretation Summary The left ventricle is normal in size. Left ventricular systolic function is normal. No regional wall motion abnormalities noted. Ejection Fraction = 65-70%. Diastolic dysfunction, Grade II, consistent with elevated left atrial pressure. Ratio E/E'= 19 The right ventricle is not well visualized. The left atrial size is normal. Right atrial size is normal. There is mild mitral annular calcification. There is moderate mitral regurgitation. There is mild tricuspid regurgitation. Pulmonary artery systolic pressure is at least 35 mmHg assuming RA pressure of 3 mmHg Mild aortic regurgitation. Trivial pericardial effusion not hemodynamically significant When compared to study dated 09/28/18, amount of pericardial effusion appears less. Clinical correlati on is recommended Jimmy Vail MD 10/08/2018 04:27 PM
--- NOTE | 2018-10-08 16:49 | PN ---
Physical Exam: SUBJECTIVE: Patient seen and examined at bedside this morning. No acute events overnight. Patient had thoracentesis this morning, reported to have 1000cc of pleural fluid drained on the right. Patient reports coughing, but denies fever, chills, shortness of breath, chest pain, abdominal pain, urinary symptoms. OBJECTIVE: Vital Signs Temperature 98.2 F 10/08/18 13:37 Pulse Rate 76 10/08/18 13:37 Respiratory Rate 20 10/08/18 13:37 Blood Pressure 156/68 10/08/18 13:37 O2 Sat by Pulse Oximetry (%) 97 10/08/18 09:00 GENERAL: The patient is awake, alert, and fully oriented, on 3L NC HEAD: Normal with no signs of trauma. EYES: PERRLA, EOMI, sclera anicteric, conjunctiva clear. ENT: oropharynx clear without exudates, moist mucous membranes. NECK: Trachea midline, full range of motion, supple. LUNGS: +bibasilar crackles HEART: Regular rate and rhythm, S1, S2 without murmur, rub or gallop. ABDOMEN: Soft, nontender, mildly distended, normoactive bowel sounds. EXTREMITIES: 2+ pulses, warm, well-perfused, trace pitting edema NEUROLOGICAL: Cranial nerves II through XII grossly intact. Normal speech, normal gait. Motor strength 5/5, sensation intact. PSYCH: Normal mood, normal affect. SKIN: Warm, dry, normal turgor, no rashes or lesions noted Laboratory Results - last 24 hr 10/06/18 10/07/18 10/08/18 18:00 21:46 05:44 WBC RBC Hgb Hct MCV MCH MCHC RDW Plt Count MPV Absolute Neuts (auto) Neutrophils % Lymphocytes % Monocytes % Eosinophils % Basophils % Nucleated RBC % ESR Sodium Potassium Chloride Carbon Dioxide Anion Gap BUN Creatinine Creat Clearance w eGFR POC Glucometer 209 249 Random Glucose Calcium Phosphorus Magnesium Total Bilirubin AST ALT Alkaline Phosphatase LD Total Total Protein Albumin Ur Random Creatinine 42.0 Ur Random Microalbumin 96.4 Microalb/Creat Ratio 229.5 H 10/08/18 10/08/18 10/08/18 06:00 06:00 06:00 WBC 7.5 RBC 2.81 L Hgb 9.1 L Hct 26.6 L MCV 94.6 MCH 32.4 MCHC 34.2 RDW 13.9 Plt Count 331 MPV 10.3 Absolute Neuts (auto) 4.2 Neutrophils % 56.5 Lymphocytes % 29.0 Monocytes % 10.0 Eosinophils % 3.2 Basophils % 1.3 Nucleated RBC % 0 ESR 121 H Sodium 139 Potassium 4.8 Chloride 101 Carbon Dioxide 34 H Anion Gap 4 L BUN 37 H Creatinine 1.3 Creat Clearance w eGFR 39.31 POC Glucometer Random Glucose 191 H Calcium 9.0 Phosphorus 3.3 Magnesium 2.1 Total Bilirubin 0.3 AST 29 ALT 35 Alkaline Phosphatase 211 H LD Total 178 Total Protein 6.4 Albumin 2.4 L Ur Random Creatinine Ur Random Microalbumin Microalb/Creat Ratio 10/08/18 16:18 WBC RBC Hgb Hct MCV MCH MCHC RDW Plt Count MPV Absolute Neuts (auto) Neutrophils % Lymphocytes % Monocytes % Eosinophils % Basophils % Nucleated RBC % ESR Sodium Potassium Chloride Carbon Dioxide Anion Gap BUN Creatinine Creat Clearance w eGFR POC Glucometer 424 Random Glucose Calcium Phosphorus Magnesium Total Bilirubin AST ALT Alkaline Phosphatase LD Total Total Protein Albumin Ur Random Creatinine Ur Random Microalbumin Microalb/Creat Ratio Active Medications Generic Name Dose Route Start Last Admin Trade Name Freq PRN Reason Stop Dose Admin Amlodipine Besylate 5 mg 10/06/18 10:00 10/08/18 09:13 Norvasc - PO 5 mg DAILY AGUSTIN Administration Benzocaine/Menthol 1 each 10/05/18 21:45 Cepacol Lozenge - MM Q2H PRN SORE THROAT Carvedilol 12.5 mg 10/05/18 22:00 10/08/18 09:13 Coreg - PO 12.5 mg BID AGUSTIN Administration Fluticasone Propionate 1 spray 10/06/18 10:00 10/08/18 09:12 Flonase - NS 1 spray DAILY AGUSTIN Administration Furosemide 40 mg 10/09/18 10:00 Lasix - PO DAILY AGUSTIN Gabapentin 400 mg 10/06/18 10:00 10/08/18 09:13 Neurontin - PO 400 mg DAILY AGUSTIN Administration Guaifenesin 10 ml 10/04/18 13:29 10/08/18 14:19 Diabetic Tussin Dm - PO 10 ml Q4H PRN Administration COUGH Heparin Sodium (Porcine) 5,000 unit 10/05/18 22:00 10/07/18 21:44 Heparin - SQ 5,000 unit TID AGUSTIN Administration Insulin Aspart 1 vial 10/05/18 22:00 10/08/18 16:20 Novolog Vial Sliding Scale - SQ 12 units ACHS AGUSTIN Administration Protocol Insulin Detemir 10 units 10/05/18 22:00 10/07/18 21:47 Levemir Vial SQ 10 units HS AGUSTIN Administration Pantoprazole Sodium 40 mg 10/06/18 10:00 10/08/18 09:13 Protonix - PO 40 mg DAILY AGUSTIN Administration Polyethylene Glycol 17 gm 10/05/18 22:00 10/08/18 09:13 Miralax (For Daily Use) - PO Not Given BID [facility] Renal US: Mild fullness of the right renal pelvicalyceal system without gross evidence of stones. Small right mid renal simple cyst measuring 1.2cc. CTAP: Bilateral pleural effusions, right greater than left, with lower lobe atelectasis. Moderate pericardial effusion. Hepatomegaly. Fecal retention, no acute pathology within the abdomen or pelvis. There is an irregular soft tissue opacity within the right breast. Could represent fibroglandular tissue. CXR: weak inspiration with congestive changes, bibasilar infiltrates, elevated right hemidiaphragm and large heart. There may be an element of basilar atelectasis. CXR (s/p thoracentesis): No sign of gross pneumothorax. Fluid has diminished. Left base changes and large heart persists. CXR (10/01): a large heart with congestive changes and there are progressive bilateral pleural effusions with some basilar atelectasis or infiltrates. the left is more affected than the right. Chest CT without contrast: Bilateral pleural effusions and lower lobe atelectasis, greater than right. Mild to moderate pericardial effusion. Possible right breast mass. RUQ US: right pleural effusion and trace ascites. Heterogenous liver without a discrete mass. Mildly contracted gallbladder with biliary sludge. No evidence of cholelithiasis. Minimal right hydronephrosis. Mammogram: Diffuse right breast thickening. Echo: LV systolic function normal, EF 55-60%, RV normal. LA mildly dilated. Mild MS, mild MR, Mild . Aortic root normal size. Moderate primarily posterior pericardial effusion with no clear evidence of RA/RV diastolic collapse. Right breast Ultrasound - diffuse skin thickening with parenchymal edema of the right breast, extending from the 5 to the 11:00 positions. This is probably related to benign etiology. No definite suspicious mass seen. ASSESSMENT/PLAN: Patient is an 83 year old female with past medical history of dementia, DM, HTN , HLD, and recent hospitalizations at [facility] for UTI and PNA (discharged last 09/24 ), presented to the ED due to worsening abdominal pain and distension, with last bowel movement 9 days ago. Patient also reports difficulty breathing. #Shortness of breath likely 2/2 pleural effusion -s/p thoracentesis (09/27), 700 cc fluid drained -Pleural studies transudative as per pulm -Cytology report of pleural fluid - benign -repeat Thoracentesis today, 1000cc of serous fluid drained -Incentive spirometry -Lasix 40mg IV daily -Pulmonary consulted. #Pericardial effusion -Cardiology (Dr. Mar) consulted. REcommendations appreciated. -BNP 1749 -Lasix IV daily -diurese with close eye on renal function. #Elevated transaminases: improved -GI (Dr. Park) consulted. Recommendations appreciated. -Hepatitis serology -Avoid hepatotoxic agents. -Lipitor held for now -Will continue to monitor LFTs #Constipation: resolved -likely from immobility and DM gastroparesis -GI (Dr. Park) consulted. Recommendations appreciated. -Miralax BID #MERYL: stable -likely with CKD -Nephrology (Dr. Omalley) consulted. REcommendations appreciated. -Renal ultrasound: Mild fullness of the right renal pelvicalyceal system without gross evidence of stones. Small right mid renal simple cyst measuring 1.2 cc. -Avoid NSAIDs #Right breast mass -Oncology (Dr. Beavers) consulted. Recommendations appreciated. -Mammogram and right breast ultrasound done #Hyperkalemia: resolved -will continue to monitor #Normocytic Anemia -Iron studies -Retic count 1.95 #DM -Continue home Insulin Glargine 10units at bedtime -Insulin sliding scale -BGM ACHS #HTN -Continue Coreg 12.5mg BID -Amlodipine 5mg daily #HLD -Hold Lipitor in light of elevated LFTs #FEN -Not on any standing fluids -Routine bmp monitoring -Diabetic diet. #Prophylaxis -Heparin 5000units sq tid #Disposition -full code -transfer to med surg Visit type - Emergency Visit Emergency Visit: Yes ED Registration Date: 09/27/18 Care time: The patient presented to the Emergency Department on the above date and was hospitalized for further evaluation of their emergent condition. - New Patient This patient is new to me today: No - Critical Care Critical Care patient: No
--- NOTE | 2018-10-08 16:57 | PN ---
Physical Exam: SUBJECTIVE: Patient seen and examined at bedside. No acute distress. OBJECTIVE: Vital Signs Period Temp Pulse Resp BP Sys/Mendoza Pulse Ox Last 24 Hr 98.0 F-98.8 F 72-82 20-20 134-156/56-71 97-97 GENERAL: The patient is awake, alert, and fully oriented, in no acute distress. HEENT : Unremarkable LUNGS: Decreased PIYUSH, CRACKLES B/B HEART: Regular rate and rhythm, S1, S2 without murmur, rub or gallop. ABDOMEN: Soft, nontender, nondistended, normoactive bowel sounds, no guarding, no rebound, no hepatosplenomegaly, no masses. EXTREMITIES: 2+ pulses, warm, well-perfused, TRACE LE edema. NEUROLOGICAL: Cranial nerves II through XII grossly intact. Normal speech, gait not observed. PSYCH: Normal mood, normal affect. SKIN: Warm, dry, normal turgor, no rashes or lesions noted Laboratory Results - last 24 hr 10/06/18 10/07/18 10/08/18 18:00 21:46 05:44 WBC RBC Hgb Hct MCV MCH MCHC RDW Plt Count MPV Absolute Neuts (auto) Neutrophils % Lymphocytes % Monocytes % Eosinophils % Basophils % Nucleated RBC % ESR Sodium Potassium Chloride Carbon Dioxide Anion Gap BUN Creatinine Creat Clearance w eGFR POC Glucometer 209 249 Random Glucose Calcium Phosphorus Magnesium Total Bilirubin AST ALT Alkaline Phosphatase LD Total Total Protein Albumin Ur Random Creatinine 42.0 Ur Random Microalbumin 96.4 Microalb/Creat Ratio 229.5 H 10/08/18 10/08/18 10/08/18 06:00 06:00 06:00 WBC 7.5 RBC 2.81 L Hgb 9.1 L Hct 26.6 L MCV 94.6 MCH 32.4 MCHC 34.2 RDW 13.9 Plt Count 331 MPV 10.3 Absolute Neuts (auto) 4.2 Neutrophils % 56.5 Lymphocytes % 29.0 Monocytes % 10.0 Eosinophils % 3.2 Basophils % 1.3 Nucleated RBC % 0 ESR 121 H Sodium 139 Potassium 4.8 Chloride 101 Carbon Dioxide 34 H Anion Gap 4 L BUN 37 H Creatinine 1.3 Creat Clearance w eGFR 39.31 POC Glucometer Random Glucose 191 H Calcium 9.0 Phosphorus 3.3 Magnesium 2.1 Total Bilirubin 0.3 AST 29 ALT 35 Alkaline Phosphatase 211 H LD Total 178 Total Protein 6.4 Albumin 2.4 L Ur Random Creatinine Ur Random Microalbumin Microalb/Creat Ratio 10/08/18 16:18 WBC RBC Hgb Hct MCV MCH MCHC RDW Plt Count MPV Absolute Neuts (auto) Neutrophils % Lymphocytes % Monocytes % Eosinophils % Basophils % Nucleated RBC % ESR Sodium Potassium Chloride Carbon Dioxide Anion Gap BUN Creatinine Creat Clearance w eGFR POC Glucometer 424 Random Glucose Calcium Phosphorus Magnesium Total Bilirubin AST ALT Alkaline Phosphatase LD Total Total Protein Albumin Ur Random Creatinine Ur Random Microalbumin Microalb/Creat Ratio Active Medications Generic Name Dose Route Start Last Admin Trade Name Freq PRN Reason Stop Dose Admin Amlodipine Besylate 5 mg 10/06/18 10:00 10/08/18 09:13 Norvasc - PO 5 mg DAILY AGUSTIN Administration Benzocaine/Menthol 1 each 10/05/18 21:45 Cepacol Lozenge - MM Q2H PRN SORE THROAT Carvedilol 12.5 mg 10/05/18 22:00 10/08/18 09:13 Coreg - PO 12.5 mg BID AGUSTIN Administration Fluticasone Propionate 1 spray 10/06/18 10:00 10/08/18 09:12 Flonase - NS 1 spray DAILY AGUSTIN Administration Furosemide 40 mg 10/09/18 10:00 Lasix - PO DAILY AGUSTIN Gabapentin 400 mg 10/06/18 10:00 10/08/18 09:13 Neurontin - PO 400 mg DAILY AGUSTIN Administration Guaifenesin 10 ml 10/04/18 13:29 10/08/18 14:19 Diabetic Tussin Dm - PO 10 ml Q4H PRN Administration COUGH Heparin Sodium (Porcine) 5,000 unit 10/05/18 22:00 10/07/18 21:44 Heparin - SQ 5,000 unit TID AGUSTIN Administration Insulin Aspart 1 vial 10/05/18 22:00 10/08/18 16:20 Novolog Vial Sliding Scale - SQ 12 units ACHS AGUSTIN Administration Protocol Insulin Detemir 10 units 10/05/18 22:00 10/07/18 21:47 Levemir Vial SQ 10 units HS AGUSTIN Administration Pantoprazole Sodium 40 mg 10/06/18 10:00 10/08/18 09:13 Protonix - PO 40 mg DAILY AGUSTIN Administration Polyethylene Glycol 17 gm 10/05/18 22:00 10/08/18 09:13 Miralax (For Daily Use) - PO Not Given BID AGUSTIN ASSESSMENT/PLAN: Patient is an 83 year old female with past medical history of dementia, DM, HTN , HLD, and recent hospitalizations at [facility] for UTI and PNA (discharged last 09/24 ), presented to the ED due to worsening abdominal pain and distension, with last bowel movement 9 days ago. Patient also reports difficulty breathing. #Shortness of breath likely 2/2 pleural effusion -s/p thoracentesis (09/27), 700 cc fluid drained -Pleural studies transudative as per pulm -Cytology report of pleural fluid - benign -repeat Thoracentesis DX/TX today, 1000cc of serous fluid drained -Incentive spirometry -Lasix 40mg IV daily -Pulmonary consulted. #Pericardial effusion -Cardiology (Dr. Mar) RECS noted -BNP 1749 -Lasix IV daily for now, #Elevated transaminases: improved -GI (Dr. Park) -Hepatitis serology -Avoid hepatotoxic agents. -Lipitor held for now -Will continue to monitor LFTs #Constipation: resolved -likely from immobility and DM gastroparesis -GI (Dr. Park) consulted. Recommendations appreciated. -Miralax BID #MERYL: stable -likely with CKD -Nephrology (Dr. Omalley) consulted. REcommendations appreciated. -Renal ultrasound: Mild fullness of the right renal pelvicalyceal system without gross evidence of stones. Small right mid renal simple cyst measuring 1.2 cc. -Avoid NSAIDs #Right breast mass -Oncology (Dr. Beavers) consulted. Recommendations appreciated. -Mammogram and right breast ultrasound done #Hyperkalemia: resolved -will continue to monitor #Normocytic Anemia -Iron studies -Retic count 1.95 #DM -Continue home Insulin Glargine 10units at bedtime -Insulin sliding scale -BGM ACHS #HTN -Continue Coreg 12.5mg BID -Amlodipine 5mg daily #HLD -Hold Lipitor in light of elevated LFTs #FEN -Not on any standing fluids -Routine bmp monitoring -Diabetic diet. #Prophylaxis -Heparin 5000units sq tid #Disposition -full code Agree fully with the a/p above by rn international. Plan was discussed in the round. will follow. Visit type - Emergency Visit Emergency Visit: Yes ED Registration Date: 09/27/18 Care time: The patient presented to the Emergency Department on the above date and was hospitalized for further evaluation of their emergent condition. - New Patient This patient is new to me today: Yes Date on this admission: 10/08/18 - Critical Care Critical Care patient: No - Discharge Referral Referred to [facility] Med P.C.: No
[2018-10-08 17:05] VITALS: BMI 26.5
[2018-10-08] MEDS: HEPARIN NA (PORCINE) 5,000 UNITS/ML 1ML VIAL SQ SCH (22:28)
[2018-10-08] MEDS: INSULIN (LEVEMIR) 100 UNITS/ML UNITS SQ SCH (22:29)
[2018-10-09] MEDS: HEPARIN NA (PORCINE) 5,000 UNITS/ML 1ML VIAL SQ SCH ×3 (05:27→21:44)
[2018-10-09] MEDS: INSULIN SLIDING SCALE (NOVOLOG) 1 VIAL SQ SCH ×4 (06:18→21:45)
[2018-10-09 07:14] LABS: BASO % 1.2 % (0-2.0); EOS % 3.2 % (0-4.5); HEMATOCRIT 29.5 % (32.4-45.2); HEMOGLOBIN 9.8 GM/dL (10.7-15.3); LYMPH % 29.4 % (8-40); MCH 31.2 pg (25.7-33.7); MCHC 33.3 g/dl (32.0-36.0); MEAN CELL VOLUME 93.6 fl (80-96); MEAN PLT VOLUME 10.1 fl (7.5-11.1); MONO % 6.2 % (3.8-10.2); PLATELET COUNT 409 K/MM3 (134-434); RBC 3.15 M/mm3 (3.60-5.2); RDW 13.9 % (11.6-15.6); WHITE BLOOD COUNT 10.4 K/mm3 (4.0-10.0)
[2018-10-09 07:29] LABS: ALBUMIN 2.4 g/dl (3.4-5.0); ALK PHOS 193 U/L (45-117); ANION GAP 4 MMOL/L (8-16); BILIRUBIN,TOTAL 0.5 mg/dL (0.2-1); BLOOD UREA NITROGEN 38 mg/dL (7-18); CALCIUM 8.6 mg/dL (8.5-10.1); CHLORIDE 101 mmol/L (98-107); CO2 35 mmol/L (21-32); CREATININE 1.3 mg/dL (0.55-1.3); GLUCOSE,RANDOM 116 mg/dL (74-106); MAGNESIUM 2.4 mg/dL (1.8-2.4); PHOSPHOROUS 3.6 mg/dL (2.5-4.9); POTASSIUM 4.4 mmol/L (3.5-5.1); SGOT/AST 21 U/L (15-37); SGPT/ALT 28 U/L (13-61); SODIUM 140 mmol/L (136-145); TOT PROT 6.5 g/dl (6.4-8.2)
[2018-10-09] MEDS ORDERED: INSULIN (NOVOLOG) ASPART 100 UNITS/ML 10ML VIAL ONE (07:38)
[2018-10-09] MEDS: PANTOPRAZOLE 40 MG TABLET (FP) PO SCH (10:44)
[2018-10-09] MEDS: GABAPENTIN 400 MG CAPSULE (FP) PO SCH (10:44)
[2018-10-09] MEDS: POLYETHYLENE GLYCOL 3350 119 GM BTL PO SCH ×2 (10:44→21:45)
[2018-10-09] MEDS: FUROSEMIDE 40 MG TABLET (FP) PO SCH (10:44)
[2018-10-09] MEDS: CARVEDILOL 12.5 MG TABLET (FP) PO SCH ×2 (10:48→21:43)
[2018-10-09] MEDS: amLODIPine BESYLATE 5 MG TABLET (FP) PO SCH (10:48)
[2018-10-09] MEDS: FLUTICASONE PROP 0.05% 16 GM NASAL SPRAY NS SCH (10:50)
--- NOTE | 2018-10-09 12:30 | PN ---
Physical Exam: SUBJECTIVE: Patient seen and examined at bedside this morning. No acute events overnight. Patient reports feeling better this morning, not complaining of any cough or shortness of breath. OBJECTIVE: Vital Signs Temperature 98.4 F 10/09/18 05:59 Pulse Rate 78 10/09/18 05:59 Respiratory Rate 20 10/09/18 05:59 Blood Pressure 128/56 L 10/09/18 05:59 O2 Sat by Pulse Oximetry (%) 97 10/08/18 20:35 GENERAL: The patient is awake, alert, and fully oriented, not in acute distress HEAD: Normal with no signs of trauma. EYES: PERRLA, EOMI, sclera anicteric, conjunctiva clear. ENT: oropharynx clear without exudates, moist mucous membranes. NECK: Trachea midline, full range of motion, supple. LUNGS: +bibasilar crackles HEART: Regular rate and rhythm, S1, S2 without murmur, rub or gallop. ABDOMEN: Soft, nontender, mildly distended, normoactive bowel sounds. EXTREMITIES: 2+ pulses, warm, well-perfused, trace pitting edema NEUROLOGICAL: Cranial nerves II through XII grossly intact. Normal speech, normal gait. Motor strength 5/5, sensation intact. PSYCH: Normal mood, normal affect. SKIN: Warm, dry, normal turgor, no rashes or lesions noted Laboratory Results - last 24 hr 10/08/18 10/08/18 10/09/18 16:18 22:32 05:25 WBC RBC Hgb Hct MCV MCH MCHC RDW Plt Count MPV Absolute Neuts (auto) Neutrophils % Lymphocytes % Monocytes % Eosinophils % Basophils % Nucleated RBC % Sodium Potassium Chloride Carbon Dioxide Anion Gap BUN Creatinine Creat Clearance w eGFR POC Glucometer 424 142 111 Random Glucose Calcium Phosphorus Magnesium Total Bilirubin AST ALT Alkaline Phosphatase Total Protein Albumin 10/09/18 10/09/18 06:00 06:00 WBC 10.4 H RBC 3.15 L Hgb 9.8 L Hct 29.5 L MCV 93.6 MCH 31.2 MCHC 33.3 RDW 13.9 Plt Count 409 D MPV 10.1 Absolute Neuts (auto) 6.3 Neutrophils % 60.0 Lymphocytes % 29.4 Monocytes % 6.2 Eosinophils % 3.2 Basophils % 1.2 Nucleated RBC % 0 Sodium 140 Potassium 4.4 Chloride 101 Carbon Dioxide 35 H Anion Gap 4 L BUN 38 H Creatinine 1.3 Creat Clearance w eGFR 39.31 POC Glucometer Random Glucose 116 H Calcium 8.6 Phosphorus 3.6 Magnesium 2.4 Total Bilirubin 0.5 AST 21 ALT 28 Alkaline Phosphatase 193 H Total Protein 6.5 Albumin 2.4 L Active Medications Generic Name Dose Route Start Last Admin Trade Name Freq PRN Reason Stop Dose Admin Amlodipine Besylate 5 mg 10/06/18 10:00 10/09/18 10:48 Norvasc - PO 5 mg DAILY AGUSTIN Administration Benzocaine/Menthol 1 each 10/05/18 21:45 Cepacol Lozenge - MM Q2H PRN SORE THROAT Carvedilol 12.5 mg 10/05/18 22:00 10/09/18 10:48 Coreg - PO 12.5 mg BID AGUSTIN Administration Fluticasone Propionate 1 spray 10/06/18 10:00 10/09/18 10:50 Flonase - NS 1 spray DAILY AGUSTIN Administration Furosemide 40 mg 10/09/18 10:00 10/09/18 10:44 Lasix - PO 40 mg DAILY AGUSTIN Administration Gabapentin 400 mg 10/06/18 10:00 10/09/18 10:44 Neurontin - PO 400 mg DAILY AGUSTIN Administration Guaifenesin 10 ml 10/04/18 13:29 10/08/18 14:19 Diabetic Tussin Dm - PO 10 ml Q4H PRN Administration COUGH Heparin Sodium (Porcine) 5,000 unit 10/05/18 22:00 10/09/18 05:27 Heparin - SQ 5,000 unit TID AGUSTIN Administration Insulin Aspart 1 vial 10/05/18 22:00 10/09/18 06:18 Novolog Vial Sliding Scale - SQ Not Given [facility] Protocol Insulin Detemir 10 units 10/05/18 22:00 10/08/18 22:29 Levemir Vial SQ 10 units HS AGUSTIN Administration Pantoprazole Sodium 40 mg 10/06/18 10:00 10/09/18 10:44 Protonix - PO 40 mg DAILY AGUSTIN Administration Polyethylene Glycol 17 gm 10/05/18 22:00 10/09/18 10:44 Miralax (For Daily Use) - PO 17 gm BID AGUSTIN Administration Renal US: Mild fullness of the right renal pelvicalyceal system without gross evidence of stones. Small right mid renal simple cyst measuring 1.2cc. CTAP: Bilateral pleural effusions, right greater than left, with lower lobe atelectasis. Moderate pericardial effusion. Hepatomegaly. Fecal retention, no acute pathology within the abdomen or pelvis. There is an irregular soft tissue opacity within the right breast. Could represent fibroglandular tissue. CXR: weak inspiration with congestive changes, bibasilar infiltrates, elevated right hemidiaphragm and large heart. There may be an element of basilar atelectasis. CXR (s/p thoracentesis): No sign of gross pneumothorax. Fluid has diminished. Left base changes and large heart persists. CXR (10/01): a large heart with congestive changes and there are progressive bilateral pleural effusions with some basilar atelectasis or infiltrates. the left is more affected than the right. Chest CT without contrast: Bilateral pleural effusions and lower lobe atelectasis, greater than right. Mild to moderate pericardial effusion. Possible right breast mass. RUQ US: right pleural effusion and trace ascites. Heterogenous liver without a discrete mass. Mildly contracted gallbladder with biliary sludge. No evidence of cholelithiasis. Minimal right hydronephrosis. Mammogram: Diffuse right breast thickening. Echo: LV systolic function normal, EF 55-60%, RV normal. LA mildly dilated. Mild MS, mild MR, Mild . Aortic root normal size. Moderate primarily posterior pericardial effusion with no clear evidence of RA/RV diastolic collapse. Right breast Ultrasound - diffuse skin thickening with parenchymal edema of the right breast, extending from the 5 to the 11:00 positions. This is probably related to benign etiology. No definite suspicious mass seen. ASSESSMENT/PLAN: Patient is an 83 year old female with past medical history of dementia, DM, HTN , HLD, and recent hospitalizations at [facility] for UTI and PNA (discharged last 09/24 ), presented to the ED due to worsening abdominal pain and distension, with last bowel movement 9 days ago. Patient also reports difficulty breathing. #Shortness of breath likely 2/2 pleural effusion -s/p thoracentesis (09/27), 700 cc fluid drained -repeat thoracentesis (10/08) 1000cc serous fluid drained -Pleural studies transudative as per pulm -Cytology report of pleural fluid - benign -Incentive spirometry -Switch IV Lasix to 40mg PO daily -Pulmonary consulted. #Pericardial effusion -Cardiology (Dr. Serrano) consulted. REcommendations appreciated. -BNP 1749 -Lasix 40mg daily -Repeat Echo (10/08): EF 65-70%. Diastolic dysfunction Gr II, consistent with elevated LA pressure. Trivial pericardial effusion not hemodynamically significant. #Diastolic CHF -Continue Lasix 40mg daily -Repeat Echo (10/08): LV normal in size. LV systolic function normal. no regional wall motion abnormalities. EF 65-70%. Diastolic dysfunction Gr II, consistent with elevated LA pressure. Ratio E/E' = 19. RV not well visualized. LA size normal. RA size normal. mild mitral annular calcification. Moderate MR. Mild TR. Pulmonary artery systolic pressure is at least 35mmHg assuming RA pressure of 3mmHg. Mild AR. Trivial pericardial effusion not hemodynamically significant. #Elevated transaminases: improved -GI (Dr. Park) consulted. Recommendations appreciated. -Hepatitis serology -Avoid hepatotoxic agents. -Lipitor held for now -Will continue to monitor LFTs #Constipation: resolved -likely from immobility and DM gastroparesis -GI (Dr. Park) consulted. Recommendations appreciated. -Miralax BID #MERYL: stable -likely with CKD -Nephrology (Dr. Omalley) consulted. REcommendations appreciated. -Renal ultrasound: Mild fullness of the right renal pelvicalyceal system without gross evidence of stones. Small right mid renal simple cyst measuring 1.2 cc. -Avoid NSAIDs #Right breast mass -Oncology (Dr. Beavers) consulted. Recommendations appreciated. -Mammogram and right breast ultrasound done #Hyperkalemia: resolved -will continue to monitor #Normocytic Anemia -Iron studies -Retic count 1.95 #DM -Continue home Insulin Glargine 10units at bedtime -Insulin sliding scale -BGM ACHS #HTN -Continue Coreg 12.5mg BID -Amlodipine 5mg daily #HLD -Hold Lipitor in light of elevated LFTs #FEN -Not on any standing fluids -Routine bmp monitoring -Diabetic diet. #Prophylaxis -Heparin 5000units sq tid #Disposition -full code -med surg Visit type - Emergency Visit Emergency Visit: Yes ED Registration Date: 09/27/18 Care time: The patient presented to the Emergency Department on the above date and was hospitalized for further evaluation of their emergent condition. - New Patient This patient is new to me today: No - Critical Care Critical Care patient: No
--- NOTE | 2018-10-09 15:29 | PN ---
Physical Exam: SUBJECTIVE: Patient seen and examined at bedside. Found to be comfortable. No distress. OBJECTIVE: Vital Signs Period Temp Pulse Resp BP Sys/Mendoza Pulse Ox Last 24 Hr 98.1 F-98.7 F 78-80 18-20 111-133/43-56 95-97 GENERAL: The patient is awake, alert, and fully oriented, in no acute distress. HEENT: Unremarkable. LUNGS: Breath sounds equally diminished B/L clear to auscultation bilaterally, NO accessory muscle use. HEART: Regular rate and rhythm, S1, S2 without murmur, rub or gallop. ABDOMEN: Soft, nontender, nondistended, normoactive bowel sounds, no guarding, no rebound, no hepatosplenomegaly, no masses. EXTREMITIES: 2+ pulses, warm, well-perfused, no edema. NEUROLOGICAL: Cranial nerves II through XII grossly intact. Normal speech, gait not observed. PSYCH: Normal mood, normal affect. SKIN: Warm, dry, normal turgor, no rashes or lesions noted Laboratory Results - last 24 hr 10/08/18 10/08/18 10/09/18 16:18 22:32 05:25 WBC RBC Hgb Hct MCV MCH MCHC RDW Plt Count MPV Absolute Neuts (auto) Neutrophils % Lymphocytes % Monocytes % Eosinophils % Basophils % Nucleated RBC % Sodium Potassium Chloride Carbon Dioxide Anion Gap BUN Creatinine Creat Clearance w eGFR POC Glucometer 424 142 111 Random Glucose Calcium Phosphorus Magnesium Total Bilirubin AST ALT Alkaline Phosphatase Total Protein Albumin 10/09/18 10/09/18 10/09/18 06:00 06:00 12:34 WBC 10.4 H RBC 3.15 L Hgb 9.8 L Hct 29.5 L MCV 93.6 MCH 31.2 MCHC 33.3 RDW 13.9 Plt Count 409 D MPV 10.1 Absolute Neuts (auto) 6.3 Neutrophils % 60.0 Lymphocytes % 29.4 Monocytes % 6.2 Eosinophils % 3.2 Basophils % 1.2 Nucleated RBC % 0 Sodium 140 Potassium 4.4 Chloride 101 Carbon Dioxide 35 H Anion Gap 4 L BUN 38 H Creatinine 1.3 Creat Clearance w eGFR 39.31 POC Glucometer 347 Random Glucose 116 H Calcium 8.6 Phosphorus 3.6 Magnesium 2.4 Total Bilirubin 0.5 AST 21 ALT 28 Alkaline Phosphatase 193 H Total Protein 6.5 Albumin 2.4 L Active Medications Generic Name Dose Route Start Last Admin Trade Name Freq PRN Reason Stop Dose Admin Amlodipine Besylate 5 mg 10/06/18 10:00 10/09/18 10:48 Norvasc - PO 5 mg DAILY AGUSTIN Administration Benzocaine/Menthol 1 each 10/05/18 21:45 Cepacol Lozenge - MM Q2H PRN SORE THROAT Carvedilol 12.5 mg 10/05/18 22:00 10/09/18 10:48 Coreg - PO 12.5 mg BID AGUSTIN Administration Fluticasone Propionate 1 spray 10/06/18 10:00 10/09/18 10:50 Flonase - NS 1 spray DAILY AGUSTIN Administration Furosemide 40 mg 10/09/18 10:00 10/09/18 10:44 Lasix - PO 40 mg DAILY AGUSTIN Administration Gabapentin 400 mg 10/06/18 10:00 10/09/18 10:44 Neurontin - PO 400 mg DAILY AGUSTIN Administration Guaifenesin 10 ml 10/04/18 13:29 10/08/18 14:19 Diabetic Tussin Dm - PO 10 ml Q4H PRN Administration COUGH Heparin Sodium (Porcine) 5,000 unit 10/05/18 22:00 10/09/18 14:04 Heparin - SQ 5,000 unit TID AGUSTIN Administration Insulin Aspart 1 vial 10/05/18 22:00 10/09/18 12:42 Novolog Vial Sliding Scale - SQ 8 units ACHS AGUSTIN Administration Protocol Insulin Detemir 10 units 10/05/18 22:00 10/08/18 22:29 Levemir Vial SQ 10 units HS AGUSTIN Administration Pantoprazole Sodium 40 mg 10/06/18 10:00 10/09/18 10:44 Protonix - PO 40 mg DAILY AGUSTIN Administration Polyethylene Glycol 17 gm 10/05/18 22:00 10/09/18 10:44 Miralax (For Daily Use) - PO 17 gm BID AGUSTIN Administration ASSESSMENT/PLAN: Patient is an 83 year old female with past medical history of dementia, DM, HTN , HLD, and recent hospitalizations at [facility] for UTI and PNA (discharged last 09/24 ), presented to the ED due to worsening abdominal pain and distension, with last bowel movement 9 days ago. Patient also reports difficulty breathing. # Recurrent pleural effusion from ? CHF / Hypoalbuminemia. -s/p thoracentesis (09/27), 700 cc fluid drained -repeat thoracentesis (10/08) 1000cc serous fluid drained -Pleural studies transudative as per pulm -Cytology report of pleural fluid - benign -Incentive spirometry -Switched IV Lasix to 40mg PO daily - would f/u with Pulm for [employer] continuous churn plan >> ? Pleurex cath/ pleural bx/ repeat cytology. #Pericardial effusion -Cardiology (Dr. Serrano) eval noted. -BNP 1749 -Lasix 40mg daily -Repeat Echo (10/08): EF 65-70%. Diastolic dysfunction Gr II, consistent with elevated LA pressure. Trivial pericardial effusion not hemodynamically significant. #Diastolic CHF -Continue Lasix 40mg daily -Repeat Echo (10/08): LV normal in size. LV systolic function normal. #Elevated transaminases: improved #Constipation: resolved -likely from immobility and DM gastroparesis -Miralax BID #MERYL: ?? -likely CKD -Avoid NSAIDs #Right breast mass -Oncology (Dr. Beavers) consulted. Recommendations appreciated. -Mammogram and right breast ultrasound done ## Normocytic anemia #DM -Continue home Insulin Glargine 10units at bedtime -Insulin sliding scale -BGM ACHS #HTN -Continue Coreg 12.5mg BID -Amlodipine 5mg daily #HLD -Hold Lipitor in light of elevated LFTs #FEN -Not on any standing fluids -Routine bmp monitoring -Diabetic diet. #Prophylaxis -Heparin 5000units sq tid #Disposition -full code Plan d/w the medical team in round. Visit type - Emergency Visit Emergency Visit: Yes ED Registration Date: 09/27/18 Care time: The patient presented to the Emergency Department on the above date and was hospitalized for further evaluation of their emergent condition. - New Patient This patient is new to me today: No - Critical Care Critical Care patient: No - Discharge Referral Referred to [facility] Med P.C.: No
--- NOTE | 2018-10-09 15:32 | PN ---
Progress Note (short form) - Note Progress Note: s: no chest pain, palps, dizziness. sob and edema improved. 2 Current Medications Generic Name Dose Route Start Last Admin Trade Name Freq PRN Reason Stop Dose Admin Amlodipine Besylate 5 mg 10/06/18 10:00 10/09/18 10:48 Norvasc - PO 5 mg DAILY AGUSTIN Administration Benzocaine/Menthol 1 each 10/05/18 21:45 Cepacol Lozenge - MM Q2H PRN SORE THROAT Carvedilol 12.5 mg 10/05/18 22:00 10/09/18 10:48 Coreg - PO 12.5 mg BID AGUSTIN Administration Fluticasone Propionate 1 spray 10/06/18 10:00 10/09/18 10:50 Flonase - NS 1 spray DAILY AGUSTIN Administration Furosemide 40 mg 10/09/18 10:00 10/09/18 10:44 Lasix - PO 40 mg DAILY AGUSTIN Administration Gabapentin 400 mg 10/06/18 10:00 10/09/18 10:44 Neurontin - PO 400 mg DAILY AGUSTIN Administration Guaifenesin 10 ml 10/04/18 13:29 10/08/18 14:19 Diabetic Tussin Dm - PO 10 ml Q4H PRN Administration COUGH Heparin Sodium (Porcine) 5,000 unit 10/05/18 22:00 10/09/18 14:04 Heparin - SQ 5,000 unit TID AGUSTIN Administration Insulin Aspart 1 vial 10/05/18 22:00 10/09/18 12:42 Novolog Vial Sliding Scale - SQ 8 units ACHS AGUSTIN Administration Protocol Insulin Detemir 10 units 10/05/18 22:00 10/08/18 22:29 Levemir Vial SQ 10 units HS AGUSTIN Administration Pantoprazole Sodium 40 mg 10/06/18 10:00 10/09/18 10:44 Protonix - PO 40 mg DAILY AGUSTIN Administration Polyethylene Glycol 17 gm 10/05/18 22:00 10/09/18 10:44 Miralax (For Daily Use) - PO 17 gm BID AGUSTIN Administration Vital Signs Period Temp Pulse Resp BP Sys/Mendoza Pulse Ox Last 24 Hr 98.1 F-98.7 F 78-80 18-20 111-133/43-56 95-97 Eyes: Yes: Conjunctiva Clear, Neck: Yes: Supple, Trachea Midline Respiratory: Yes: cta bl nl eff Gastrointestinal: Yes: Other (distended, NT.) Cardiovascular: Yes: Regular Rate and Rhythm JVD: Yes Heart Sounds: Yes: S1, S2 Edema: No Peripheral Pulses WNL: Yes Neurological: Yes: Alert, Oriented no jaundice diaphoresis CBC, BMP 10/09/18 06:00 10/09/18 06:00 Imaging - Results Chest X-ray: Image Reviewed (? RLL infiltrate, cardiomegal) EKG: Image Reviewed (Ectopic atrial rhytham, no acute ST changes) Problem List - Problems (1) Pericardial effusion Code(s): I31.3 - PERICARDIAL EFFUSION (NONINFLAMMATORY) (2) Dyspnea Code(s): R06.00 - DYSPNEA, UNSPECIFIED Qualifiers: Dyspnea type: dyspnea on exertion Qualified Code(s): R06.09 - Other forms of dyspnea (3) MERYL (acute kidney injury) Code(s): N17.9 - ACUTE KIDNEY FAILURE, UNSPECIFIED (4) Hyponatremia Code(s): E87.1 - HYPO-OSMOLALITY AND HYPONATREMIA (5) Pleural effusion Code(s): J90 - PLEURAL EFFUSION, NOT ELSEWHERE CLASSIFIED (6) Hypertension Code(s): I10 - ESSENTIAL (PRIMARY) HYPERTENSION Assessment/Plan repeat echo 09/2018: nl lv, rv tds, mod mr, mild tr, mild ar, rvsp 35, trivial peric eff IMP: 1. Dyspnea 2. Pericardial effusion: possibly chronic: ? Etiology. 3. HTN 4. DM 5. MERYL 6. Hyponatremia REC: 1. Echo - moderate pericardial effusion without clear tamponade on 09/28, repeat echo 10/08 shows trivial peric effusion. 2. Serial cardiac enzymes neg x 3 3. BNP 1700, received IV lasix. Volume status improved as has renal fxn. transitioned to lasix 40 mg PO daily 4. CT chest with kenzie pleural effusions, 700 mL removed from thoracentesis 09/28 cytology negative for malignancy. thoracentesis repeated 10/08, appreciate pulm recs. 5. Further w/u of MERYL as per PMD, renal. Renal fxn stable
--- NOTE | 2018-10-09 15:44 | PN ---
Progress Note, Physician - Current Medication List Current Medications: Active Medications Amlodipine Besylate (Norvasc -) 5 mg PO DAILY [facility] Last Admin: 10/09/18 10:48 Dose: 5 mg Benzocaine/Menthol (Cepacol Lozenge -) 1 each MM Q2H PRN PRN Reason: SORE THROAT Carvedilol (Coreg -) 12.5 mg PO BID [facility] Last Admin: 10/09/18 10:48 Dose: 12.5 mg Fluticasone Propionate (Flonase -) 1 spray NS DAILY [facility] Last Admin: 10/09/18 10:50 Dose: 1 spray Furosemide (Lasix -) 40 mg PO DAILY [facility] Last Admin: 10/09/18 10:44 Dose: 40 mg Gabapentin (Neurontin -) 400 mg PO DAILY [facility] Last Admin: 10/09/18 10:44 Dose: 400 mg Guaifenesin (Diabetic Tussin Dm -) 10 ml PO Q4H PRN PRN Reason: COUGH Last Admin: 10/08/18 14:19 Dose: 10 ml Heparin Sodium (Porcine) (Heparin -) 5,000 unit SQ TID [facility] Last Admin: 10/09/18 14:04 Dose: 5,000 unit Insulin Aspart (Novolog Vial Sliding Scale -) 1 vial SQ ACHS [facility]; Protocol Last Admin: 10/09/18 12:42 Dose: 8 units Insulin Detemir (Levemir Vial) 10 units SQ HS [facility] Last Admin: 10/08/18 22:29 Dose: 10 units Pantoprazole Sodium (Protonix -) 40 mg PO DAILY [facility] Last Admin: 10/09/18 10:44 Dose: 40 mg Polyethylene Glycol (Miralax (For Daily Use) -) 17 gm PO BID [facility] Last Admin: 10/09/18 10:44 Dose: 17 gm - Objective Vital Signs: Vital Signs Temperature 98.2 F 10/09/18 14:34 Pulse Rate 80 10/09/18 14:34 Respiratory Rate 18 10/09/18 14:34 Blood Pressure 130/51 L 10/09/18 14:34 O2 Sat by Pulse Oximetry (%) 95 10/09/18 09:00 Labs: CBC, BMP 10/09/18 06:00 10/09/18 06:00 INR, PTT INR 1.12 (0.83-1.09) H 10/06/18 06:30 Assessment/Plan (1) MERYL (acute kidney injury) Code(s): N17.9 - ACUTE KIDNEY FAILURE, UNSPECIFIED (2) Breast mass Code(s): N63.0 - UNSPECIFIED LUMP IN UNSPECIFIED BREAST (3) Constipation Code(s): K59.00 - CONSTIPATION, UNSPECIFIED (4) Pericardial effusion Code(s): I31.3 - PERICARDIAL EFFUSION (NONINFLAMMATORY) (5) Pleural effusion Code(s): J90 - PLEURAL EFFUSION, NOT ELSEWHERE CLASSIFIED (6) Hypertension Code(s): I10 - ESSENTIAL (PRIMARY) HYPERTENSION Assessment/Plan PERICARDIAL EFFUSION PROTEINURIA ANEMIA RENAL INSUFFICIENCY HTN DM MERYL PLEURAL EFFUSION TRANSUDATE GLYCEMIC CONTROL LASIX F/U CHEST X-RAYS O2 DAILY WT MONITOR LYTES ANTITUSSIVES DR SANTANA Problem List - Problems (1) MERYL (acute kidney injury) Code(s): N17.9 - ACUTE KIDNEY FAILURE, UNSPECIFIED (2) Breast mass Code(s): N63.0 - UNSPECIFIED LUMP IN UNSPECIFIED BREAST (3) Constipation Code(s): K59.00 - CONSTIPATION, UNSPECIFIED (4) Pericardial effusion Code(s): I31.3 - PERICARDIAL EFFUSION (NONINFLAMMATORY) (5) Pleural effusion Code(s): J90 - PLEURAL EFFUSION, NOT ELSEWHERE CLASSIFIED (6) Hypertension Code(s): I10 - ESSENTIAL (PRIMARY) HYPERTENSION
--- NOTE | 2018-10-09 16:46 | PN ---
Progress Note, Physician History of Present Illness: Pt seen and examined at bedside. She is awake and alert. She feels that her shortness of breath is improved. - Current Medication List Current Medications: Active Medications Amlodipine Besylate (Norvasc -) 5 mg PO DAILY [facility] Last Admin: 10/09/18 10:48 Dose: 5 mg Benzocaine/Menthol (Cepacol Lozenge -) 1 each MM Q2H PRN PRN Reason: SORE THROAT Carvedilol (Coreg -) 12.5 mg PO BID [facility] Last Admin: 10/09/18 10:48 Dose: 12.5 mg Fluticasone Propionate (Flonase -) 1 spray NS DAILY [facility] Last Admin: 10/09/18 10:50 Dose: 1 spray Furosemide (Lasix -) 40 mg PO DAILY [facility] Last Admin: 10/09/18 10:44 Dose: 40 mg Gabapentin (Neurontin -) 400 mg PO DAILY [facility] Last Admin: 10/09/18 10:44 Dose: 400 mg Guaifenesin (Diabetic Tussin Dm -) 10 ml PO Q4H PRN PRN Reason: COUGH Last Admin: 10/08/18 14:19 Dose: 10 ml Heparin Sodium (Porcine) (Heparin -) 5,000 unit SQ TID [facility] Last Admin: 10/09/18 14:04 Dose: 5,000 unit Insulin Aspart (Novolog Vial Sliding Scale -) 1 vial SQ ACHS [facility]; Protocol Last Admin: 10/09/18 12:42 Dose: 8 units Insulin Detemir (Levemir Vial) 10 units SQ HS [facility] Last Admin: 10/08/18 22:29 Dose: 10 units Pantoprazole Sodium (Protonix -) 40 mg PO DAILY [facility] Last Admin: 10/09/18 10:44 Dose: 40 mg Polyethylene Glycol (Miralax (For Daily Use) -) 17 gm PO BID [facility] Last Admin: 10/09/18 10:44 Dose: 17 gm - Objective Vital Signs: Vital Signs Temperature 98.2 F 10/09/18 14:34 Pulse Rate 80 10/09/18 14:34 Respiratory Rate 18 10/09/18 14:34 Blood Pressure 130/51 L 10/09/18 14:34 O2 Sat by Pulse Oximetry (%) 95 10/09/18 09:00 Constitutional: Yes: Calm Eyes: Yes: Conjunctiva Clear HENT: Yes: Atraumatic Neck: Yes: Supple Cardiovascular: Yes: S1, S2 Respiratory: Yes: CTA Bilaterally Gastrointestinal: Yes: Soft Genitourinary: Yes: WNL Musculoskeletal: Yes: WNL Edema: No Neurological: Yes: Oriented Psychiatric: Yes: Oriented Labs: CBC, BMP 10/09/18 06:00 10/09/18 06:00 INR, PTT INR 1.12 (0.83-1.09) H 10/06/18 06:30 Problem List - Problems (1) CKD (chronic kidney disease) Code(s): N18.9 - CHRONIC KIDNEY DISEASE, UNSPECIFIED (2) Hyperkalemia Code(s): E87.5 - HYPERKALEMIA (3) MERYL (acute kidney injury) Code(s): N17.9 - ACUTE KIDNEY FAILURE, UNSPECIFIED (4) Constipation Code(s): K59.00 - CONSTIPATION, UNSPECIFIED (5) Pericardial effusion Code(s): I31.3 - PERICARDIAL EFFUSION (NONINFLAMMATORY) (6) Pleural effusion Code(s): J90 - PLEURAL EFFUSION, NOT ELSEWHERE CLASSIFIED Assessment/Plan Current Medications Generic Name Dose Route Start Last Admin Trade Name Freq PRN Reason Stop Dose Admin Amlodipine Besylate 5 mg 10/06/18 10:00 10/09/18 10:48 Norvasc - PO 5 mg DAILY [facility] Administration Benzocaine/Menthol 1 each 10/05/18 21:45 Cepacol Lozenge - MM Q2H PRN SORE THROAT Carvedilol 12.5 mg 10/05/18 22:00 10/09/18 10:48 Coreg - PO 12.5 mg BID [facility] Administration Fluticasone Propionate 1 spray 10/06/18 10:00 10/09/18 10:50 Flonase - NS 1 spray DAILY [facility] Administration Furosemide 40 mg 10/09/18 10:00 10/09/18 10:44 Lasix - PO 40 mg DAILY [facility] Administration Gabapentin 400 mg 10/06/18 10:00 10/09/18 10:44 Neurontin - PO 400 mg DAILY [facility] Administration Guaifenesin 10 ml 10/04/18 13:29 10/08/18 14:19 Diabetic Tussin Dm - PO 10 ml Q4H PRN Administration COUGH Heparin Sodium (Porcine) 5,000 unit 10/05/18 22:00 10/09/18 14:04 Heparin - SQ 5,000 unit TID [facility] Administration Insulin Aspart 1 vial 10/05/18 22:00 10/09/18 12:42 Novolog Vial Sliding Scale - SQ 8 units ACHS [facility] Administration Protocol Insulin Detemir 10 units 10/05/18 22:00 10/08/18 22:29 Levemir Vial SQ 10 units HS [facility] Administration Pantoprazole Sodium 40 mg 10/06/18 10:00 10/09/18 10:44 Protonix - PO 40 mg DAILY [facility] Administration Polyethylene Glycol 17 gm 10/05/18 22:00 10/09/18 10:44 Miralax (For Daily Use) - PO 17 gm BID [facility] Administration Impression 1. hyperkalemia 2. MERYL 3. likely ckd 4. dyspnea 5. constipation 6. DM 7. pleural effusion 8. pericardial effusion Plan - renal function stable for now - can follow with me as outpt - cont lasix - cardio input appreciated - ua neg for blood or protein - meryl likely in part cardio renal - avoid nsaids - monitor bp
[2018-10-09] MEDS: INSULIN (LEVEMIR) 100 UNITS/ML UNITS SQ SCH (21:44)
[2018-10-10] MEDS: INSULIN SLIDING SCALE (NOVOLOG) 1 VIAL SQ SCH ×2 (06:16→12:11)
[2018-10-10] MEDS: HEPARIN NA (PORCINE) 5,000 UNITS/ML 1ML VIAL SQ SCH ×2 (06:17→14:07)
[2018-10-10 08:52] LABS: BASO % 1.3 % (0-2.0); EOS % 3.6 % (0-4.5); HEMATOCRIT 28.3 % (32.4-45.2); HEMOGLOBIN 9.5 GM/dL (10.7-15.3); LYMPH % 34.2 % (8-40); MCH 31.2 pg (25.7-33.7); MCHC 33.4 g/dl (32.0-36.0); MEAN CELL VOLUME 93.3 fl (80-96); MEAN PLT VOLUME 9.9 fl (7.5-11.1); NEUT % 51.9 % (42.8-82.8); PLATELET COUNT 424 K/MM3 (134-434); RBC 3.04 M/mm3 (3.60-5.2); RDW 14.4 % (11.6-15.6); WHITE BLOOD COUNT 9.1 K/mm3 (4.0-10.0)
[2018-10-10 09:20] LABS: ALBUMIN 2.5 g/dl (3.4-5.0); ALK PHOS 185 U/L (45-117); ANION GAP 5 MMOL/L (8-16); BILIRUBIN,TOTAL 0.3 mg/dL (0.2-1); BLOOD UREA NITROGEN 36 mg/dL (7-18); CALCIUM 8.9 mg/dL (8.5-10.1); CHLORIDE 103 mmol/L (98-107); CO2 33 mmol/L (21-32); CREATININE 1.4 mg/dL (0.55-1.3); GLUCOSE,RANDOM 104 mg/dL (74-106); MAGNESIUM 2.3 mg/dL (1.8-2.4); PHOSPHOROUS 3.6 mg/dL (2.5-4.9); POTASSIUM 4.1 mmol/L (3.5-5.1); SGOT/AST 22 U/L (15-37); SGPT/ALT 27 U/L (13-61); SODIUM 141 mmol/L (136-145); TOT PROT 6.6 g/dl (6.4-8.2)
[2018-10-10] MEDS: CARVEDILOL 12.5 MG TABLET (FP) PO SCH (10:16)
[2018-10-10] MEDS: GABAPENTIN 400 MG CAPSULE (FP) PO SCH (10:16)
[2018-10-10] MEDS: PANTOPRAZOLE 40 MG TABLET (FP) PO SCH (10:16)
[2018-10-10] MEDS: amLODIPine BESYLATE 5 MG TABLET (FP) PO SCH (10:16)
[2018-10-10] MEDS: FLUTICASONE PROP 0.05% 16 GM NASAL SPRAY NS SCH (10:16)
[2018-10-10] MEDS: FUROSEMIDE 40 MG TABLET (FP) PO SCH (10:16)
[2018-10-10] MEDS: POLYETHYLENE GLYCOL 3350 119 GM BTL PO SCH (10:20)
--- NOTE | 2018-10-10 12:34 | PN ---
Progress Note, Physician History of Present Illness: Pt seen and examined at bedside. She is awake and alert. She feels that her breathing is improved. - Current Medication List Current Medications: Active Medications Amlodipine Besylate (Norvasc -) 5 mg PO DAILY [facility] Last Admin: 10/10/18 10:16 Dose: 5 mg Benzocaine/Menthol (Cepacol Lozenge -) 1 each MM Q2H PRN PRN Reason: SORE THROAT Carvedilol (Coreg -) 12.5 mg PO BID [facility] Last Admin: 10/10/18 10:16 Dose: 12.5 mg Fluticasone Propionate (Flonase -) 1 spray NS DAILY [facility] Last Admin: 10/10/18 10:16 Dose: 1 spray Furosemide (Lasix -) 40 mg PO DAILY [facility] Last Admin: 10/10/18 10:16 Dose: 40 mg Gabapentin (Neurontin -) 400 mg PO DAILY [facility] Last Admin: 10/10/18 10:16 Dose: 400 mg Guaifenesin (Diabetic Tussin Dm -) 10 ml PO Q4H PRN PRN Reason: COUGH Last Admin: 10/08/18 14:19 Dose: 10 ml Heparin Sodium (Porcine) (Heparin -) 5,000 unit SQ TID [facility] Last Admin: 10/10/18 06:17 Dose: 5,000 unit Insulin Aspart (Novolog Vial Sliding Scale -) 1 vial SQ ACHS [facility]; Protocol Last Admin: 10/10/18 12:11 Dose: 8 units Insulin Detemir (Levemir Vial) 10 units SQ HS [facility] Last Admin: 10/09/18 21:44 Dose: 10 units Pantoprazole Sodium (Protonix -) 40 mg PO DAILY [facility] Last Admin: 10/10/18 10:16 Dose: 40 mg Polyethylene Glycol (Miralax (For Daily Use) -) 17 gm PO BID [facility] Last Admin: 10/10/18 10:20 Dose: Not Given - Objective Vital Signs: Vital Signs Temperature 98.5 F 10/10/18 10:00 Pulse Rate 82 10/10/18 10:00 Respiratory Rate 20 10/10/18 10:00 Blood Pressure 116/50 L 10/10/18 10:00 O2 Sat by Pulse Oximetry (%) 96 10/10/18 09:00 Constitutional: Yes: Calm Eyes: Yes: Conjunctiva Clear HENT: Yes: Atraumatic Neck: Yes: Supple Cardiovascular: Yes: S1, S2 Respiratory: Yes: CTA Bilaterally Gastrointestinal: Yes: Normal Bowel Sounds, Soft Genitourinary: Yes: WNL Musculoskeletal: Yes: WNL Edema: No Neurological: Yes: Oriented Psychiatric: Yes: Oriented Labs: CBC, BMP 10/10/18 07:54 10/10/18 07:54 INR, PTT INR 1.12 (0.83-1.09) H 10/06/18 06:30 Problem List - Problems (1) CKD (chronic kidney disease) Code(s): N18.9 - CHRONIC KIDNEY DISEASE, UNSPECIFIED (2) Hyperkalemia Code(s): E87.5 - HYPERKALEMIA (3) MERYL (acute kidney injury) Code(s): N17.9 - ACUTE KIDNEY FAILURE, UNSPECIFIED (4) Constipation Code(s): K59.00 - CONSTIPATION, UNSPECIFIED (5) Pericardial effusion Code(s): I31.3 - PERICARDIAL EFFUSION (NONINFLAMMATORY) (6) Pleural effusion Code(s): J90 - PLEURAL EFFUSION, NOT ELSEWHERE CLASSIFIED Assessment/Plan Current Medications Generic Name Dose Route Start Last Admin Trade Name Freq PRN Reason Stop Dose Admin Amlodipine Besylate 5 mg 10/06/18 10:00 10/10/18 10:16 Norvasc - PO 5 mg DAILY [facility] Administration Benzocaine/Menthol 1 each 10/05/18 21:45 Cepacol Lozenge - MM Q2H PRN SORE THROAT Carvedilol 12.5 mg 10/05/18 22:00 10/10/18 10:16 Coreg - PO 12.5 mg BID [facility] Administration Fluticasone Propionate 1 spray 10/06/18 10:00 10/10/18 10:16 Flonase - NS 1 spray DAILY [facility] Administration Furosemide 40 mg 10/09/18 10:00 10/10/18 10:16 Lasix - PO 40 mg DAILY [facility] Administration Gabapentin 400 mg 10/06/18 10:00 10/10/18 10:16 Neurontin - PO 400 mg DAILY [facility] Administration Guaifenesin 10 ml 10/04/18 13:29 10/08/18 14:19 Diabetic Tussin Dm - PO 10 ml Q4H PRN Administration COUGH Heparin Sodium (Porcine) 5,000 unit 10/05/18 22:00 10/10/18 06:17 Heparin - SQ 5,000 unit TID [facility] Administration Insulin Aspart 1 vial 10/05/18 22:00 10/10/18 12:11 Novolog Vial Sliding Scale - SQ 8 units ACHS [facility] Administration Protocol Insulin Detemir 10 units 10/05/18 22:00 10/09/18 21:44 Levemir Vial SQ 10 units HS [facility] Administration Pantoprazole Sodium 40 mg 10/06/18 10:00 10/10/18 10:16 Protonix - PO 40 mg DAILY [facility] Administration Polyethylene Glycol 17 gm 10/05/18 22:00 10/10/18 10:20 Miralax (For Daily Use) - PO Not Given BID [facility] Impression 1. hyperkalemia 2. MERYL 3. likely ckd 4. dyspnea 5. constipation 6. DM 7. pleural effusion 8. pericardial effusion Plan - po lasix - renal function stable - monitor lytes - cardio input appreciated - ua neg for blood or protein - avoid nsaids
[2018-10-10 14:15] LABS: IGA IMMUNOGLOBULIN 282; IGG IMMUNOGLOBULIN 1232; IGM IMMUNOGLOBULIN 91
[2018-10-10 14:37] VITALS: BP 120/45; PULSE 73; TEMP 98.1
--- NOTE | 2018-10-10 14:50 | PN ---
Teaching Attending Note Name of Resident: Mayra Wright ATTENDING PHYSICIAN STATEMENT I saw and evaluated the patient. I reviewed the resident's note and discussed the case with the resident. I agree with the resident's findings and plan as documented. SUBJECTIVE: No fever or chills. NO TAVERAS , no SOB, no PC . she feels much better OBJECTIVE: NAD, Awake. CV: RRR, 3/ SM at apex . No JVD Lungs: CTAB Ext: No edema , no erythema Breast exam: no erythema on breasts. no masses or LAP in axillae. no skin lesions seen or palpated. ASSESSMENT AND PLAN: 83 y/o lady with h/o DM and recent hospitalization in [place], HTN, HLP, PNA who presented with abd pain and sitention and SB . she was found to have pleural effusions, ascitis and pericardial effusion 1- Pleural effusions 2- Pericardial effusion 3- Acute diastolic CHF exacerbation 4- MERYL 5- Transaminitis 6-DM: cont levemir and SSI 7- breast skin thickening on R side Plan : - cont lasix pO daily - f/u with card - f/u with hem/onc for breast thickening, ? bx - f/u with GI for elevated Alk phos - need echo as out p t - insulin levemir and SSI d/w daughter at bed side. dc home with VNS
--- NOTE | 2018-10-10 14:51 | PN ---
Progress Note, Physician Chief Complaint: no distress - Current Medication List Current Medications: Active Medications Amlodipine Besylate (Norvasc -) 5 mg PO DAILY [facility] Last Admin: 10/10/18 10:16 Dose: 5 mg Benzocaine/Menthol (Cepacol Lozenge -) 1 each MM Q2H PRN PRN Reason: SORE THROAT Carvedilol (Coreg -) 12.5 mg PO BID [facility] Last Admin: 10/10/18 10:16 Dose: 12.5 mg Fluticasone Propionate (Flonase -) 1 spray NS DAILY [facility] Last Admin: 10/10/18 10:16 Dose: 1 spray Furosemide (Lasix -) 40 mg PO DAILY [facility] Last Admin: 10/10/18 10:16 Dose: 40 mg Gabapentin (Neurontin -) 400 mg PO DAILY [facility] Last Admin: 10/10/18 10:16 Dose: 400 mg Guaifenesin (Diabetic Tussin Dm -) 10 ml PO Q4H PRN PRN Reason: COUGH Last Admin: 10/08/18 14:19 Dose: 10 ml Heparin Sodium (Porcine) (Heparin -) 5,000 unit SQ TID [facility] Last Admin: 10/10/18 14:07 Dose: 5,000 unit Insulin Aspart (Novolog Vial Sliding Scale -) 1 vial SQ [facility]; Protocol Last Admin: 10/10/18 12:11 Dose: 8 units Insulin Detemir (Levemir Vial) 10 units SQ HS [facility] Last Admin: 10/09/18 21:44 Dose: 10 units Pantoprazole Sodium (Protonix -) 40 mg PO DAILY [facility] Last Admin: 10/10/18 10:16 Dose: 40 mg Polyethylene Glycol (Miralax (For Daily Use) -) 17 gm PO BID [facility] Last Admin: 10/10/18 10:20 Dose: Not Given - Objective Vital Signs: Vital Signs Temperature 98.1 F 10/10/18 14:34 Pulse Rate 73 10/10/18 14:34 Respiratory Rate 20 10/10/18 14:34 Blood Pressure 120/45 L 10/10/18 14:34 O2 Sat by Pulse Oximetry (%) 96 10/10/18 09:00 Constitutional: Yes: No Distress Cardiovascular: Yes: Regular Rate and Rhythm Respiratory: Yes: CTA Bilaterally Gastrointestinal: Yes: Soft Edema: No Neurological: Yes: Alert, Oriented ...Motor Strength: WNL Labs: CBC, BMP 10/10/18 07:54 10/10/18 07:54 INR, PTT INR 1.12 (0.83-1.09) H 10/06/18 06:30 Problem List - Problems (1) Pericardial effusion Code(s): I31.3 - PERICARDIAL EFFUSION (NONINFLAMMATORY) (2) Dyspnea Code(s): R06.00 - DYSPNEA, UNSPECIFIED Qualifiers: Qualified Code(s): R06.09 - Other forms of dyspnea (3) MERYL (acute kidney injury) Code(s): N17.9 - ACUTE KIDNEY FAILURE, UNSPECIFIED (4) Hyponatremia Code(s): E87.1 - HYPO-OSMOLALITY AND HYPONATREMIA (5) Pleural effusion Code(s): J90 - PLEURAL EFFUSION, NOT ELSEWHERE CLASSIFIED (6) Hypertension Code(s): I10 - ESSENTIAL (PRIMARY) HYPERTENSION Assessment/Plan IMP: 1. Dyspnea 2. Pericardial effusion: possibly chronic: ? Etiology. 3. HTN 4. DM 5. MERYL 6. Hyponatremia REC: 1. Echo - moderate pericardial effusion without clear tamponade on 09/28, repeat echo 10/08 shows trivial peric effusion. 2. Serial cardiac enzymes neg x 3 3. BNP 1700, received IV lasix. Volume status improved as has renal fxn. transitioned to lasix 40 mg PO daily. 4. CT chest with kenzie pleural effusions, 700 mL removed from thoracentesis 09/28 cytology negative for malignancy. thoracentesis repeated 10/08, appreciate pulm recs. 5. Further w/u of MERYL as per PMD, renal. Renal fxn stable Discussed with daughter: plan for outpatient cardio f/u 2 weeks. We will follow the pericardial effusion.
--- NOTE | 2018-10-10 14:57 | PN ---
Progress Note (short form) - Note Progress Note: Patient seen and examined Offers no specific complaints Last Vital Signs Temp Pulse Resp BP Pulse Ox 98.1 F 73 20 120/45 L 96 10/10/18 14:34 10/10/18 14:34 10/10/18 14:34 10/10/18 14:34 10/10/18 09:00 HEENT: GI, EOM Intact Cor: RSR, No murmurs, No gallops Lungs: Rales RLL Abd: Soft, Normal bowel sounds, No organomegaly Ext:No significant edema Skin: No rashes, Integument intact CBC, BMP 10/10/18 07:54 10/10/18 07:54 Abnormal Lab Results 10/10/18 10/10/18 07:54 07:54 RBC 3.04 L Hgb 9.5 L Hct 28.3 L Carbon Dioxide 33 H Anion Gap 5 L BUN 36 H Creatinine 1.4 H Alkaline Phosphatase 185 H Albumin 2.5 L Current Medications Generic Name Dose Route Start Last Admin Trade Name Freq PRN Reason Stop Dose Admin Amlodipine Besylate 5 mg 10/06/18 10:00 10/10/18 10:16 Norvasc - PO 5 mg DAILY [facility] Administration Benzocaine/Menthol 1 each 10/05/18 21:45 Cepacol Lozenge - MM Q2H PRN SORE THROAT Carvedilol 12.5 mg 10/05/18 22:00 10/10/18 10:16 Coreg - PO 12.5 mg BID [facility] Administration Fluticasone Propionate 1 spray 10/06/18 10:00 10/10/18 10:16 Flonase - NS 1 spray DAILY [facility] Administration Furosemide 40 mg 10/09/18 10:00 10/10/18 10:16 Lasix - PO 40 mg DAILY [facility] Administration Gabapentin 400 mg 10/06/18 10:00 10/10/18 10:16 Neurontin - PO 400 mg DAILY [facility] Administration Guaifenesin 10 ml 10/04/18 13:29 10/08/18 14:19 Diabetic Tussin Dm - PO 10 ml Q4H PRN Administration COUGH Heparin Sodium (Porcine) 5,000 unit 10/05/18 22:00 10/10/18 14:07 Heparin - SQ 5,000 unit TID [facility] Administration Insulin Aspart 1 vial 10/05/18 22:00 10/10/18 12:11 Novolog Vial Sliding Scale - SQ 8 units ACHS [facility] Administration Protocol Insulin Detemir 10 units 10/05/18 22:00 10/09/18 21:44 Levemir Vial SQ 10 units HS [facility] Administration Pantoprazole Sodium 40 mg 10/06/18 10:00 10/10/18 10:16 Protonix - PO 40 mg DAILY [facility] Administration Polyethylene Glycol 17 gm 10/05/18 22:00 10/10/18 10:20 Miralax (For Daily Use) - PO Not Given BID [facility] Ipression: Nc/Nc anemia FE++/TIBC--25/212 ferritin -515 MERYL Likely CKD DM HBP Picture compatible with chronic disease anemia. Cannot exclude component of blood loss anemia . Protein studies - no "M" component in serum Would suggest GI work up as outpatient , completion of anemia assessment.
--- NOTE | 2018-10-10 17:59 | DS ---
Physical Exam: SUBJECTIVE: Patient seen and examined at bedside this morning. No acute events overnight. Patient feels well this morning. Denies fever, chills, headache, dizziness, chest pain, SOB, abdominal pain, diarrhea, urinary symptoms. OBJECTIVE: Vital Signs Temperature 98.1 F 10/10/18 14:34 Pulse Rate 73 10/10/18 14:34 Respiratory Rate 20 10/10/18 14:34 Blood Pressure 120/45 L 10/10/18 14:34 O2 Sat by Pulse Oximetry (%) 96 10/10/18 09:00 PHYSICAL EXAM GENERAL: The patient is awake, alert, and fully oriented, not in acute distress HEAD: Normal with no signs of trauma. EYES: PERRLA, EOMI, sclera anicteric, conjunctiva clear. ENT: oropharynx clear without exudates, moist mucous membranes. NECK: Trachea midline, full range of motion, supple. LUNGS: +bibasilar crackles HEART: Regular rate and rhythm, S1, S2 without murmur, rub or gallop. ABDOMEN: Soft, nontender, mildly distended, normoactive bowel sounds. EXTREMITIES: 2+ pulses, warm, well-perfused, trace pitting edema NEUROLOGICAL: Cranial nerves II through XII grossly intact. Normal speech, normal gait. Motor strength 5/5, sensation intact. PSYCH: Normal mood, normal affect. SKIN: Warm, dry, normal turgor, no rashes or lesions noted LABS Laboratory Results - last 24 hr 09/29/18 10/09/18 10/10/18 05:30 21:41 06:00 WBC RBC Hgb Hct MCV MCH MCHC RDW Plt Count MPV Absolute Neuts (auto) Neutrophils % Lymphocytes % Monocytes % Eosinophils % Basophils % Nucleated RBC % Sodium Potassium Chloride Carbon Dioxide Anion Gap BUN Creatinine Creat Clearance w eGFR POC Glucometer 266 93 Random Glucose Calcium Phosphorus Magnesium Total Bilirubin AST ALT Alkaline Phosphatase Total Protein Albumin IgG 1232 IgA 282 IgM 91 10/10/18 10/10/18 10/10/18 07:54 07:54 12:01 WBC 9.1 RBC 3.04 L Hgb 9.5 L Hct 28.3 L MCV 93.3 MCH 31.2 MCHC 33.4 RDW 14.4 Plt Count 424 MPV 9.9 Absolute Neuts (auto) 4.7 Neutrophils % 51.9 Lymphocytes % 34.2 Monocytes % 9.0 Eosinophils % 3.6 Basophils % 1.3 Nucleated RBC % 0 Sodium 141 Potassium 4.1 Chloride 103 Carbon Dioxide 33 H Anion Gap 5 L BUN 36 H Creatinine 1.4 H Creat Clearance w eGFR 36.09 POC Glucometer 302 Random Glucose 104 Calcium 8.9 Phosphorus 3.6 Magnesium 2.3 Total Bilirubin 0.3 AST 22 ALT 27 Alkaline Phosphatase 185 H Total Protein 6.6 Albumin 2.5 L IgG IgA IgM Renal US: Mild fullness of the right renal pelvicalyceal system without gross evidence of stones. Small right mid renal simple cyst measuring 1.2cc. CTAP: Bilateral pleural effusions, right greater than left, with lower lobe atelectasis. Moderate pericardial effusion. Hepatomegaly. Fecal retention, no acute pathology within the abdomen or pelvis. There is an irregular soft tissue opacity within the right breast. Could represent fibroglandular tissue. CXR: weak inspiration with congestive changes, bibasilar infiltrates, elevated right hemidiaphragm and large heart. There may be an element of basilar atelectasis. CXR (s/p thoracentesis): No sign of gross pneumothorax. Fluid has diminished. Left base changes and large heart persists. CXR (10/01): a large heart with congestive changes and there are progressive bilateral pleural effusions with some basilar atelectasis or infiltrates. the left is more affected than the right. Chest CT without contrast: Bilateral pleural effusions and lower lobe atelectasis, greater than right. Mild to moderate pericardial effusion. Possible right breast mass. RUQ US: right pleural effusion and trace ascites. Heterogenous liver without a discrete mass. Mildly contracted gallbladder with biliary sludge. No evidence of cholelithiasis. Minimal right hydronephrosis. Mammogram: Diffuse right breast thickening. Echo: LV systolic function normal, EF 55-60%, RV normal. LA mildly dilated. Mild MS, mild MR, Mild . Aortic root normal size. Moderate primarily posterior pericardial effusion with no clear evidence of RA/RV diastolic collapse. Right breast Ultrasound - diffuse skin thickening with parenchymal edema of the right breast, extending from the 5 to the 11:00 positions. This is probably related to benign etiology. No definite suspicious mass seen. Repeat Echo (10/08): LV normal in size. LV systolic function normal. no regional wall motion abnormalities. EF 65-70%. Diastolic dysfunction Gr II, consistent with elevated LA pressure. Ratio E/E' = 19. RV not well visualized. LA size normal. RA size normal. mild mitral annular calcification. Moderate MR. Mild TR. Pulmonary artery systolic pressure is at least 35mmHg assuming RA pressure of 3mmHg. Mild AR. Trivial pericardial effusion not hemodynamically significant. HOSPITAL COURSE: Date of Admission:09/27/18 Date of Discharge: 10/10/18 Patient is an 83 year old female with past medical history of dementia, DM, HTN , HLD, and recent hospitalizations at [facility] for UTI and PNA (discharged last 09/24 ), presented to the ED due to worsening abdominal pain and distension, with last bowel movement 9 days ago. Patient also reports difficulty breathing. CTAP revealed pleural effusion, pericardial effusion, trace ascites and fecal retention, as well as an irregular breast mass. Manual disimpaction was done and abdominal pain was relieved. Cardiology, Pulmonology, Heme-Onc, GI and Nephrology were consulted. Patient underwent thoracentesis where 700cc of serous fluid was drained. Pleural fluid biopsy was transudative and negative of malignancy. Patient was started on IV Lasix 40mg daily. Patient continued to have intermittent shortness of breath, and a repeat thoracentesis on the right lung was done with 1000cc of fluid drained. Patient reported feeling better and a repeat echo revealed diastolic CHF. Patient was discharged on Lasix 40mg daily and to follow up with PCP, Pulmonology, Cardiology, GI, Heme-Onc and Nephrology. Prior to discharge, patient was educated on use of sliding scale insulin. Minutes to complete discharge: 40 Discharge Summary Reason For Visit: SOB, ELEVATED LIVER FUNCTION TESTS, ELECTROLYTE Condition: Improved - Instructions Diet, Activity, Other Instructions: Your visit You were admitted to the hospital because you were having shortness of breath. You were noted to have fluid in your lungs and heart that was found in CAT scan. The fluid was drained and you felt better. An ultrasound of your heart was done which showed you were retaining fluid and there is fluids around your heart . You were given a water pill to help excrete the fluid through your urine. You were also noted to have a thickening on your right breast. Mammogram and Ultrasound were done while you were here at the hospital. Please follow up with the oncologist (Dr. Lo) for further evaluation and a possible biopsy. You will be started on an Insulin Novolog sliding scale for better control of your sugar. Take your blood sugar three times a day before meals and apply the sliding scale as instructed below. Please take the Insulin Glargine (long acting ) 10units in the morning. We will give you a prescription for a repeat blood work in 1 week. Please bring the results with you when you see your primary doctor. Medications Please take the following medications as prescribed. 1. Lasix 40mg daily. 2. Miralax twice a day for constipation. Insulin Sliding scale BGM Insulin novolog (units) 100-149 0 150-199 2 200-249 4 250-299 6 300-349 8 350-399 10 >400 12 Continue your other home medications. Follow up Please follow up with your primary care physician (Dr. Abigail Whelan) within 1 week. Please follow up with the ethylene compressor operator (Dr. Mar) within 1 week. you will need repeat echo of your heart and further monitoring Please follow up with the oyster sorter (Dr. Cartagena) within 2 weeks. Please follow up with the ampoule sealer (Dr. Omalley) within 2 weeks. Please follow up with the oncologist (Dr. Lo) within 2 weeks. follow up with Dr. Bell for your liver Additional info Call 911 or go the ED if with any worsening fever, chills, headache, chest pain , shortness of breath, belly pain, bloody stools or any new concerns noted. Referrals: Abigail Whelan MD [Other] John Cartagena MD [Staff Physician] - Kirit Mar MD [Staff Physician] - Juana Bell DO [Staff Physician] - 3 Weeks Teresita Shelby MD [Staff Physician] - Ant Omalley MD [Staff Physician] - Disposition: VNS/HOME HEALTH CARE - Home Medications Comprehensive Discharge Medication List: Ambulatory Orders Amlodipine Besylate 1 tab PO DAILY 09/28/18 Aspirin 1 tab PO DAILY 09/28/18 Atorvastatin Ca [Lipitor] 1 tab PO HS 09/28/18 Calcium Carbonate/Vitamin D3 [Calcium 600 + Vit D Tablet] 1 tab PO BID 09/28/18 Carvedilol 1 tab PO BID 09/28/18 Gabapentin 1 tab PO DAILY 09/28/18 Fluticasone Prop 0.05% Nasal [Flonase -] 1 spray NS DAILY spray 10/10/18 Furosemide [Lasix -] 40 mg PO DAILY #30 tablet 10/10/18 Insulin (Levemir) [Levemir Vial] 10 units SQ AM units 10/10/18 Insulin Sliding Scale [Novolog Vial Sliding Scale -] See Protocol SQ TIDAC #1 pen 10/10/18 Miscellaneous Medical Supply [Glucometer Test Strips #50] 1 each ASDIR #1 box 10/10/18 Miscellaneous Medical Supply [Outpatient Order] 1 each ASDIR #1 misc Polyethylene Glycol 3350 [Miralax 119 gm Btl -] 17 gm PO BID #1 bottle 10/10/18 This patient is new to me today: No Emergency Visit: Yes ED Registration Date: 09/27/18 Care time: The patient presented to the Emergency Department on the above date and was hospitalized for further evaluation of their emergent condition. Critical Care patient: No - Discharge Referral Referred to [facility] Med P.C.: No
[2018-10-11 19:14] LABS: FREE KAPPA,SERUM 92.6 mg/L (3.3-19.4)
== END 2018-10-10 15:43 | disposition home health service (06) | DRG 186 ==
LOC: JER 20:43 → JERBED 23:36 → J4W 09-28 04:20 → J7W 10-05 20:48
PROVIDERS: ADMIT Internal Medicine; ATTEND Internal Medicine
PROC: 0W993ZX Drainage of Right Pleural Cavity, Percutaneous Approach, Diagnostic (ICD-10-PCS; principal; 2018-09-28)
PROC: 0W993ZX Drainage of Right Pleural Cavity, Percutaneous Approach, Diagnostic (ICD-10-PCS; 2018-10-08)
DX: J90 Pleural effusion, not elsewhere classified (principal); I50.31 Acute diastolic (congestive) heart failure; N17.9 Acute kidney failure, unspecified; R18.8 Other ascites; E87.1 Hypo-osmolality and hyponatremia; J98.11 Atelectasis; I13.0 Hypertensive heart and chronic kidney disease with heart failure and stage 1 through stage 4 chronic kidney disease, or unspecified chronic kidney disease; N13.30 Unspecified hydronephrosis; I31.3 Pericardial effusion (noninflammatory); E87.5 Hyperkalemia; K59.00 Constipation, unspecified; E11.65 Type 2 diabetes mellitus with hyperglycemia; E11.22 Type 2 diabetes mellitus with diabetic chronic kidney disease; N18.3 Chronic kidney disease, stage 3 (moderate); N63.0 Unspecified lump in unspecified breast; E83.41 Hypermagnesemia; E78.5 Hyperlipidemia, unspecified; F03.90 Unspecified dementia, unspecified severity, without behavioral disturbance, psychotic disturbance, mood disturbance, and anxiety; K76.0 Fatty (change of) liver, not elsewhere classified; R94.5 Abnormal results of liver function studies; N28.1 Cyst of kidney, acquired; D63.1 Anemia in chronic kidney disease; D50.9 Iron deficiency anemia, unspecified; E11.43 Type 2 diabetes mellitus with diabetic autonomic (poly)neuropathy; K31.84 Gastroparesis; Z79.4 Long term (current) use of insulin
CPT/HCPCS: 36415; 71045-TC-FY; 71046-TC-FY; 71250-TC; 74176-TC; 76641-TC-RT; 76705-TC; 76775-TC; 76942; 77066-TC; 80048; 80053; 80074; 80076; 81003; 82040; 82042; 82043; 82140; 82150; 82436; 82465; 82550; 82553; 82565; 82570; 82728; 82784; 82945; 82962; 82977; 83021; 83540; 83550; 83615; 83690; 83735; 83880; 83883; 83930; 83935; 83986; 84100; 84133; 84134; 84155; 84156; 84157; 84165; 84300; 84443; 84478; 84484; 84540; 85025; 85027; 85044; 85610; 85651; 85660; 85730; 86038; 86140; 86225; 86334; 86431; 86704; 86706; 86708; 86803; 87070; 87075; 87102; 87116; 87205; 87206; 87210; 87340; 87389; 88108; 88305-TC; 93005; 93010; 93306-TC; 94010; 94640; 94761; 97116-GP; 97161-GP; 99282-25; G0279-TC; J1644

== ENCOUNTER 2018-12-03 11:35 | Emergency (ER) | payer OTHER ==
[2018-12-03 12:02] VITALS: BP 154/47; PULSE 78; TEMP 98.2; BMI 27.1
--- NOTE | 2018-12-03 12:02 | PDOC ---
Rapid Medical Evaluation Time Seen by Provider: 12/03/18 11:58 Medical Evaluation: Allergies Allergy/AdvReac Type Severity Reaction Status Date / Time Penicillins Allergy Verified 09/27/18 20:53 12/03/18 11:58 I have performed a brief in-person evaluation of this patient. The patient presents with a chief complaint of: Sent by PMD for abnormal labs. Lower back pain Pertinent physical exam findings: No CVAT. No pedal edema. Ambulatory with steady gait I have ordered the following: labs, ekg The patient will proceed to the ED for further evaluation. 12/03/18 11:59 12/03/18 12:02 Discharge Disposition - Diagnosis Abnormal blood finding - Referrals - Patient Instructions - Post Discharge Activity
--- NOTE | 2018-12-03 12:20 | PDOC ---
History of Present Illness - General Chief Complaint: Abnormal Lab Results (Outside) Stated Complaint: SENT BY PCP/ABNORMAL LAB RESULTS Time Seen by Provider: 12/03/18 11:58 - History of Present Illness Initial Comments: 12/03/18 13:33 The patient is an 83 year old female with a history of HTN, HLD, DM who presents for evaluation of possible abnormal labs. The patient reports that she had outpatient blood work done and received a call 2 weeks ago stating that her platelets were elevated. The patient did not present to the ED at that time , but began reading information on the internet and become concerned prompting her presentation to the ED for further evaluation. She notes that she has had several admissions over the past 3 months for pneumonia and a pleural effusion. She denies any acute complaints at this time and otherwise denies fevers, chills, SOB, chest pain, nausea, vomiting, abdominal pain, or changes with urination or bowel movements. Past History - Past Medical History Allergies/Adverse Reactions: Allergies Allergy/AdvReac Type Severity Reaction Status Date / Time Penicillins Allergy Verified 09/27/18 20:53 Home Medications: Ambulatory Orders Aspirin 1 tab PO DAILY 09/28/18 Atorvastatin Ca [Lipitor] 1 tab PO HS 09/28/18 Calcium Carbonate/Vitamin D3 [Calcium 600 + Vit D Tablet] 1 tab PO BID 09/28/18 Carvedilol 1 tab PO BID 09/28/18 Gabapentin 1 tab PO DAILY 09/28/18 Furosemide [Lasix -] 40 mg PO DAILY #30 tablet 10/10/18 Insulin Glargine,Hum.rec.anlog [Basaglar Kwikpen U-100] 4 - 10 unit SQ ASDIR PRN 12/03/18 Metformin HCl [Glucophage] 1,000 mg PO DAILY 12/03/18 COPD: No Diabetes: Yes (iddm) HTN: Yes Hypercholesterolemia: Yes - Suicide/Smoking/Psychosocial Hx Smoking History: Never smoked Have you smoked in the past 12 months: No Information on smoking cessation initiated: No Hx Alcohol Use: No Drug/Substance Use Hx: No Substance Use Type: None Hx Substance Use Treatment: No Review of Systems - Review of Systems Comments:: 12/03/18 13:36 Constitutional: No fevers, chills, fatigue, malaise HEENT: No Rhinorrhea, nasal congestion, visual changes Cardiovascular: No chest pain, syncope, palpitations, lightheadedness Respiratory: No Cough, SOB, Hemoptysis, Gastrointestinal: No Abdominal pain, Nausea, Vomiting, Constipation, Diarrhea, Melena Genitourinary: No Dysuria, Frequency, Urgency, Hesitancy, Hematuria, Flank pain Musculoskeletal: No Myalgia, arthralgia Skin: No rashes, itching, bruising, pallor Neurologic: No Headache, Dizziness, Numbness, Weakness, or Tingling Psychiatric: No Hallucinations. No SI or HI *Physical Exam - Vital Signs Last Vital Signs Temp Pulse Resp BP Pulse Ox 98.2 F 78 20 154/47 L 99 12/03/18 11:59 12/03/18 11:59 12/03/18 11:59 12/03/18 11:59 12/03/18 11:59 - Physical Exam Comments: 12/03/18 13:36 General Appearance: Nourished. No Apparent Distress HEENT: EOMI, JOSE MANUEL. No Pharyngeal Erythema, Tonsillar Exudate, Tonsillar Erythema Neck: No Cervical Lymphadenopathy Respiratory/Chest: Lungs Clear, Normal Breath Sounds. No Crackles, Rales, Rhonchi, Wheezing Cardiovascular: Regular Rhythm, Regular Rate. No Murmur, Gallops, Rubs Gastrointestinal/Abdominal: Normal Bowel Sounds, Soft. No Guarding, Rebound, Tenderness Musculoskeletal: No CVA Tenderness Extremity: Normal Capillary Refill Integumentary: Normal Color, Dry, Warm Neurologic: Fully Oriented, Alert, Normal Mood/Affect, Normal Response, ED Treatment Course - LABORATORY CBC & Chemistry Diagram: 12/03/18 14:12 12/03/18 14:12 Medical Decision Making - Medical Decision Making 12/03/18 13:36 The patient is an 83 year old female with a history of HTN, HLD, DM who presents for evaluation of possible abnormal labs. Given the patient's history and physical exam, we will obtain a cbc, cmp, to evaluate further. We will continue to monitor and reassess while here in the ED. 12/03/18 14:47 CBC, cmp were unremarkable. We are comfortable discharging the patient home in stable condition. Patient and family made aware of impression and plan, return precautions discussed including but not limited to worsening pain or symptoms, fevers, or signs of infection, chest pain, respiratory distress, inability to tolerate oral intake, dehydration, syncope, or neurologic changes. The patient is to follow up with PMD as recommended within 1 week, follow up information provided and the patient will call for an appointment. The patient is to take medications as instructed for duration of time and continue with supportive care , avoid triggers and precipitants. Patient is safe for outpatient follow-up. *DC/Admit/Observation/Transfer Diagnosis at time of Disposition: Abnormal blood finding - Discharge Dispostion Disposition: HOME Condition at time of disposition: Stable - Referrals - Patient Instructions Printed Discharge Instructions: DI for Fatigue Additional Instructions: 1) Please follow-up with your primary care doctor in the next 2-3 days. Please call tomorrow to schedule a follow up appointment. If you cannot follow up with your doctor within 1 week please return to the Emergency Department for any urgent issues. 2) You were given a copy of the tests performed today. Please bring the results with you and review them with your primary care doctor. Your laboratory results were normal here in the ER. 3) If you have any worsening of symptoms or any other concerns please return to the ER immediately. Return if worsening symptoms including fevers, headache, vomiting, visual or hearing disturbances, abdominal pain, chest pain, shortness of breath, syncope, dehydration, inability to take things by mouth/vomiting, altered mental status, or worsening concerning symptoms. 4) Please continue taking your home medications as directed. Side effects may include upset stomach, abdominal pain, vomiting, or diarrhea. Do not drink alcohol with your medications. 1) Por favor, heron un seguimiento con whitney mdico de atencin primaria en los prximos 2-3 araya. Por favor llame maana para programar collette spencer de seguimiento. Si no puede hacer un seguimiento con whitney mdico dentro de 1 semana, por favor regrese al Departamento de Emergencias para cualquier problema urgente. 2) Se le gaurang collette copia de las pruebas realizadas hoy. Por favor, traiga los resultados con usted y revselos con whitney mdico de atencin primaria. Los resultados de whitney laboratorio lisa normales aqu en Urgencias. 3) Si tiene algn empeoramiento de los sntomas o cualquier otra preocupacin, por favor regrese a la urgencia inmediatamente. Regrese si empeora los sntomas christina fiebre, dolor de mena, vmitos, trastornos visuales o auditivos, dolor abdominal, dolor en el pecho, dificultad para respirar, sncope, deshidratacin , incapacidad para ketan cosas por va oral/vmitos, alteracin del estado mental o empeoramiento sntomas. 4) Por favor, contine tomando aurora medicamentos caseros segn las instrucciones. Los efectos secundarios pueden incluir malestar estomacal, dolor abdominal, vmitos o diarrea. No porsha alcohol con aurora medicamentos. Print Language: SETSWANA - Post Discharge Activity
--- NOTE | 2018-12-03 13:08 | PDOC ---
Documentation entered by Darren Weems SCRIBE, acting as scribe for Daniela Torres MD. Daniela Torres MD: This documentation has been prepared by the Dank holden Joel, SCRIBE, under my direction and personally reviewed by me in its entirety. I confirm that the documentation accurately reflects all work, treatment, procedures, and medical decision making performed by me. Attending Attestation - Resident Resident Name: Shun Robles - ED Attending Attestation I have performed the following: I have examined & evaluated the patient, The case was reviewed & discussed with the resident, I agree w/resident's findings & plan - HPI HPI: 12/03/18 13:05 The patient is an 83 year old female with a significant PMH of HTN, DM, hyperlipidemia, and dementia who presents to the emergency department for evaluation of abnormal lab values. The patient states receiving a call 2 weeks ago from her provider stating that she had elevated platelets and possibly anemia. The patient denies chest pain or shortness of breath. The patient denies headache, and dizziness. Denies fevers, chills, nausea, vomiting, diarrhea, and constipation Denies dysuria, urgency, frequency, and hematuria. Allergies: Penicillins Social history: No reported cigarette, alcohol, or drug use. 12/03/18 15:05 - Physicial Exam PE: 12/03/18 13:08 Agree with the resident's HPI and PE as documented in the electronic medical record. NAD, well appearing, EOMI, PERRL, MMM, nl conjunctiva, anicteric; neck supple. lungs clear, RRR, abdomen soft nontender. Back nontender. MAN x4, no focal neuro deficits. No peripheral edema. normal color for ethnicity, WW. - Medical Decision Making 12/03/18 13:08 See HPI for details. Prior notes reviewed, including admissions, discharges and consultations. Vital signs reviewed, wnl. laboratory results and imaging reviewed, basic labs and lytes wnl, unremarkable. no symptoms. likely mildly hemolyzed K value, as not >5.5 Pt to be discharged in stable condition. Patient and family made aware of clinical impression, treatment recommendations and disposition plan, return precautions discussed (including but not limited to new or persistent/worsening symptoms, pain, fevers, or signs of infection, chest pain, respiratory distress , inability to tolerate oral intake, dehydration, syncope, or neurologic changes ). Follow up with PMD as recommended, follow up information provided, take medications as instructed for duration of time. continue with supportive care, avoid triggers and precipitants. All questions answered to patient's satisfaction and expressed understanding and comfort with this. At the time of discharge, the patient is alert, clinically improved, tolerating po and verbalizes understanding of instructions, satisfied with the care received and felt comfortable with the plan. Patient does not suffer from an acute life- threatening medical condition at this time and is safe for outpatient follow- up. 12/03/18 15:05 Heart Score/ECG Review #1 ECG reviewed & interpreted by me at: 13:35 General ECG Interpretation: Sinus Rhythm, Normal Rate, Normal Intervals 12/03/18 13:52 EKG normal sinus rhythm at 83 bpm, no interval abnormalities, narrow QRS, ST and T wave segments and morphology normal.
[2018-12-03 14:19] LABS: BASO % 0.9 % (0-2.0); EOS % 2.2 % (0-4.5); HEMATOCRIT 32.6 % (32.4-45.2); HEMOGLOBIN 11.1 GM/dL (10.7-15.3); LYMPH % 33.2 % (8-40); MCH 30.9 pg (25.7-33.7); MEAN CELL VOLUME 90.9 fl (80-96); MEAN PLT VOLUME 8.9 fl (7.5-11.1); MONO % 7.1 % (3.8-10.2); NEUT % 56.6 % (42.8-82.8); PLATELET COUNT 240 K/MM3 (134-434); RBC 3.58 M/mm3 (3.60-5.2); RDW 13.4 % (11.6-15.6); WHITE BLOOD COUNT 8.8 K/mm3 (4.0-10.0)
[2018-12-03 14:46] LABS: ALBUMIN 3.5 g/dl (3.4-5.0); BILIRUBIN,TOTAL 0.2 mg/dL (0.2-1); BLOOD UREA NITROGEN 58.8 mg/dL (7-18); CALCIUM 9.1 mg/dL (8.5-10.1); CREATININE 1.6 mg/dL (0.55-1.3); POTASSIUM 5.3 mmol/L (3.5-5.1); TOT PROT 7.9 g/dl (6.4-8.2)
--- NOTE | 2018-12-04 10:35 | EKG ---
Test Reason : Blood Pressure : / mmHG Vent. Rate : 083 BPM Atrial Rate : 083 BPM P-R Int : 148 ms QRS Dur : 080 ms QT Int : 412 ms P-R-T Axes : 054 012 072 degrees QTc Int : 484 ms NORMAL SINUS RHYTHM POSSIBLE LEFT ATRIAL ENLARGEMENT BORDERLINE ECG WHEN COMPARED WITH ECG OF 01-OCT-2018 10:12, QT HAS LENGTHENED Confirmed by David Kumar MD ([id number]) on 12/04/2018 10:35:33 AM Referred By: Confirmed By:David Kumar MD
== END 2018-12-03 15:13 | disposition home or self-care (01) ==
LOC: JER 11:35
DX: R79.9 Abnormal finding of blood chemistry, unspecified (principal); I10 Essential (primary) hypertension; E11.9 Type 2 diabetes mellitus without complications; Z79.4 Long term (current) use of insulin; E78.5 Hyperlipidemia, unspecified; E78.00 Pure hypercholesterolemia, unspecified; F03.90 Unspecified dementia, unspecified severity, without behavioral disturbance, psychotic disturbance, mood disturbance, and anxiety
CPT/HCPCS: 36415; 80053; 85025; 93005; 93010; 99282-25

== ENCOUNTER 2020-12-22 16:41 | Inpatient (IN) | payer OTHER ==
[2020-12-22] MEDS ORDERED: SODIUM CHLORIDE 500 ML IV STA ×2 (18:29→19:20)
[2020-12-22 19:41] LABS: BASO % 1.3 % (0-2.0); EOS % 1.1 % (0-4.5); HEMATOCRIT 36.1 % (32.4-45.2); HEMOGLOBIN 12.2 GM/dL (10.7-15.3); LYMPH % 31.2 % (8-40); MCH 30.9 pg (25.7-33.7); MCHC 33.8 g/dl (32.0-36.0); MEAN CELL VOLUME 91.5 fl (80-96); MEAN PLT VOLUME 10.3 fl (7.5-11.1); MONO % 7.4 % (3.8-10.2); PLATELET COUNT 208 10^3/uL (134-434); RBC 3.95 M/mm3 (3.60-5.2); RDW 13.1 % (11.6-15.6); WHITE BLOOD COUNT 8.7 K/mm3 (4.0-10.0)
[2020-12-22 19:45] LABS: INR 1.01 (0.83-1.09); PROTHROMBIN TIME (PATIENT) 12.4 SEC (9.7-13.0)
[2020-12-22 19:48] LABS: ACTIVATED PTT 32.4 SECONDS (25.2-36.5)
[2020-12-22 20:02] LABS: VENOUS BASE EXCESS -5.2 mmol/L (-2-2); VENOUS O2 SATURATION 75.7 % (70-80); VENOUS PCO2 44.5 mmHg (38-52); VENOUS PH 7.295 (7.310-7.410)
[2020-12-22 20:10] LABS: CHLORIDE 96 mmol/L (98-107); SODIUM 127 mmol/L (136-145)
[2020-12-22 20:13] LABS: ALBUMIN 3.1 g/dl (3.4-5.0); ANION GAP 10 MMOL/L (8-16); BLOOD UREA NITROGEN 63.5 mg/dL (7-18); CALCIUM 8.4 mg/dL (8.5-10.1); CO2 20 mmol/L (21-32); LIPASE 157 U/L (73-393)
[2020-12-22 20:14] LABS: MAGNESIUM 2.2 mg/dL (1.8-2.4)
[2020-12-22 20:16] LABS: CREATININE 2.3 mg/dL (0.55-1.3); SGOT/AST 15 U/L (15-37); SGPT/ALT 19 U/L (13-61)
[2020-12-22 20:17] LABS: BILIRUBIN,TOTAL 0.3 mg/dL (0.2-1); TOT PROT 7.3 g/dl (6.4-8.2)
[2020-12-22 20:19] LABS: ALK PHOS 138 U/L (45-117); N-TERMINAL BNP 890.9 pg/ml (5-450)
[2020-12-22 20:28] LABS: GLUCOSE,RANDOM 648 mg/dL (74-106)
[2020-12-22] MEDS ORDERED: INSULIN REGULAR HUMAN 100 UNITS/ML *VIAL IVPUSH ONE (20:28)
[2020-12-23 00:54] LABS: CHLORIDE 107 mmol/L (98-107); SODIUM 134 mmol/L (136-145)
[2020-12-23 00:56] LABS: CALCIUM 8.2 mg/dL (8.5-10.1)
[2020-12-23 00:57] LABS: ANION GAP 9 MMOL/L (8-16); BLOOD UREA NITROGEN 51.5 mg/dL (7-18); CO2 19 mmol/L (21-32)
[2020-12-23 01:26] LABS: VENOUS BASE EXCESS -3.1 mmol/L (-2-2); VENOUS O2 SATURATION 19.4 % (70-80); VENOUS PH 7.273 (7.310-7.410)
[2020-12-23 01:32] LABS: GLUCOSE,RANDOM 409 mg/dL (74-106)
[2020-12-23 01:34] LABS: EPI CELLS 2 /uL (0-25.1); HYALINE CASTS 0 /uL (0-3.1); URINE APPEARANCE CLEAR; URINE BACTERIA 236 /uL (0-1359); URINE BILIRUBIN NEGATIVE (NEGATIVE); URINE COLOR YELLOW; URINE GLUCOSE (UA) 3+ (NEGATIVE); URINE KETONE NEGATIVE (NEGATIVE); URINE LEUK ESTERASE NEGATIVE (NEGATIVE); URINE NITRITE NEGATIVE (NEGATIVE); URINE PROTEIN 3+ (NEGATIVE); URINE RBC 3 /uL (0-23.9); URINE UROBILINOGEN 0.2 mg/dL (0.2-1.0); URINE WBC 13 /uL (0-25.8)
[2020-12-23] MEDS ORDERED: DEXTROSE 50%-WATER - 25 GM/50 ML VIAL IVPUSH PRN (02:16)
[2020-12-23] MEDS ORDERED: INSULIN REGULAR 100 UNITS in SODIUM CHLORIDE 99 ML IVPB SCH (02:30)
[2020-12-23] MEDS ORDERED: ACETAMINOPHEN 325 MG TABLET (FP) PO PRN ×2 (04:13→23:58)
[2020-12-23] MEDS ORDERED: SODIUM CHLORIDE 1,000 ML IV SCH ×2 (04:15→23:58)
[2020-12-23] MEDS ORDERED: HEPARIN NA (PORCINE) 5,000 UNITS/ML 1ML VIAL SQ SCH (04:30)
[2020-12-23 05:45] LABS: BLOOD UREA NITROGEN 49.5 mg/dL (7-18); CALCIUM 8.2 mg/dL (8.5-10.1)
[2020-12-23 05:46] LABS: ALBUMIN 2.8 g/dl (3.4-5.0)
[2020-12-23 05:49] LABS: CREATININE 1.9 mg/dL (0.55-1.3); PHOSPHOROUS 2.8 mg/dL (2.5-4.9)
[2020-12-23 05:50] LABS: BILIRUBIN,TOTAL 0.2 mg/dL (0.2-1); TOT PROT 6.6 g/dl (6.4-8.2)
[2020-12-23 06:18] VITALS: BMI 25.0
[2020-12-23 06:21] LABS: LACTIC ACID 2.1 mmol/L (0.4-2.0)
[2020-12-23 07:06] LABS: ARTERIAL BLD GAS O2 SATURATION 97.6 mmHg (95-98); ARTERIAL BLOOD GAS BASE EXCESS -3.9 mmol/L (-2-2); ARTERIAL BLOOD GAS PO2 102.9 mmHg (80-100); ARTERIAL BLOOD GAS pH 7.362 (7.350-7.450)
[2020-12-23] MEDS: INSULIN (LEVEMIR) 100 UNITS/ML UNITS SQ SCH ×2 (07:59→22:07)
[2020-12-23] MEDS: HEPARIN NA (PORCINE) 5,000 UNITS/ML 1ML VIAL SQ SCH ×3 (08:09→22:09)
[2020-12-23] MEDS ORDERED: PANTOPRAZOLE SODIUM 40 MG VIAL IVPUSH SCH (10:00)
[2020-12-23] MEDS ORDERED: INSULIN (NOVOLOG) ASPART 100 UNITS/ML 10ML VIAL ONE ×3 (11:53→17:36)
[2020-12-23] MEDS: INSULIN SLIDING SCALE (NOVOLOG) 1 VIAL SQ SCH ×3 (11:54→22:09)
[2020-12-23] MEDS ORDERED: amLODIPine BESYLATE 10 MG TABLET (FP) PO SCH (12:15)
[2020-12-23] MEDS: MUPIROCIN 2% TOPICAL OINTMENT FOR DECOLONIZATION NS SCH ×2 (12:31→23:55)
[2020-12-23] MEDS ORDERED: ATORVASTATIN CA 40 MG TABLET (FP) PO SCH (22:00)
[2020-12-23] MEDS ORDERED: CHLORHEXIDINE GLUCONATE 4% CLEANSER FOR DECOLONIZATION TP SCH (22:00)
[2020-12-24] MEDS: HEPARIN NA (PORCINE) 5,000 UNITS/ML 1ML VIAL SQ SCH ×2 (06:42→14:26)
[2020-12-24] MEDS: INSULIN SLIDING SCALE (NOVOLOG) 1 VIAL SQ SCH ×3 (06:44→17:15)
[2020-12-24] MEDS ORDERED: INSULIN (LEVEMIR) 100 UNITS/ML UNITS SQ SCH ×2 (07:00→22:08)
[2020-12-24 08:01] LABS: HEMATOCRIT 33.1 % (32.4-45.2); HEMOGLOBIN 11.4 GM/dL (10.7-15.3); MCH 31.1 pg (25.7-33.7); MCHC 34.4 g/dl (32.0-36.0); MEAN CELL VOLUME 90.5 fl (80-96); MEAN PLT VOLUME 9.9 fl (7.5-11.1); PLATELET COUNT 198 10^3/uL (134-434); RBC 3.66 M/mm3 (3.60-5.2); RDW 13.3 % (11.6-15.6); WHITE BLOOD COUNT 8.7 K/mm3 (4.0-10.0)
[2020-12-24] MEDS ORDERED: PANTOPRAZOLE SODIUM 40 MG VIAL IVPUSH SCH (10:00)
[2020-12-24] MEDS ORDERED: amLODIPine BESYLATE 10 MG TABLET (FP) PO SCH (10:00)
[2020-12-24] MEDS ORDERED: ASPIRIN 81 MG CHEWABLE TABLETS PO SCH (10:00)
[2020-12-24 10:08] LABS: ALBUMIN 2.6 g/dl (3.4-5.0); BILIRUBIN,TOTAL 0.3 mg/dL (0.2-1); BLOOD UREA NITROGEN 43.3 mg/dL (7-18); CALCIUM 8.2 mg/dL (8.5-10.1); CREATININE 1.6 mg/dL (0.55-1.3); PHOSPHOROUS 3.1 mg/dL (2.5-4.9)
[2020-12-24 15:35] VITALS: BP 139/61; PULSE 74; TEMP 98.1
== END 2020-12-25 08:40 | disposition home or self-care (01) | DRG 638 ==
LOC: JER 16:41 → JERBED 19:39 → JICU 12-23 05:07 → J8W 12-23 20:44
PROVIDERS: ADMIT Internal Medicine Pulmonary Disease; ATTEND Internal Medicine
DX: E11.00 Type 2 diabetes mellitus with hyperosmolarity without nonketotic hyperglycemic-hyperosmolar coma (NKHHC) (principal); N17.9 Acute kidney failure, unspecified; E87.2 Acidosis; N13.30 Unspecified hydronephrosis; I13.0 Hypertensive heart and chronic kidney disease with heart failure and stage 1 through stage 4 chronic kidney disease, or unspecified chronic kidney disease; I50.32 Chronic diastolic (congestive) heart failure; E87.1 Hypo-osmolality and hyponatremia; E78.5 Hyperlipidemia, unspecified; K52.9 Noninfective gastroenteritis and colitis, unspecified; R11.2 Nausea with vomiting, unspecified; E11.65 Type 2 diabetes mellitus with hyperglycemia; R10.9 Unspecified abdominal pain; E11.22 Type 2 diabetes mellitus with diabetic chronic kidney disease; N18.9 Chronic kidney disease, unspecified; K76.0 Fatty (change of) liver, not elsewhere classified; K21.9 Gastro-esophageal reflux disease without esophagitis; F03.90 Unspecified dementia, unspecified severity, without behavioral disturbance, psychotic disturbance, mood disturbance, and anxiety; M81.0 Age-related osteoporosis without current pathological fracture
CPT/HCPCS: 36415; 36600; 70450-TC; 71045-TC-FY; 71250-TC; 74176-TC; 76775-TC; 80048; 80053; 81003; 82010; 82550; 82803; 82962; 83036; 83605; 83690; 83735; 83880; 84100; 84484; 85025; 85027; 85610; 85730; 86850; 86900; 86901; 93005; 93010; 97116-GP; 97161-GP; 99285-25; C9803; J1644; U0003; U0005

== ENCOUNTER 2021-04-02 11:02 | Emergency (ER) | payer OTHER ==
[2021-04-02 11:18] VITALS: TEMP 98; BMI 17.2
[2021-04-02] MEDS ORDERED: SODIUM CHLORIDE 0.9% 500 ML INFUS.BAG IV ONE (12:37)
[2021-04-02 13:48] LABS: VENOUS BASE EXCESS -0.7 mmol/L (-2-2); VENOUS O2 SATURATION 59.1 % (70-80); VENOUS PCO2 44.8 mmHg (38-52); VENOUS PH 7.363 (7.310-7.410)
[2021-04-02 13:52] LABS: BASO % 0.3 % (0-2.0); EOS % 2.4 % (0-4.5); HEMATOCRIT 35.7 % (32.4-45.2); HEMOGLOBIN 12.1 GM/dL (10.7-15.3); LYMPH % 31.7 % (8-40); MCH 31.2 pg (25.7-33.7); MEAN CELL VOLUME 91.7 fl (80-96); MONO % 5.9 % (3.8-10.2); NEUT % 59.7 % (42.8-82.8); PLATELET COUNT 216 10^3/uL (134-434); RBC 3.89 M/mm3 (3.60-5.2); RDW 12.9 % (11.6-15.6); WHITE BLOOD COUNT 8.2 K/mm3 (4.0-10.0)
[2021-04-02 14:23] LABS: BLOOD UREA NITROGEN 54.6 mg/dL (7-18); CALCIUM 8.8 mg/dL (8.5-10.1)
[2021-04-02 14:24] LABS: ALBUMIN 2.8 g/dl (3.4-5.0); MAGNESIUM 1.9 mg/dL (1.8-2.4)
[2021-04-02 14:27] LABS: CREATININE 2.1 mg/dL (0.55-1.3); PHOSPHOROUS 3.9 mg/dL (2.5-4.9)
[2021-04-02 14:28] LABS: BILIRUBIN,TOTAL 0.5 mg/dL (0.2-1); TOT PROT 7.5 g/dl (6.4-8.2)
[2021-04-02] MEDS ORDERED: INSULIN REGULAR HUMAN 100 UNITS/ML *VIAL IVPUSH ONE (14:45)
[2021-04-02] MEDS ORDERED: SODIUM ZIRCONIUM CYCLOSILICATE (LOKELMA) 5 GM PACKET PO SCH (15:45)
[2021-04-02 15:51] LABS: EPI CELLS 2 /uL (0-25.1); HYALINE CASTS 0 /uL (0-3.1); URINE APPEARANCE CLEAR; URINE BACTERIA >9,000 /uL (0-1359); URINE BILIRUBIN NEGATIVE (NEGATIVE); URINE COLOR YELLOW; URINE GLUCOSE (UA) TRACE (NEGATIVE); URINE KETONE NEGATIVE (NEGATIVE); URINE LEUK ESTERASE 2+ (NEGATIVE); URINE NITRITE POSITIVE (NEGATIVE); URINE PROTEIN 2+ (NEGATIVE); URINE RBC 6 /uL (0-23.9); URINE UROBILINOGEN 0.2 mg/dL (0.2-1.0); URINE WBC 257 /uL (0-25.8)
[2021-04-02] MEDS ORDERED: SODIUM ZIRCONIUM CYCLOSILICATE (LOKELMA) 5 GM PACKET ONE (15:54)
[2021-04-02] MEDS ORDERED: SULFAMETHOXAZOLE/TRIMETHOPRIM 800MG/160MG D.S. TABLET PO ONE (18:07)
[2021-04-02] MEDS ORDERED: SULFAMETHOXAZOLE/TRIMETHOPRIM 800MG/160MG D.S. TABLET ONE ×2 (18:27→18:32)
[2021-04-02 18:48] VITALS: BP 152/64; PULSE 80
== END 2021-04-02 18:50 | disposition home or self-care (01) ==
LOC: JER 11:02
PROC: 3E013VG Introduction of Insulin into Subcutaneous Tissue, Percutaneous Approach (ICD-10-PCS; principal; 2021-04-02)
DX: N39.0 Urinary tract infection, site not specified (principal)
CPT/HCPCS: 36415; 71046-TC-FY; 76775-TC; 80053; 81003; 82010; 82803; 82962; 83735; 84100; 85025; 87086; 87186; 93005; 93010; 96374; 99285-25; C9803; U0003; U0005

== ENCOUNTER 2021-04-07 10:30 | Inpatient (IN) | payer OTHER ==
[2021-04-07 10:51] VITALS: BMI 27.1
[2021-04-07] MEDS ORDERED: MEROPENEM 1 GM in DEXTROSE 5%-WATER 100 ML IVPB ONE (11:52)
[2021-04-07] MEDS ORDERED: MEROPENEM 1 GM VIAL (RESTRICTED TO ID) IVPB ONE (12:49)
[2021-04-07 13:26] LABS: EOS % 1.9 % (0-4.5); HEMATOCRIT 37.1 % (32.4-45.2); HEMOGLOBIN 12.6 GM/dL (10.7-15.3); LYMPH % 29.4 % (8-40); MCH 31.6 pg (25.7-33.7); MEAN CELL VOLUME 92.8 fl (80-96); MEAN PLT VOLUME 9.9 fl (7.5-11.1); MONO % 6.1 % (3.8-10.2); NEUT % 61.6 % (42.8-82.8); PLATELET COUNT 247 10^3/uL (134-434); RBC 3.99 M/mm3 (3.60-5.2); RDW 12.7 % (11.6-15.6); WHITE BLOOD COUNT 9.6 K/mm3 (4.0-10.0)
[2021-04-07 13:56] LABS: CALCIUM 9.1 mg/dL (8.5-10.1)
[2021-04-07 13:57] LABS: ALBUMIN 3.1 g/dl (3.4-5.0); BLOOD UREA NITROGEN 40.1 mg/dL (7-18)
[2021-04-07 14:02] LABS: BILIRUBIN,TOTAL 0.3 mg/dL (0.2-1); TOT PROT 8.3 g/dl (6.4-8.2)
[2021-04-07 14:20] LABS: EPI CELLS 16 /uL (0-25.1); HYALINE CASTS 1 /uL (0-3.1); PH,URINE 5.5 (5.0-8.0); URINE APPEARANCE CLEAR; URINE BACTERIA 12 /uL (0-1359); URINE BILIRUBIN NEGATIVE (NEGATIVE); URINE COLOR YELLOW; URINE GLUCOSE (UA) TRACE (NEGATIVE); URINE KETONE NEGATIVE (NEGATIVE); URINE LEUK ESTERASE 1+ (NEGATIVE); URINE NITRITE NEGATIVE (NEGATIVE); URINE PROTEIN 3+ (NEGATIVE); URINE RBC 13 /uL (0-23.9); URINE UROBILINOGEN 0.2 mg/dL (0.2-1.0); URINE WBC 52 /uL (0-25.8)
[2021-04-07 16:47] LABS: CHLORIDE 106 mmol/L (98-107); SODIUM 138 mmol/L (136-145)
[2021-04-07 16:50] LABS: CALCIUM 8.7 mg/dL (8.5-10.1)
[2021-04-07 16:51] LABS: ALBUMIN 3.1 g/dl (3.4-5.0); ANION GAP 5 MMOL/L (8-16); BLOOD UREA NITROGEN 41.2 mg/dL (7-18); CO2 27 mmol/L (21-32)
[2021-04-07 16:54] LABS: CREATININE 2.2 mg/dL (0.55-1.3); SGOT/AST 21 U/L (15-37); SGPT/ALT 24 U/L (13-61)
[2021-04-07 16:56] LABS: BILIRUBIN,TOTAL 0.3 mg/dL (0.2-1); TOT PROT 7.8 g/dl (6.4-8.2)
[2021-04-07 16:57] LABS: ALK PHOS 142 U/L (45-117)
[2021-04-07 17:11] LABS: GLUCOSE,RANDOM 454 mg/dL (74-106)
[2021-04-07] MEDS: INSULIN SLIDING SCALE (NOVOLOG) 1 VIAL SQ SCH (19:54)
[2021-04-07] MEDS ORDERED: ATORVASTATIN CA 40 MG TABLET (FP) ONE (21:04)
[2021-04-07] MEDS ORDERED: HEPARIN NA (PORCINE) 5,000 UNITS/ML 1ML VIAL ONE (21:04)
[2021-04-07] MEDS: INSULIN (LEVEMIR) 100 UNITS/ML UNITS SQ SCH (21:41)
[2021-04-07] MEDS: HEPARIN NA (PORCINE) 5,000 UNITS/ML 1ML VIAL SQ SCH (21:41)
[2021-04-07] MEDS: ATORVASTATIN CA 40 MG TABLET (FP) PO SCH (21:42)
[2021-04-07] MEDS ORDERED: SODIUM BICARBONATE 8.4% - 50 ML ONE (21:48)
[2021-04-08] MEDS ORDERED: MEROPENEM 1 GM VIAL (RESTRICTED TO ID) IVPB ONE ×2 (01:08→13:17)
[2021-04-08] MEDS: MEROPENEM 1 GM in DEXTROSE 5%-WATER 100 ML IVPB SCH ×2 (01:35→13:32)
[2021-04-08] MEDS ORDERED: HEPARIN NA (PORCINE) 5,000 UNITS/ML 1ML VIAL ONE ×3 (06:13→23:57)
[2021-04-08] MEDS: HEPARIN NA (PORCINE) 5,000 UNITS/ML 1ML VIAL SQ SCH ×2 (06:38→13:32)
[2021-04-08] MEDS: INSULIN (LEVEMIR) 100 UNITS/ML UNITS SQ SCH (06:39)
[2021-04-08] MEDS: INSULIN SLIDING SCALE (NOVOLOG) 1 VIAL SQ SCH ×3 (06:39→17:07)
[2021-04-08 06:46] LABS: BASO % 0.8 % (0-2.0); EOS % 3.3 % (0-4.5); HEMATOCRIT 32.3 % (32.4-45.2); HEMOGLOBIN 10.9 GM/dL (10.7-15.3); LYMPH % 30.1 % (8-40); MCH 31.8 pg (25.7-33.7); MCHC 33.8 g/dl (32.0-36.0); MEAN CELL VOLUME 93.9 fl (80-96); MEAN PLT VOLUME 9.9 fl (7.5-11.1); NEUT % 57.8 % (42.8-82.8); PLATELET COUNT 220 10^3/uL (134-434); RBC 3.44 M/mm3 (3.60-5.2); RDW 12.5 % (11.6-15.6); WHITE BLOOD COUNT 8.8 K/mm3 (4.0-10.0)
[2021-04-08 07:07] LABS: ALBUMIN 2.6 g/dl (3.4-5.0); CALCIUM 8.6 mg/dL (8.5-10.1)
[2021-04-08 07:08] LABS: BLOOD UREA NITROGEN 41.8 mg/dL (7-18); MAGNESIUM 2.2 mg/dL (1.8-2.4)
[2021-04-08 07:12] LABS: BILIRUBIN,TOTAL 0.2 mg/dL (0.2-1); TOT PROT 6.9 g/dl (6.4-8.2)
[2021-04-08] MEDS ORDERED: SODIUM CHLORIDE 1,000 ML IV SCH (08:00)
[2021-04-08] MEDS ORDERED: ASPIRIN COATED 81 MG TABLET.EC ONE (09:21)
[2021-04-08] MEDS ORDERED: amLODIPine BESYLATE 5 MG TABLET (FP) ONE (09:21)
[2021-04-08] MEDS: ASPIRIN COATED 81 MG TABLET.EC PO SCH (09:25)
[2021-04-08] MEDS: amLODIPine BESYLATE 10 MG TABLET (FP) PO SCH (09:25)
[2021-04-08] MEDS ORDERED: SODIUM CHLORIDE 0.45% 1,000 ML IV SCH (16:30)
[2021-04-08] MEDS ORDERED: ATORVASTATIN CA 40 MG TABLET (FP) ONE (23:56)
[2021-04-08] MEDS ORDERED: INSULIN (LEVEMIR) 100 UNITS/ML UNITS SQ ONE (23:57)
[2021-04-09] MEDS: ATORVASTATIN CA 40 MG TABLET (FP) PO SCH ×2 (00:09→21:48)
[2021-04-09] MEDS: HEPARIN NA (PORCINE) 5,000 UNITS/ML 1ML VIAL SQ SCH ×4 (00:09→21:48)
[2021-04-09] MEDS: INSULIN (LEVEMIR) 100 UNITS/ML UNITS SQ SCH ×4 (00:09→21:54)
[2021-04-09] MEDS: INSULIN SLIDING SCALE (NOVOLOG) 1 VIAL SQ SCH ×3 (06:36→16:55)
[2021-04-09] MEDS ORDERED: DEXTROSE 50%-WATER 25 GM/50 ML DISP.SYRIN IVPUSH PRN (06:53)
[2021-04-09] MEDS ORDERED: TAMSULOSIN HCL 0.4 MG CAP PO SCH (08:30)
[2021-04-09 08:39] LABS: BASO % 0.7 % (0-2.0); EOS % 3.4 % (0-4.5); HEMATOCRIT 33.7 % (32.4-45.2); HEMOGLOBIN 11.5 GM/dL (10.7-15.3); LYMPH % 34.8 % (8-40); MCH 31.9 pg (25.7-33.7); MCHC 34.3 g/dl (32.0-36.0); MEAN PLT VOLUME 10.6 fl (7.5-11.1); MONO % 5.6 % (3.8-10.2); NEUT % 55.5 % (42.8-82.8); PLATELET COUNT 194 10^3/uL (134-434); RBC 3.62 M/mm3 (3.60-5.2); RDW 12.9 % (11.6-15.6); WHITE BLOOD COUNT 6.4 K/mm3 (4.0-10.0)
[2021-04-09 09:13] LABS: MAGNESIUM 1.5 mg/dL (1.8-2.4)
[2021-04-09 09:14] LABS: ALBUMIN 2.5 g/dl (3.4-5.0); CALCIUM 8.8 mg/dL (8.5-10.1)
[2021-04-09 09:15] LABS: BLOOD UREA NITROGEN 38.5 mg/dL (7-18)
[2021-04-09 09:16] LABS: CREATININE 1.8 mg/dL (0.55-1.3)
[2021-04-09 09:18] LABS: BILIRUBIN,TOTAL 0.3 mg/dL (0.2-1); TOT PROT 6.8 g/dl (6.4-8.2)
[2021-04-09] MEDS ORDERED: ERTAPENEM SODIUM 0.5 GM in SODIUM CHLORIDE 50 ML IVPB SCH (10:00)
[2021-04-09] MEDS ORDERED: INSULIN (LEVEMIR) 100 UNITS/ML UNITS SQ SCH (10:00)
[2021-04-09] MEDS ORDERED: PT OWN MED DRAWER 7, Y5N ONE (10:25)
[2021-04-09] MEDS: ASPIRIN COATED 81 MG TABLET.EC PO SCH (10:28)
[2021-04-09] MEDS: TAMSULOSIN HCL 0.4 MG CAP PO SCH (10:28)
[2021-04-09] MEDS: amLODIPine BESYLATE 10 MG TABLET (FP) PO SCH (10:29)
[2021-04-09] MEDS: ERTAPENEM SODIUM 0.5 GM in SODIUM CHLORIDE 50 ML IVPB SCH (10:32)
[2021-04-09] MEDS ORDERED: MAGNESIUM 1GM/D5W 100ML - 100 ML IVPB IVPB ONE (14:17)
[2021-04-09] MEDS ORDERED: INSULIN (NOVOLOG) ASPART 100 UNITS/ML 10ML VIAL ONE (17:37)
[2021-04-10] MEDS: HEPARIN NA (PORCINE) 5,000 UNITS/ML 1ML VIAL SQ SCH ×3 (05:55→21:02)
[2021-04-10] MEDS: INSULIN SLIDING SCALE (NOVOLOG) 1 VIAL SQ SCH ×3 (06:01→17:34)
[2021-04-10] MEDS: INSULIN (LEVEMIR) 100 UNITS/ML UNITS SQ SCH ×2 (06:01→21:01)
[2021-04-10] MEDS ORDERED: INSULIN (LEVEMIR) 100 UNITS/ML UNITS SQ SCH (09:46)
[2021-04-10] MEDS: ASPIRIN COATED 81 MG TABLET.EC PO SCH (10:03)
[2021-04-10] MEDS: amLODIPine BESYLATE 10 MG TABLET (FP) PO SCH (10:03)
[2021-04-10] MEDS: TAMSULOSIN HCL 0.4 MG CAP PO SCH (10:03)
[2021-04-10] MEDS: ERTAPENEM SODIUM 0.5 GM in SODIUM CHLORIDE 50 ML IVPB SCH (10:09)
[2021-04-10 11:19] LABS: BASO % 0.5 % (0-2.0); EOS % 2.6 % (0-4.5); HEMATOCRIT 31.5 % (32.4-45.2); HEMOGLOBIN 10.7 GM/dL (10.7-15.3); LYMPH % 26.2 % (8-40); MCH 31.1 pg (25.7-33.7); MCHC 33.9 g/dl (32.0-36.0); MEAN CELL VOLUME 91.7 fl (80-96); MEAN PLT VOLUME 10.2 fl (7.5-11.1); MONO % 6.2 % (3.8-10.2); NEUT % 64.5 % (42.8-82.8); PLATELET COUNT 189 10^3/uL (134-434); RBC 3.43 M/mm3 (3.60-5.2); RDW 12.8 % (11.6-15.6); WHITE BLOOD COUNT 8.1 K/mm3 (4.0-10.0)
[2021-04-10 11:38] LABS: BLOOD UREA NITROGEN 33.9 mg/dL (7-18); CALCIUM 8.7 mg/dL (8.5-10.1); MAGNESIUM 2.2 mg/dL (1.8-2.4)
[2021-04-10 11:39] LABS: ALBUMIN 2.5 g/dl (3.4-5.0)
[2021-04-10 11:42] LABS: CREATININE 1.7 mg/dL (0.55-1.3)
[2021-04-10 11:43] LABS: BILIRUBIN,TOTAL 0.3 mg/dL (0.2-1); TOT PROT 6.6 g/dl (6.4-8.2)
[2021-04-10] MEDS: ATORVASTATIN CA 40 MG TABLET (FP) PO SCH (21:02)
[2021-04-11] MEDS: HEPARIN NA (PORCINE) 5,000 UNITS/ML 1ML VIAL SQ SCH ×3 (05:23→21:22)
[2021-04-11] MEDS: INSULIN (LEVEMIR) 100 UNITS/ML UNITS SQ SCH ×2 (06:23→21:22)
[2021-04-11] MEDS: INSULIN SLIDING SCALE (NOVOLOG) 1 VIAL SQ SCH ×3 (06:24→17:03)
[2021-04-11] MEDS: ASPIRIN COATED 81 MG TABLET.EC PO SCH (09:59)
[2021-04-11] MEDS: ERTAPENEM SODIUM 0.5 GM in SODIUM CHLORIDE 50 ML IVPB SCH ×3 (09:59→18:45)
[2021-04-11] MEDS: TAMSULOSIN HCL 0.4 MG CAP PO SCH (09:59)
[2021-04-11] MEDS: amLODIPine BESYLATE 10 MG TABLET (FP) PO SCH (09:59)
[2021-04-11 10:54] LABS: CALCIUM 9.1 mg/dL (8.5-10.1)
[2021-04-11 10:55] LABS: BLOOD UREA NITROGEN 31.5 mg/dL (7-18)
[2021-04-11 10:58] LABS: CREATININE 1.7 mg/dL (0.55-1.3)
[2021-04-11] MEDS: ATORVASTATIN CA 40 MG TABLET (FP) PO SCH (21:22)
[2021-04-12] MEDS: HEPARIN NA (PORCINE) 5,000 UNITS/ML 1ML VIAL SQ SCH ×2 (06:27→14:04)
[2021-04-12] MEDS: INSULIN SLIDING SCALE (NOVOLOG) 1 VIAL SQ SCH ×2 (06:27→12:40)
[2021-04-12] MEDS: INSULIN (LEVEMIR) 100 UNITS/ML UNITS SQ SCH (06:27)
[2021-04-12 09:28] LABS: BASO % 0.9 % (0-2.0); HEMOGLOBIN 10.8 GM/dL (10.7-15.3); LYMPH % 31.2 % (8-40); MCH 31.4 pg (25.7-33.7); MCHC 33.6 g/dl (32.0-36.0); MEAN CELL VOLUME 93.2 fl (80-96); MEAN PLT VOLUME 10.3 fl (7.5-11.1); MONO % 6.3 % (3.8-10.2); NEUT % 58.6 % (42.8-82.8); PLATELET COUNT 202 10^3/uL (134-434); RBC 3.43 M/mm3 (3.60-5.2); RDW 12.7 % (11.6-15.6); WHITE BLOOD COUNT 8.7 K/mm3 (4.0-10.0)
[2021-04-12] MEDS: ERTAPENEM SODIUM 0.5 GM in SODIUM CHLORIDE 50 ML IVPB SCH (10:00)
[2021-04-12] MEDS: amLODIPine BESYLATE 10 MG TABLET (FP) PO SCH (10:00)
[2021-04-12] MEDS: ASPIRIN COATED 81 MG TABLET.EC PO SCH (10:00)
[2021-04-12] MEDS: TAMSULOSIN HCL 0.4 MG CAP PO SCH (10:00)
[2021-04-12 10:01] LABS: CALCIUM 8.7 mg/dL (8.5-10.1)
[2021-04-12 10:02] LABS: BLOOD UREA NITROGEN 32.5 mg/dL (7-18)
[2021-04-12 10:05] LABS: CREATININE 1.6 mg/dL (0.55-1.3); PHOSPHOROUS 3.7 mg/dL (2.5-4.9)
[2021-04-12 12:01] LABS: MAGNESIUM 2.4 mg/dL (1.8-2.4)
[2021-04-12] MEDS ORDERED: INSULIN (NOVOLOG) ASPART 100 UNITS/ML 10ML VIAL ONE (12:35)
[2021-04-12 16:20] VITALS: BP 138/77; PULSE 86; TEMP 98.1
== END 2021-04-12 17:57 | disposition home or self-care (01) | DRG 690 ==
LOC: JER 10:30 → JERBED 11:48 → J8W 04-09 02:59
PROVIDERS: ADMIT Internal Medicine; ATTEND Internal Medicine
DX: N13.6 Pyonephrosis (principal); Z16.12 Extended spectrum beta lactamase (ESBL) resistance; N17.9 Acute kidney failure, unspecified; N18.9 Chronic kidney disease, unspecified; E78.5 Hyperlipidemia, unspecified; R33.9 Retention of urine, unspecified; B96.20 Unspecified Escherichia coli [E. coli] as the cause of diseases classified elsewhere; K76.0 Fatty (change of) liver, not elsewhere classified
CPT/HCPCS: 36415; 76775-TC; 80048; 80053; 81003; 82962; 83735; 84100; 85025; 85730; 87040; 87086; 99285-25; C9803; J1644; U0003; U0005

== ENCOUNTER 2021-04-13 13:19 | Day surgery (SDC) | payer OTHER ==
[2021-04-13] MEDS ORDERED: ERTAPENEM SODIUM 0.5 GM in SODIUM CHLORIDE 50 ML IVPB ONE (13:45)
[2021-04-13 15:03] VITALS: BP 144/68; PULSE 84; TEMP 98.1
== END 2021-04-13 16:45 | disposition home or self-care (01) ==
LOC: JINFUSION 13:19 → J7W 13:24 → JINFUSION 16:45
PROVIDERS: ATTEND Internal Medicine Infectious Disease
DX: N13.6 Pyonephrosis (principal); B96.20 Unspecified Escherichia coli [E. coli] as the cause of diseases classified elsewhere
CPT/HCPCS: 96365

== ENCOUNTER 2021-04-15 11:05 | Day surgery (SDC) | payer OTHER ==
[2021-04-15] MEDS ORDERED: ERTAPENEM SODIUM 0.5 GM in SODIUM CHLORIDE 50 ML IVPB ONE (11:15)
[2021-04-15 12:35] VITALS: BP 142/58; PULSE 91; TEMP 99
== END 2021-04-15 18:28 | disposition home or self-care (01) ==
LOC: JINFUSION 11:05 → J7W 11:05 → JINFUSION 18:28
PROVIDERS: ATTEND Internal Medicine Infectious Disease
DX: N39.0 Urinary tract infection, site not specified (principal); N13.6 Pyonephrosis; B96.20 Unspecified Escherichia coli [E. coli] as the cause of diseases classified elsewhere
CPT/HCPCS: 96365

== ENCOUNTER 2022-01-10 13:16 | Inpatient (IN) | payer OTHER ==
[2022-01-10] MEDS ORDERED: SODIUM CHLORIDE 500 ML IV STA ×2 (14:19→17:35)
[2022-01-10 16:47] LABS: BASO % 0.7 % (0-2.0); EOS % 2.1 % (0-4.5); HEMATOCRIT 36.6 % (32.4-45.2); HEMOGLOBIN 12.5 GM/dL (10.7-15.3); LYMPH % 26.4 % (8-40); MCHC 34.1 g/dl (32.0-36.0); MEAN CELL VOLUME 90.9 fl (80-96); MEAN PLT VOLUME 10.2 fl (7.5-11.1); MONO % 7.6 % (3.8-10.2); NEUT % 63.2 % (42.8-82.8); PLATELET COUNT 226 10^3/uL (134-434); RBC 4.02 M/mm3 (3.60-5.2); RDW 12.5 % (11.6-15.6); WHITE BLOOD COUNT 9.5 K/mm3 (4.0-10.0)
[2022-01-10 17:14] LABS: CHLORIDE 99 mmol/L (98-107); SODIUM 136 mmol/L (136-145)
[2022-01-10 17:16] LABS: ALBUMIN 3.2 g/dl (3.4-5.0); ANION GAP 8 MMOL/L (8-16); BLOOD UREA NITROGEN 57.8 mg/dL (7-18); CALCIUM 9.1 mg/dL (8.5-10.1); CO2 29 mmol/L (21-32); GLUCOSE,RANDOM 219 mg/dL (74-106)
[2022-01-10 17:19] LABS: SGPT/ALT 21 U/L (13-61)
[2022-01-10 17:20] LABS: CREATININE 2.3 mg/dL (0.55-1.3); SGOT/AST 28 U/L (15-37)
[2022-01-10 17:21] LABS: BILIRUBIN,TOTAL 0.4 mg/dL (0.2-1); TOT PROT 7.9 g/dl (6.4-8.2)
[2022-01-10 17:22] LABS: ALK PHOS 152 U/L (45-117)
[2022-01-10 17:48] LABS: EPI CELLS 3 /uL (0-25.1); HYALINE CASTS 1 /uL (0-3.1); PH,URINE 5.5 (5.0-8.0); URINE APPEARANCE CLEAR; URINE BACTERIA 6051 /uL (0-1359); URINE BILIRUBIN NEGATIVE (NEGATIVE); URINE COLOR YELLOW; URINE GLUCOSE (UA) TRACE (NEGATIVE); URINE KETONE NEGATIVE (NEGATIVE); URINE LEUK ESTERASE 1+ (NEGATIVE); URINE NITRITE NEGATIVE (NEGATIVE); URINE PROTEIN 3+ (NEGATIVE); URINE RBC 14 /uL (0-23.9); URINE WBC 128 /uL (0-25.8)
[2022-01-10] MEDS ORDERED: ERTAPENEM SODIUM 0.5 GM in SODIUM CHLORIDE 50 ML IVPB ONE (18:02)
[2022-01-10 20:46] LABS: CALCIUM 8.2 mg/dL (8.5-10.1)
[2022-01-10 20:47] LABS: BLOOD UREA NITROGEN 57.4 mg/dL (7-18)
[2022-01-10 20:49] LABS: CREATININE 2.2 mg/dL (0.55-1.3)
[2022-01-10] MEDS ORDERED: amLODIPine BESYLATE 10 MG TABLET (FP) PO STA (21:01)
[2022-01-10] MEDS ORDERED: ERTAPENEM SODIUM 1 GM VIAL ONE (21:13)
[2022-01-10] MEDS ORDERED: HEPARIN NA (PORCINE) 5,000 UNITS/ML 1ML VIAL ONE (21:20)
[2022-01-10] MEDS: HEPARIN NA (PORCINE) 5,000 UNITS/ML 1ML VIAL SQ SCH (21:44)
[2022-01-10] MEDS ORDERED: amLODIPine BESYLATE 10 MG TABLET (FP) ONE (21:50)
[2022-01-10] MEDS: INSULIN SLIDING SCALE (NOVOLOG) 1 VIAL SQ SCH (21:53)
[2022-01-10 23:50] VITALS: BMI 24.6
[2022-01-11] MEDS: HEPARIN NA (PORCINE) 5,000 UNITS/ML 1ML VIAL SQ SCH ×3 (06:17→21:26)
[2022-01-11] MEDS: INSULIN SLIDING SCALE (NOVOLOG) 1 VIAL SQ SCH ×4 (06:17→21:26)
[2022-01-11 07:13] LABS: HEMOGLOBIN 11.1 GM/dL (10.7-15.3); MCH 30.7 pg (25.7-33.7); MCHC 33.7 g/dl (32.0-36.0); MEAN PLT VOLUME 10.1 fl (7.5-11.1); PLATELET COUNT 206 10^3/uL (134-434); RBC 3.63 M/mm3 (3.60-5.2); RDW 12.7 % (11.6-15.6); WHITE BLOOD COUNT 7.8 K/mm3 (4.0-10.0)
[2022-01-11 07:34] LABS: ALBUMIN 2.6 g/dl (3.4-5.0); BLOOD UREA NITROGEN 52.2 mg/dL (7-18); CALCIUM 8.3 mg/dL (8.5-10.1); MAGNESIUM 2.1 mg/dL (1.8-2.4)
[2022-01-11 07:37] LABS: CREATININE 1.8 mg/dL (0.55-1.3); PHOSPHOROUS 3.8 mg/dL (2.5-4.9)
[2022-01-11 07:38] LABS: CHOLESTEROL 151 mg/dL (50-200); TRIGLYCERIDES 211 mg/dL (0-150)
[2022-01-11 07:39] LABS: LDL CHOLESTEROL (ONLY SJRH) 94 mg/dL (5-100)
[2022-01-11 07:41] LABS: BILIRUBIN,TOTAL 0.3 mg/dL (0.2-1); HDL CHOLESTEROL 33 mg/dL (40-60); TOT PROT 6.3 g/dl (6.4-8.2)
[2022-01-11] MEDS ORDERED: ERTAPENEM SODIUM 1 GM in SODIUM CHLORIDE 50 ML IVPB SCH (10:00)
[2022-01-11] MEDS ORDERED: CARVEDILOL 12.5 MG TABLET (FP) PO SCH (10:00)
[2022-01-11] MEDS: ERTAPENEM SODIUM 0.5 GM in SODIUM CHLORIDE 50 ML IVPB SCH (10:44)
[2022-01-11] MEDS: amLODIPine BESYLATE 10 MG TABLET (FP) PO SCH (10:44)
[2022-01-11] MEDS: INSULIN (NOVOLOG) ASPART 100 UNITS/ML 10ML VIAL SQ SCH (16:30)
[2022-01-11] MEDS: CARVEDILOL 12.5 MG TABLET (FP) PO SCH (21:25)
[2022-01-11] MEDS: ATORVASTATIN CA 40 MG TABLET (FP) PO SCH (21:25)
[2022-01-11] MEDS ORDERED: INSULIN (LEVEMIR) 100 UNITS/ML UNITS SQ SCH (22:00)
[2022-01-12] MEDS: HEPARIN NA (PORCINE) 5,000 UNITS/ML 1ML VIAL SQ SCH ×3 (06:28→21:01)
[2022-01-12] MEDS: INSULIN (NOVOLOG) ASPART 100 UNITS/ML 10ML VIAL SQ SCH ×4 (06:34→16:38)
[2022-01-12] MEDS: INSULIN SLIDING SCALE (NOVOLOG) 1 VIAL SQ SCH ×4 (06:35→21:02)
[2022-01-12] MEDS ORDERED: INSULIN (LEVEMIR) 100 UNITS/ML UNITS SQ SCH (07:00)
[2022-01-12] MEDS ORDERED: INSULIN (LEVEMIR) 100 UNITS/ML UNITS SQ ONE (07:32)
[2022-01-12 08:10] LABS: BASO % 0.8 % (0-2.0); EOS % 3.1 % (0-4.5); HEMATOCRIT 31.6 % (32.4-45.2); HEMOGLOBIN 10.7 GM/dL (10.7-15.3); LYMPH % 31.5 % (8-40); MCH 30.7 pg (25.7-33.7); MCHC 33.7 g/dl (32.0-36.0); MEAN CELL VOLUME 91.1 fl (80-96); MEAN PLT VOLUME 9.9 fl (7.5-11.1); MONO % 7.4 % (3.8-10.2); NEUT % 57.2 % (42.8-82.8); PLATELET COUNT 188 10^3/uL (134-434); RBC 3.47 M/mm3 (3.60-5.2); WHITE BLOOD COUNT 6.4 K/mm3 (4.0-10.0)
[2022-01-12 09:31] LABS: ALBUMIN 2.6 g/dl (3.4-5.0); BILIRUBIN,TOTAL 0.2 mg/dL (0.2-1); BLOOD UREA NITROGEN 39.2 mg/dL (7-18); CALCIUM 8.5 mg/dL (8.5-10.1); CREATININE 1.8 mg/dL (0.55-1.3); MAGNESIUM 2.2 mg/dL (1.8-2.4); TOT PROT 6.2 g/dl (6.4-8.2)
[2022-01-12] MEDS: ERTAPENEM SODIUM 0.5 GM in SODIUM CHLORIDE 50 ML IVPB SCH (10:26)
[2022-01-12] MEDS: CARVEDILOL 12.5 MG TABLET (FP) PO SCH ×2 (10:26→21:01)
[2022-01-12] MEDS: amLODIPine BESYLATE 10 MG TABLET (FP) PO SCH (10:26)
[2022-01-12] MEDS ORDERED: SODIUM CHLORIDE 500 ML IV STA (12:25)
[2022-01-12] MEDS ORDERED: CEFAZOLIN 2 GM in DEXTROSE 5%-WATER - 50 ML IVPB ONE (13:43)
[2022-01-12] MEDS: ATORVASTATIN CA 40 MG TABLET (FP) PO SCH (21:01)
[2022-01-12] MEDS: INSULIN (LEVEMIR) 100 UNITS/ML UNITS SQ SCH (21:03)
[2022-01-13] MEDS ORDERED: SODIUM CHLORIDE 500 ML IV STA (02:13)
[2022-01-13] MEDS: HEPARIN NA (PORCINE) 5,000 UNITS/ML 1ML VIAL SQ SCH ×3 (05:45→22:11)
[2022-01-13] MEDS: INSULIN SLIDING SCALE (NOVOLOG) 1 VIAL SQ SCH ×4 (06:55→22:15)
[2022-01-13] MEDS: INSULIN (LEVEMIR) 100 UNITS/ML UNITS SQ SCH ×2 (07:00→22:13)
[2022-01-13] MEDS: INSULIN (NOVOLOG) ASPART 100 UNITS/ML 10ML VIAL SQ SCH ×3 (07:00→17:18)
[2022-01-13] MEDS ORDERED: CEFAZOLIN 2 GM in DEXTROSE 5%-WATER - 50 ML IVPB ONE (10:00)
[2022-01-13] MEDS ORDERED: CEFAZOLIN 1 GM/D5W 1 GM/50 ML BAG IVPB SCH ×2 (10:00→22:00)
[2022-01-13] MEDS: amLODIPine BESYLATE 10 MG TABLET (FP) PO SCH (10:35)
[2022-01-13] MEDS: CARVEDILOL 12.5 MG TABLET (FP) PO SCH ×2 (10:35→22:12)
[2022-01-13 12:56] LABS: BASO % 0.8 % (0-2.0); EOS % 2.8 % (0-4.5); HEMATOCRIT 30.8 % (32.4-45.2); HEMOGLOBIN 10.2 GM/dL (10.7-15.3); LYMPH % 36.4 % (8-40); MCH 30.7 pg (25.7-33.7); MCHC 33.3 g/dl (32.0-36.0); MEAN CELL VOLUME 92.2 fl (80-96); MEAN PLT VOLUME 10.1 fl (7.5-11.1); MONO % 8.1 % (3.8-10.2); NEUT % 51.9 % (42.8-82.8); PLATELET COUNT 188 10^3/uL (134-434); RBC 3.34 M/mm3 (3.60-5.2); RDW 12.4 % (11.6-15.6); WHITE BLOOD COUNT 6.6 K/mm3 (4.0-10.0)
[2022-01-13 13:20] LABS: CALCIUM 8.4 mg/dL (8.5-10.1)
[2022-01-13 13:21] LABS: ALBUMIN 2.6 g/dl (3.4-5.0)
[2022-01-13 13:22] LABS: MAGNESIUM 2.1 mg/dL (1.8-2.4)
[2022-01-13 13:23] LABS: BLOOD UREA NITROGEN 39.2 mg/dL (7-18); CREATININE 1.8 mg/dL (0.55-1.3); PHOSPHOROUS 3.5 mg/dL (2.5-4.9)
[2022-01-13 13:24] LABS: BILIRUBIN,TOTAL 0.6 mg/dL (0.2-1); TOT PROT 6.1 g/dl (6.4-8.2)
[2022-01-13] MEDS: ATORVASTATIN CA 40 MG TABLET (FP) PO SCH (22:11)
[2022-01-14] MEDS: HEPARIN NA (PORCINE) 5,000 UNITS/ML 1ML VIAL SQ SCH ×3 (06:35→22:03)
[2022-01-14] MEDS: INSULIN (LEVEMIR) 100 UNITS/ML UNITS SQ SCH ×2 (06:36→22:03)
[2022-01-14] MEDS: INSULIN SLIDING SCALE (NOVOLOG) 1 VIAL SQ SCH ×4 (06:37→22:03)
[2022-01-14] MEDS: amLODIPine BESYLATE 10 MG TABLET (FP) PO SCH (10:00)
[2022-01-14] MEDS: CARVEDILOL 12.5 MG TABLET (FP) PO SCH ×2 (10:01→22:03)
[2022-01-14] MEDS: INSULIN (NOVOLOG) ASPART 100 UNITS/ML 10ML VIAL SQ SCH ×2 (11:59→18:45)
[2022-01-14 13:28] LABS: EOS % 2.3 % (0-4.5); HEMATOCRIT 28.7 % (32.4-45.2); HEMOGLOBIN 9.7 GM/dL (10.7-15.3); LYMPH % 37.8 % (8-40); MCHC 33.7 g/dl (32.0-36.0); MEAN CELL VOLUME 92.1 fl (80-96); MEAN PLT VOLUME 10.1 fl (7.5-11.1); MONO % 6.8 % (3.8-10.2); NEUT % 52.1 % (42.8-82.8); PLATELET COUNT 170 10^3/uL (134-434); RBC 3.12 M/mm3 (3.60-5.2); RDW 12.6 % (11.6-15.6)
[2022-01-14 13:55] LABS: CALCIUM 8.1 mg/dL (8.5-10.1)
[2022-01-14 13:56] LABS: ALBUMIN 2.4 g/dl (3.4-5.0); BLOOD UREA NITROGEN 49.1 mg/dL (7-18); MAGNESIUM 2.1 mg/dL (1.8-2.4)
[2022-01-14 13:59] LABS: CREATININE 2.4 mg/dL (0.55-1.3); PHOSPHOROUS 4.8 mg/dL (2.5-4.9)
[2022-01-14 14:01] LABS: BILIRUBIN,TOTAL 0.2 mg/dL (0.2-1)
[2022-01-14] MEDS: ATORVASTATIN CA 40 MG TABLET (FP) PO SCH (22:03)
[2022-01-15 00:07] VITALS: BP 129/44; PULSE 76; RESP 18; TEMP 98.6
== END 2022-01-15 04:00 | disposition short-term general hospital (02) | DRG 884 ==
LOC: JER 13:16 → JERBED 17:36 → J4S 23:05
PROVIDERS: ADMIT Internal Medicine; ATTEND Internal Medicine
DX: F03.90 Unspecified dementia, unspecified severity, without behavioral disturbance, psychotic disturbance, mood disturbance, and anxiety (principal); I13.0 Hypertensive heart and chronic kidney disease with heart failure and stage 1 through stage 4 chronic kidney disease, or unspecified chronic kidney disease; I50.32 Chronic diastolic (congestive) heart failure; N39.0 Urinary tract infection, site not specified; I16.1 Hypertensive emergency; N13.30 Unspecified hydronephrosis; I47.1 Supraventricular tachycardia; I24.8 Other forms of acute ischemic heart disease; N17.9 Acute kidney failure, unspecified; E11.22 Type 2 diabetes mellitus with diabetic chronic kidney disease; I95.1 Orthostatic hypotension; N18.9 Chronic kidney disease, unspecified; Z88.0 Allergy status to penicillin; E87.5 Hyperkalemia; N31.9 Neuromuscular dysfunction of bladder, unspecified; E86.0 Dehydration; E11.65 Type 2 diabetes mellitus with hyperglycemia; E86.1 Hypovolemia; I35.1 Nonrheumatic aortic (valve) insufficiency; I65.21 Occlusion and stenosis of right carotid artery; I72.6 Aneurysm of vertebral artery
CPT/HCPCS: 36415; 70450-TC; 70496-TC; 70498-TC; 71045-TC-FY; 76775-TC; 80048; 80053; 80061; 81003; 82550; 82962; 83036; 83735; 84100; 84443; 84484; 85025; 85027; 87077; 87086; 93005; 93010; 93306-TC; 93880-TC; 97116-GP; 97161-GP; 99285-25; C9803-CS; J1644; Q9967; U0003; U0005

== ENCOUNTER 2022-04-29 12:32 | Emergency (ER) | payer OTHER ==
[2022-04-29 12:45] VITALS: BP 167/63; PULSE 91; RESP 18; TEMP 98.4; BMI 23.4
[2022-04-29 16:58] LABS: BASO % 1.1 % (0-2.0); HEMATOCRIT 32.4 % (32.4-45.2); HEMOGLOBIN 10.9 GM/dL (10.7-15.3); LYMPH % 27.4 % (8-40); MCH 31.6 pg (25.7-33.7); MCHC 33.6 g/dl (32.0-36.0); MEAN CELL VOLUME 94.1 fl (80-96); MEAN PLT VOLUME 9.4 fl (7.5-11.1); MONO % 7.8 % (3.8-10.2); NEUT % 60.7 % (42.8-82.8); PLATELET COUNT 291 10^3/uL (134-434); RBC 3.44 M/mm3 (3.60-5.2); WHITE BLOOD COUNT 9.1 K/mm3 (4.0-10.0)
[2022-04-29 17:31] LABS: ALBUMIN 3.1 g/dl (3.4-5.0); BLOOD UREA NITROGEN 36.3 mg/dL (7-18); CALCIUM 8.9 mg/dL (8.5-10.1)
[2022-04-29 17:35] LABS: CREATININE 2.3 mg/dL (0.55-1.3)
[2022-04-29 17:37] LABS: BILIRUBIN,TOTAL 0.2 mg/dL (0.2-1); TOT PROT 7.5 g/dl (6.4-8.2)
== END 2022-04-29 15:09 | disposition home or self-care (01) ==
LOC: JER 12:32 → JERFT 12:32
DX: R53.83 Other fatigue (principal)
CPT/HCPCS: 0241U-QW; 36415; 80053; 82962; 85025; 99283-25

== ENCOUNTER 2023-03-21 19:38 | Observation (INO) | payer OTHER ==
[2023-03-21 22:00] LABS: BASO % 1.5 % (0-2.0); EOS % 5.6 % (0-4.5); HEMATOCRIT 28.1 % (32.4-45.2); HEMOGLOBIN 9.8 GM/dL (10.7-15.3); LYMPH % 31.2 % (8-40); MCH 32.5 pg (25.7-33.7); MCHC 34.8 g/dl (32.0-36.0); MEAN CELL VOLUME 93.3 fl (80-96); MEAN PLT VOLUME 9.8 fl (7.5-11.1); MONO % 8.4 % (3.8-10.2); NEUT % 53.3 % (42.8-82.8); PLATELET COUNT 232 10^3/uL (134-434); RBC 3.01 M/mm3 (3.60-5.2); RDW 13.3 % (11.6-15.6); WHITE BLOOD COUNT 8.7 K/mm3 (4.0-10.0)
[2023-03-21 22:07] LABS: INR 1.06 (0.83-1.09); PROTHROMBIN TIME (PATIENT) 12.3 SEC (9.7-13.0)
[2023-03-21 22:20] LABS: CHLORIDE 106 mmol/L (98-107); SODIUM 136 mmol/L (136-145)
[2023-03-21 22:23] LABS: ALBUMIN 2.7 g/dl (3.4-5.0); CALCIUM 8.2 mg/dL (8.5-10.1)
[2023-03-21 22:24] LABS: CO2 23 mmol/L (21-32); GLUCOSE,RANDOM 299 mg/dL (74-106)
[2023-03-21 22:27] LABS: CREATININE 2.5 mg/dL (0.55-1.3); SGOT/AST 28 U/L (15-37); SGPT/ALT 29 U/L (13-61); TOT PROT 6.5 g/dl (6.4-8.2)
[2023-03-21 22:29] LABS: BILIRUBIN,TOTAL 0.1 mg/dL (0.2-1)
[2023-03-21 22:30] LABS: ALK PHOS 146 U/L (45-117)
[2023-03-21 22:31] LABS: ANION GAP 7 MMOL/L (8-16); POTASSIUM 6.2 mmol/L (3.5-5.1)
[2023-03-21 23:50] LABS: POTASSIUM 5.6 mmol/L (3.5-5.1)
[2023-03-21 23:52] LABS: BLOOD UREA NITROGEN 42.6 mg/dL (7-18)
[2023-03-21 23:55] LABS: CREATININE 2.5 mg/dL (0.55-1.3)
[2023-03-22] MEDS ORDERED: INSULIN (NOVOLOG) ASPART 100 UNITS/ML 10ML VIAL SQ ONE (00:14)
[2023-03-22] MEDS ORDERED: SODIUM ZIRCONIUM CYCLOSILICATE (LOKELMA) 5 GM PACKET PO ONE (00:15)
[2023-03-22] MEDS ORDERED: INSULIN REGULAR HUMAN 100 UNITS/ML *VIAL IVPUSH ONE (00:33)
[2023-03-22] MEDS ORDERED: SODIUM ZIRCONIUM CYCLOSILICATE (LOKELMA) 10 GM PACKET ONE ×3 (00:49→22:35)
[2023-03-22] MEDS ORDERED: FUROSEMIDE 40 MG/4 ML INJECTABLE VIAL IVPUSH ONE (01:57)
[2023-03-22] MEDS ORDERED: FUROSEMIDE 40 MG/4 ML INJECTABLE VIAL ONE ×2 (02:18→09:20)
[2023-03-22] MEDS ORDERED: PATIENT'S OWN MEDICATION (NON-FORMULARY) (Sodium Zirconium Cyclosilicate 10 GM Packet) PO SCH (03:30)
[2023-03-22] MEDS ORDERED: clonazePAM 0.5 MG ODT TABLETS SL SCH ×2 (03:30→23:24)
[2023-03-22] MEDS ORDERED: MECLIZINE HCL 12.5 MG TABLET PO SCH ×2 (03:30→23:24)
[2023-03-22] MEDS: INSULIN SLIDING SCALE (NOVOLOG) 1 VIAL SQ SCH ×5 (04:19→23:02)
[2023-03-22] MEDS: HEPARIN NA (PORCINE) 5,000 UNITS/ML 1ML VIAL SQ SCH ×3 (06:09→23:03)
[2023-03-22] MEDS ORDERED: HEPARIN NA (PORCINE) 5,000 UNITS/ML 1ML VIAL ONE ×3 (06:09→22:36)
[2023-03-22 06:56] LABS: HEMATOCRIT 28.7 % (32.4-45.2); HEMOGLOBIN 9.5 GM/dL (10.7-15.3); MCH 31.5 pg (25.7-33.7); MCHC 33.2 g/dl (32.0-36.0); MEAN CELL VOLUME 95.1 fl (80-96); MEAN PLT VOLUME 9.8 fl (7.5-11.1); PLATELET COUNT 244 10^3/uL (134-434); RBC 3.01 M/mm3 (3.60-5.2); WHITE BLOOD COUNT 8.6 K/mm3 (4.0-10.0)
[2023-03-22 07:18] LABS: POTASSIUM 5.6 mmol/L (3.5-5.1)
[2023-03-22 07:23] LABS: ALBUMIN 2.8 g/dl (3.4-5.0); BLOOD UREA NITROGEN 41.5 mg/dL (7-18); CALCIUM 8.3 mg/dL (8.5-10.1)
[2023-03-22 07:26] LABS: CREATININE 2.4 mg/dL (0.55-1.3); PHOSPHOROUS 3.8 mg/dL (2.5-4.9)
[2023-03-22 07:28] LABS: BILIRUBIN,TOTAL 0.2 mg/dL (0.2-1); TOT PROT 6.8 g/dl (6.4-8.2)
[2023-03-22] MEDS ORDERED: CARVEDILOL 12.5 MG TABLET (FP) ONE ×2 (09:19→22:35)
[2023-03-22] MEDS ORDERED: ASPIRIN COATED 81 MG TABLET.EC ONE (09:19)
[2023-03-22] MEDS ORDERED: QUEtiapine FUMARATE 25 MG TABLET ONE (09:20)
[2023-03-22] MEDS: CARVEDILOL 12.5 MG TABLET (FP) PO SCH ×2 (09:32→23:03)
[2023-03-22 09:36] VITALS: RESP 18
[2023-03-22] MEDS ORDERED: ASPIRIN 81 MG CHEWABLE TABLETS PO SCH (10:00)
[2023-03-22] MEDS ORDERED: hydrALAZINE HCL 25 MG TABLET (FP) PO SCH (10:00)
[2023-03-22] MEDS ORDERED: FUROSEMIDE 40 MG/4 ML INJECTABLE VIAL IVPUSH SCH (10:00)
[2023-03-22] MEDS ORDERED: QUEtiapine FUMARATE 25 MG TABLET PO SCH (10:00)
[2023-03-22] MEDS: SODIUM ZIRCONIUM CYCLOSILICATE (LOKELMA) 5 GM PACKET PO SCH ×2 (14:31→23:02)
[2023-03-22 19:57] LABS: EPI CELLS 2 /uL (0-25.1); HYALINE CASTS 0 /uL (0-3.1); URINE APPEARANCE CLOUDY; URINE BACTERIA >9,000 /uL (0-1359); URINE BILIRUBIN NEGATIVE (NEGATIVE); URINE COLOR YELLOW; URINE GLUCOSE (UA) NEGATIVE (NEGATIVE); URINE KETONE NEGATIVE (NEGATIVE); URINE LEUK ESTERASE 2+ (NEGATIVE); URINE NITRITE NEGATIVE (NEGATIVE); URINE PROTEIN 3+ (NEGATIVE); URINE RBC 13 /uL (0-23.9); URINE UROBILINOGEN 0.2 mg/dL (0.2-1.0); URINE WBC 560 /uL (0-25.8)
[2023-03-22] MEDS ORDERED: INSULIN (LEVEMIR) 100 UNITS/ML UNITS SQ SCH (22:00)
[2023-03-22] MEDS ORDERED: ATORVASTATIN CA 40 MG TABLET (FP) PO SCH (22:00)
[2023-03-22] MEDS ORDERED: ATORVASTATIN CA 20 MG TABLET (FP) ONE ×2 (22:35→22:45)
[2023-03-22] MEDS ORDERED: INSULIN (LEVEMIR) 100 UNITS/ML UNITS SQ ONE (22:36)
[2023-03-23] MEDS: INSULIN (LEVEMIR) 100 UNITS/ML UNITS SQ SCH ×2 (00:24→21:45)
[2023-03-23] MEDS: amLODIPine BESYLATE 10 MG TABLET (FP) PO SCH (01:33)
[2023-03-23] MEDS: HEPARIN NA (PORCINE) 5,000 UNITS/ML 1ML VIAL SQ SCH ×3 (06:33→21:45)
[2023-03-23] MEDS: INSULIN SLIDING SCALE (NOVOLOG) 1 VIAL SQ SCH ×4 (06:34→21:46)
[2023-03-23] MEDS: SODIUM ZIRCONIUM CYCLOSILICATE (LOKELMA) 5 GM PACKET PO SCH ×2 (09:06→21:47)
[2023-03-23 09:07] LABS: HEMOGLOBIN 10.6 GM/dL (10.7-15.3); LYMPH % 29.4 % (8-40); MCH 31.8 pg (25.7-33.7); MCHC 34.3 g/dl (32.0-36.0); MEAN CELL VOLUME 92.6 fl (80-96); MEAN PLT VOLUME 9.5 fl (7.5-11.1); MONO % 6.7 % (3.8-10.2); NEUT % 58.9 % (42.8-82.8); PLATELET COUNT 275 10^3/uL (134-434); RBC 3.35 M/mm3 (3.60-5.2); RDW 13.5 % (11.6-15.6); WHITE BLOOD COUNT 8.3 K/mm3 (4.0-10.0)
[2023-03-23] MEDS: QUEtiapine FUMARATE 25 MG TABLET PO SCH (09:07)
[2023-03-23] MEDS: CARVEDILOL 12.5 MG TABLET (FP) PO SCH ×2 (09:07→21:45)
[2023-03-23] MEDS: ASPIRIN 81 MG CHEWABLE TABLETS PO SCH (09:07)
[2023-03-23] MEDS ORDERED: amLODIPine BESYLATE 10 MG TABLET (FP) PO SCH (10:00)
[2023-03-23] MEDS ORDERED: hydrALAZINE HCL 25 MG TABLET (FP) PO SCH (10:00)
[2023-03-23 10:33] LABS: ALBUMIN 2.9 g/dl (3.4-5.0); BILIRUBIN,TOTAL 0.3 mg/dL (0.2-1); BLOOD UREA NITROGEN 51.3 mg/dL (7-18); CALCIUM 8.8 mg/dL (8.5-10.1); CREATININE 2.5 mg/dL (0.55-1.3); MAGNESIUM 2.3 mg/dL (1.8-2.4); TOT PROT 7.2 g/dl (6.4-8.2)
[2023-03-23 11:27] LABS: POTASSIUM 5.6 mmol/L (3.5-5.1)
[2023-03-23] MEDS ORDERED: INSULIN (NOVOLOG) ASPART 100 UNITS/ML 10ML VIAL ONE (21:04)
[2023-03-23] MEDS ORDERED: ATORVASTATIN CA 40 MG TABLET (FP) PO SCH (22:00)
[2023-03-24] MEDS ORDERED: DEXTROSE 50%-WATER 25 GM/50 ML DISP.SYRIN ONE (06:41)
[2023-03-24] MEDS ORDERED: DEXTROSE 50%-WATER 25 GM/50 ML DISP.SYRIN IVPUSH ONE (06:57)
[2023-03-24] MEDS: HEPARIN NA (PORCINE) 5,000 UNITS/ML 1ML VIAL SQ SCH ×2 (07:07→14:12)
[2023-03-24] MEDS: INSULIN SLIDING SCALE (NOVOLOG) 1 VIAL SQ SCH ×3 (07:08→16:53)
[2023-03-24] MEDS ORDERED: clonazePAM 0.5 MG TABLET PO PRN (07:31)
[2023-03-24] MEDS ORDERED: INSULIN (LEVEMIR) 100 UNITS/ML UNITS SQ ONE (08:09)
[2023-03-24] MEDS ORDERED: INSULIN (NOVOLOG) ASPART 100 UNITS/ML 10ML VIAL ONE ×2 (08:09→11:44)
[2023-03-24 08:59] VITALS: BP 124/49; PULSE 62; TEMP 97.6
[2023-03-24] MEDS: QUEtiapine FUMARATE 25 MG TABLET PO SCH (09:12)
[2023-03-24] MEDS: SODIUM ZIRCONIUM CYCLOSILICATE (LOKELMA) 5 GM PACKET PO SCH (09:12)
[2023-03-24] MEDS: ASPIRIN 81 MG CHEWABLE TABLETS PO SCH (09:13)
[2023-03-24] MEDS: CARVEDILOL 12.5 MG TABLET (FP) PO SCH (09:13)
[2023-03-24] MEDS ORDERED: amLODIPine BESYLATE 10 MG TABLET (FP) PO SCH (10:00)
[2023-03-24] MEDS ORDERED: MECLIZINE HCL 12.5 MG TABLET PO SCH (10:00)
[2023-03-24] MEDS ORDERED: hydrALAZINE HCL 10 MG TABLET PO SCH (10:00)
[2023-03-24 12:19] LABS: BASO % 0.4 % (0-2.0); EOS % 1.4 % (0-4.5); HEMATOCRIT 27.7 % (32.4-45.2); HEMOGLOBIN 9.5 GM/dL (10.7-15.3); LYMPH % 19.4 % (8-40); MCH 31.9 pg (25.7-33.7); MCHC 34.3 g/dl (32.0-36.0); MEAN PLT VOLUME 9.7 fl (7.5-11.1); MONO % 5.3 % (3.8-10.2); NEUT % 73.5 % (42.8-82.8); PLATELET COUNT 203 10^3/uL (134-434); RBC 2.98 M/mm3 (3.60-5.2); RDW 13.3 % (11.6-15.6); WHITE BLOOD COUNT 6.9 K/mm3 (4.0-10.0)
[2023-03-24 12:46] LABS: POTASSIUM 4.9 mmol/L (3.5-5.1)
[2023-03-24 12:49] LABS: CALCIUM 7.8 mg/dL (8.5-10.1)
[2023-03-24 12:50] LABS: ALBUMIN 2.4 g/dl (3.4-5.0); BLOOD UREA NITROGEN 60.5 mg/dL (7-18); MAGNESIUM 2.2 mg/dL (1.8-2.4)
[2023-03-24 12:52] LABS: CREATININE 2.9 mg/dL (0.55-1.3)
[2023-03-24 12:54] LABS: BILIRUBIN,TOTAL 0.3 mg/dL (0.2-1); TOT PROT 6.2 g/dl (6.4-8.2)
[2023-03-24 15:02] VITALS: BMI 21.7
== END 2023-03-24 18:17 | disposition home or self-care (01) ==
LOC: JER 19:38 → JERBED 03-22 00:59 → J7W 03-22 23:28
PROVIDERS: ADMIT Internal Medicine; ATTEND Nurse Practitioner Family
PROC: 3E033GC Introduction of Other Therapeutic Substance into Peripheral Vein, Percutaneous Approach (ICD-10-PCS; principal; 2023-03-22)
PROC: 3E0337Z Introduction of Electrolytic and Water Balance Substance into Peripheral Vein, Percutaneous Approach (ICD-10-PCS; 2023-03-22)
PROC: 3E023GC Introduction of Other Therapeutic Substance into Muscle, Percutaneous Approach (ICD-10-PCS; 2023-03-22)
PROC: 3E013VG Introduction of Insulin into Subcutaneous Tissue, Percutaneous Approach (ICD-10-PCS; 2023-03-22)
PROC: 3E013VG Introduction of Insulin into Subcutaneous Tissue, Percutaneous Approach (ICD-10-PCS; 2023-03-22)
DX: I12.9 Hypertensive chronic kidney disease with stage 1 through stage 4 chronic kidney disease, or unspecified chronic kidney disease (principal); E87.5 Hyperkalemia; E11.65 Type 2 diabetes mellitus with hyperglycemia; I50.32 Chronic diastolic (congestive) heart failure; R94.4 Abnormal results of kidney function studies; I35.1 Nonrheumatic aortic (valve) insufficiency; F03.90 Unspecified dementia, unspecified severity, without behavioral disturbance, psychotic disturbance, mood disturbance, and anxiety; K76.0 Fatty (change of) liver, not elsewhere classified; K59.00 Constipation, unspecified; N28.9 Disorder of kidney and ureter, unspecified; R01.1 Cardiac murmur, unspecified; R16.0 Hepatomegaly, not elsewhere classified; Z88.0 Allergy status to penicillin
CPT/HCPCS: 36415; 71045-TC-FY; 76775-TC; 80048; 80053; 81003; 82962; 83036; 83735; 84100; 84132; 84484; 85025; 85027; 85610; 93005; 93010; 96372; 96374; 96375; 97116-GP; 97162-GP; 99285-25; G0378; J1644

== ENCOUNTER 2023-04-13 12:00 | Inpatient (IN) | payer OTHER ==
[2023-04-13 14:28] LABS: BASO % 0.7 % (0-2.0); EOS % 2.2 % (0-4.5); HEMATOCRIT 32.4 % (32.4-45.2); HEMOGLOBIN 10.6 GM/dL (10.7-15.3); LYMPH % 16.5 % (8-40); MCHC 32.8 g/dl (32.0-36.0); MEAN CELL VOLUME 94.7 fl (80-96); MEAN PLT VOLUME 9.2 fl (7.5-11.1); MONO % 7.9 % (3.8-10.2); NEUT % 72.7 % (42.8-82.8); PLATELET COUNT 327 10^3/uL (134-434); RBC 3.42 M/mm3 (3.60-5.2)
[2023-04-13 14:44] LABS: VENOUS O2 SATURATION 38.1 % (70-80); VENOUS PH 7.37 (7.310-7.410)
[2023-04-13 14:54] LABS: POTASSIUM 3.6 mmol/L (3.5-5.1)
[2023-04-13 14:56] LABS: CALCIUM 8.8 mg/dL (8.5-10.1)
[2023-04-13 14:57] LABS: BLOOD UREA NITROGEN 39.5 mg/dL (7-18)
[2023-04-13 15:00] LABS: CREATININE 2.5 mg/dL (0.55-1.3)
[2023-04-13 15:02] LABS: BILIRUBIN,TOTAL 0.3 mg/dL (0.2-1); TOT PROT 7.7 g/dl (6.4-8.2)
[2023-04-14 02:57] LABS: EPI CELLS 12 /uL (0-25.1); HYALINE CASTS 1 /uL (0-3.1); PH,URINE 5.5 (5.0-8.0); URINE APPEARANCE TURBID; URINE BACTERIA >9,000 /uL (0-1359); URINE BILIRUBIN NEGATIVE (NEGATIVE); URINE COLOR RED; URINE GLUCOSE (UA) 1+ (NEGATIVE); URINE KETONE 1+ (NEGATIVE); URINE LEUK ESTERASE 2+ (NEGATIVE); URINE NITRITE NEGATIVE (NEGATIVE); URINE PROTEIN 4+ (NEGATIVE); URINE RBC 19517 /uL (0-23.9); URINE UROBILINOGEN 0.2 mg/dL (0.2-1.0); URINE WBC 2427 /uL (0-25.8)
[2023-04-14] MEDS ORDERED: MEROPENEM 500 MG VIAL (RESTRICTED TO ID) IVPB ONE (04:35)
[2023-04-14] MEDS: MEROPENEM 500 MG in DEXTROSE 5%-WATER 100 ML IVPB SCH ×3 (05:16→17:36)
[2023-04-14] MEDS: HEPARIN NA (PORCINE) 5,000 UNITS/ML 1ML VIAL SQ SCH ×3 (06:06→22:31)
[2023-04-14 09:11] LABS: HEMATOCRIT 27.8 % (32.4-45.2); HEMOGLOBIN 9.5 GM/dL (10.7-15.3); MCH 31.8 pg (25.7-33.7); MCHC 34.1 g/dl (32.0-36.0); MEAN CELL VOLUME 93.3 fl (80-96); MEAN PLT VOLUME 9.3 fl (7.5-11.1); PLATELET COUNT 311 10^3/uL (134-434); RBC 2.98 M/mm3 (3.60-5.2); RDW 12.7 % (11.6-15.6)
[2023-04-14] MEDS: INSULIN SLIDING SCALE (NOVOLOG) 1 VIAL SQ SCH ×3 (10:06→17:36)
[2023-04-14] MEDS: amLODIPine BESYLATE 10 MG TABLET (FP) PO SCH (10:07)
[2023-04-14] MEDS: VALSARTAN 160 MG TABLET PO SCH (10:07)
[2023-04-14 11:36] LABS: RETICULOCYTES 0.74 % (0.5-1.5)
[2023-04-14 12:13] LABS: POTASSIUM 3.1 mmol/L (3.5-5.1)
[2023-04-14 12:14] LABS: CALCIUM 8.5 mg/dL (8.5-10.1)
[2023-04-14 12:15] LABS: BLOOD UREA NITROGEN 34.1 mg/dL (7-18)
[2023-04-14 12:16] LABS: MAGNESIUM 2.1 mg/dL (1.8-2.4)
[2023-04-14 12:18] LABS: PHOSPHOROUS 3.3 mg/dL (2.5-4.9)
[2023-04-14 12:20] LABS: BILIRUBIN,TOTAL 0.3 mg/dL (0.2-1); CREATININE 2.6 mg/dL (0.55-1.3); TOT PROT 6.7 g/dl (6.4-8.2)
[2023-04-14 12:51] LABS: ALBUMIN 2.4 g/dl (3.4-5.0)
[2023-04-14] MEDS ORDERED: POTASSIUM CHLORIDE ORAL LIQUID 20 MEQ/15 ML PO ONE (14:23)
[2023-04-14] MEDS ORDERED: POTASSIUM CHLORIDE ORAL LIQUID 20 MEQ/15 ML ONE (15:18)
[2023-04-14] MEDS ORDERED: HEPARIN NA (PORCINE) 5,000 UNITS/ML 1ML VIAL ONE ×2 (15:18→22:25)
[2023-04-14] MEDS ORDERED: MEROPENEM 1 GM VIAL (RESTRICTED TO ID) IVPB ONE (17:27)
[2023-04-14] MEDS ORDERED: ATORVASTATIN CA 40 MG TABLET (FP) ONE (22:24)
[2023-04-14] MEDS: ATORVASTATIN CA 40 MG TABLET (FP) PO SCH (22:31)
[2023-04-15] MEDS ORDERED: HEPARIN NA (PORCINE) 5,000 UNITS/ML 1ML VIAL ONE ×2 (05:57→14:00)
[2023-04-15] MEDS ORDERED: MEROPENEM 500 MG VIAL (RESTRICTED TO ID) IVPB ONE (05:57)
[2023-04-15] MEDS: INSULIN SLIDING SCALE (NOVOLOG) 1 VIAL SQ SCH ×3 (07:04→17:09)
[2023-04-15 07:05] LABS: CHOLESTEROL 154 mg/dL (50-200)
[2023-04-15] MEDS: HEPARIN NA (PORCINE) 5,000 UNITS/ML 1ML VIAL SQ SCH ×3 (07:05→21:33)
[2023-04-15 07:06] LABS: LDL CHOLESTEROL (ONLY SJRH) 98 mg/dL (5-100)
[2023-04-15 07:08] LABS: HDL CHOLESTEROL 33 mg/dL (40-60)
[2023-04-15] MEDS: MEROPENEM 500 MG in DEXTROSE 5%-WATER 100 ML IVPB SCH ×2 (07:22→17:09)
[2023-04-15] MEDS: amLODIPine BESYLATE 10 MG TABLET (FP) PO SCH (09:43)
[2023-04-15] MEDS: VALSARTAN 160 MG TABLET PO SCH (09:43)
[2023-04-15] MEDS ORDERED: MEROPENEM 500 MG in DEXTROSE 5%-WATER 100 ML IVPB SCH (10:00)
[2023-04-15] MEDS ORDERED: ACETAMINOPHEN 325 MG TABLET (FP) ONE (11:09)
[2023-04-15] MEDS: ACETAMINOPHEN 325 MG TABLET (FP) PO PRN (11:15)
[2023-04-15] MEDS: OFLOXACIN 0.3% OTIC SOLUTION 5 ML BOTTLE AD SCH (11:18)
[2023-04-15] MEDS ORDERED: INSULIN (NOVOLOG) ASPART 100 UNITS/ML 10ML VIAL ONE (20:45)
[2023-04-15] MEDS: ATORVASTATIN CA 40 MG TABLET (FP) PO SCH (21:33)
[2023-04-16] MEDS: HEPARIN NA (PORCINE) 5,000 UNITS/ML 1ML VIAL SQ SCH ×3 (06:04→22:28)
[2023-04-16] MEDS: MEROPENEM 500 MG in DEXTROSE 5%-WATER 100 ML IVPB SCH ×2 (06:04→17:47)
[2023-04-16] MEDS: INSULIN SLIDING SCALE (NOVOLOG) 1 VIAL SQ SCH ×3 (06:12→16:24)
[2023-04-16 08:24] LABS: POTASSIUM 4.1 mmol/L (3.5-5.1)
[2023-04-16 08:30] LABS: ALBUMIN 2.2 g/dl (3.4-5.0); BLOOD UREA NITROGEN 52.2 mg/dL (7-18); CALCIUM 7.6 mg/dL (8.5-10.1)
[2023-04-16 08:33] LABS: BILIRUBIN,TOTAL 0.2 mg/dL (0.2-1)
[2023-04-16 08:35] LABS: HEMATOCRIT 26.6 % (32.4-45.2); HEMOGLOBIN 8.6 GM/dL (10.7-15.3); LYMPH % 24.4 % (8-40); MCHC 32.5 g/dl (32.0-36.0); MEAN CELL VOLUME 95.5 fl (80-96); MEAN PLT VOLUME 9.7 fl (7.5-11.1); NEUT % 61.1 % (42.8-82.8); PLATELET COUNT 285 10^3/uL (134-434); RBC 2.79 M/mm3 (3.60-5.2); RDW 12.5 % (11.6-15.6); WHITE BLOOD COUNT 8.2 K/mm3 (4.0-10.0)
[2023-04-16 08:36] LABS: BASO % 1.2 % (0-2.0); EOS % 6.5 % (0-4.5); MONO % 6.8 % (3.8-10.2)
[2023-04-16] MEDS: VALSARTAN 160 MG TABLET PO SCH (10:28)
[2023-04-16] MEDS: amLODIPine BESYLATE 10 MG TABLET (FP) PO SCH (10:28)
[2023-04-16] MEDS: OFLOXACIN 0.3% OTIC SOLUTION 5 ML BOTTLE AD SCH (17:46)
[2023-04-16] MEDS: CARVEDILOL 12.5 MG TABLET (FP) PO SCH (22:27)
[2023-04-16] MEDS: ATORVASTATIN CA 40 MG TABLET (FP) PO SCH (22:27)
[2023-04-16] MEDS: ACETAMINOPHEN 325 MG TABLET (FP) PO PRN (22:27)
[2023-04-17] MEDS: MEROPENEM 500 MG in DEXTROSE 5%-WATER 100 ML IVPB SCH ×2 (05:29→16:43)
[2023-04-17] MEDS: HEPARIN NA (PORCINE) 5,000 UNITS/ML 1ML VIAL SQ SCH ×3 (05:29→21:50)
[2023-04-17] MEDS: INSULIN SLIDING SCALE (NOVOLOG) 1 VIAL SQ SCH ×3 (06:41→16:29)
[2023-04-17 10:01] LABS: BASO % 1.2 % (0-2.0); EOS % 6.7 % (0-4.5); HEMATOCRIT 24.4 % (32.4-45.2); HEMOGLOBIN 8.1 GM/dL (10.7-15.3); LYMPH % 29.8 % (8-40); MCH 31.6 pg (25.7-33.7); MEAN CELL VOLUME 95.8 fl (80-96); MEAN PLT VOLUME 9.2 fl (7.5-11.1); MONO % 8.9 % (3.8-10.2); NEUT % 53.4 % (42.8-82.8); PLATELET COUNT 262 10^3/uL (134-434); RBC 2.55 M/mm3 (3.60-5.2); RDW 12.7 % (11.6-15.6); WHITE BLOOD COUNT 6.6 K/mm3 (4.0-10.0)
[2023-04-17] MEDS: CARVEDILOL 12.5 MG TABLET (FP) PO SCH ×2 (10:20→21:50)
[2023-04-17] MEDS: VALSARTAN 160 MG TABLET PO SCH (10:20)
[2023-04-17] MEDS: amLODIPine BESYLATE 10 MG TABLET (FP) PO SCH (10:20)
[2023-04-17] MEDS: TAMSULOSIN HCL 0.4 MG CAP PO SCH (10:20)
[2023-04-17] MEDS: OFLOXACIN 0.3% OTIC SOLUTION 5 ML BOTTLE AD SCH (10:21)
[2023-04-17 10:32] LABS: CALCIUM 7.7 mg/dL (8.5-10.1)
[2023-04-17 10:33] LABS: BLOOD UREA NITROGEN 56.8 mg/dL (7-18); MAGNESIUM 1.9 mg/dL (1.8-2.4)
[2023-04-17 10:35] LABS: ALBUMIN 1.9 g/dl (3.4-5.0)
[2023-04-17 10:36] LABS: CREATININE 3.2 mg/dL (0.55-1.3)
[2023-04-17 10:37] LABS: BILIRUBIN,TOTAL 0.2 mg/dL (0.2-1); TOT PROT 5.4 g/dl (6.4-8.2)
[2023-04-17] MEDS ORDERED: INSULIN (NOVOLOG) ASPART 100 UNITS/ML 10ML VIAL ONE (11:33)
[2023-04-17] MEDS ORDERED: SODIUM CHLORIDE 0.45% 1,000 ML IV SCH (15:30)
[2023-04-17] MEDS: ATORVASTATIN CA 40 MG TABLET (FP) PO SCH (21:50)
[2023-04-18] MEDS ORDERED: INSULIN (NOVOLOG) ASPART 100 UNITS/ML 10ML VIAL ONE ×3 (05:19→16:04)
[2023-04-18] MEDS: HEPARIN NA (PORCINE) 5,000 UNITS/ML 1ML VIAL SQ SCH ×3 (05:29→21:27)
[2023-04-18] MEDS: INSULIN SLIDING SCALE (NOVOLOG) 1 VIAL SQ SCH ×3 (06:02→16:25)
[2023-04-18 07:14] LABS: BASO % 1.1 % (0-2.0); EOS % 7.1 % (0-4.5); HEMATOCRIT 23.9 % (32.4-45.2); HEMOGLOBIN 7.9 GM/dL (10.7-15.3); MCH 31.5 pg (25.7-33.7); MCHC 33.2 g/dl (32.0-36.0); MEAN CELL VOLUME 95.1 fl (80-96); MEAN PLT VOLUME 9.1 fl (7.5-11.1); MONO % 6.6 % (3.8-10.2); NEUT % 56.2 % (42.8-82.8); PLATELET COUNT 246 10^3/uL (134-434); RBC 2.51 M/mm3 (3.60-5.2); RDW 12.6 % (11.6-15.6); WHITE BLOOD COUNT 6.5 K/mm3 (4.0-10.0)
[2023-04-18 08:03] LABS: POTASSIUM 4.2 mmol/L (3.5-5.1)
[2023-04-18 08:04] LABS: CALCIUM 7.8 mg/dL (8.5-10.1)
[2023-04-18 08:05] LABS: ALBUMIN 2.1 g/dl (3.4-5.0); BLOOD UREA NITROGEN 61.2 mg/dL (7-18)
[2023-04-18] MEDS: MEROPENEM 500 MG in DEXTROSE 5%-WATER 100 ML IVPB SCH ×2 (08:05→16:27)
[2023-04-18 08:08] LABS: CREATININE 3.1 mg/dL (0.55-1.3)
[2023-04-18 08:10] LABS: BILIRUBIN,TOTAL 0.1 mg/dL (0.2-1); TOT PROT 5.7 g/dl (6.4-8.2)
[2023-04-18] MEDS: TAMSULOSIN HCL 0.4 MG CAP PO SCH (09:48)
[2023-04-18] MEDS: VALSARTAN 160 MG TABLET PO SCH (09:48)
[2023-04-18] MEDS: amLODIPine BESYLATE 10 MG TABLET (FP) PO SCH (09:48)
[2023-04-18] MEDS: CARVEDILOL 12.5 MG TABLET (FP) PO SCH ×2 (09:48→21:27)
[2023-04-18] MEDS: OFLOXACIN 0.3% OTIC SOLUTION 5 ML BOTTLE AD SCH (09:49)
[2023-04-18] MEDS ORDERED: SODIUM CHLORIDE 0.45% 1,000 ML IV SCH (14:00)
[2023-04-18] MEDS: ACETAMINOPHEN 325 MG TABLET (FP) PO PRN (19:23)
[2023-04-18] MEDS: ATORVASTATIN CA 40 MG TABLET (FP) PO SCH (21:27)
[2023-04-19] MEDS: INSULIN SLIDING SCALE (NOVOLOG) 1 VIAL SQ SCH ×3 (06:17→17:53)
[2023-04-19] MEDS: HEPARIN NA (PORCINE) 5,000 UNITS/ML 1ML VIAL SQ SCH ×3 (06:17→21:56)
[2023-04-19] MEDS: MEROPENEM 500 MG in DEXTROSE 5%-WATER 100 ML IVPB SCH ×2 (07:19→17:49)
[2023-04-19 10:01] LABS: BASO % 1.4 % (0-2.0); HEMATOCRIT 27.5 % (32.4-45.2); HEMOGLOBIN 9.1 GM/dL (10.7-15.3); LYMPH % 25.3 % (8-40); MCH 31.2 pg (25.7-33.7); MCHC 33.2 g/dl (32.0-36.0); MEAN CELL VOLUME 93.9 fl (80-96); MEAN PLT VOLUME 9.9 fl (7.5-11.1); MONO % 7.1 % (3.8-10.2); NEUT % 60.2 % (42.8-82.8); PLATELET COUNT 283 10^3/uL (134-434); RBC 2.93 M/mm3 (3.60-5.2); WHITE BLOOD COUNT 7.9 K/mm3 (4.0-10.0)
[2023-04-19] MEDS: VALSARTAN 80 MG TABLET PO SCH (10:14)
[2023-04-19] MEDS: amLODIPine BESYLATE 10 MG TABLET (FP) PO SCH (10:14)
[2023-04-19] MEDS: TAMSULOSIN HCL 0.4 MG CAP PO SCH (10:14)
[2023-04-19] MEDS: CARVEDILOL 12.5 MG TABLET (FP) PO SCH ×2 (10:14→21:55)
[2023-04-19] MEDS: OFLOXACIN 0.3% OTIC SOLUTION 5 ML BOTTLE AD SCH (10:14)
[2023-04-19] MEDS ORDERED: INSULIN (NOVOLOG) ASPART 100 UNITS/ML 10ML VIAL ONE ×3 (10:36→18:06)
[2023-04-19 10:39] LABS: POTASSIUM 4.7 mmol/L (3.5-5.1)
[2023-04-19 11:37] LABS: CALCIUM 8.2 mg/dL (8.5-10.1); MAGNESIUM 2.1 mg/dL (1.8-2.4)
[2023-04-19 11:38] LABS: ALBUMIN 2.4 g/dl (3.4-5.0); BLOOD UREA NITROGEN 65.3 mg/dL (7-18)
[2023-04-19 11:40] LABS: CREATININE 2.8 mg/dL (0.55-1.3)
[2023-04-19 11:42] LABS: BILIRUBIN,TOTAL 0.2 mg/dL (0.2-1); TOT PROT 6.6 g/dl (6.4-8.2)
[2023-04-19] MEDS: ATORVASTATIN CA 40 MG TABLET (FP) PO SCH (21:56)
[2023-04-20 02:19] LABS: URINE APPEARANCE CLOUDY; URINE COLOR YELLOW; URINE GLUCOSE (UA) 250 (NEGATIVE)
[2023-04-20 02:20] LABS: PH,URINE 5.5 (5.0-8.0); URINE BILIRUBIN NEGATIVE (NEGATIVE); URINE KETONE NEGATIVE (NEGATIVE); URINE NITRITE NEGATIVE (NEGATIVE); URINE PROTEIN 300 (NEGATIVE); URINE UROBILINOGEN 0.2 mg/dL (0.2-1.0)
[2023-04-20 02:21] LABS: EPI CELLS 46.4 /uL (0-25.1); HYALINE CASTS 7.74 /uL (0-3.1); URINE BACTERIA 8.3 /uL (0-1359); URINE LEUK ESTERASE NEGATIVE (NEGATIVE); URINE RBC 64.7 /uL (0-23.9); URINE WBC 49.8 /uL (0-25.8)
[2023-04-20] MEDS: HEPARIN NA (PORCINE) 5,000 UNITS/ML 1ML VIAL SQ SCH ×3 (06:02→21:38)
[2023-04-20] MEDS: INSULIN SLIDING SCALE (NOVOLOG) 1 VIAL SQ SCH ×3 (06:02→16:54)
[2023-04-20] MEDS: MEROPENEM 500 MG in DEXTROSE 5%-WATER 100 ML IVPB SCH ×2 (06:02→16:54)
[2023-04-20] MEDS: TAMSULOSIN HCL 0.4 MG CAP PO SCH (08:37)
[2023-04-20 09:47] LABS: BASO % 1.3 % (0-2.0); EOS % 4.2 % (0-4.5); HEMATOCRIT 23.7 % (32.4-45.2); LYMPH % 30.6 % (8-40); MCH 31.5 pg (25.7-33.7); MCHC 33.7 g/dl (32.0-36.0); MEAN CELL VOLUME 93.5 fl (80-96); MEAN PLT VOLUME 9.8 fl (7.5-11.1); MONO % 7.3 % (3.8-10.2); NEUT % 56.6 % (42.8-82.8); PLATELET COUNT 257 10^3/uL (134-434); RBC 2.54 M/mm3 (3.60-5.2); WHITE BLOOD COUNT 6.8 K/mm3 (4.0-10.0)
[2023-04-20 09:52] LABS: POTASSIUM 4.6 mmol/L (3.5-5.1)
[2023-04-20 10:03] LABS: CREATININE 2.7 mg/dL (0.55-1.3)
[2023-04-20 10:04] LABS: ALBUMIN 2.2 g/dl (3.4-5.0)
[2023-04-20 10:07] LABS: BILIRUBIN,TOTAL 0.3 mg/dL (0.2-1)
[2023-04-20 10:08] LABS: TOT PROT 5.9 g/dl (6.4-8.2)
[2023-04-20] MEDS: VALSARTAN 80 MG TABLET PO SCH (11:01)
[2023-04-20] MEDS: amLODIPine BESYLATE 10 MG TABLET (FP) PO SCH (11:01)
[2023-04-20] MEDS: CARVEDILOL 12.5 MG TABLET (FP) PO SCH ×2 (11:01→21:38)
[2023-04-20] MEDS ORDERED: INSULIN (NOVOLOG) ASPART 100 UNITS/ML 10ML VIAL ONE ×2 (11:21→16:51)
[2023-04-20] MEDS: OFLOXACIN 0.3% OTIC SOLUTION 5 ML BOTTLE AD SCH (13:51)
[2023-04-20] MEDS: ATORVASTATIN CA 40 MG TABLET (FP) PO SCH (21:38)
[2023-04-21] MEDS: MEROPENEM 500 MG in DEXTROSE 5%-WATER 100 ML IVPB SCH ×2 (04:46→17:17)
[2023-04-21] MEDS: INSULIN SLIDING SCALE (NOVOLOG) 1 VIAL SQ SCH ×3 (06:09→17:18)
[2023-04-21] MEDS: HEPARIN NA (PORCINE) 5,000 UNITS/ML 1ML VIAL SQ SCH ×3 (06:09→22:47)
[2023-04-21 09:19] LABS: BASO % 1.3 % (0-2.0); EOS % 4.9 % (0-4.5); HEMATOCRIT 21.5 % (32.4-45.2); LYMPH % 35.6 % (8-40); MCH 30.7 pg (25.7-33.7); MCHC 32.4 g/dl (32.0-36.0); MEAN CELL VOLUME 94.8 fl (80-96); MEAN PLT VOLUME 9.3 fl (7.5-11.1); MONO % 8.8 % (3.8-10.2); NEUT % 49.4 % (42.8-82.8); PLATELET COUNT 222 10^3/uL (134-434); RBC 2.27 M/mm3 (3.60-5.2); RDW 12.8 % (11.6-15.6); WHITE BLOOD COUNT 6.5 K/mm3 (4.0-10.0)
[2023-04-21] MEDS: TAMSULOSIN HCL 0.4 MG CAP PO SCH (09:57)
[2023-04-21] MEDS: amLODIPine BESYLATE 10 MG TABLET (FP) PO SCH (09:57)
[2023-04-21] MEDS: CARVEDILOL 12.5 MG TABLET (FP) PO SCH ×2 (09:57→22:47)
[2023-04-21 10:30] LABS: POTASSIUM 4.6 mmol/L (3.5-5.1)
[2023-04-21] MEDS: OFLOXACIN 0.3% OTIC SOLUTION 5 ML BOTTLE AD SCH (10:46)
[2023-04-21 10:48] LABS: CALCIUM 7.5 mg/dL (8.5-10.1)
[2023-04-21 10:49] LABS: ALBUMIN 1.9 g/dl (3.4-5.0); BLOOD UREA NITROGEN 73.7 mg/dL (7-18); MAGNESIUM 2.2 mg/dL (1.8-2.4)
[2023-04-21 10:52] LABS: CREATININE 2.9 mg/dL (0.55-1.3)
[2023-04-21 10:53] LABS: BILIRUBIN,TOTAL 0.2 mg/dL (0.2-1); TOT PROT 5.4 g/dl (6.4-8.2)
[2023-04-21] MEDS ORDERED: INSULIN (NOVOLOG) ASPART 100 UNITS/ML 10ML VIAL ONE ×2 (11:35→17:51)
[2023-04-21 17:22] LABS: BASO % 1.4 % (0-2.0); EOS % 5.7 % (0-4.5); HEMOGLOBIN 8.4 GM/dL (10.7-15.3); LYMPH % 35.8 % (8-40); MCH 31.3 pg (25.7-33.7); MCHC 33.4 g/dl (32.0-36.0); MEAN CELL VOLUME 93.6 fl (80-96); MEAN PLT VOLUME 9.4 fl (7.5-11.1); MONO % 10.2 % (3.8-10.2); NEUT % 46.9 % (42.8-82.8); PLATELET COUNT 264 10^3/uL (134-434); RDW 13.3 % (11.6-15.6); WHITE BLOOD COUNT 8.1 K/mm3 (4.0-10.0)
[2023-04-21 17:26] LABS: HEMATOCRIT 25.3 % (32.4-45.2)
[2023-04-21 17:33] LABS: INR 1.07 (0.83-1.09); PROTHROMBIN TIME (PATIENT) 12.4 SEC (9.7-13.0)
[2023-04-21 17:36] LABS: POTASSIUM 5.1 mmol/L (3.5-5.1)
[2023-04-21 17:38] LABS: CALCIUM 7.8 mg/dL (8.5-10.1)
[2023-04-21 17:39] LABS: BLOOD UREA NITROGEN 70.5 mg/dL (7-18); MAGNESIUM 2.2 mg/dL (1.8-2.4)
[2023-04-21 17:42] LABS: CREATININE 2.8 mg/dL (0.55-1.3)
[2023-04-21 17:43] LABS: TOT PROT 6.5 g/dl (6.4-8.2)
[2023-04-21 17:44] LABS: BILIRUBIN,TOTAL 0.2 mg/dL (0.2-1)
[2023-04-21 17:45] LABS: ALBUMIN 2.4 g/dl (3.4-5.0)
[2023-04-21] MEDS: ATORVASTATIN CA 40 MG TABLET (FP) PO SCH (22:47)
[2023-04-22] MEDS: MEROPENEM 500 MG in DEXTROSE 5%-WATER 100 ML IVPB SCH ×2 (05:57→16:08)
[2023-04-22] MEDS: HEPARIN NA (PORCINE) 5,000 UNITS/ML 1ML VIAL SQ SCH ×3 (05:57→22:13)
[2023-04-22] MEDS: INSULIN SLIDING SCALE (NOVOLOG) 1 VIAL SQ SCH ×3 (06:47→16:09)
[2023-04-22] MEDS: amLODIPine BESYLATE 10 MG TABLET (FP) PO SCH (09:15)
[2023-04-22] MEDS: OFLOXACIN 0.3% OTIC SOLUTION 5 ML BOTTLE AD SCH (09:15)
[2023-04-22] MEDS: CARVEDILOL 12.5 MG TABLET (FP) PO SCH ×2 (09:15→22:13)
[2023-04-22] MEDS: TAMSULOSIN HCL 0.4 MG CAP PO SCH (09:15)
[2023-04-22] MEDS ORDERED: INSULIN (NOVOLOG) ASPART 100 UNITS/ML 10ML VIAL ONE (11:59)
[2023-04-22] MEDS: ATORVASTATIN CA 40 MG TABLET (FP) PO SCH (22:13)
[2023-04-23] MEDS: MEROPENEM 500 MG in DEXTROSE 5%-WATER 100 ML IVPB SCH ×2 (05:34→17:15)
[2023-04-23] MEDS: HEPARIN NA (PORCINE) 5,000 UNITS/ML 1ML VIAL SQ SCH ×3 (05:35→21:39)
[2023-04-23] MEDS: INSULIN SLIDING SCALE (NOVOLOG) 1 VIAL SQ SCH ×3 (06:17→17:10)
[2023-04-23] MEDS: OFLOXACIN 0.3% OTIC SOLUTION 5 ML BOTTLE AD SCH (09:15)
[2023-04-23] MEDS: CARVEDILOL 12.5 MG TABLET (FP) PO SCH ×2 (09:15→21:39)
[2023-04-23] MEDS: amLODIPine BESYLATE 10 MG TABLET (FP) PO SCH (09:15)
[2023-04-23] MEDS: TAMSULOSIN HCL 0.4 MG CAP PO SCH (09:15)
[2023-04-23 09:16] LABS: BASO % 0.4 % (0-2.0); EOS % 5.7 % (0-4.5); HEMATOCRIT 22.8 % (32.4-45.2); HEMOGLOBIN 7.6 GM/dL (10.7-15.3); LYMPH % 29.8 % (8-40); MCH 31.9 pg (25.7-33.7); MCHC 33.5 g/dl (32.0-36.0); MEAN CELL VOLUME 95.1 fl (80-96); MONO % 8.3 % (3.8-10.2); NEUT % 55.8 % (42.8-82.8); PLATELET COUNT 226 10^3/uL (134-434); WHITE BLOOD COUNT 8.5 K/mm3 (4.0-10.0)
[2023-04-23 09:53] LABS: ALBUMIN 2.2 g/dl (3.4-5.0); BILIRUBIN,TOTAL 0.2 mg/dL (0.2-1); CALCIUM 7.8 mg/dL (8.5-10.1); CREATININE 2.5 mg/dL (0.55-1.3); MAGNESIUM 2.2 mg/dL (1.8-2.4); POTASSIUM 4.8 mmol/L (3.5-5.1); TOT PROT 6.1 g/dl (6.4-8.2)
[2023-04-23] MEDS ORDERED: INSULIN (NOVOLOG) ASPART 100 UNITS/ML 10ML VIAL ONE (11:56)
[2023-04-23] MEDS: ATORVASTATIN CA 40 MG TABLET (FP) PO SCH (21:39)
[2023-04-24] MEDS: MEROPENEM 500 MG in DEXTROSE 5%-WATER 100 ML IVPB SCH (05:47)
[2023-04-24] MEDS: INSULIN SLIDING SCALE (NOVOLOG) 1 VIAL SQ SCH ×3 (07:29→16:33)
[2023-04-24] MEDS: HEPARIN NA (PORCINE) 5,000 UNITS/ML 1ML VIAL SQ SCH ×3 (07:49→22:12)
[2023-04-24 09:25] LABS: BASO % 1.3 % (0-2.0); EOS % 4.1 % (0-4.5); HEMATOCRIT 23.9 % (32.4-45.2); HEMOGLOBIN 7.9 GM/dL (10.7-15.3); INR 1.11 (0.83-1.09); LYMPH % 27.5 % (8-40); MCH 31.6 pg (25.7-33.7); MCHC 32.9 g/dl (32.0-36.0); MEAN PLT VOLUME 9.8 fl (7.5-11.1); MONO % 6.8 % (3.8-10.2); NEUT % 60.3 % (42.8-82.8); PLATELET COUNT 233 10^3/uL (134-434); PROTHROMBIN TIME (PATIENT) 12.9 SEC (9.7-13.0); RBC 2.49 M/mm3 (3.60-5.2); RDW 13.2 % (11.6-15.6); WHITE BLOOD COUNT 8.3 K/mm3 (4.0-10.0)
[2023-04-24] MEDS: TAMSULOSIN HCL 0.4 MG CAP PO SCH (09:43)
[2023-04-24] MEDS: CARVEDILOL 12.5 MG TABLET (FP) PO SCH ×2 (09:43→22:11)
[2023-04-24] MEDS: amLODIPine BESYLATE 10 MG TABLET (FP) PO SCH (09:43)
[2023-04-24] MEDS: OFLOXACIN 0.3% OTIC SOLUTION 5 ML BOTTLE AD SCH (09:44)
[2023-04-24 09:52] LABS: ALBUMIN 2.2 g/dl (3.4-5.0); BLOOD UREA NITROGEN 59.9 mg/dL (7-18); MAGNESIUM 2.1 mg/dL (1.8-2.4)
[2023-04-24 09:55] LABS: CREATININE 2.5 mg/dL (0.55-1.3)
[2023-04-24 09:57] LABS: BILIRUBIN,TOTAL 0.4 mg/dL (0.2-1); TOT PROT 6.2 g/dl (6.4-8.2)
[2023-04-24] MEDS ORDERED: oxyCODONE HCL 5 MG TABLET PO PRN ×2 (12:09→13:24)
[2023-04-24] MEDS ORDERED: IOHEXOL 300 MG/ML INFUS..BTL IV ONE (12:16)
[2023-04-24] MEDS ORDERED: FENTANYL CITRATE/PF 50 MCG/ML VIAL ONE (12:24)
[2023-04-24] MEDS ORDERED: PROPOFOL 20 ML ONE (12:24)
[2023-04-24] MEDS ORDERED: ceFAZolin SODIUM 1 GM VIAL IVPB ONE (12:42)
[2023-04-24] MEDS ORDERED: ACETAMINOPHEN 325 MG TABLET (FP) PO PRN (13:24)
[2023-04-24] MEDS: ATORVASTATIN CA 40 MG TABLET (FP) PO SCH (22:11)
[2023-04-25] MEDS: INSULIN SLIDING SCALE (NOVOLOG) 1 VIAL SQ SCH ×3 (06:37→16:48)
[2023-04-25] MEDS: HEPARIN NA (PORCINE) 5,000 UNITS/ML 1ML VIAL SQ SCH ×3 (06:46→21:15)
[2023-04-25] MEDS: CARVEDILOL 12.5 MG TABLET (FP) PO SCH ×2 (09:48→21:15)
[2023-04-25] MEDS: TAMSULOSIN HCL 0.4 MG CAP PO SCH (09:48)
[2023-04-25] MEDS: OFLOXACIN 0.3% OTIC SOLUTION 5 ML BOTTLE AD SCH ×2 (09:48→09:52)
[2023-04-25] MEDS: amLODIPine BESYLATE 10 MG TABLET (FP) PO SCH (09:48)
[2023-04-25] MEDS ORDERED: INSULIN (NOVOLOG) ASPART 100 UNITS/ML 10ML VIAL ONE ×2 (11:49→11:52)
[2023-04-25] MEDS: ATORVASTATIN CA 40 MG TABLET (FP) PO SCH (21:15)
[2023-04-26] MEDS: HEPARIN NA (PORCINE) 5,000 UNITS/ML 1ML VIAL SQ SCH (06:24)
[2023-04-26] MEDS: INSULIN SLIDING SCALE (NOVOLOG) 1 VIAL SQ SCH ×2 (06:24→12:02)
[2023-04-26 07:02] VITALS: RESP 14
[2023-04-26 08:46] VITALS: BP 145/56; PULSE 69; TEMP 98.4
[2023-04-26] MEDS: TAMSULOSIN HCL 0.4 MG CAP PO SCH (09:39)
[2023-04-26] MEDS: CARVEDILOL 12.5 MG TABLET (FP) PO SCH (09:39)
[2023-04-26] MEDS: amLODIPine BESYLATE 10 MG TABLET (FP) PO SCH (09:39)
[2023-04-26] MEDS: OFLOXACIN 0.3% OTIC SOLUTION 5 ML BOTTLE AD SCH (12:03)
== END 2023-04-26 12:55 | disposition home health service (06) | DRG 659 ==
LOC: JER 12:00 → JERBED 19:45 → OBSVTOIN 04-14 14:59 → J7W 04-15 14:59
PROVIDERS: ADMIT Internal Medicine; ATTEND Nurse Practitioner Acute Care
PROC: 0T768DZ Dilation of Right Ureter with Intraluminal Device, Via Natural or Artificial Opening Endoscopic (ICD-10-PCS; principal; 2023-04-24 12:00)
PROC: BT1DZZZ Fluoroscopy of Right Kidney, Ureter and Bladder (ICD-10-PCS; 2023-04-24 12:00)
DX: N13.6 Pyonephrosis (principal); G93.41 Metabolic encephalopathy; I50.32 Chronic diastolic (congestive) heart failure; I13.0 Hypertensive heart and chronic kidney disease with heart failure and stage 1 through stage 4 chronic kidney disease, or unspecified chronic kidney disease; I24.89 Other forms of acute ischemic heart disease; N17.9 Acute kidney failure, unspecified; F03.90 Unspecified dementia, unspecified severity, without behavioral disturbance, psychotic disturbance, mood disturbance, and anxiety; E11.65 Type 2 diabetes mellitus with hyperglycemia; E11.22 Type 2 diabetes mellitus with diabetic chronic kidney disease; D64.9 Anemia, unspecified; N18.9 Chronic kidney disease, unspecified; K21.9 Gastro-esophageal reflux disease without esophagitis; E78.5 Hyperlipidemia, unspecified; M81.0 Age-related osteoporosis without current pathological fracture; B96.20 Unspecified Escherichia coli [E. coli] as the cause of diseases classified elsewhere; E86.0 Dehydration
CPT/HCPCS: 0241U-QW; 36415; 70450-TC; 70551-TC; 71045-TC-FY; 76000-TC-FY; 76775-TC; 80053; 80061; 81003; 82272; 82550; 82607; 82728; 82746; 82803; 82962; 83090; 83540; 83550; 83735; 84100; 84439; 84443; 84466; 84484; 85025; 85027; 85045; 85610; 86780; 86850; 86900; 86901; 87086; 87186; 93005; 93010; 93880-TC; 94760; 97116-GP; 97161-GP; 99285-25; C2617; G0378; J1644

== ENCOUNTER 2023-08-08 21:14 | Inpatient (IN) | payer OTHER ==
[2023-08-08 23:58] LABS: BASO % 1.1 % (0-2.0); EOS % 1.6 % (0-4.5); HEMATOCRIT 28.5 % (32.4-45.2); HEMOGLOBIN 9.7 GM/dL (10.7-15.3); LYMPH % 25.2 % (8-40); MCH 32.1 pg (25.7-33.7); MCHC 33.9 g/dl (32.0-36.0); MEAN CELL VOLUME 94.6 fl (80-96); MEAN PLT VOLUME 9.8 fl (7.5-11.1); MONO % 5.3 % (3.8-10.2); NEUT % 66.8 % (42.8-82.8); PLATELET COUNT 294 10^3/uL (134-434); RBC 3.02 M/mm3 (3.60-5.2); RDW 14.9 % (11.6-15.6)
[2023-08-09 00:06] LABS: INR 1.03 (0.83-1.09); PROTHROMBIN TIME (PATIENT) 11.9 SEC (9.7-13.0)
[2023-08-09 00:08] LABS: ACTIVATED PTT 24.1 SECONDS (25.2-36.5)
[2023-08-09 00:13] LABS: CHLORIDE 102 mmol/L (98-107); SODIUM 134 mmol/L (136-145)
[2023-08-09 00:16] LABS: CALCIUM 8.9 mg/dL (8.5-10.1)
[2023-08-09 00:17] LABS: ALBUMIN 3.3 g/dl (3.4-5.0); BLOOD UREA NITROGEN 71.2 mg/dL (7-18); CO2 24 mmol/L (21-32); GLUCOSE,RANDOM 311 mg/dL (74-106); MAGNESIUM 2.1 mg/dL (1.8-2.4)
[2023-08-09 00:19] LABS: SGPT/ALT 26 U/L (13-61)
[2023-08-09 00:20] LABS: CREATININE 3.3 mg/dL (0.55-1.3); PHOSPHOROUS 4.9 mg/dL (2.5-4.9); SGOT/AST 33 U/L (15-37)
[2023-08-09 00:21] LABS: BILIRUBIN,TOTAL 0.3 mg/dL (0.2-1); TOT PROT 9.1 g/dl (6.4-8.2)
[2023-08-09 00:22] LABS: ALK PHOS 153 U/L (45-117)
[2023-08-09 01:16] LABS: ANION GAP 7 mmol/L (4-13); POTASSIUM 6.2 mmol/L (3.5-5.1)
[2023-08-09 01:36] LABS: EPI CELLS 5 /uL (0-25.1); HYALINE CASTS 0 /uL (0-3.1); PH,URINE 6.5 (5.0-8.0); URINE APPEARANCE CLOUDY; URINE BACTERIA 1662 /uL (0-1359); URINE BILIRUBIN NEGATIVE (NEGATIVE); URINE COLOR YELLOW; URINE GLUCOSE (UA) 1+ (NEGATIVE); URINE KETONE NEGATIVE (NEGATIVE); URINE LEUK ESTERASE 3+ (NEGATIVE); URINE NITRITE NEGATIVE (NEGATIVE); URINE PROTEIN 3+ (NEGATIVE); URINE RBC 149 /uL (0-23.9); URINE UROBILINOGEN 0.2 mg/dL (0.2-1.0); URINE WBC 847 /uL (0-25.8)
[2023-08-09] MEDS ORDERED: CEFTRIAXONE 1 GM/50 ML BAG ONE (02:18)
[2023-08-09 03:05] LABS: POTASSIUM 5.1 mmol/L (3.5-5.1)
[2023-08-09 03:07] LABS: CALCIUM 8.7 mg/dL (8.5-10.1)
[2023-08-09 03:08] LABS: BLOOD UREA NITROGEN 73.4 mg/dL (7-18)
[2023-08-09 03:11] LABS: CREATININE 3.3 mg/dL (0.55-1.3)
[2023-08-09 03:12] LABS: BILIRUBIN,TOTAL 0.2 mg/dL (0.2-1); TOT PROT 8.1 g/dl (6.4-8.2)
[2023-08-09 07:41] LABS: BASO % 1.1 % (0-2.0); EOS % 3.5 % (0-4.5); HEMATOCRIT 25.8 % (32.4-45.2); HEMOGLOBIN 8.5 GM/dL (10.7-15.3); LYMPH % 35.3 % (8-40); MCH 31.4 pg (25.7-33.7); MEAN PLT VOLUME 9.7 fl (7.5-11.1); MONO % 8.1 % (3.8-10.2); PLATELET COUNT 254 10^3/uL (134-434); RBC 2.72 M/mm3 (3.60-5.2); RDW 14.1 % (11.6-15.6); WHITE BLOOD COUNT 7.8 K/mm3 (4.0-10.0)
[2023-08-09] MEDS: CLOPIDOGREL BISULFATE 75 MG TABLET (FP) PO SCH (11:45)
[2023-08-09] MEDS: CARVEDILOL 12.5 MG TABLET (FP) PO SCH (11:45)
[2023-08-09] MEDS: ASPIRIN COATED 81 MG TABLET.EC PO SCH (11:45)
[2023-08-09] MEDS: amLODIPine BESYLATE 10 MG TABLET (FP) PO SCH (11:46)
[2023-08-09] MEDS: MEROPENEM 500 MG in DEXTROSE 5%-WATER 100 ML IVPB SCH (11:46)
[2023-08-09] MEDS: hydrALAZINE HCL 25 MG TABLET (FP) PO SCH (22:18)
[2023-08-09] MEDS: QUEtiapine FUMARATE 25 MG TABLET PO SCH (22:18)
[2023-08-10 10:01] LABS: BASO % 1.3 % (0-2.0); EOS % 4.5 % (0-4.5); HEMATOCRIT 25.5 % (32.4-45.2); HEMOGLOBIN 8.9 GM/dL (10.7-15.3); LYMPH % 25.8 % (8-40); MCH 32.9 pg (25.7-33.7); MCHC 34.8 g/dl (32.0-36.0); MEAN CELL VOLUME 94.8 fl (80-96); MEAN PLT VOLUME 9.7 fl (7.5-11.1); MONO % 7.9 % (3.8-10.2); NEUT % 60.5 % (42.8-82.8); PLATELET COUNT 219 10^3/uL (134-434); RBC 2.69 M/mm3 (3.60-5.2); RDW 14.5 % (11.6-15.6); WHITE BLOOD COUNT 6.5 K/mm3 (4.0-10.0)
[2023-08-10 10:23] LABS: POTASSIUM 4.9 mmol/L (3.5-5.1)
[2023-08-10 10:27] LABS: CALCIUM 8.2 mg/dL (8.5-10.1)
[2023-08-10 10:28] LABS: ALBUMIN 2.5 g/dl (3.4-5.0)
[2023-08-10 10:30] LABS: CREATININE 3.2 mg/dL (0.55-1.3)
[2023-08-10 10:32] LABS: BILIRUBIN,TOTAL 0.3 mg/dL (0.2-1); TOT PROT 6.8 g/dl (6.4-8.2)
[2023-08-10] MEDS: VALSARTAN 160 MG TABLET PO SCH (10:36)
[2023-08-10] MEDS: MEROPENEM 500 MG in DEXTROSE 5%-WATER 100 ML IVPB SCH (17:54)
[2023-08-11] MEDS: AZTREONAM 1 GM in DEXTROSE 5%-WATER - 50 ML IVPB SCH (11:08)
[2023-08-12 08:29] LABS: POTASSIUM 5.3 mmol/L (3.5-5.1)
[2023-08-12 08:34] LABS: CALCIUM 8.3 mg/dL (8.5-10.1)
[2023-08-12 08:35] LABS: ALBUMIN 2.3 g/dl (3.4-5.0)
[2023-08-12 08:38] LABS: CREATININE 3.8 mg/dL (0.55-1.3)
[2023-08-12 08:39] LABS: BILIRUBIN,TOTAL 0.2 mg/dL (0.2-1); TOT PROT 6.6 g/dl (6.4-8.2)
[2023-08-12 08:49] LABS: BLOOD UREA NITROGEN 91.8 mg/dL (7-18)
[2023-08-12 09:04] LABS: BASO % 0.8 % (0-2.0); EOS % 6.3 % (0-4.5); HEMOGLOBIN 8.6 GM/dL (10.7-15.3); LYMPH % 33.9 % (8-40); MCH 31.9 pg (25.7-33.7); MCHC 33.3 g/dl (32.0-36.0); MEAN CELL VOLUME 95.7 fl (80-96); MONO % 8.8 % (3.8-10.2); NEUT % 50.2 % (42.8-82.8); PLATELET COUNT 240 10^3/uL (134-434); RBC 2.71 M/mm3 (3.60-5.2); RDW 14.4 % (11.6-15.6); WHITE BLOOD COUNT 8.2 K/mm3 (4.0-10.0)
[2023-08-12] MEDS: SODIUM CHLORIDE 0.45% 1,000 ML IV SCH (17:12)
[2023-08-13 11:05] VITALS: BMI 17.9
[2023-08-15 10:07] LABS: CHLORIDE 114 mmol/L (98-107); POTASSIUM 5.2 mmol/L (3.5-5.1); SODIUM 139 mmol/L (136-145)
[2023-08-15 10:17] LABS: ALBUMIN 2.3 g/dl (3.4-5.0); ANION GAP 8 mmol/L (4-13); CALCIUM 8.3 mg/dL (8.5-10.1); CO2 18 mmol/L (21-32); GLUCOSE,RANDOM 88 mg/dL (74-106)
[2023-08-15 10:21] LABS: CREATININE 3.6 mg/dL (0.55-1.3); SGOT/AST 16 U/L (15-37); SGPT/ALT 16 U/L (13-61)
[2023-08-15 10:22] LABS: BILIRUBIN,TOTAL 0.3 mg/dL (0.2-1); TOT PROT 6.6 g/dl (6.4-8.2)
[2023-08-15 10:23] LABS: ALK PHOS 104 U/L (45-117)
[2023-08-15 10:45] LABS: BLOOD UREA NITROGEN 108.8 mg/dL (7-18)
[2023-08-17 08:15] LABS: EOS % 5.2 % (0-4.5); HEMATOCRIT 21.2 % (32.4-45.2); HEMOGLOBIN 7.3 GM/dL (10.7-15.3); LYMPH % 39.7 % (8-40); MCH 32.8 pg (25.7-33.7); MCHC 34.5 g/dl (32.0-36.0); MEAN CELL VOLUME 95.2 fl (80-96); MEAN PLT VOLUME 9.9 fl (7.5-11.1); MONO % 9.3 % (3.8-10.2); NEUT % 44.8 % (42.8-82.8); PLATELET COUNT 177 10^3/uL (134-434); RBC 2.23 M/mm3 (3.60-5.2); RDW 14.2 % (11.6-15.6); WHITE BLOOD COUNT 6.7 K/mm3 (4.0-10.0)
[2023-08-17 08:45] LABS: CHLORIDE 114 mmol/L (98-107); POTASSIUM 5.1 mmol/L (3.5-5.1); SODIUM 139 mmol/L (136-145)
[2023-08-17 08:51] LABS: CALCIUM 7.8 mg/dL (8.5-10.1)
[2023-08-17 08:52] LABS: ALBUMIN 2.1 g/dl (3.4-5.0); ANION GAP 6 mmol/L (4-13); CO2 19 mmol/L (21-32); GLUCOSE,RANDOM 130 mg/dL (74-106)
[2023-08-17 08:55] LABS: CREATININE 3.6 mg/dL (0.55-1.3); SGOT/AST 15 U/L (15-37); SGPT/ALT 16 U/L (13-61)
[2023-08-17 08:57] LABS: BILIRUBIN,TOTAL 0.2 mg/dL (0.2-1); TOT PROT 5.8 g/dl (6.4-8.2)
[2023-08-17 08:58] LABS: ALK PHOS 112 U/L (45-117)
[2023-08-17] MEDS ORDERED: PROPOFOL 20 ML ONE (13:29)
[2023-08-17] MEDS: ceFAZolin SODIUM 1 GM VIAL IVPB ONE (13:45)
[2023-08-17] MEDS: LACTATED RINGERS SOLUTION 1,000 ML IV SCH (14:48)
[2023-08-17] MEDS: SODIUM CHLORIDE 0.45% 1,000 ML IV SCH (15:38)
[2023-08-17] MEDS: hydrALAZINE HCL 25 MG TABLET (FP) PO SCH (21:22)
[2023-08-17] MEDS: CARVEDILOL 12.5 MG TABLET (FP) PO SCH (21:22)
[2023-08-17] MEDS: QUEtiapine FUMARATE 25 MG TABLET PO SCH (21:23)
[2023-08-18] MEDS: ASPIRIN COATED 81 MG TABLET.EC PO SCH (09:20)
[2023-08-18] MEDS: amLODIPine BESYLATE 10 MG TABLET (FP) PO SCH (09:21)
[2023-08-18] MEDS: CLOPIDOGREL BISULFATE 75 MG TABLET (FP) PO SCH (09:21)
[2023-08-18] MEDS: ACETAMINOPHEN 325 MG TABLET (FP) PO PRN (20:45)
[2023-08-19 10:35] LABS: POTASSIUM 5.9 mmol/L (3.5-5.1)
[2023-08-19 10:38] LABS: CALCIUM 8.8 mg/dL (8.5-10.1)
[2023-08-19 10:41] LABS: CREATININE 3.3 mg/dL (0.55-1.3)
[2023-08-19 10:42] LABS: BILIRUBIN,TOTAL 0.3 mg/dL (0.2-1)
[2023-08-19 10:43] LABS: TOT PROT 7.1 g/dl (6.4-8.2)
[2023-08-19 10:44] LABS: ALBUMIN 2.6 g/dl (3.4-5.0)
[2023-08-19] MEDS: INSULIN (NOVOLOG) ASPART 100 UNITS/ML 10ML VIAL SQ ONE (12:25)
[2023-08-19] MEDS: SODIUM ZIRCONIUM CYCLOSILICATE (LOKELMA) 5 GM PACKET PO SCH (15:53)
[2023-08-19] MEDS: INSULIN ASPART SLIDING SCALE (NOVOLOG) 1 VIAL SQ SCH (18:02)
[2023-08-19] MEDS: SODIUM CHLORIDE 0.45% 1,000 ML IV SCH (18:44)
[2023-08-19] MEDS ORDERED: INSULIN (NOVOLOG) ASPART 100 UNITS/ML 10ML VIAL ONE (22:53)
[2023-08-19] MEDS: INSULIN (LEVEMIR) 100 UNITS/ML UNITS SQ SCH (22:54)
[2023-08-20 08:21] LABS: BASO % 0.9 % (0-2.0); EOS % 5.1 % (0-4.5); HEMATOCRIT 30.4 % (32.4-45.2); HEMOGLOBIN 9.9 GM/dL (10.7-15.3); LYMPH % 31.3 % (8-40); MCH 30.7 pg (25.7-33.7); MCHC 32.6 g/dl (32.0-36.0); MEAN CELL VOLUME 94.1 fl (80-96); MEAN PLT VOLUME 10.2 fl (7.5-11.1); NEUT % 54.7 % (42.8-82.8); PLATELET COUNT 175 10^3/uL (134-434); RBC 3.23 M/mm3 (3.60-5.2); RDW 15.7 % (11.6-15.6)
[2023-08-20 08:49] LABS: CHLORIDE 113 mmol/L (98-107); SODIUM 140 mmol/L (136-145)
[2023-08-20 08:51] LABS: ANION GAP 7 mmol/L (4-13); CALCIUM 8.2 mg/dL (8.5-10.1); CO2 19 mmol/L (21-32)
[2023-08-20 08:52] LABS: ALBUMIN 2.3 g/dl (3.4-5.0); GLUCOSE,RANDOM 57 mg/dL (74-106)
[2023-08-20 08:55] LABS: CREATININE 3.4 mg/dL (0.55-1.3); SGOT/AST 18 U/L (15-37); SGPT/ALT 15 U/L (13-61)
[2023-08-20 08:56] LABS: BILIRUBIN,TOTAL 0.3 mg/dL (0.2-1); TOT PROT 6.4 g/dl (6.4-8.2)
[2023-08-20 08:57] LABS: ALK PHOS 99 U/L (45-117); BLOOD UREA NITROGEN 108.5 mg/dL (7-18)
[2023-08-20] MEDS: SODIUM ZIRCONIUM CYCLOSILICATE (LOKELMA) 5 GM PACKET PO SCH (16:11)
[2023-08-20] MEDS ORDERED: INSULIN (NOVOLOG) ASPART 100 UNITS/ML 10ML VIAL ONE (19:08)
[2023-08-21 09:04] LABS: POTASSIUM 5.2 mmol/L (3.5-5.1)
[2023-08-21 09:12] LABS: ALBUMIN 2.3 g/dl (3.4-5.0); BLOOD UREA NITROGEN 100.4 mg/dL (7-18); CALCIUM 8.4 mg/dL (8.5-10.1)
[2023-08-21 09:15] LABS: CREATININE 3.3 mg/dL (0.55-1.3)
[2023-08-21 09:16] LABS: BILIRUBIN,TOTAL 0.3 mg/dL (0.2-1); TOT PROT 6.3 g/dl (6.4-8.2)
[2023-08-21] MEDS ORDERED: INSULIN (NOVOLOG) ASPART 100 UNITS/ML 10ML VIAL ONE (11:27)
[2023-08-21 14:00] VITALS: BP 137/48; PULSE 68; RESP 16; TEMP 97.3
== END 2023-08-21 14:30 | disposition home health service (06) | DRG 660 ==
LOC: JER 21:14 → JERBED 22:25 → J7W 08-09 04:51 → OBSVTOIN 08-11 10:44 → J7W 08-11 10:46
PROVIDERS: ADMIT Internal Medicine; ATTEND Internal Medicine
PROC: BT1DYZZ Fluoroscopy of Right Kidney, Ureter and Bladder using Other Contrast (ICD-10-PCS; 2023-08-17)
PROC: 30233N1 Transfusion of Nonautologous Red Blood Cells into Peripheral Vein, Percutaneous Approach (ICD-10-PCS; 2023-08-17)
PROC: 0T768DZ Dilation of Right Ureter with Intraluminal Device, Via Natural or Artificial Opening Endoscopic (ICD-10-PCS; principal; 2023-08-17 13:00)
PROC: 0TP98DZ Removal of Intraluminal Device from Ureter, Via Natural or Artificial Opening Endoscopic (ICD-10-PCS; 2023-08-17 13:00)
DX: N39.0 Urinary tract infection, site not specified (principal); I13.0 Hypertensive heart and chronic kidney disease with heart failure and stage 1 through stage 4 chronic kidney disease, or unspecified chronic kidney disease; I50.32 Chronic diastolic (congestive) heart failure; N17.9 Acute kidney failure, unspecified; F03.90 Unspecified dementia, unspecified severity, without behavioral disturbance, psychotic disturbance, mood disturbance, and anxiety; E11.9 Type 2 diabetes mellitus without complications; E78.5 Hyperlipidemia, unspecified; N18.9 Chronic kidney disease, unspecified; N13.30 Unspecified hydronephrosis; D64.9 Anemia, unspecified
CPT/HCPCS: 36415; 36430; 70450-TC; 71045-TC-FY; 76000-TC-FY; 76775-TC; 80053; 81003; 82962; 83605; 83735; 83880; 84100; 84484; 85025; 85610; 85730; 86850; 86900; 86901; 86922; 87086; 87186; 93005; 93010; 94760; 97116-GP; 97162-GP; 99285-25; C2617; G0378; P9058

== ENCOUNTER 2023-09-21 16:50 | Inpatient (IN) | payer OTHER ==
[2023-09-21] MEDS ORDERED: INSULIN REGULAR HUMAN 100 UNITS/ML *VIAL ONE (18:33)
[2023-09-21 18:36] LABS: VENOUS BASE EXCESS -2.8 mmol/L (-2-2); VENOUS O2 SATURATION 43.1 % (70-80); VENOUS PCO2 45.6 mmHg (38-52); VENOUS PH 7.326 (7.310-7.410)
[2023-09-21 18:40] LABS: BASO % 0.8 % (0-2.0); EOS % 2.8 % (0-4.5); HEMATOCRIT 35.1 % (32.4-45.2); HEMOGLOBIN 11.8 GM/dL (10.7-15.3); LYMPH % 24.1 % (8-40); MCH 31.5 pg (25.7-33.7); MCHC 33.6 g/dl (32.0-36.0); MEAN CELL VOLUME 93.6 fl (80-96); MEAN PLT VOLUME 9.5 fl (7.5-11.1); MONO % 5.7 % (3.8-10.2); NEUT % 66.6 % (42.8-82.8); PLATELET COUNT 303 10^3/uL (134-434); RBC 3.75 M/mm3 (3.60-5.2); RDW 14.3 % (11.6-15.6); WHITE BLOOD COUNT 9.1 K/mm3 (4.0-10.0)
[2023-09-21 18:48] LABS: INR 1.02 (0.83-1.09); PROTHROMBIN TIME (PATIENT) 11.8 SEC (9.7-13.0)
[2023-09-21 18:51] LABS: ACTIVATED PTT 35.3 SECONDS (25.2-36.5)
[2023-09-21 18:52] LABS: EPI CELLS 15 /uL (0-25.1); HYALINE CASTS 1 /uL (0-3.1); URINE APPEARANCE TURBID; URINE BACTERIA >9,000 /uL (0-1359); URINE BILIRUBIN NEGATIVE (NEGATIVE); URINE COLOR YELLOW; URINE GLUCOSE (UA) NEGATIVE (NEGATIVE); URINE KETONE NEGATIVE (NEGATIVE); URINE LEUK ESTERASE 3+ (NEGATIVE); URINE NITRITE NEGATIVE (NEGATIVE); URINE PROTEIN 3+ (NEGATIVE); URINE UROBILINOGEN 0.2 mg/dL (0.2-1.0); URINE WBC 5661 /uL (0-25.8)
[2023-09-21 18:56] LABS: POTASSIUM 5.9 mmol/L (3.5-5.1)
[2023-09-21 18:58] LABS: ALBUMIN 2.7 g/dl (3.4-5.0)
[2023-09-21 19:02] LABS: CREATININE 3.3 mg/dL (0.55-1.3)
[2023-09-21 19:03] LABS: TOT PROT 8.2 g/dl (6.4-8.2)
[2023-09-21 19:05] LABS: BILIRUBIN,TOTAL 0.4 mg/dL (0.2-1)
[2023-09-21] MEDS ORDERED: ACETAMINOPHEN INJECTION 100 ML IVPB ONE (20:02)
[2023-09-21] MEDS: ACETAMINOPHEN 1000 MG/100 ML BAG IVPB ONE (20:45)
[2023-09-21] MEDS: SODIUM CHLORIDE 0.9% 500 ML INFUS.BAG IV ONE (20:45)
[2023-09-21 22:25] LABS: URINE RBC 276.3 /uL (0-23.9)
[2023-09-21 22:26] LABS: YEAST NONE SEEN (NEGATIVE)
[2023-09-21] MEDS: VANCOMYCIN 1,000 MG in DEXTROSE 5%-WATER - 250 ML IVPB ONE (22:30)
[2023-09-21] MEDS ORDERED: VANCOMYCIN 1 GRAM (PRE-DOCKED) 1,000 MG/250 ML BAG IVPB ONE (22:36)
[2023-09-22 02:20] LABS: POTASSIUM 4.7 mmol/L (3.5-5.1)
[2023-09-22 02:22] LABS: BLOOD UREA NITROGEN 75.3 mg/dL (7-18); CALCIUM 8.3 mg/dL (8.5-10.1)
[2023-09-22 02:23] LABS: ALBUMIN 2.4 g/dl (3.4-5.0)
[2023-09-22 02:26] LABS: CREATININE 3.2 mg/dL (0.55-1.3)
[2023-09-22 02:27] LABS: BILIRUBIN,TOTAL 0.2 mg/dL (0.2-1); TOT PROT 6.8 g/dl (6.4-8.2)
[2023-09-22 05:35] VITALS: BMI 18.4
[2023-09-22 10:21] LABS: BASO % 0.6 % (0-2.0); EOS % 3.8 % (0-4.5); HEMATOCRIT 29.3 % (32.4-45.2); HEMOGLOBIN 9.8 GM/dL (10.7-15.3); LYMPH % 19.8 % (8-40); MCH 31.2 pg (25.7-33.7); MCHC 33.4 g/dl (32.0-36.0); MEAN CELL VOLUME 93.3 fl (80-96); MONO % 6.6 % (3.8-10.2); NEUT % 69.2 % (42.8-82.8); PLATELET COUNT 228 10^3/uL (134-434); RBC 3.14 M/mm3 (3.60-5.2); RDW 14.1 % (11.6-15.6); WHITE BLOOD COUNT 8.9 K/mm3 (4.0-10.0)
[2023-09-22 10:47] LABS: POTASSIUM 5.1 mmol/L (3.5-5.1)
[2023-09-22 10:53] LABS: CALCIUM 8.2 mg/dL (8.5-10.1)
[2023-09-22 10:54] LABS: ALBUMIN 2.3 g/dl (3.4-5.0); BLOOD UREA NITROGEN 78.9 mg/dL (7-18)
[2023-09-22 10:57] LABS: CREATININE 3.1 mg/dL (0.55-1.3)
[2023-09-22 10:59] LABS: BILIRUBIN,TOTAL 0.2 mg/dL (0.2-1); TOT PROT 6.6 g/dl (6.4-8.2)
[2023-09-22] MEDS ORDERED: SODIUM BICARBONATE 650 MG TABLET PO PRN (11:42)
[2023-09-22 12:42] VITALS: RESP 18
[2023-09-22] MEDS: amLODIPine BESYLATE 10 MG TABLET (FP) PO SCH (13:01)
[2023-09-22] MEDS: CARVEDILOL 12.5 MG TABLET (FP) PO SCH (13:01)
[2023-09-22] MEDS: CLOPIDOGREL BISULFATE 75 MG TABLET (FP) PO SCH (13:01)
[2023-09-22] MEDS: TAMSULOSIN HCL 0.4 MG CAP PO SCH (13:01)
[2023-09-22 14:07] VITALS: BP 183/65; PULSE 83; TEMP 98.4
[2023-09-22] MEDS: hydrALAZINE HCL 25 MG TABLET (FP) PO SCH (15:05)
[2023-09-22] MEDS: SODIUM ZIRCONIUM CYCLOSILICATE (LOKELMA) 5 GM PACKET PO SCH (16:11)
[2023-09-22] MEDS ORDERED: QUEtiapine FUMARATE 25 MG TABLET PO SCH (22:00)
[2023-09-22] MEDS ORDERED: ATORVASTATIN CA 40 MG TABLET (FP) PO SCH (22:00)
[2023-09-23] MEDS ORDERED: ASPIRIN COATED 81 MG TABLET.EC PO SCH (10:00)
== END 2023-09-22 16:50 | disposition home health service (06) | DRG 689 ==
LOC: JER 16:50 → JERBED 21:01 → J6S 09-22 02:09
PROVIDERS: ADMIT Internal Medicine; ATTEND Internal Medicine
DX: N39.0 Urinary tract infection, site not specified (principal); G93.41 Metabolic encephalopathy; I13.0 Hypertensive heart and chronic kidney disease with heart failure and stage 1 through stage 4 chronic kidney disease, or unspecified chronic kidney disease; I50.32 Chronic diastolic (congestive) heart failure; R44.3 Hallucinations, unspecified; F03.90 Unspecified dementia, unspecified severity, without behavioral disturbance, psychotic disturbance, mood disturbance, and anxiety; E10.22 Type 1 diabetes mellitus with diabetic chronic kidney disease; N18.9 Chronic kidney disease, unspecified; E78.5 Hyperlipidemia, unspecified
CPT/HCPCS: 0241U-QW; 36415; 70450-TC; 71045-TC-FY; 72125-TC; 80053; 81003; 82803; 83605; 83880; 84484; 85025; 85610; 85730; 86850; 86900; 86901; 87040; 87086; 87186; 93005; 93010; 99285-25; J0131

== ENCOUNTER 2023-09-26 11:40 | Emergency (ER) | payer OTHER ==
[2023-09-26 11:47] VITALS: BMI 18.3
[2023-09-26 12:43] LABS: EPI CELLS 6 /uL (0-25.1); HYALINE CASTS 0 /uL (0-3.1); PH,URINE 5.5 (5.0-8.0); URINE APPEARANCE CLOUDY; URINE BACTERIA 23 /uL (0-1359); URINE BILIRUBIN NEGATIVE (NEGATIVE); URINE COLOR YELLOW; URINE GLUCOSE (UA) 1+ (NEGATIVE); URINE KETONE NEGATIVE (NEGATIVE); URINE LEUK ESTERASE 2+ (NEGATIVE); URINE NITRITE NEGATIVE (NEGATIVE); URINE PROTEIN 3+ (NEGATIVE); URINE RBC 3429 /uL (0-23.9); URINE UROBILINOGEN 0.2 mg/dL (0.2-1.0); URINE WBC 663 /uL (0-25.8)
[2023-09-26 13:54] LABS: POTASSIUM 5.8 mmol/L (3.5-5.1)
[2023-09-26 13:55] LABS: CALCIUM 8.2 mg/dL (8.5-10.1)
[2023-09-26 13:56] LABS: ALBUMIN 2.5 g/dl (3.4-5.0); BLOOD UREA NITROGEN 75.5 mg/dL (7-18)
[2023-09-26 13:59] LABS: CREATININE 3.2 mg/dL (0.55-1.3)
[2023-09-26 14:00] LABS: BILIRUBIN,TOTAL 0.3 mg/dL (0.2-1); TOT PROT 7.3 g/dl (6.4-8.2)
[2023-09-26 15:24] LABS: BASO % 0.8 % (0-2.0); EOS % 4.5 % (0-4.5); HEMATOCRIT 30.1 % (32.4-45.2); HEMOGLOBIN 9.9 GM/dL (10.7-15.3); LYMPH % 25.3 % (8-40); MEAN CELL VOLUME 93.9 fl (80-96); MEAN PLT VOLUME 8.7 fl (7.5-11.1); NEUT % 61.4 % (42.8-82.8); PLATELET COUNT 250 10^3/uL (134-434); RDW 14.4 % (11.6-15.6); WHITE BLOOD COUNT 9.1 K/mm3 (4.0-10.0)
[2023-09-26 15:58] LABS: POTASSIUM 5.1 mmol/L (3.5-5.1)
[2023-09-26 16:02] LABS: BLOOD UREA NITROGEN 73.2 mg/dL (7-18); CALCIUM 8.3 mg/dL (8.5-10.1)
[2023-09-26 16:06] LABS: CREATININE 3.3 mg/dL (0.55-1.3)
[2023-09-26 18:16] VITALS: BP 181/52; PULSE 85; RESP 20; TEMP 98
== END 2023-09-26 18:47 | disposition home or self-care (01) ==
LOC: JER 11:40
DX: R31.0 Gross hematuria (principal); T83.192A Other mechanical complication of indwelling ureteral stent, initial encounter
CPT/HCPCS: 36415; 74176-TC; 80048; 80053; 81003; 82272; 82962; 85025; 87086; 99284-25

== ENCOUNTER 2023-10-12 18:18 | Inpatient (IN) | payer OTHER ==
[2023-10-12 21:39] LABS: BASO % 0.9 % (0-2.0); EOS % 4.5 % (0-4.5); HEMATOCRIT 30.9 % (32.4-45.2); HEMOGLOBIN 10.5 GM/dL (10.7-15.3); LYMPH % 19.5 % (8-40); MCH 31.4 pg (25.7-33.7); MCHC 33.8 g/dl (32.0-36.0); MEAN PLT VOLUME 9.3 fl (7.5-11.1); NEUT % 66.1 % (42.8-82.8); PLATELET COUNT 331 10^3/uL (134-434); RBC 3.33 M/mm3 (3.60-5.2); RDW 14.5 % (11.6-15.6); WHITE BLOOD COUNT 8.2 K/mm3 (4.0-10.0)
[2023-10-12 21:45] LABS: INR 0.99 (0.83-1.09); PROTHROMBIN TIME (PATIENT) 11.2 SEC (9.7-13.0)
[2023-10-12 21:47] LABS: ACTIVATED PTT 33.2 SECONDS (25.2-36.5)
[2023-10-12 21:57] LABS: POTASSIUM 5.9 mmol/L (3.5-5.1)
[2023-10-12 21:58] LABS: BLOOD UREA NITROGEN 78.6 mg/dL (7-18); CALCIUM 8.6 mg/dL (8.5-10.1)
[2023-10-12 21:59] LABS: ALBUMIN 2.6 g/dl (3.4-5.0)
[2023-10-12 22:02] LABS: CREATININE 3.4 mg/dL (0.55-1.3)
[2023-10-12 22:03] LABS: BILIRUBIN,TOTAL 0.4 mg/dL (0.2-1)
[2023-10-12 22:10] LABS: EPI CELLS 1 /uL (0-25.1); HYALINE CASTS 0 /uL (0-3.1); URINE APPEARANCE CLOUDY; URINE BACTERIA >9,000 /uL (0-1359); URINE BILIRUBIN NEGATIVE (NEGATIVE); URINE COLOR YELLOW; URINE GLUCOSE (UA) 1+ (NEGATIVE); URINE KETONE NEGATIVE (NEGATIVE); URINE LEUK ESTERASE 3+ (NEGATIVE); URINE NITRITE NEGATIVE (NEGATIVE); URINE PROTEIN 3+ (NEGATIVE); URINE RBC 26 /uL (0-23.9); URINE UROBILINOGEN 0.2 mg/dL (0.2-1.0); URINE WBC 513 /uL (0-25.8)
[2023-10-12] MEDS: SODIUM CHLORIDE 0.9% 500 ML INFUS.BAG IV ONE (22:24)
[2023-10-12 22:31] LABS: POTASSIUM 5.2 mmol/L (3.5-5.1)
[2023-10-12 22:33] LABS: CALCIUM 8.4 mg/dL (8.5-10.1)
[2023-10-12 22:34] LABS: ALBUMIN 2.4 g/dl (3.4-5.0); BLOOD UREA NITROGEN 79.9 mg/dL (7-18)
[2023-10-12 22:36] LABS: CREATININE 3.3 mg/dL (0.55-1.3)
[2023-10-12 22:38] LABS: BILIRUBIN,TOTAL 0.3 mg/dL (0.2-1)
[2023-10-12] MEDS ORDERED: VANCOMYCIN 1 GRAM (PRE-DOCKED) 1,000 MG/250 ML BAG IVPB ONE (22:47)
[2023-10-12] MEDS ORDERED: CEFTRIAXONE 1 GM/50 ML BAG ONE (22:48)
[2023-10-12] MEDS: CEFTRIAXONE 1 GM in DEXTROSE 5%-WATER - 100 ML IVPB ONE (23:30)
[2023-10-13] MEDS ORDERED: DOCUSATE SODIUM 100 MG CAPSULE (FP) PO PRN (00:02)
[2023-10-13] MEDS: VANCOMYCIN 1,000 MG in DEXTROSE 5%-WATER - 250 ML IVPB ONE (00:29)
[2023-10-13] MEDS ORDERED: SODIUM ZIRCONIUM CYCLOSILICATE (LOKELMA) 5 GM PACKET ONE (02:22)
[2023-10-13] MEDS: SODIUM ZIRCONIUM CYCLOSILICATE (LOKELMA) 5 GM PACKET PO ONE (02:47)
[2023-10-13] MEDS: INSULIN ASPART SLIDING SCALE (NOVOLOG) 1 VIAL SQ SCH (06:05)
[2023-10-13] MEDS ORDERED: SODIUM BICARBONATE 650 MG TABLET PO PRN (07:52)
[2023-10-13] MEDS: TAMSULOSIN HCL 0.4 MG CAP PO SCH (08:42)
[2023-10-13] MEDS: hydrALAZINE HCL 25 MG TABLET (FP) PO SCH (08:42)
[2023-10-13] MEDS: CARVEDILOL 12.5 MG TABLET (FP) PO SCH (09:12)
[2023-10-13] MEDS: LOSARTAN POTASSIUM 50 MG TABLET PO SCH (09:12)
[2023-10-13] MEDS: ASPIRIN COATED 81 MG TABLET.EC PO SCH (09:12)
[2023-10-13] MEDS: amLODIPine BESYLATE 10 MG TABLET (FP) PO SCH (09:12)
[2023-10-13] MEDS: CLOPIDOGREL BISULFATE 75 MG TABLET (FP) PO SCH (09:13)
[2023-10-13] MEDS: MULTIVITAMINS (DAILY MVI) TABLET (FP) PO SCH (09:13)
[2023-10-13] MEDS: CLOTRIMAZOLE 1%TOPICAL SOLUTION 30 ML BOTTLE TP SCH (09:39)
[2023-10-13] MEDS ORDERED: HEPARIN NA (PORCINE) 5,000 UNITS/ML 1ML VIAL SQ SCH (10:00)
[2023-10-13] MEDS: SODIUM ZIRCONIUM CYCLOSILICATE (LOKELMA) 5 GM PACKET PO SCH (11:40)
[2023-10-13] MEDS: QUEtiapine FUMARATE 25 MG TABLET PO SCH (22:21)
[2023-10-13] MEDS: ATORVASTATIN CA 40 MG TABLET (FP) PO SCH (22:21)
[2023-10-14] MEDS: CEFTRIAXONE 1 GM in DEXTROSE 5%-WATER - 50 ML IVPB SCH (00:46)
[2023-10-14] MEDS ORDERED: MECLIZINE HCL 25 MG TABLET (FP) PO PRN (13:02)
[2023-10-14] MEDS ORDERED: VANCOMYCIN/WATER FOR INJ (PEG) 750 MG/150 ML BAG IVPB SCH (22:00)
[2023-10-15 08:48] LABS: EOS % 6.3 % (0-4.5); HEMATOCRIT 25.1 % (32.4-45.2); HEMOGLOBIN 8.3 GM/dL (10.7-15.3); MCH 30.9 pg (25.7-33.7); MEAN CELL VOLUME 93.6 fl (80-96); MONO % 8.7 % (3.8-10.2); PLATELET COUNT 245 10^3/uL (134-434); RBC 2.68 M/mm3 (3.60-5.2); RDW 14.1 % (11.6-15.6)
[2023-10-15 09:12] LABS: POTASSIUM 4.3 mmol/L (3.5-5.1)
[2023-10-15 09:14] LABS: CALCIUM 7.9 mg/dL (8.5-10.1)
[2023-10-15 09:15] LABS: BLOOD UREA NITROGEN 75.5 mg/dL (7-18)
[2023-10-15 09:18] LABS: CREATININE 3.7 mg/dL (0.55-1.3)
[2023-10-15 09:19] LABS: BILIRUBIN,TOTAL 0.3 mg/dL (0.2-1); TOT PROT 5.9 g/dl (6.4-8.2)
[2023-10-16 11:04] LABS: BASO % 0.9 % (0-2.0); EOS % 7.3 % (0-4.5); HEMATOCRIT 28.8 % (32.4-45.2); HEMOGLOBIN 9.8 GM/dL (10.7-15.3); LYMPH % 21.1 % (8-40); MCH 31.5 pg (25.7-33.7); MCHC 33.9 g/dl (32.0-36.0); MEAN CELL VOLUME 92.9 fl (80-96); MEAN PLT VOLUME 8.9 fl (7.5-11.1); MONO % 8.4 % (3.8-10.2); NEUT % 62.3 % (42.8-82.8); PLATELET COUNT 273 10^3/uL (134-434); RDW 14.2 % (11.6-15.6); WHITE BLOOD COUNT 7.9 K/mm3 (4.0-10.0)
[2023-10-16 11:19] LABS: POTASSIUM 4.3 mmol/L (3.5-5.1)
[2023-10-16 11:25] LABS: CALCIUM 8.1 mg/dL (8.5-10.1)
[2023-10-16 11:26] LABS: ALBUMIN 2.2 g/dl (3.4-5.0); BLOOD UREA NITROGEN 84.8 mg/dL (7-18)
[2023-10-16 11:29] LABS: CREATININE 3.9 mg/dL (0.55-1.3)
[2023-10-16 11:30] LABS: TOT PROT 6.4 g/dl (6.4-8.2)
[2023-10-16 11:31] LABS: BILIRUBIN,TOTAL 0.3 mg/dL (0.2-1)
[2023-10-16] MEDS: LACTATED RINGERS SOLUTION 1,000 ML/1,000 ML INFUS.BAG IV SCH (14:21)
[2023-10-16] MEDS ORDERED: INSULIN (NOVOLOG) ASPART 100 UNITS/ML 10ML VIAL ONE (20:31)
[2023-10-17] MEDS ORDERED: INSULIN (NOVOLOG) ASPART 100 UNITS/ML 10ML VIAL ONE ×2 (05:00→21:58)
[2023-10-17 08:23] LABS: BASO % 0.9 % (0-2.0); EOS % 6.5 % (0-4.5); HEMATOCRIT 26.5 % (32.4-45.2); HEMOGLOBIN 8.8 GM/dL (10.7-15.3); LYMPH % 25.4 % (8-40); MCH 31.2 pg (25.7-33.7); MCHC 33.1 g/dl (32.0-36.0); MEAN CELL VOLUME 94.4 fl (80-96); NEUT % 58.2 % (42.8-82.8); PLATELET COUNT 253 10^3/uL (134-434); RBC 2.81 M/mm3 (3.60-5.2); RDW 14.3 % (11.6-15.6); WHITE BLOOD COUNT 8.8 K/mm3 (4.0-10.0)
[2023-10-17 08:32] LABS: POTASSIUM 4.4 mmol/L (3.5-5.1)
[2023-10-17 08:55] LABS: CALCIUM 7.9 mg/dL (8.5-10.1)
[2023-10-17 08:56] LABS: ALBUMIN 2.1 g/dl (3.4-5.0); BLOOD UREA NITROGEN 87.3 mg/dL (7-18)
[2023-10-17 08:59] LABS: CREATININE 3.9 mg/dL (0.55-1.3)
[2023-10-17 09:01] LABS: BILIRUBIN,TOTAL 0.3 mg/dL (0.2-1)
[2023-10-17 12:44] VITALS: BMI 18.5
[2023-10-17 15:55] VITALS: RESP 18
[2023-10-17] MEDS ORDERED: NITROFURANTOIN MONOHYD/M-CRYST 100 MG CAPSULE PO SCH (22:00)
[2023-10-17 22:53] VITALS: PULSE 79
[2023-10-18] MEDS ORDERED: INSULIN (NOVOLOG) ASPART 100 UNITS/ML 10ML VIAL ONE ×2 (06:11→13:01)
[2023-10-18 11:41] VITALS: BP 122/58; TEMP 98.2
== END 2023-10-18 13:40 | disposition home or self-care (01) | DRG 689 ==
LOC: EDBD → JER 18:18 → JERBED 23:03 → J8W 10-13 03:09
PROVIDERS: ADMIT Internal Medicine; ATTEND Internal Medicine
DX: N39.0 Urinary tract infection, site not specified (principal); G93.41 Metabolic encephalopathy; I13.0 Hypertensive heart and chronic kidney disease with heart failure and stage 1 through stage 4 chronic kidney disease, or unspecified chronic kidney disease; I50.32 Chronic diastolic (congestive) heart failure; E86.0 Dehydration; E78.00 Pure hypercholesterolemia, unspecified; F03.90 Unspecified dementia, unspecified severity, without behavioral disturbance, psychotic disturbance, mood disturbance, and anxiety; R41.82 Altered mental status, unspecified; B96.20 Unspecified Escherichia coli [E. coli] as the cause of diseases classified elsewhere; E11.22 Type 2 diabetes mellitus with diabetic chronic kidney disease; N18.9 Chronic kidney disease, unspecified; E87.5 Hyperkalemia; E78.5 Hyperlipidemia, unspecified; D64.9 Anemia, unspecified; R42 Dizziness and giddiness
CPT/HCPCS: 0241U-QW; 36415; 71045-TC-FY; 80053; 81003; 82962; 83605; 83735; 84100; 85025; 85610; 85730; 87086; 87186; 93005; 93010; 97116-GP; 97161-GP; 99285-25

== ENCOUNTER 2023-10-18 16:03 | Observation (INO) | payer OTHER ==
[2023-10-18 16:14] VITALS: BMI 18.8
[2023-10-18] MEDS ORDERED: ACETAMINOPHEN INJECTION 100 ML IVPB ONE (17:31)
[2023-10-18] MEDS: SODIUM CHLORIDE 0.9% 500 ML INFUS.BAG IV ONE ×2 (17:40→21:27)
[2023-10-18] MEDS: ACETAMINOPHEN 1000 MG/100 ML BAG IVPB ONE (17:41)
[2023-10-18 17:45] LABS: EOS % 2.9 % (0-4.5); HEMATOCRIT 29.2 % (32.4-45.2); HEMOGLOBIN 10.2 GM/dL (10.7-15.3); MCH 32.1 pg (25.7-33.7); MCHC 34.9 g/dl (32.0-36.0); MEAN CELL VOLUME 92.1 fl (80-96); MEAN PLT VOLUME 9.3 fl (7.5-11.1); MONO % 7.8 % (3.8-10.2); NEUT % 69.3 % (42.8-82.8); PLATELET COUNT 290 10^3/uL (134-434); RBC 3.17 M/mm3 (3.60-5.2); RDW 14.1 % (11.6-15.6); WHITE BLOOD COUNT 9.1 K/mm3 (4.0-10.0)
[2023-10-18 17:59] LABS: CALCIUM 8.5 mg/dL (8.5-10.1)
[2023-10-18 18:00] LABS: BLOOD UREA NITROGEN 89.8 mg/dL (7-18); MAGNESIUM 2.1 mg/dL (1.8-2.4)
[2023-10-18 18:03] LABS: CREATININE 4.2 mg/dL (0.55-1.3)
[2023-10-18 18:04] LABS: TOT PROT 7.6 g/dl (6.4-8.2)
[2023-10-18 18:05] LABS: BILIRUBIN,TOTAL 0.4 mg/dL (0.2-1)
[2023-10-18 18:15] LABS: ALBUMIN 2.7 g/dl (3.4-5.0)
[2023-10-18 21:45] LABS: EPI CELLS 20 /uL (0-25.1); HYALINE CASTS 1 /uL (0-3.1); PH,URINE 5.5 (5.0-8.0); URINE APPEARANCE CLEAR; URINE BACTERIA 32 /uL (0-1359); URINE BILIRUBIN NEGATIVE (NEGATIVE); URINE COLOR YELLOW; URINE GLUCOSE (UA) TRACE (NEGATIVE); URINE KETONE NEGATIVE (NEGATIVE); URINE LEUK ESTERASE 2+ (NEGATIVE); URINE NITRITE NEGATIVE (NEGATIVE); URINE PROTEIN 2+ (NEGATIVE); URINE RBC 21 /uL (0-23.9); URINE UROBILINOGEN 0.2 mg/dL (0.2-1.0); URINE WBC 198 /uL (0-25.8)
[2023-10-18 22:08] LABS: YEAST FEW (NEGATIVE)
[2023-10-18] MEDS ORDERED: CEFTRIAXONE 1 GM/50 ML BAG ONE (22:24)
[2023-10-18] MEDS: CEFTRIAXONE 1,000 MG in DEXTROSE 5%-WATER - 50 ML IVPB ONE (22:32)
[2023-10-19 08:30] LABS: BASO % 1.2 % (0-2.0); EOS % 5.6 % (0-4.5); HEMATOCRIT 25.9 % (32.4-45.2); HEMOGLOBIN 8.8 GM/dL (10.7-15.3); MCH 31.8 pg (25.7-33.7); MCHC 33.8 g/dl (32.0-36.0); MEAN CELL VOLUME 94.1 fl (80-96); MONO % 8.8 % (3.8-10.2); NEUT % 62.4 % (42.8-82.8); PLATELET COUNT 258 10^3/uL (134-434); RBC 2.76 M/mm3 (3.60-5.2); RDW 14.3 % (11.6-15.6); WHITE BLOOD COUNT 8.2 K/mm3 (4.0-10.0)
[2023-10-19 08:59] LABS: POTASSIUM 4.4 mmol/L (3.5-5.1)
[2023-10-19 09:02] LABS: CALCIUM 8.1 mg/dL (8.5-10.1)
[2023-10-19 09:03] LABS: BLOOD UREA NITROGEN 87.7 mg/dL (7-18)
[2023-10-19] MEDS: SODIUM CHLORIDE 1,000 ML IV SCH (09:41)
[2023-10-19] MEDS: HEPARIN NA (PORCINE) 5,000 UNITS/ML 1ML VIAL SQ SCH (10:42)
[2023-10-19] MEDS: CARVEDILOL 12.5 MG TABLET (FP) PO SCH (10:42)
[2023-10-19] MEDS: MULTIVITAMINS (DAILY MVI) TABLET (FP) PO SCH (10:42)
[2023-10-19] MEDS: CLOPIDOGREL BISULFATE 75 MG TABLET (FP) PO SCH (10:42)
[2023-10-19] MEDS: ASPIRIN COATED 81 MG TABLET.EC PO SCH (10:42)
[2023-10-19 15:31] LABS: N-TERMINAL BNP 2710.2 pg/ml (5-450)
[2023-10-19] MEDS: hydrALAZINE HCL 25 MG TABLET (FP) PO SCH (15:50)
[2023-10-19] MEDS: QUEtiapine FUMARATE 25 MG TABLET PO SCH (21:55)
[2023-10-19] MEDS: ATORVASTATIN CA 40 MG TABLET (FP) PO SCH (21:55)
[2023-10-20 07:21] LABS: BASO % 1.1 % (0-2.0); EOS % 3.7 % (0-4.5); HEMATOCRIT 25.5 % (32.4-45.2); HEMOGLOBIN 8.6 GM/dL (10.7-15.3); LYMPH % 22.6 % (8-40); MCH 31.7 pg (25.7-33.7); MCHC 33.7 g/dl (32.0-36.0); MEAN CELL VOLUME 94.1 fl (80-96); MEAN PLT VOLUME 9.2 fl (7.5-11.1); MONO % 8.1 % (3.8-10.2); NEUT % 64.5 % (42.8-82.8); PLATELET COUNT 261 10^3/uL (134-434); RBC 2.71 M/mm3 (3.60-5.2); RDW 14.6 % (11.6-15.6); WHITE BLOOD COUNT 9.1 K/mm3 (4.0-10.0)
[2023-10-20 07:35] LABS: POTASSIUM 5.1 mmol/L (3.5-5.1)
[2023-10-20 07:43] LABS: ALBUMIN 2.3 g/dl (3.4-5.0); CALCIUM 8.4 mg/dL (8.5-10.1)
[2023-10-20 07:44] LABS: BLOOD UREA NITROGEN 88.4 mg/dL (7-18)
[2023-10-20 07:46] LABS: CREATININE 3.8 mg/dL (0.55-1.3)
[2023-10-20 07:48] LABS: BILIRUBIN,TOTAL 0.3 mg/dL (0.2-1); TOT PROT 6.7 g/dl (6.4-8.2)
[2023-10-23 18:32] VITALS: RESP 18
[2023-10-23 18:34] VITALS: BP 122/52; PULSE 73; TEMP 97.5
== END 2023-10-20 14:45 | disposition home or self-care (01) ==
LOC: EDBD 16:03 → JER 16:03 → JERBED 20:58 → EDBD 20:58 → J4W 10-19 00:08
PROVIDERS: ADMIT Internal Medicine; ATTEND Internal Medicine
PROC: 3E033NZ Introduction of Analgesics, Hypnotics, Sedatives into Peripheral Vein, Percutaneous Approach (ICD-10-PCS; principal; 2023-10-18)
PROC: 3E03329 Introduction of Other Anti-infective into Peripheral Vein, Percutaneous Approach (ICD-10-PCS; 2023-10-18)
PROC: 3E023GC Introduction of Other Therapeutic Substance into Muscle, Percutaneous Approach (ICD-10-PCS; 2023-10-18)
PROC: 3E0337Z Introduction of Electrolytic and Water Balance Substance into Peripheral Vein, Percutaneous Approach (ICD-10-PCS; 2023-10-18)
DX: R53.1 Weakness (principal); I95.9 Hypotension, unspecified; E11.9 Type 2 diabetes mellitus without complications; I50.32 Chronic diastolic (congestive) heart failure; D64.9 Anemia, unspecified; G93.41 Metabolic encephalopathy; N17.9 Acute kidney failure, unspecified; E78.5 Hyperlipidemia, unspecified; F03.90 Unspecified dementia, unspecified severity, without behavioral disturbance, psychotic disturbance, mood disturbance, and anxiety; I10 Essential (primary) hypertension; I50.30 Unspecified diastolic (congestive) heart failure; K76.0 Fatty (change of) liver, not elsewhere classified; R16.0 Hepatomegaly, not elsewhere classified; Z88.0 Allergy status to penicillin
CPT/HCPCS: 0241U-QW; 36415; 70450-TC; 71045-TC-FY; 72125-TC; 80048; 80053; 80061; 81003; 82550; 83036; 83735; 83880; 84484; 85025; 87086; 93005; 93010; 93306-TC; 96361; 96365; 96372; 96375; 97116-GP; 97162-GP; 99285-25; G0378; J0131; J1644